=== PATIENT | male | born 1940 | race Caucasian/White ===

== ENCOUNTER 2017-01-24 11:18 | Day surgery (SDC) | payer MEDICARE, BC ==
[~2017-01-24 11:18] MED LIST: Lidocain 1% EPI 1:100,000 * 30 ML MDV ONE
[2017-01-24] MEDS ORDERED: Clindamycin 900 MG IVPREMIX(* 900 MG/50 ML SDV IV ONE (12:21)
[2017-01-24] MEDS ORDERED: Bupivacaine 0.25% SDV* 30 ML ONE (16:28)
[2017-01-24 17:02] VITALS: BP 139/63
--- NOTE | 2017-01-25 08:11 | OP ---
OPERATIVE REPORT: DATE OF OPERATION: 01/24/17 DATE OF : 38 SURGEON: Nicholas Reddy MD ELECTRICAL ASSISTANT: JESSICA Mays ANESTHESIOLOGIST: None. ANESTHESIA: Local only with 1% lidocaine with epinephrine and bicarbonate. PRE-OP DIAGNOSIS: Left middle finger radial sagittal band at least 4-week old rupture, closed rupture. POST-OP DIAGNOSIS: Left middle finger radial sagittal band at least 4-week old rupture, closed rupture. OPERATIVE PROCEDURE: Realignment of left middle finger extensor tendon with radial sagittal band repair using local tissue. INDICATIONS: Chris is a 77-year-old male. He has well controlled Parkinson' s. He was in boxing class little over 4 weeks ago when he fell and ruptured the sagittal band of the left middle finger. Since that time, he has had difficulty extending the finger, and he felt like it wants to go into ulnar deviation at the MP joint. I saw him in the office, and he was having arnaldo dislocation of the extensor tendon. I talked to him about treatment options including the trial of time lock expert extension splinting for 4 weeks versus surgical repair of the sagittal band versus potential reconstructive procedure. He wanted to proceed with surgical intervention. We talked about the expected treatment course, risks and benefits, and he wished to proceed. ESTIMATED BLOOD LOSS: 5 mL. COMPLICATIONS: None. FINDINGS: The extensor tendon of the left middle finger within the subluxated position ulnarly. There was adequate local tissue to perform a repair of the radial sagittal band. DESCRIPTION OF PROCEDURE: Chris was seen in the preoperative holding area. The correct site, side, and procedure were identified. We had a time-out and then I infiltrated the operative area with 1% lidocaine with epinephrine. We then came at the operating room. The arm was prepped and draped in the usual fashion and a formal time-out was performed. I began by making a curvilinear incision over the dorsum of the MP joint. There was a dense amount of scar tissue encountered. I then extended the incision proximally and distally to nontraumatized, nonscarred mash[place] tissue where the extensor tendon was found distally and proximally. I then traced it out through a thick bed of scar tissue, releasing the scar tissue and tenolysing the tendon. Ultimately, the tendon was sitting subluxated ulnarly. I did have to release the ulnar sagittal band in order to fully mobilize the tendon back up to the dorsum of the MP joint to a position that was satisfactory to me. Once I had performed an extensive tenolysis and removed all the scar tissue, I was able to better visualize what tissue I had to work with. I went ahead and excised the attenuated and scarred portion of the healing radial sagittal band back to clean, more normal-appearing organized collagen tissue with transverse oriented fibers. With the extensor tendon back up in the reduced position I brought the radial sagittal band up towards the extensor tendon. There was adequate tissue. So, I took two 3-0 Ethibond sutures in a [id number] fashion, sutured the radial sagittal band to the extensor tendon. I then had Chris gently make a fist. He brought the fingers down into a full fist and then extended the fingers. The finger glided absolutely smoothly. He was able to bring the finger back into full extension without any lag or catching. I had him make several more fists including with him watching. Again, the extensor tendon stayed centralized over the dorsum of the MP joint and he had full flexion and extension without any difficulties. This was in the MP joint and the IP joints. I then secured the repair with 3 more figure-of- eight sutures. Once I felt like the repair was nice and solid and I could not improve upon it, I went ahead and irrigated out the wound. The skin flaps were let back and the skin was closed with 4-0 nylon interrupted sutures. The wound was then dressed with Xeroform, 4x4s, sterile Webril, and a volar splint was placed holding the MP joint in full extension, but allowing for passive motion at the IP joints. Chris was then taken to the recovery room in stable condition. POSTOPERATIVE PLAN: I am going to see Chris back in 1 week and I am going to get him sent over to the therapist or have them make him an Orthoplast splint holding the MP joint in full extension. I am going to have them work on passive and gentle active motion at the IP joints. [id number]/[facility] #: [id number] SILVA
== END 2017-01-24 17:04 | disposition home or self-care (01) ==
LOC: OREAST 11:18
PROVIDERS: ATTEND Orthopaedic Surgery Hand Surgery
DX: S66.303A Unspecified injury of extensor muscle, fascia and tendon of left middle finger at wrist and hand level, initial encounter (principal); W19.XXXA Unspecified fall, initial encounter; Y93.89 Activity, other specified; Y92.9 Unspecified place or not applicable; I10 Essential (primary) hypertension; E78.5 Hyperlipidemia, unspecified; G20 Parkinson's disease; G47.33 Obstructive sleep apnea (adult) (pediatric)

== ENCOUNTER 2017-02-25 12:03 | Emergency (ER) | payer MEDICARE, BC ==
[2017-02-25 12:23] VITALS: BP 123/58
[2017-02-25] MEDS ORDERED: DOXYcycline CAP(*) 100 MG PO ONE (13:37)
--- NOTE | 2017-02-25 13:44 | UC ---
Skin Complaint HPI - HPI Summary HPI Summary: Found tick on L shoulder 2 days ago, thought it had been on for a couple days and was engorged. Is interested in antibiotic prophylaxis. Denies new fever or redness. - History of Current Complaint Chief Complaint: UCSkin Time Seen by Provider: 02/25/17 13:30 Stated Complaint: TICK BITE Hx Obtained From: Patient Onset/Duration: Sudden Onset Skin Exposure Onset/Duration: Days Ago Onset Severity: Mild Current Severity: None Location: Discrete Aggravating: Nothing Alleviating: Nothing Associated Signs & Symptoms: Positive: Negative Related History: Insect Bite/Sting - Allergy/Home Medications Allergies/Adverse Reactions: Allergies Allergy/AdvReac Type Severity Reaction Status Date / Time Penicillin V Allergy Unknown Unknown Verified 02/25/17 12:22 [From Penicillin VK Reaction Potassium] Details Shellfish Allergy Allergy Unknown Unknown Verified 02/25/17 12:22 Reaction Details Sulfa Drugs Allergy Unknown Unknown Verified 02/25/17 12:22 Reaction Details Review of Systems Constitutional: Negative Skin: Other - tick bite Eyes: Negative ENT: Negative Respiratory: Negative Cardiovascular: Negative Gastrointestinal: Negative Genitourinary: Negative Motor: Negative Neurovascular: Negative Musculoskeletal: Negative Neurological: Negative Psychological: Negative All Other Systems Reviewed And Are Negative: Yes PMH/Surg Hx/FS Hx/Imm Hx Previously Healthy: Yes - Surgical History Surgical History: Yes Surgery Procedure, Year, and Place: Appendectomy; Left Knee Arthroscopic Surgery ; Uvulopalatopharyngoplasty 1984' - Family History Known Family History: Positive: Hypertension - Social History Occupation: Retired Alcohol Use: Weekly Substance Use Type: None Smoking Status (MU): Never Smoked Tobacco - Immunization History Most Recent Tetanus Shot: UP TO DATE ( OF 03/09/15) Physical Exam Triage Information Reviewed: Yes Appearance: Well-Appearing, Obese Vital Signs: Initial Vital Signs Temp 98.4 F 02/25/17 12:19 Pulse 81 02/25/17 12:19 Resp 18 02/25/17 12:19 BP 123/58 02/25/17 12:19 Pulse Ox 99 02/25/17 12:19 Vital Signs Reviewed: Yes Eye Exam: Normal Eyes: Positive: Conjunctiva Clear ENT Exam: Normal ENT: Positive: Normal ENT inspection, Hearing grossly normal, Pharynx normal, TMs normal Dental Exam: Normal Neck exam: Normal Neck: Positive: Nontender Respiratory Exam: Normal Respiratory: Positive: Chest non-tender, Lungs clear, Normal breath sounds, No respiratory distress, No accessory muscle use Cardiovascular Exam: Normal Cardiovascular: Positive: RRR, No Murmur Musculoskeletal Exam: Other - pt has parkinson's, at baseline Neurological: Positive: Alert Psychological Exam: Normal Skin Exam: Other - tick bite site benign, no erythema, drainage, or streaking Course/Dx - Diagnoses Provider Diagnoses: tick bite. elevated blood pressure due to discomfort Discharge - Discharge Plan Condition: Stable Disposition: HOME Patient Education Materials: Tick Bite (ED) Referrals: Socrates Monge MD [Primary Care Provider] - Additional Instructions: If you develop any of the following, please see your physician promptly: (1) Fever, chills, or generalized malaise associated with a headache. (2) A red round area at the site of the bite (or elsewhere) (3) Joint pain, joint swelling or generalized weakness. (4) Redness, swelling, or drainage at the site of the bite. Check yourself, your children and your pets for ticks whenever you've been in an area where ticks live. To remove a tick, grasp it firmly with some tweezers or a string in a slipknot as close to its head as possible and pull it steadily. Ticks do not have a typical "head" attached to their body. There are mouth parts sticking out which they use to feed. If there are mouth parts left behind in the wound there is NO increased risk of Lyme infection; however, the chances of a bacterial skin infection (cellulitis) are higher. If mouth parts remain after tick removal, the best thing to do is apply warm soaks to the area 3-4 times per day to encourage the skin to expel the foreign material. DOXYCYCLINE: Doxycycline (Vibramycin, Doryx) is an antibiotic of the tetracycline family. This type of drug is useful for infections of the respiratory tract and genital tract, and is sometimes used for intestinal infections. Unlike most tetracyclines, doxycycline can be taken with food. It is longer acting, and (usually) less prone to side effects than regular tetracycline. Tetracycline antibiotics can stain immature teeth and SHOULD NOT BE TAKEN BY CHILDREN, NURSING MOTHERS, OR WOMEN. Tetracyclines can make you more prone to sunburn. Abdominal cramping, nausea, and diarrhea are occasional side effects. Women may experience vaginal yeast infections. Call the doctor at once if you develop hives, itching, shortness of breath , or lightheadedness. WHEN A TICK IS NOT ENGORGED AND HAS BEEN ON LESS THAN 24 HOURS - THE RISK FOR LYME IS NEGLIGIBLE. YOU CAN REMOVE THE TICK AND OBSERVE THE AREA ON YOUR OWN. FOLLOW-UP CARE: You should contact your private physician for follow-up care if you develop spreading redness near the site of the bite or on any other areas of the body. If you are unable to get a timely appointment, or if you are worsening, call us or return for re-evaluation.
== END 2017-02-25 13:48 | disposition home or self-care (01) ==
LOC: UCEAST 12:03
DX: S40.262A Insect bite (nonvenomous) of left shoulder, initial encounter (principal); W57.XXXA Bitten or stung by nonvenomous insect and other nonvenomous arthropods, initial encounter; Y93.9 Activity, unspecified; Y92.9 Unspecified place or not applicable; R03.0 Elevated blood-pressure reading, without diagnosis of hypertension; E66.9 Obesity, unspecified; Z88.2 Allergy status to sulfonamides; Z88.0 Allergy status to penicillin; Z91.013 Allergy to seafood
CPT/HCPCS: 99212; A9270-GY; G0463

== ENCOUNTER 2018-06-11 12:03 | Day surgery (SDC) | payer MEDICARE, BC ==
[~2018-06-11 12:03] MED LIST changes: +Acetaminophen TAB* 325 MG PO PRN; +Buffered Lidocaine 0.9% SYRIN* 5 ML/SYR SYRINGE INTRADERM ONE; +Cyclopentolate 1% OPTH.SOL* 2 ML BTL ONE; +Ketorolac 0.5% OPHTH (NF) 0.5 % 5 ML BTL ONE; -Lidocain 1% EPI 1:100,000 * 30 ML MDV ONE; +Lidocaine 1%* 5 ML VIAL ONE; +Lidocaine 2% EPI 1:200000 MPF*10-20 ML VIAL ONE; +Neomycin/Polymy/Dex OPTH.SUSP* MAXITROL 0.1% 5 ML ONE; +Phenylephrine 2.5% OPTH.SOL* 2 ML BTL ONE; +Povidone Iodine 5% OPTH* 30 ML BTL ONE; +Proparacaine 0.5% OPHTH.SOL* 15 ML BTL ONE; +acetaZOLAMIDE TAB* 250 MG ONE
[2018-06-11] MEDS ORDERED: Midazolam* 1 MG/ML 5 ML VIAL (5 MG) ONE (14:44)
[2018-06-11] MEDS ORDERED: fentaNYL* 50 MCG/ML 2 ML VIAL (100 MCG VIAL) ONE (14:47)
[2018-06-11 15:29] VITALS: BP 135/69
--- NOTE | 2018-06-12 12:40 | OP ---
DATE OF OPERATION: 06/11/18 - [facility] DATE OF : 38 SURGEON: Chris Charles MD PREOPERATIVE DIAGNOSIS: Cataract, right eye. POSTOPERATIVE DIAGNOSIS: Cataract, right eye. OPERATIVE PROCEDURE: Extracapsular cataract extraction with intraocular lens implant, right eye. DESCRIPTION OF PROCEDURE: The patient was brought to the operating room after being given 1/2% Alcaine with epinephrine drops in the preoperative area. The eye was prepped and draped in the usual sterile fashion. Sterile drape and eyelid speculum were placed. Again, topical 1/2% Alcaine with epinephrine was given. A paracentesis incision was made at the 9 o'clock position with the No.75 blade. Clear cornea incision 2.2 x 2.2-mm was created at the 12 o'clock position starting at the anterior limbus using the 2.2-mm keratome. The anterior chamber was irrigated with 0.4 mL of 1% non-preservative intracameral lidocaine and filled with DisCoVisc. A capsulorrhexis was completed using the cystotome and the Utrata forceps. Hydrodissection was performed with balanced salt solution. The lens nucleus was removed with the Phacoemulsification handpiece without incident. Cortex was removed with the irrigation-aspiration handpiece. The capsular bag was re-inflated using DisCoVisc and an SN60WF 18.5 implant was inserted with the shooter. The irrigation-aspiration handpiece was used to remove all residual DisCoVisc. The eye was refilled with balanced salt solution and the wound checked and found to be watertight. Topical Maxitrol drops were given. [id number]/[facility] #: [id number] [facility]
== END 2018-06-11 15:28 | disposition home or self-care (01) ==
LOC: OREAST 12:03
PROVIDERS: ATTEND Specialist
DX: H25.811 Combined forms of age-related cataract, right eye (principal); H35.371 Puckering of macula, right eye; I10 Essential (primary) hypertension; Z85.46 Personal history of malignant neoplasm of prostate; E78.00 Pure hypercholesterolemia, unspecified; Z88.0 Allergy status to penicillin; G47.33 Obstructive sleep apnea (adult) (pediatric); G20 Parkinson's disease
CPT/HCPCS: A9270-GY; J2250; J3010; V2632

== ENCOUNTER 2018-06-18 09:52 | Day surgery (SDC) | payer MEDICARE, BC ==
[~2018-06-18 09:52] MED LIST changes: -Acetaminophen TAB* 325 MG PO PRN; -Cyclopentolate 1% OPTH.SOL* 2 ML BTL ONE; -Ketorolac 0.5% OPHTH (NF) 0.5 % 5 ML BTL ONE; -Lidocaine 1%* 5 ML VIAL ONE; -Lidocaine 2% EPI 1:200000 MPF*10-20 ML VIAL ONE; -Neomycin/Polymy/Dex OPTH.SUSP* MAXITROL 0.1% 5 ML ONE; -Phenylephrine 2.5% OPTH.SOL* 2 ML BTL ONE; -Povidone Iodine 5% OPTH* 30 ML BTL ONE; -Proparacaine 0.5% OPHTH.SOL* 15 ML BTL ONE; -acetaZOLAMIDE TAB* 250 MG ONE
[2018-06-18] MEDS ORDERED: Propofol* 10 MG/ML 20 ML BTL IV PUSH ONE (12:23)
[2018-06-18 12:53] VITALS: BP 118/64
[2018-06-18] MEDS ORDERED: acetaZOLAMIDE TAB* 250 MG ONE (15:42)
[2018-06-18] MEDS ORDERED: Povidone Iodine 5% OPTH* 30 ML BTL ONE (15:42)
[2018-06-18] MEDS ORDERED: Ketorolac 0.5% OPHTH (NF) 0.5 % 5 ML BTL ONE (15:42)
[2018-06-18] MEDS ORDERED: Lidocaine 1%* 5 ML VIAL ONE (15:42)
[2018-06-18] MEDS ORDERED: Phenylephrine 2.5% OPTH.SOL* 2 ML BTL ONE (15:42)
[2018-06-18] MEDS ORDERED: Cyclopentolate 1% OPTH.SOL* 2 ML BTL ONE (15:42)
[2018-06-18] MEDS ORDERED: Proparacaine 0.5% OPHTH.SOL* 15 ML BTL ONE (15:42)
[2018-06-18] MEDS ORDERED: Lidocaine 2% EPI 1:200000 MPF*10-20 ML VIAL ONE (15:42)
[2018-06-18] MEDS ORDERED: Neomycin/Polymy/Dex OPTH.SUSP* MAXITROL 0.1% 5 ML ONE (15:42)
--- NOTE | 2018-06-19 03:00 | OP ---
DATE OF OPERATION: 06/18/18 [facility] DATE OF : 38 SURGEON: Chris Charles M.D. PREOPERATIVE DIAGNOSIS: Cataract, left. POSTOPERATIVE DIAGNOSIS: Cataract, left. OPERATIVE PROCEDURE: Extracapsular cataract extraction with intraocular lens implant, left eye. DESCRIPTION OF PROCEDURE: The patient was brought to the operating room after being given 1/2% Alcaine with epinephrine drops in the preoperative area. The eye was prepped and draped in the usual sterile fashion. Sterile drape and eyelid speculum were placed. Again, topical 1/2% Alcaine with epinephrine was given. A paracentesis incision was made at the 3 o'clock position with the No.75 blade. Clear cornea incision 2.2 x 2.2-mm was created at the 6 o'clock position starting at the anterior limbus using the 2.2-mm keratome. The anterior chamber was irrigated with 0.4 mL of 1% non-preservative intracameral lidocaine and filled with DisCoVisc. A capsulorrhexis was completed using the cystotome and the Utrata forceps. Hydrodissection was performed with balanced salt solution. The lens nucleus was removed with the Phacoemulsification handpiece without incident. Cortex was removed with the irrigation-aspiration handpiece. The capsular bag was re-inflated using DisCoVisc and an SN60WF 17.5 implant was inserted with the shooter. The irrigation-aspiration handpiece was used to remove all residual DisCoVisc. The eye was refilled with balanced salt solution and the wound checked and found to be watertight. Topical Maxitrol drops were given. [id number]/[facility] #: [id number] [facility]
== END 2018-06-18 12:58 | disposition home or self-care (01) ==
LOC: OREAST 09:52
PROVIDERS: ATTEND Specialist
DX: H25.812 Combined forms of age-related cataract, left eye (principal); H35.371 Puckering of macula, right eye; Z85.46 Personal history of malignant neoplasm of prostate; K21.9 Gastro-esophageal reflux disease without esophagitis; R73.02 Impaired glucose tolerance (oral); G47.33 Obstructive sleep apnea (adult) (pediatric); G20 Parkinson's disease; E78.2 Mixed hyperlipidemia
CPT/HCPCS: A9270-GY; J2704; V2632

== ENCOUNTER 2018-12-30 08:20 | Inpatient (IN) | payer MEDICARE, BC ==
--- NOTE | 2018-12-17 15:34 | HP ---
HISTORY AND PHYSICAL: DATE OF ADMISSION/SURGERY: 12/30/18 DATE OF OFFICE VISIT: 12/17/18 SURGEON: Kerri Swartz MD * (DICTATED BY JESSICA ESCALANTE) PROCEDURE: Right total knee arthroplasty. CHIEF COMPLAINT: Right knee pain. HISTORY OF PRESENT ILLNESS: Mr. Daley is a 78-year-old gentleman with end- stage osteoarthritis of the right knee. He has failed conservative treatment and elected to proceed with a right total knee arthroplasty. PAST MEDICAL HISTORY: Parkinson's disease, prostate cancer, high cholesterol, hypertension, sleep apnea, GERD, and history of Guillain-Upsala syndrome. PAST SURGICAL HISTORY: Appendectomy, hernia repair, left knee arthroscopy, cataract removal, and tonsillectomy. CURRENT MEDICATIONS: 1. Furosemide 20 mg 2 tabs in the morning. 2. Carbidopa/levodopa 25/100 mg 1 in the morning, 1 at noon, and half a tab at night. 3. Selegiline 5 mg 1 in the morning and 1 at noon. 4. Atorvastatin calcium 10 mg q.h.s. 5. Omeprazole 20 mg a day. 6. Ramipril 2.5 mg daily. 7. Fluticasone nasal spray as needed. 8. Vitamin B6. 9. Vitamin B12. 10. Folic acid. 11. [place]. 12. Calcium with vitamin D. 13. Magnesium. 14. Vitamin D. 15. Mucinex as needed. ALLERGIES: To PENICILLIN and SULFA. FAMILY HISTORY: Coronary artery disease. SOCIAL HISTORY: He is a 78-year-old gentleman, lives alone. He does not smoke or use drugs. He uses occasional alcohol. REVIEW OF SYSTEMS: A complete 14-point review of systems was reviewed with the patient, was all negative or noncontributory. He denies a history of DVT, PE, hepatitis, HIV, or anesthesia problems. PHYSICAL EXAMINATION GENERAL: He is well developed, well nourished, in no acute distress. VITAL SIGNS: He stands 5 feet 8 inches tall, weighs 244 pounds. His blood pressure is 128/62, his heart rate is 100. HEENT: Normocephalic, atraumatic. NECK: Supple. No palpable lymph nodes. PULMONARY: The lungs are clear to auscultation bilaterally. CARDIO: Regular rate and rhythm. Strong S1, S2. ABDOMEN: Soft, nontender, nondistended. NEUROLOGICAL: He is alert and oriented x3. MUSCULOSKELETAL: Right lower extremity: The skin is intact. There are no open wounds or abrasions. There is a moderate effusion of the right knee. Range of motion is 10 to 120 degrees of flexion. He has a 2+ dorsalis pedis pulse, intact sensation. His lower extremity muscle group strengths are intact at 5/5. ASSESSMENT AND PLAN: Mr. Daley is a 78-year-old gentleman with end-stage osteoarthritis of the right knee. He has failed conservative treatment and elected to proceed with a right total knee arthroplasty. The surgery is scheduled for 12/30/[address] Swartz has discussed the risks and benefits of the surgery at today's visit and all of his questions were answered. He will follow up with Dr. Swartz 2 weeks after the surgery. JESSICA ESCALANTE [id number]/[facility] #: [id number] SILVA
[~2018-12-30 08:20] MED LIST changes: -Buffered Lidocaine 0.9% SYRIN* 5 ML/SYR SYRINGE INTRADERM ONE; +Buffered Lidocaine 1% SYRIN* 1 ML/SYRINGE INTRADERM ONE; +Dexamethasone IV* 4 MG/ML 1 ML (4 MG) IV SLOW PU ONE; +Famotidine IV* 10 MG/ML 2 ML (20 mg) IV ONE; +Gabapentin CAP(*) 300 MG PO ONE; +Lactated Ringers 1000 ML Bag* 1,000 ML IV SCH; +Tranexamic Acid 1,000 MG in NS 0.9% 50 ML* (outpatient use) IV SCH; +celeCOXIB CAP* 200 MG PO ONE
--- OUTSIDE RECORDS SUMMARY | 2018-12-30 08:24 | XMS REPORT | Continuity of Care Document ---
:1940 External Reference #:[id number] Author Name JESSICA Pelaez Address [address], [place] [address] Care Team Providers Name Role Phone Lita Nur MD Primary Care Physician Unavailable Payers Date Identification Numbers Payment Provider Subscriber Effective: 2004 Policy Number: [id number] Medicare Ina Bettencourt PayID: [id number] [address] [place] [address] Effective: 2012 Policy Number: [id number] [employer]ets Ina Bettencourt PayID: [id number] [address] [address] [place] [address] Expires: 2012 Policy Number: [id number] BS Of [employer] Ina Bettencourt PayID: [id number] [address] [address] [place] [address] Advance Directives Type Date Description Status Comment Other Directive 04/01/2017 Health Care Proxy Current and Verified Problems Date Description Provider Status Onset: 04/20/2013 Parkinson's disease Dominic Hinds M.D.,FACP Onset: 06/07/2011 Malignant tumor of prostate Dominic Hinds M.D.,FACP Onset: 12/12/2007 Benign essential hypertension Dominic Hinds M.D.,FACP Onset: 12/12/2007 Mixed hyperlipidemia Dominic Hinds M.D.,FACP Onset: 01/27/2009 Morbid obesity Dominic Hinds M.D.,FACP Onset: 04/17/2012 Osteochondropathy Dominic Hinds M.D.,FACP Onset: 04/20/2013 Obstructive sleep apnea syndrome Dominic Hinds M.D.,TIMMY Note: on CPAP Onset: 04/20/2013 Impaired fasting glycaemia Dominic Hinds M.D.,FACP Onset: 04/22/2015 Gastroesophageal reflux disease Dominic Hinds M.D.,FACP Onset: 06/22/2015 Vitamin D deficiency Dominic Hinds M.D.,FACP Onset: 01/22/2017 Unspecified injury of extensor Nicholas Reddy MD Active muscle, fascia and tendon of left middle finger at wrist and hand level, initial encounter Onset: 08/25/2018 Urge incontinence of urine Dominic Hinds M.D.,FACP Onset: 12/12/2007 Obesity Socrates Monge Inactive Amira,FACP Inactive: 11/15/2011 Family History Date Family Member(s) Observation Comments General Heart Disease General Stroke General Cancer Father due to Heart () - in 60s Disease Mother Cancer kidney : (age 99 Mother due to Unknown PMR, GI bleed Years) Causes Mother Seizure Disorder Mother giant cell arteritis Siblings 2 First Brother benign pancreatic mass Social History Type Date Description Comments Sex Unknown Marital Status x2 Lives With Alone 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 Hand Dominance Right-handed Tobacco Use Start: Unknown Never Smoked Cigarettes ETOH Use 05/29/2018 Drinks Alcoholic Beverages Occasionally Recreational Drug Use Denies Drug Use Tobacco Use Start: Unknown Patient has never smoked Smoking Status Reviewed: 12/17/18 Patient has never smoked Exercise Type/Frequency Exercises regularly Exercise Type/Frequency Boxing class 2x per week Exercise Type/Frequency Theracycle 5x per week Allergies, Adverse Reactions, Alerts Date Description Reaction Status Severity Comments 12/12/2007 Penicillin Active 12/12/2007 Sulfa Active Medications Medication Date Status Form Strength Qnty SIG Indications Ordering Provider Shingrix 08/25 Active Suspension 50mcg/0.5 2unit 0.5 Rec ML s milliliters Mir Monge intramuscular Amira,FACP now and 2-3 months later repeat Voltaren 03/12 Active Gel 1% 100gm apply 4 grams M25.561 Zsofia to right knee Jeffrey, two times a NUTRITIONALIST day as needed Furosemide 08/06 Active Tablets 20mg 45tab 1 Tab Daily - s Take 2ND Tab MD Boom If Weight Over 252 LB Carbidopa-Levo 06/23 Active Tablets 25-100mg 225ta one tablet in bs the morning, Mejía, one at noon, N.P. half tab at night. Selegiline HCL 08/18 Active Tablets 5mg 180ta take one bs tablet by gregory Mejía in the N.P. morning and at noon Atorvastatin 02/04 Active Tablets 10mg 90tab take 1 tablet s by mouth at MD Boom bedtime Omeprazole 12/[address] 20mg 90cap 1 by mouth Socrates s every day as Mir Monge, nad[facility] Ramipril 11/05 Active Capsules 2.5mg 90cap take one I10 s capsule by MD Boom mouth once daily Fluticasone 04/04 Active Suspension 50mcg/Act 48uni use one ts spray(s) in MD Boom each nostril once daily as needed Vitamin B-6 Active Tablets 100mg 1 per day Unknown Vitamin B-12 Active Tablets Sub 1000mcg 1 by mouth Unknown once daily Folic Acid Active Tablets 400mcg 1n po qd Unknown Libia Active Tablets 180mg 30tab 1 po qd Unknown Allergy / s Calcium + D3 Active Tablets 600-200mg 1 po bid -Unit Magnesium Active Capsules 500mg 1 po qd Unknown Vitamin D Active Tablets 1000Unit 120ta 2 qd Socrates / bs fall/winter Mir Monge, and 1 qd by AmiraFACP mouth spring/summer Mucinex Active Tablets ER 600mg twice a day Unknown 12HR as needed Vitamin D 04/22 Hx Tablets 1000Unit once a day 733.90 Socrates (Cholecalcifer /2014 Mir Monge, dorene) Kanwal Collier,[facility] 02/26 Carbidopa/Levo 08/18 Hx Tablets 25-100mg 90tab / po qAM 1 Bri Dia s po q noon,09/17 Tod, - po q pm Alexandra.DFermin 06/23 Lipitor 03/05 Hx Tablets 10mg 100ta 1 po qhs Bri M. bs Kanwal Baron M.D. 03/09 Vitamin D 09/18 Hx Capsules 400Unit 60cap 1 po qd 733.90 Socrates Kanwal Santiago M.D.,[facility] 04/22 Alendronate 09/18 Hx Tablets 70mg 12tab Take One M89.9 Sodium s Tablet By Mir Monge, - Mouth Once A M.DFermin,[facility] Calcium 500 +D 11/14 Hx Tablets 500-400mg 60tab 1 po bid -Unit s Kanwal Ronquillo M.D.,[facility] 11/17 Atorvastatin 09/18 Hx Tablets 10mg 90tab Take 1 Tablet Socrates Calcium s By Mouth AT Mir Monge, - Bedtime Alexandra.Mir,[facility] 09/18 Simvastatin 06/20 Hx Tablets 10mg 90tab 1 po qhs Kanwal Santiago M.D.,[facility] 09/18 Omeprazole 04/[address] 20mg 30cap 1 po qd 786.2 Socrates Kanwal Santiago M.D.,[facility] 09/18 Altace 01/16 Hx Tablets 2.5mg 90tab 1 tablet po 401.1 Socrates s qdKanwal García M.D.,[facility] 11/05 no child proof Aspirin 04/[address] 81mg 50tab 1 po qd Socrates Kanwal Santiago M.D.,[facility] 12/16 Diovan 04/07 Hx Tablets 80mg 28tab 1 po qd 401.1 Socrates Kanwal Rodriguez M.D.,[facility] 01/16 Ciprofloxacin 02/08 Hx Tablets 250mg 20tab 1 tablet po. 788.41 Stevanovi s bid c, - Radomir, 08/02 Amira /2008 Levaquin 07/13 Hx Tablets 500mg 14tab 1 PO qd X 461.8 s 14days Kanwal Ronquillo M.D.,[facility] 01/27 Simvastatin 12/11 Hx Tablets 20mg 90tab 1 tablet po s qd Kanwal Ronquillo M.D.,[facility] 04/02 Asa Hx 81mg 1 PO qd Kanwal Ronquillo M.D.,[facility] 04/07 Flonase Hx Suspension 50mcg/Act 3mont 1 Intranasal hsupp puff To Each Mir Monge, - ly Nostril Daily Amira,[facility] 04/04 Libia Hx Tablets 60mg 180ta 1 po bid prn Socrates / bs Kanwal Ronquillo M.D.,[facility] 11/14 Altace Hx Tablets 2.5mg 90tab 1 tablet po 401.1 Socrates / s qday Kanwal Ronquillo M.D.,[facility] 04/07 no child proof Libia Hx Tablets 100mg 1 tab prn po Unknown Allergy /0000 - 04/20 Lupron Depot Hx Kit 30mg Im q4mon Unknown /0000 Final shot in - February 21 Magnesium Hx Tablets 250mg 1 po qd Unknown /0000 - 11/17 Ocuvite Hx Tablets 1 po qd Unknown Preservision /0000 - 04/22 Mucinex DM Hx Tablets ER 60-1200mg 60tab 1 po daily Unknown Maximum /0000 12HR s Strength - 03/07 Eye Drops Hx Solution 0.05-0.25 both eyes Unknown Relief /0000 % every day for - pressure 03/16 Furosemide Hx Tablets 20mg 45tab take 2 tablet Socrates / s every morning Mir Monge, - for 1 week, Amira,FACP 12/26 then daily. take 2nd pill if weight >252 Ocuvite Adult Hx Capsules 1 a day Unknown 50+ /0000 - 08/25 Meningococcal Active Injection Unknown B,Unspecified /0000 Immunizations CPT Code Status Date Vaccine Reaction Lot # [id number] Given 05/29/2018 Influenza Virus Vaccine, [id number] Quadrivalent, Split, Preservative Free 25614 Given 07/16/2017 Influenza Virus Vaccine, [id number] Quadrivalent, Split, Preservative Free 08969 Given 06/26/2016 Influ Virus Vaccine, Quadrivalent, [id number] Split Virus, [place] [address] Given 06/27/2015 Influenza Virus 3Yrs & Over 66721 Given 06/22/2015 Influenza Virus Vaccine, [id number] Quadrivalent, Split, Preservative Free 08881 Given 04/22/2015 Pneumococcal Conjugate Vaccine 13 [id number] Valent For Intramuscular Use 05211 Given 08/09/2014 Flu Vaccine Split Virus [id number] Preservative Free For Indiv 3Yr Older 77556 Given 04/21/2014 Tdap - Tetanus/Diptheria/Acellular [id number] Pertussis 66650 Given 06/29/2013 Flu Vaccine Split Virus [id number] Preservative Free For Indiv 3Yr Older Q2038 Given 05/29/2012 Fluzone Vaccine [id number] Q2038 Given 05/29/2012 Fluzone Vaccine [id number] Given 06/06/2011 Fluzone Vaccine [id number] 44891 Given 07/01/2010 Influenza Virus 3Yrs & Over 27577 Given 06/25/2008 Influenza Virus 3Yrs & Over 42932 Given 06/25/2008 Influenza Virus 3Yrs & Over [id number] 09723 Given 12/30/2007 Zoster (Zostavax) 26859 Given 12/30/2007 Zoster (Zostavax) 60137 Given 12/30/2007 Zoster (Zostavax) unknow site [id number] 79688 Given 07/23/2007 Influenza Virus 3Yrs & Over 50482 Given 05/09/2005 Pneumonia Vaccine 46138 Given 10/29/2003 Td Toxoids Adsorbed For Use 7Yrs Or Older For Intramuscular Use Vital Signs Date Vital Result Comment 12/17/2018 10:54am Height 68.75 inches 5'8.75" Weight 244.00 lb Heart Rate 100 /min BP Systolic 128 mmHg BP Diastolic 62 mmHg BMI (Body Mass Index) 36.3 kg/m2 12/16/2018 11:35am Height 68.75 inches 5'8.75" Weight 242.00 lb Heart Rate 86 /min BP Systolic 92 mmHg BP Diastolic 61 mmHg Body Temperature 97.1 F O2 % BldC Oximetry 95 % BMI (Body Mass Index) 36.0 kg/m2 11/19/2018 10:34am Height 68.75 inches 5'8.75" Weight 237.00 lb Heart Rate 96 /min BP Systolic 130 mmHg BP Diastolic 70 mmHg BMI (Body Mass Index) 35.2 kg/m2 11/10/2018 2:34pm Height 69.25 inches 5'9.25" Weight 252.25 lb Heart Rate 85 /min BP Systolic 138 mmHg BP Diastolic 72 mmHg Body Temperature 98.0 F O2 % BldC Oximetry 97 % BMI (Body Mass Index) 37.0 kg/m2 09/25/2018 9:53am Height 69.25 inches 5'9.25" Weight 241.12 lb Heart Rate 80 /min BP Systolic Sitting 108 mmHg Lue large cuff BP Diastolic Sitting 62 mmHg Lue large cuff Respiratory Rate 18 /min O2 % BldC Oximetry 94 % On Ra BMI (Body Mass Index) 35.3 kg/m2 08/26/2018 10:14am Height 69.25 inches 5'9.25" Weight 240.00 lb Heart Rate 84 /min BP Systolic 122 mmHg BP Diastolic 66 mmHg Respiratory Rate 16 /min BMI (Body Mass Index) 35.2 kg/m2 08/25/2018 11:05am Height 69.25 inches 5'9.25" Weight 244.00 lb Heart Rate 90 /min BP Systolic Sitting 132 mmHg BP Diastolic Sitting 60 mmHg Body Temperature 96.8 F O2 % BldC Oximetry 96 % BMI (Body Mass Index) 35.8 kg/m2 05/29/2018 9:31am Height 69.25 inches 5'9.25" Weight 246.00 lb Heart Rate 83 /min BP Systolic Sitting 120 mmHg BP Diastolic Sitting 70 mmHg Body Temperature 98.2 F O2 % BldC Oximetry 96 % BMI (Body Mass Index) 36.1 kg/m2 03/12/2018 11:32am Height 69.25 inches 5'9.25" Weight 249.12 lb Heart Rate 78 /min BP Systolic Sitting 126 mmHg BP Diastolic Sitting 64 mmHg Body Temperature 97.9 F O2 % BldC Oximetry 94 % BMI (Body Mass Index) 36.5 kg/m2 02/27/2018 10:29am Height 69.25 inches 5'9.25" Weight 248.12 lb Heart Rate 88 /min BP Systolic Sitting 122 mmHg BP Diastolic Sitting 68 mmHg Respiratory Rate 16 /min BMI (Body Mass Index) 36.4 kg/m2 10/08/2017 11:08am Height 69.25 inches 5'9.25" Weight 250.25 lb with shoes Heart Rate 86 /min BP Systolic Sitting 118 mmHg Lue large cuff BP Diastolic Sitting 60 mmHg Lue large cuff Respiratory Rate 16 /min O2 % BldC Oximetry 97 % On Ra BMI (Body Mass Index) 36.7 kg/m2 08/06/2017 12:59pm Height 69.25 inches 5'9.25" Weight 246.00 lb Heart Rate 90 /min BP Systolic Sitting 144 mmHg BP Diastolic Sitting 70 mmHg Body Temperature 96.9 F O2 % BldC Oximetry 97 % BMI (Body Mass Index) 36.1 kg/m2 07/25/2017 8:22am Height 70 inches 5'10" Weight 240.00 lb Heart Rate 79 /min BP Systolic Sitting 120 mmHg BP Diastolic Sitting 62 mmHg Respiratory Rate 18 /min BMI (Body Mass Index) 34.4 kg/m2 07/16/2017 3:24pm Height 70 inches 5'10" Weight 245.00 lb Heart Rate 72 /min Respiratory Rate 16 /min Body Temperature 98.0 F Pain Level 0 BMI (Body Mass Index) 35.1 kg/m2 04/16/2017 2:06pm Height 70 inches 5'10" Weight 244.00 lb BP Systolic 120 mmHg BP Diastolic 82 mmHg Body Temperature 97.5 F Pain Level 0 BMI (Body Mass Index) 35.0 kg/m2 04/03/2017 10:04am Height 70 inches 5'10" Weight 244.00 lb Heart Rate 76 /min BP Systolic Sitting 128 mmHg BP Diastolic Sitting 74 mmHg Respiratory Rate 14 /min O2 % BldC Oximetry 97 % BMI (Body Mass Index) 35.0 kg/m2 03/05/2017 2:54pm Height 70 inches 5'10" Weight 240.00 lb Heart Rate 75 /min BP Systolic 126 mmHg BP Diastolic 64 mmHg Body Temperature 96.3 F BMI (Body Mass Index) 34.4 kg/m2 02/08/2017 3:03pm Height 70 inches 5'10" Weight 240.00 lb Heart Rate 79 /min BP Systolic 124 mmHg BP Diastolic 69 mmHg Body Temperature 97.6 F BMI (Body Mass Index) 34.4 kg/m2 02/01/2017 11:26am Height 70 inches 5'10" Weight 240.00 lb Respiratory Rate 16 /min Body Temperature 97.7 F Pain Level 3 BMI (Body Mass Index) 34.4 kg/m2 01/22/2017 3:46pm Height 70 inches 5'10" Weight 240.00 lb Heart Rate 95 /min BP Systolic 126 mmHg BP Diastolic 69 mmHg Body Temperature 97.0 F BMI (Body Mass Index) 34.4 kg/m2 01/08/2017 3:38pm Weight 246.00 lb Heart Rate 74 /min BP Systolic Sitting 136 mmHg BP Diastolic Sitting 78 mmHg Body Temperature 98.0 F O2 % BldC Oximetry 99 % 12/31/2016 11:09am Height 70 inches 5'10" Weight 240.00 lb Heart Rate 78 /min BP Systolic Sitting 126 mmHg BP Diastolic Sitting 78 mmHg Respiratory Rate 16 /min O2 % BldC Oximetry 96 % BMI (Body Mass Index) 34.4 kg/m2 12/27/2016 11:36am Height 68.75 inches 5'8.75" Weight 250.00 lb Heart Rate 88 /min BP Systolic Sitting 124 mmHg BP Diastolic Sitting 80 mmHg Respiratory Rate 14 /min BMI (Body Mass Index) 37.2 kg/m2 10/02/2016 10:37am Height 68.75 inches 5'8.75" Weight 254.00 lb Heart Rate 84 /min BP Systolic 132 mmHg BP Diastolic 70 mmHg Respiratory Rate 16 /min O2 % BldC Oximetry 96 % BMI (Body Mass Index) 37.8 kg/m2 09/25/2016 11:14am Height 68.75 inches 5'8.75" Weight 254.00 lb Heart Rate 102 /min BP Systolic Sitting 136 mmHg BP Diastolic Sitting 62 mmHg Body Temperature 97.5 F O2 % BldC Oximetry 98 % BMI (Body Mass Index) 37.8 kg/m2 07/31/2016 2:46pm Height 68.75 inches 5'8.75" Weight 249.00 lb Heart Rate 97 /min BP Systolic Sitting 138 mmHg BP Diastolic Sitting 66 mmHg O2 % BldC Oximetry 98 % BMI (Body Mass Index) 37.0 kg/m2 07/24/2016 10:53am Height 70 inches 5'10" Weight 247.00 lb Heart Rate 96 /min BP Systolic Sitting 116 mmHg BP Diastolic Sitting 64 mmHg Respiratory Rate 14 /min BMI (Body Mass Index) 35.4 kg/m2 06/26/2016 11:20am Height 70 inches 5'10" Weight 250.00 lb reported Heart Rate 88 /min BP Systolic 122 mmHg BP Diastolic 60 mmHg Respiratory Rate 14 /min O2 % BldC Oximetry 97 % BMI (Body Mass Index) 35.9 kg/m2 04/24/2016 4:00pm Weight 259.00 lb Heart Rate 90 /min BP Systolic Sitting 141 mmHg BP Diastolic Sitting 73 mmHg O2 % BldC Oximetry 97 % 03/23/2016 11:14am Height 68 inches 5'8" Weight 250.00 lb Heart Rate 91 /min BP Systolic Sitting 132 mmHg BP Diastolic Sitting 70 mmHg Respiratory Rate 18 /min O2 % BldC Oximetry 97 % BMI (Body Mass Index) 38.0 kg/m2 03/08/2016 1:49pm Height 68 inches 5'8" Weight 252.00 lb Heart Rate 84 /min BP Systolic Sitting 128 mmHg BP Diastolic Sitting 64 mmHg Respiratory Rate 14 /min BMI (Body Mass Index) 38.3 kg/m2 12/23/2015 11:14am Height 68 inches 5'8" Weight 250.00 lb Heart Rate 89 /min BP Systolic 118 mmHg BP Diastolic 70 mmHg Respiratory Rate 14 /min O2 % BldC Oximetry 98 % BMI (Body Mass Index) 38.0 kg/m2 11/11/2015 11:24am Height 68 inches 5'8" Weight 250.00 lb Heart Rate 96 /min BP Systolic Sitting 134 mmHg BP Diastolic Sitting 72 mmHg Respiratory Rate 18 /min O2 % BldC Oximetry 97 % BMI (Body Mass Index) 38.0 kg/m2 10/27/2015 9:28am Height 68 inches 5'8" Weight 245.00 lb Heart Rate 84 /min BP Systolic Sitting 124 mmHg BP Diastolic Sitting 68 mmHg Respiratory Rate 14 /min BMI (Body Mass Index) 37.2 kg/m2 09/27/2015 10:43am Height 68 inches 5'8" Weight 259.12 lb Heart Rate 90 /min BP Systolic 124 mmHg BP Diastolic 80 mmHg Respiratory Rate 14 /min O2 % BldC Oximetry 98 % BMI (Body Mass Index) 39.4 kg/m2 08/17/2015 10:49am Height 68.5 inches 5'8.50" Weight 255.25 lb Heart Rate 96 /min BP Systolic 130 mmHg BP Diastolic 70 mmHg Respiratory Rate 16 /min O2 % BldC Oximetry 98 % BMI (Body Mass Index) 38.2 kg/m2 06/22/2015 2:23pm Height 68.5 inches 5'8.50" Weight 255.25 lb Heart Rate 98 /min BP Systolic Sitting 138 mmHg BP Diastolic Sitting 68 mmHg Body Temperature 97.7 F O2 % BldC Oximetry 98 % BMI (Body Mass Index) 38.2 kg/m2 05/18/2015 11:14am Height 68.5 inches 5'8.50" Weight 252.50 lb Heart Rate 100 /min BP Systolic 138 mmHg BP Diastolic 78 mmHg Respiratory Rate 16 /min Body Temperature 98.7 F O2 % BldC Oximetry 98 % BMI (Body Mass Index) 37.8 kg/m2 04/22/2015 9:57am Height 68.5 inches 5'8.50" Weight 246.12 lb Heart Rate 90 /min BP Systolic Sitting 136 mmHg BP Diastolic Sitting 72 mmHg Body Temperature 97.9 F O2 % BldC Oximetry 98 % BMI (Body Mass Index) 36.9 kg/m2 04/21/2015 11:06am Height 69 inches 5'9" Heart Rate 76 /min BP Systolic Sitting 120 mmHg BP Diastolic Sitting 62 mmHg Respiratory Rate 16 /min 03/16/2015 9:44am Height 69 inches 5'9" Weight 254.00 lb Heart Rate 88 /min BP Systolic Sitting 120 mmHg BP Diastolic Sitting 68 mmHg Body Temperature 98.1 F O2 % BldC Oximetry 96 % BMI (Body Mass Index) 37.5 kg/m2 12/14/2014 11:56am Height 69 inches 5'9" Heart Rate 88 /min BP Systolic Sitting 110 mmHg BP Diastolic Sitting 60 mmHg Respiratory Rate 16 /min 07/29/2014 11:48am Height 69 inches 5'9" Weight 246.00 lb Heart Rate 84 /min BP Systolic Sitting 112 mmHg BP Diastolic Sitting 78 mmHg Respiratory Rate 16 /min BMI (Body Mass Index) 36.3 kg/m2 04/21/2014 1:52pm Height 69 inches 5'9" Weight 249.50 lb Heart Rate 96 /min BP Systolic Sitting 110 mmHg BP Diastolic Sitting 52 mmHg Body Temperature 98.3 F BMI (Body Mass Index) 36.8 kg/m2 04/08/2014 11:38am Height 69.5 inches 5'9.50" Weight 246.00 lb Heart Rate 88 /min BP Systolic Sitting 110 mmHg BP Diastolic Sitting 60 mmHg Respiratory Rate 16 /min BMI (Body Mass Index) 35.8 kg/m2 11/17/2013 11:47am Heart Rate 80 /min BP Systolic Sitting 118 mmHg BP Diastolic Sitting 70 mmHg Respiratory Rate 16 /min 08/18/2013 10:04am Heart Rate 80 /min BP Systolic Sitting 120 mmHg BP Diastolic Sitting 68 mmHg Respiratory Rate 18 /min 04/20/2013 2:25pm Height 69.5 inches 5'9.50" Weight 248.00 lb Heart Rate 84 /min irregular BP Systolic Sitting 140 mmHg BP Diastolic Sitting 66 mmHg BMI (Body Mass Index) 36.1 kg/m2 03/09/2013 1:02pm Height 69 inches 5'9" Weight 252.50 lb Heart Rate 92 /min BP Systolic Sitting 142 mmHg BP Diastolic Sitting 70 mmHg BMI (Body Mass Index) 37.3 kg/m2 03/05/2013 12:41pm Height 69 inches 5'9" Weight 250.00 lb Heart Rate 92 /min BP Systolic Sitting 140 mmHg BP Diastolic Sitting 80 mmHg Respiratory Rate 16 /min BMI (Body Mass Index) 36.9 kg/m2 10/31/2012 8:09am Heart Rate 80 /min BP Systolic Sitting 116 mmHg BP Diastolic Sitting 62 mmHg Respiratory Rate 16 /min 09/18/2012 2:56pm Height 69 inches 5'9" Weight 245.00 lb Heart Rate 80 /min BP Systolic Sitting 132 mmHg BP Diastolic Sitting 64 mmHg BMI (Body Mass Index) 36.2 kg/m2 04/17/2012 3:17pm Height 69 inches 5'9" Weight 248.00 lb Heart Rate 94 /min BP Systolic Sitting 112 mmHg BP Diastolic Sitting 62 mmHg Body Temperature 98.5 F rt ear BMI (Body Mass Index) 36.6 kg/m2 11/15/2011 2:25pm Height 69.25 inches 5'9.25" Weight 244.00 lb Heart Rate 88 /min BP Systolic Sitting 140 mmHg BP Diastolic Sitting 74 mmHg BMI (Body Mass Index) 35.8 kg/m2 06/20/2011 9:20am Weight 246.00 lb Heart Rate 84 /min BP Systolic Sitting 130 mmHg BP Diastolic Sitting 66 mmHg 04/02/2011 10:47am Height 70 inches 5'10" Weight 252.00 lb Heart Rate 78 /min BP Systolic Sitting 132 mmHg BP Diastolic Sitting 72 mmHg Respiratory Rate 20 /min BMI (Body Mass Index) 36.2 kg/m2 04/07/2010 10:11am Height 70.5 inches 5'10.50" Weight 258.00 lb Heart Rate 88 /min BP Systolic Sitting 150 mmHg BP Diastolic Sitting 80 mmHg BMI (Body Mass Index) 36.5 kg/m2 08/02/2009 1:17pm Height 70.5 inches 5'10.50" Weight 254.00 lb Heart Rate 90 /min BP Systolic Sitting 154 mmHg BP Diastolic Sitting 72 mmHg BMI (Body Mass Index) 35.9 kg/m2 02/14/2009 9:46am Height 70.5 inches 5'10.50" Weight 258.00 lb Heart Rate 88 /min BP Systolic Sitting 162 mmHg BP Diastolic Sitting 78 mmHg Respiratory Rate 20 /min BMI (Body Mass Index) 36.5 kg/m2 02/08/2009 8:26am Height 70.5 inches 5'10.50" Weight 256.00 lb Heart Rate 90 /min BP Systolic Sitting 154 mmHg BP Diastolic Sitting 74 mmHg Respiratory Rate 20 /min BMI (Body Mass Index) 36.2 kg/m2 02/02/2009 8:49am Height 70.5 inches 5'10.50" Weight 259.00 lb Heart Rate 84 /min BP Systolic Sitting 146 mmHg BP Diastolic Sitting 70 mmHg BMI (Body Mass Index) 36.6 kg/m2 01/27/2009 1:28pm Height 70.5 inches 5'10.50" Weight 262.00 lb Heart Rate 84 /min BP Systolic Sitting 146 mmHg BP Diastolic Sitting 80 mmHg BMI (Body Mass Index) 37.1 kg/m2 07/13/2008 1:07pm Height 70.5 inches 5'10.50" Weight 255.00 lb Heart Rate 96 /min BP Systolic Sitting 142 mmHg BP Diastolic Sitting 72 mmHg Body Temperature 99.4 F BMI (Body Mass Index) 36.1 kg/m2 07/13/2008 1:05pm Height 70.5 inches 5'10.50" 12/12/2007 9:49am Height 70.5 inches 5'10.50" Weight 246.00 lb Heart Rate 72 /min BP Systolic Sitting 150 mmHg BP Diastolic Sitting 64 mmHg Respiratory Rate 20 /min Body Temperature 97.7 F oral BMI (Body Mass Index) 34.8 kg/m2 Results Test Date Facility Test Result H/L Range Note Inr/Protime 12/17/2018 [facility] Inr 1.02 N 0.77-1.[address] [place], [place] [id number] [phone] Laboratory test 12/17/2018 [facility] Partial 31.3 seconds N 26.0-36.[address] [place] [address] PTT [phone] Type & Screen 12/17/2018 [facility] Patient Blood A Negative [address] [place] [address] [phone] Antibody Screen NEGATIVE CBC Auto Diff 12/16/2018 [facility] White Blood 7.6 10^3/uL N 3.5-10.[address] [place] [address] [phone] Red Blood Count 4.78 10^6/uL N 4.18-5.48 Hemoglobin 15.2 g/dL N 14.0-18.0 Hematocrit 45 % N 36-46 Mean Corpuscular Volume 94 fL N 80-94 Mean Corpuscular Hemoglobin 32 pg High 27-31 Mean Corpuscular HGB Conc 34 g/dL N 31-36 Red Cell Distribution Width 15 % N 10.5-15 Platelet Count 194 10^3/uL N 150-450 Mean Platelet Volume 9.1 fL N 7.4-10.4 Abs Neutrophils 4.6 10^3/uL N 1.5-7.7 Abs Lymphocytes 2.3 10^3/uL N 1.0-4.8 Abs Monocytes 0.6 10^3/uL N 0-0.8 Abs Eosinophils 0 10^3/uL N 0-0.6 Abs Basophils 0 10^3/uL N 0-0.2 Abs Nucleated RBC 0 10^3/uL Granulocyte % 60.6 % Lymphocyte % 30.8 % Monocyte % 8.2 % Eosinophil % 0.2 % Basophil % 0.2 % Nucleated Red Blood Cells % 0.1 Comp Metabolic Panel 12/16/2018 [facility] Sodium 140 mmol/L N 135-145 [place] [address] [phone] Potassium 4.3 mmol/L N 3.5-5.0 Chloride 103 mmol/L N 101-111 Co2 Carbon Dioxide 30 mmol/L N 22-32 Anion Gap 7 mmol/L N 2-11 Glucose 77 mg/dL N 70-100 Blood Urea Nitrogen 20 mg/dL N 6-24 Creatinine 1.18 mg/dL High 0.67-1.17 BUN/Creatinine Ratio 16.9 N 8-20 Calcium 9.4 mg/dL N 8.6-10.3 Total Protein 7.1 g/dL N 6.4-8.9 Albumin 4.3 g/dL N 3.2-5.2 Globulin 2.8 g/dL N 2-4 Albumin/Globulin Ratio 1.5 N 1-3 Total Bilirubin 0.50 mg/dL N 0.2-1.0 Alkaline Phosphatase 88 U/L N 34-104 Alt 6 U/L Low 7-52 Ast 19 U/L N 13-39 Egfr Non- 59.5 >60 Egfr 72.1 >60 1 Urine Culture And 12/16/2018 [facility] Urine Culture SEE RESULT [address] [address] [phone] Urinalysis Profile 12/16/2018 [facility] Urine [place] [address] [phone] Urine Appearance Clear Urine Specific Bryant 1.013 N 1.010-1.030 Urine pH 5.0 N 5-9 Urine Urobilinogen Negative Negative Urine Ketones Negative Negative Urine Protein Negative Negative Urine Leukocytes Negative Negative Urine Blood 1+ Abnormal Negative Urine Nitrite Negative Negative Urine Bilirubin Negative Negative Urine Glucose Negative Negative Urine White Blood Cell Trace(0-5/hpf) Absent Urine Red Blood Cell Trace(0-2/hpf) Absent Urine Bacteria Absent Absent Urine Hyaline Casts Present Abnormal Absent Laboratory 11/10/2018 [facility] TSH (Thyroid Stim 2.18 N 0.34 -5.[address] Horm) mcIU/[place] [address] [phone] Lipid Profile 05/05/2018 [facility] Triglycerides 87 mg/dL 3 (Trig/Chol/HDL [address] ) [place] [address] [phone] Cholesterol 149 mg/dL 4 HDL Cholesterol 57.2 mg/dL 5 LDL Cholesterol 74 mg/dL 6 Basic Metabolic Panel 05/05/2018 [facility] Sodium 142 mmol/L N 135-[address] [place] [address] [phone] Potassium 4.0 mmol/L N 3.5-5.0 Chloride 107 mmol/L N 101-111 Co2 Carbon Dioxide 29 mmol/L N 22-32 Anion Gap 6 mmol/L N 2-11 Glucose 91 mg/dL N 70-100 Blood Urea Nitrogen 20 mg/dL N 6-24 Creatinine 1.08 mg/dL N 0.67-1.17 BUN/Creatinine Ratio 18.5 N 8-20 Calcium 8.7 mg/dL N 8.6-10.3 Egfr Non- 66.0 >60 Egfr 79.8 >60 7 Laboratory test 05/05/2018 [facility] Vitamin D Total 25.6 ng/ mL N 20-[address] 25(Oh) [place] [address] [phone] Laboratory test 04/18/2018 [facility] PSA Screening 0.042 0- 4.0 [address] ng/[place] [address] [phone] Laboratory test 10/01/2017 [facility] PSA Screening 0.067 0- 4.[address] ng/[place] [address] [phone] Laboratory test 04/30/2017 [facility] Vitamin D Total 35.6 ng/ mL N 30-50 [address] 25(Oh) [place] [address] [phone] Lipid Profile 04/30/2017 [facility] Triglycerides 56 mg/dL N 12 (Trig/Chol/HDL) [address] [place] [address] [phone] Cholesterol 157 mg/dL N 13 HDL Cholesterol 58.1 mg/dL N 14 LDL Cholesterol 88 mg/dL N 15 Comp Metabolic Panel 04/30/2017 [facility] Sodium 140 mmol/L N 133-145 [address] [place] [address] [phone] Potassium 4.5 mmol/L N 3.5-5.0 Chloride 105 mmol/L N 101-111 Co2 Carbon Dioxide 29 mmol/L N 22-32 Anion Gap 6 mmol/L N 2-11 Glucose 88 mg/dL N 70-100 Blood Urea Nitrogen 21 mg/dL N 6-24 Creatinine 1.07 mg/dL N 0.67-1.17 BUN/Creatinine Ratio 19.6 N 8-20 Calcium 9.1 mg/dL N 8.6-10.3 Total Protein 6.8 g/dL N 6.4-8.9 Albumin 4.0 g/dL N 3.2-5.2 Globulin 2.8 g/dL N 2-4 Albumin/Globulin Ratio 1.4 N 1-3 Total Bilirubin 0.70 mg/dL N 0.2-1.0 Alkaline Phosphatase 64 U/L N 34-104 Alt 21 U/L N 7-52 Ast 24 U/L N 13-39 Egfr Non- 66.8 N >60 Egfr 86.0 N >60 16 Laboratory test 09/20/2016 [facility] PSA Screening 0.055 ng/mL N 0-4.0 17 finding [address] [place] [address] [phone] Basic Metabolic 05/07/2016 [facility] Sodium 139 mmol/L N 133- 145 Panel 101 [place] [address] [phone] Potassium 4.1 mmol/L N 3.5-5.0 Chloride 104 mmol/L N 101-111 Co2 Carbon Dioxide 27 mmol/L N 22-32 Anion Gap 8 mmol/L N 2-11 Glucose 80 mg/dL N 70-100 Blood Urea Nitrogen 14 mg/dL N 6-24 Creatinine 1.12 mg/dL N 0.67-1.17 BUN/Creatinine Ratio 12.5 N 8-20 Calcium 9.1 mg/dL N 8.6-10.3 Egfr Non- 63.6 N >60 Egfr 81.8 N >60 18 Laboratory test 05/07/2016 [facility] Vitamin D Total 33.5 ng/ mL N 30-50 19 finding [address] [facility] 25(Oh) [place] [address] [phone] Lipid Profile 05/07/2016 [facility] Triglycerides 90 mg/dL N 20 (Trig/Chol/HDL) [address] [place] [address] [phone] Cholesterol 143 mg/dL N 21 HDL Cholesterol 50.8 mg/dL N 22 LDL Cholesterol 74 mg/dL N 23 Liver Function 05/07/2016 [facility] Total Protein 6.9 g/dL N 6.4-8.[address] [place] [address] [phone] Albumin 3.8 g/dL N 3.2-5.2 Globulin 3.1 g/dL N 2-4 Albumin/Globulin Ratio 1.2 N 1-3 Total Bilirubin 0.70 mg/dL N 0.2-1.0 Direct Bilirubin 0.10 mg/dL N 0.03-0.18 Indirect Bilirubin 0.6 mg/dL N 0.3-1.0 Alkaline Phosphatase 66 U/L N 34-104 Alt 19 U/L N 7-52 Ast 22 U/L N 13-39 Laboratory test 03/07/2016 [facility] PSA Diagnostic 0.048 N 0 -4.0 [address] ng/[place] [address] [phone] Laboratory test 08/26/2015 [facility] PSA Diagnostic 0.050 N 0 -4.0 [address] ng/[place] [address] [phone] Laboratory test 06/24/2015 [facility] TSH (Thyroid 2.56 N 0.34 -5.[address] Stim Horm) ?IU/[place] [address] [phone] Free T4 (Free Thyroxine) 0.76 ng/mL N 0.61-1.12 Laboratory test 06/16/2015 [facility] Vitamin D Total 32.2 N 30-[address] 25(Oh) ng/[place] [address] [phone] Lipid Profile 04/19/2015 Triglycerides 113 mg/dL N 26, 27 (Trig/Chol/HDL) Cholesterol 158 mg/dL N 28 HDL Cholesterol 42.7 mg/dL N 29 LDL Cholesterol 93 mg/dL N 30 Comp Metabolic Panel 04/19/2015 Sodium 142 mmol/L N 133-145 Potassium 3.8 mmol/L N 3.5-5.0 Chloride 107 mmol/L N 101-111 Co2 Carbon Dioxide 30 mmol/L N 22-32 Anion Gap 5 mmol/L N 2-11 Glucose 91 mg/dL N 70-100 Blood Urea Nitrogen 15 mg/dL N 6-24 Creatinine 0.93 mg/dL N 0.67-1.17 BUN/Creatinine Ratio 16.1 N 8-20 Calcium 8.7 mg/dL N 8.6-10.3 Total Protein 6.4 g/dL N 6.4-8.9 Albumin 3.8 g/dL N 3.2-5.2 Globulin 2.6 g/dL N 2-4 Albumin/Globulin Ratio 1.5 N 1-3 Total Bilirubin 0.60 mg/dL N 0.2-1.0 Alkaline Phosphatase 64 U/L N 34-104 Alt 18 U/L N 7-52 Ast 22 U/L N 13-39 Egfr Non- 79.0 N >60 Egfr 101.6 N >60 31 Laboratory test 04/19/2015 Vitamin D Total 23.1 ng/mL Low 30-50 32 finding 25(Oh) Laboratory test 02/23/2015 [facility] Testosterone Total 209.84 Low 240-[address] ng/[place] [address] [phone] PSA Diagnostic 0.047 ng/mL N 0-4.0 33 Laboratory test 08/24/2014 [facility] Testosterone 170.96 Low 240-[address] ng/[place] [address] [phone] PSA Diagnostic 0.025 ng/mL N 0-4.0 34 Lipid Profile (Trig/Chol/HDL) 04/15/2014 Triglycerides 194 mg/dL N 35 Cholesterol 166 mg/dL N 36 HDL Cholesterol 50.2 mg/dL N 37 LDL Cholesterol 77 mg/dL N 38 Comp Metabolic Panel 04/15/2014 Sodium 140 mmol/L N 133-145 Potassium 4.3 mmol/L N 3.7-5.6 Chloride 106 mmol/L N 101-111 Co2 Carbon Dioxide 28 mmol/L N 22-32 Anion Gap 6 mmol/L N 2-11 Glucose 87 mg/dL N 70-100 Blood Urea Nitrogen 22 mg/dL N 6-24 Creatinine 0.86 mg/dL N 0.67-1.17 BUN/Creatinine Ratio 25.6 High 8-20 Calcium 8.9 mg/dL N 8.6-10.3 Total Protein 6.4 g/dL N 6.4-8.9 Albumin 3.8 g/dL N 3.2-5.2 Globulin 2.6 g/dL N 2-4 Albumin/Globulin Ratio 1.5 N 1-3 Total Bilirubin 0.40 mg/dL N 0.2-1.0 Alkaline Phosphatase 66 U/L N 34-104 Alt 17 U/L N 7-52 Ast 20 U/L N 13-39 Egfr Non- 86.7 N >60 Egfr 111.5 N >60 39 Laboratory test 02/22/2014 [facility] Testosterone 113.67 Low 240-[address] ng/[place] [address] [phone] PSA Diagnostic 0.011 ng/mL N 0-4.0 40 CBC No Diff 10/26/2013 [facility] White Blood 6.2 10^3/uL 4.8 -10.[address] [place] [address] [phone] Red Blood Count 4.51 10^6/uL 4.0-5.4 Hemoglobin 14.2 g/dL 14.0-18.0 Hematocrit 42 % 42-52 Mean Corpuscular Volume 93 fL 80-94 Mean Corpuscular Hemoglobin 32 pg High 27-31 Mean Corpuscular HGB Conc 34 g/dL 31-36 Red Cell Distribution Width 15 % 10.5-15 Platelet Count 184 10^3/uL 150-450 Mean Platelet Volume 9 um3 7.4-10.4 Laboratory test 08/20/2013 [facility] Testosterone < 10 ng/dL Low 175-[address] [place] [address] [phone] PSA Diagnostic < 0.008 ng/mL 0-4.000 41 Laboratory test 04/23/2013 [facility] Creatine 118 U/L 0-[address] [place] [address] [phone] Laboratory test 04/14/2013 [facility] Lyme Disease Negative Negative [address] [place] [address] [phone] CMP Panel 04/14/2013 [facility] Sodium 138 mmol/L 133-145 [address] [place] [address] [phone] Potassium 4.4 mmol/L 3.5-5.0 Chloride 106 mmol/L 101-111 Co2 Carbon Dioxide 26.0 mmol/L 22-32 Anion Gap 6.0 mmol/L 2-11 Glucose 104 mg/dL High 70-100 Blood Urea Nitrogen 19 mg/dL 6-24 Creatinine 0.90 mg/dL 0.50-1.40 BUN/Creatinine Ratio 21.1 High 8-20 Calcium 9.4 mg/dL 8.1-9.9 Total Protein 6.5 g/dL 6.2-8.1 Albumin 3.5 g/dL 3.2-5.2 Globulin 3.0 g/dL 2-4 Albumin/Globulin Ratio 1.2 1-3 Total Bilirubin 0.7 mg/dL 0.4-1.5 Alkaline Phosphatase 58 U/L 30-110 Alt 25 U/L 14-54 Ast 28 U/L 12-42 Egfr Non- 82.5 >60 Egfr 106.1 >60 43 Lipid Panel 04/14/2013 [facility] Triglycerides 75 mg/dL 40- 200 [address] [place] [address] [phone] Cholesterol 182 mg/dL Less than 200 HDL Cholesterol 64 mg/dL High 40-60 44 Cholesterol/HDL Ratio 2.8 Average 1-4.44 LDL Cholesterol 103.0 High Less Than 100 45 Laboratory test 03/09/2013 [facility] Lyme Disease Negative Negative 46 finding 101 [facility] [place] [address] [phone] Laboratory test 02/20/2013 [facility] PSA Diagnostic 0.01 ng/mL 0-4.0 47 finding [address] [place] [address] [phone] Laboratory test 10/21/2012 [facility] PSA Diagnostic 0.02 ng/mL 0-4.0 48 finding [address] [place] [address] [phone] BMP Basic 09/13/2012 [facility] Sodium 138 mmol/L 133-145 Metabolic Panel [address] [place] [address] [phone] Potassium 4.4 mmol/L 3.5-5.0 Chloride 105 mmol/L 101-111 Co2 Carbon Dioxide 29.0 mmol/L 22-32 Anion Gap 4.0 mmol/L 2-11 Glucose 91 mg/dL 70-100 Blood Urea Nitrogen 22 mg/dL 6-24 Creatinine 1.10 mg/dL 0.50-1.40 BUN/Creatinine Ratio 20.0 8-20 Calcium 9.2 mg/dL 8.1-9.9 Egfr Non- 65.6 >60 Egfr 84.4 >60 49 Lipid Panel 09/13/2012 [facility] Triglycerides 107 mg/dL 40- 200 [address] [place] [address] [phone] Cholesterol 247 mg/dL High Less than 200 HDL Cholesterol 58 mg/dL 40-60 50 Cholesterol/HDL Ratio 4.3 Average 1-4.44 LDL Cholesterol 167.6 mg/dL High Less Than 100 51 Vitamin D,25 09/13/2012 [facility] 25-Hydroxy Vitamin <4.0 ng/ mL Hydroxy [address] [address] [phone] 25-Hydroxy Vitamin D3 32 ng/mL 25-Hydroxy Vitamin D Total 32 ng/mL 52 Laboratory test 06/13/2012 [facility] PSA,Diagnostic 0.0 NG/ML 0-4 53 finding [address] [place] [address] [phone] Lipid Panel 04/10/2012 [facility] Triglyceride 124 mg/dL 40- 200 [address] [place] [address] [phone] Cholesterol 191 mg/dL Less Than 200 54 High Density Lipoprotein 57 mg/dL 40-60 55 Cholesterol/HDL Ratio 3.35 AVERAGE 1-4.97 Low Density Lipoprotein 109 mg/dL High Less Than 100 56 CMP Panel 04/10/2012 [facility] Sodium 138 mmol/L 135-145 [address] [place] [address] [phone] Potassium 4.2 mmol/L 3.5-5.0 Chloride 108 mmol/L 101-111 Co2 (Carbon Dioxide) 25.0 mmol/L 22-32 Anion Gap 5.0 mmol/L 2-11 57 Glucose 96 mg/dL 70-100 BUN 20 mg/dL 6-24 Creatinine 1.0 mg/dL 0.50-1.40 One Over Creatinine 1.00 BUN/Creatinine Ratio 20.0 8-20 Calcium 9.4 mg/dL 8.1-9.9 Total Protein 5.6 GM/DL Low 6.2-8.1 Albumin 3.5 GM/DL 3.2-5.2 Globulin 2.1 GM/DL 2-4 Albumin/Globulin Ratio 1.7 1-3 Bilirubin Total 0.8 mg/dL 0.4-1.5 58 Alkaline Phosphatase 76 U/L 39-117 Alt (SGPT) 34 U/L 17-63 Ast (Sgot) 35 U/L 12-42 eGFR Non- 73.2 > 60 eGFR 94.2 > 60 59 Laboratory test 04/10/2012 [facility] CPK (Creatine 282 U/L High 0-[address] Kin[employer]) [place] [address] [phone] Laboratory test 04/01/2012 [facility] PSA,Diagnostic 0.0 NG/ML 0-4 60 finding 101 [place] [address] [phone] Surgical 03/25/2012 [facility] Surgical --------- 61 Pathology 101 [facility] Pathology ------- [place] [address] <SEE [phone] NOTE> Laboratory test 01/22/2012 [facility] PSA,Diagnostic 0.0 NG/ML 0-4 62 finding 101 [place] [address] [phone] Laboratory test 12/25/2011 [facility] CPK (Creatine 164 U/L 0 -[address] Kinase) [place] [address] [phone] Thyroxine Free 0.90 ng/dL 0.61-1.24 TSH 1.15 MIU/ML 0.34-5.60 Lipid Panel - 11/08/2011 [facility] CPK (Creatine 140 U/L 0- [address] Kin[address]) [place] [address] [phone] CMP Panel 11/08/2011 [facility] Sodium 138 mmol/L 135-[address] [place] [address] [phone] Potassium 4.2 mmol/L 3.5-5.0 Chloride 103 mmol/L 101-111 Co2 (Carbon Dioxide) 30.0 mmol/L 22-32 Anion Gap 5.0 mmol/L 2-11 63 Glucose 97 mg/dL 70-100 BUN 20 mg/dL 6-24 Creatinine 1.0 mg/dL 0.50-1.40 One Over Creatinine 1.00 BUN/Creatinine Ratio 20.0 8-20 Calcium 9.0 mg/dL 8.1-9.9 Total Protein 6.0 GM/DL Low 6.2-8.1 Albumin 3.5 GM/DL 3.2-5.2 Globulin 2.5 GM/DL 2-4 Albumin/Globulin Ratio 1.4 1-3 Bilirubin Total 0.6 mg/dL 0.4-1.5 64 Alkaline Phosphatase 55 U/L 39-117 Alt (SGPT) 30 U/L 17-63 Ast (Sgot) 26 U/L 12-42 eGFR Non- 73.5 > 60 eGFR 94.5 > 60 65 Lipid Panel 11/08/2011 [facility] Triglyceride 137 mg/dL 40- 200 [address] [place] [address] [phone] Cholesterol 195 mg/dL Less Than 200 66 High Density Lipoprotein 51 mg/dL 40-60 67 Cholesterol/HDL Ratio 3.82 AVERAGE 1-4.97 Low Density Lipoprotein 117 mg/dL High Less Than 100 68 Lipid Profile 09/19/2011 [facility] Triglyceride 92 mg/dL 40- 200 (Trig/Chol/HDL) 101 [place] [address] [phone] Cholesterol 254 mg/dL High Less Than 200 69 High Density Lipoprotein 55 mg/dL 40-60 70 Cholesterol/HDL Ratio 4.62 AVERAGE 1-4.97 Low Density Lipoprotein 181 mg/dL High Less Than 100 71 Comp Metabolic Panel 09/19/2011 [facility] Sodium 137 mmol/L 135-145 [address] [place] [address] [phone] Potassium 4.4 mmol/L 3.5-5.0 Chloride 102 mmol/L 101-111 Co2 (Carbon Dioxide) 29.0 mmol/L 22-32 Anion Gap 6.0 mmol/L 2-11 72 Glucose 85 mg/dL 70-100 BUN 22 mg/dL 6-24 Creatinine 1.2 mg/dL 0.50-1.40 One Over Creatinine 0.83 BUN/Creatinine Ratio 18.3 8-20 Calcium 9.2 mg/dL 8.1-9.9 Total Protein 6.3 GM/DL 6.2-8.1 Albumin 3.8 GM/DL 3.2-5.2 Globulin 2.5 GM/DL 2-4 Albumin/Globulin Ratio 1.5 1-3 Bilirubin Total 0.6 mg/dL 0.4-1.5 73 Alkaline Phosphatase 57 U/L 39-117 Alt (SGPT) 37 U/L 17-63 Ast (Sgot) 35 U/L 12-42 eGFR Non- 59.5 > 60 eGFR 76.5 > 60 74 Lipid Panel - 09/19/2011 [facility] CPK (Creatine 291 U/L High 0-[address] Kin[address]) [place] [address] [phone] Lipid Profile 06/13/2011 [facility] Triglyceride 254 mg/dL High 40-200 (Trig/Chol/HD [address] L) [place], [place] [address] [phone] Cholesterol 241 mg/dL High Less Than 200 75 High Density Lipoprotein 43 mg/dL 40-60 76 Cholesterol/HDL Ratio 5.60 AVERAGE High 1-4.97 Low Density Lipoprotein 147 mg/dL High Less Than 100 77 Laboratory test 06/13/2011 [facility] PSA Screening 3.17 NG/ML 0-4 [address] [place] [address] [phone] Laboratory test 05/16/2011 [facility] BUN 17 mg/dL 6-[address] [place] [address] [phone] Creatinine 05/16/2011 [facility] Creatinine 1.1 mg/dL 0.50- 1.[address] 0 [place] [address] [phone] One Over Creatinine 0.90 eGFR Non- 65.8 > 60 eGFR 84.6 > 60 79 Surgical 05/08/2011 [facility] Surgical [address] Pathology <SEE NOTE> [place] [address] [phone] Laboratory 04/02/2011 [facility] PSA,Diagnost 3.22 NG/ML 0-4 81 test finding [address] ic [place], [place] [address] [phone] Lipid Panel - 03/26/2011 [facility] CPK 222 U/L High 0-[address] (Creatine 00 [place] [address] Kinase) [phone] Comp Metabolic 03/26/2011 [facility] Sodium 141 mmol/L [address] [place] [address] 5 [phone] Potassium 4.4 mmol/L 3.5-5.0 Chloride 110 mmol/L 101-111 Co2 (Carbon Dioxide) 25.0 mmol/L 22-32 Anion Gap 6.0 mmol/L 2-11 82 Glucose 98 mg/dL 70-100 BUN 20 mg/dL 6-24 Creatinine 1.10 mg/dL 0.50-1.40 One Over Creatinine 0.90 BUN/Creatinine Ratio 18.2 8-20 Calcium 8.8 mg/dL 8.1-9.9 Total Protein 6.2 GM/DL 6.2-8.1 Albumin 3.7 GM/DL 3.2-5.2 Globulin 2.5 GM/DL 2-4 Albumin/Globulin Ratio 1.5 1-3 Bilirubin Total 0.8 mg/dL 0.4-1.5 83 Alkaline Phosphatase 65 U/L 39-117 Alt (SGPT) 29 U/L 17-63 Ast (Sgot) 27 U/L 12-42 eGFR Non- 65.8 > 60 eGFR 84.6 > 60 84 Lipid Profile 03/26/2011 [facility] Triglyceride 78 mg/dL 40- 200 (Trig/Chol/HDL) [address] [place] [address] [phone] Cholesterol 157 mg/dL Less Than 200 85 High Density Lipoprotein 41 mg/dL 40-60 86 Cholesterol/HDL Ratio 3.83 AVERAGE 1-4.97 Low Density Lipoprotein 100 mg/dL Less Than 100 87 Lipid Panel - 03/30/2010 [facility] CPK (Creatine 118 U/L 0- [address] Kinase) [place], [place] [address] [phone] Comp Metabolic 03/30/2010 [facility] Sodium 135 135-[address] mmol/[place] [address] [phone] Potassium 4.4 mmol/L 3.5-5.0 Chloride 103 mmol/L 101-111 Co2 (Carbon Dioxide) 24.0 mmol/L 22-32 Anion Gap 8.0 mmol/L 2-11 88 Glucose 96 mg/dL 70-100 89 BUN 19 mg/dL 6-24 Creatinine 1.10 mg/dL 0.50-1.40 One Over Creatinine 0.90 BUN/Creatinine Ratio 17.3 8-20 Calcium 8.8 mg/dL 8.1-9.9 90 Total Protein 6.2 GM/DL 6.2-8.1 Albumin 3.8 GM/DL 3.2-5.2 Globulin 2.4 GM/DL 2-4 Albumin/Globulin Ratio 1.6 1-3 Bilirubin Total 0.8 mg/dL 0.4-1.5 91 Alkaline Phosphatase 58 U/L 39-117 Alt (SGPT) 47 U/L 17-63 Ast (Sgot) 35 U/L 12-42 eGFR Non- 70.1 > 60 eGFR 84.9 > 60 92 Lipid Profile 03/30/2010 [facility] Triglyceride 136 mg/dL 40 -200 (Trig/Chol/HDL) [address] [place] [address] [phone] Cholesterol 196 mg/dL Less Than 200 93 High Density Lipoprotein 43 mg/dL 40-60 94 Cholesterol/HDL Ratio 4.56 AVERAGE 1-4.97 Low Density Lipoprotein 126 mg/dL High Less Than 100 95 Urinalysis W/Microscopic 03/30/2010 [facility] Ua Color YELLOW Yellow [address] [place] [address] [phone] Appearance-Urine CLEAR Clear Specific Bryant-Ur 1.024 1.010-1.030 Esterase-Urine NEGATIVE Negative Nitrite NEGATIVE Negative Slodrfnvhoep-Hy-DUX NEGATIVE Negative Protein-Urine NEGATIVE Negative PH-Urine 5.5 5-9 Blood-Urine TRACE Abnormal Negative Ketones-Urine NEGATIVE Negative Bilirubin-Ur NEGATIVE Negative Glucose-Urine NEGATIVE Negative WBC-Urine RARE 0-5 RBC-Urine NONE SEEN 0-2 Urine Culture & 03/30/2010 [facility] Urine Culture NG 96 [address] [facility] [place] [address] [phone] Laboratory test 03/30/2010 [facility] Lyme Disease Negative Negative 97 finding 101 [facility] [place] [address] [phone] Surgical 03/15/2009 [facility] Surgical 98 Pathology [address] [facility] Pathology ---- <[place] [address] NOTE> [phone] Urine Culture & 02/08/2009 [facility] Urine Culture NG 99 S[address] [facility] Sensitivi [place], [place] [address] [phone] Basic Metabolic 12/27/2008 [facility] Sodium 138 mmol/L 135- 145 Panel [address] [place] [address] [phone] Potassium 4.3 mmol/L 3.5-5.0 Chloride 106 mmol/L 101-111 Co2 (Carbon Dioxide) 27.0 mmol/L 22-32 Anion Gap 5.0 mmol/L 2-11 100 Glucose 92 mg/dL 70-100 101 BUN 20 mg/dL 6-24 Creatinine 1.13 mg/dL 0.50-1.40 One Over Creatinine 0.80 BUN/Creatinine Ratio 17.7 8-20 Calcium 9.1 mg/dL 8.1-9.9 102 Lipid Profile 12/27/2008 [facility] Triglyceride 144 mg/dL 40 -200 (Trig/Chol/HDL) [address] [place] [address] [phone] Cholesterol 218 mg/dL High Less Than 200 103 High Density Lipoprotein 49 mg/dL 40-60 104 Cholesterol/HDL Ratio 4.45 AVERAGE 1-4.97 Low Density Lipoprotein 140 mg/dL High Less Than 100 105 Liver Function 12/27/2008 [facility] Total Protein 6.9 GM/DL 6.2-8.1 Panel [address] [place] [address] [phone] Albumin 3.7 GM/DL 3.2-5.2 Globulin 3.2 GM/DL 2-4 Albumin/Globulin Ratio 1.2 1-3 Bilirubin Total 0.8 mg/dL 0.4-1.5 Bilirubin Direct 0.2 mg/dL 0.1-0.5 Indirect Bilirubin 0.6 mg/dL 0.1-0.75 Alkaline Phosphatase 64 U/L 39-117 Alt (SGPT) 46 U/L 17-63 Ast (Sgot) 35 U/L 12-42 Laboratory test 12/27/2008 [facility] CPK (Creatine 169 U/L 0 -[address] Kinase) [place] [address] [phone] Basic Metabolic 11/28/2007 [facility] One Over 0.76 [address] [place] [address] [phone] Anion Gap 5.0 mmol/L 2-11 107 BUN 24 mg/dL 6-24 Calcium 8.7 mg/dL 8.7-10.2 Chloride 105 mmol/L 101-111 Co2 (Carbon Dioxide) 28.0 mmol/L 22-32 Glucose 90 mg/dL 70-105 Potassium 4.3 mmol/L 3.5-5.0 Sodium 138 mmol/L 135-145 BUN/Creatinine Ratio 18.5 8-20 Creatinine 1.3 mg/dL 0.5-1.4 Lipid Profile 11/28/2007 [facility] Cholesterol/HDL 4.05 1- 4.97 (Trig/Chol/HDL) [address] [place] [address] [phone] Cholesterol 178 mg/dL Less Than 200 108 Triglyceride 59 mg/dL 40-200 High Density Lipoprotein 44 mg/dL 40-60 Low Density Lipoprotein 122 mg/dL High Less Than 100 109 Laboratory test 11/28/2007 [facility] PSA Screening 1.13 NG/ML 0-4 [address] [place] [address] [phone] 1 Because ethnic data is not always readily available, this report includes an eGFR for both -Americans and non- Americans. The National Kidney Disease Education Program (NKDEP) does not endorse the use of the MDRD equation for patients that are not between the ages of 18 and 70, are , have extremes of body size, muscle mass, or nutritional status, or are non- or non-. According to the National Kidney Foundation, irrespective of diagnosis, the stage of the disease is based on the level of kidney function: Stage Description GFR(mL/min/1.73 m(2)) 1 Kidney damage with normal or decreased GFR 90 2 Kidney damage with mild decrease in GFR 60-89 3 Moderate decrease in GFR 30-59 4 Severe decrease in GFR 15-29 5 Kidney failure <15 (or dialysis) 2 SEE RESULT BELOW Name: INA BETTENCOURT : [address]: Lita Nur MD Acct: [id number] Unit: [id number] AGE: 78 Location: [facility] Re12/16/18 SEX: M Status: REG REF SPEC: [id number] HARRY: 12/16/[address] [facility] [address]: Lita Nur MD REQ: [id number] RECD: 12/16/18 STATUS: COMP _ SOURCE: URINE SPDESC: ORDERED: Urine Culture Procedure Result Reported Site Urine Culture Final 12/17/18- 1246 ML No Growth (<1,000 CFU/mL) * ML - Main Lab . END OF REPORT DEPARTMENT OF PATHOLOGY, [address] [place] [address] Forest Fox M.D. Director [facility] # [id number] 3 Desirable: <150 Borderline High: 150-199 High: 200-499 Very High: >500 4 Desirable: <200 Borderline High: 200-239 High: >239 5 Low: <40 Desirable: 40-60 High: >60 6 Desirable: <100 Near Optimal: 100-129 Borderline High: 130-159 High: 160-189 Very High: >189 7 Because ethnic data is not always readily available, this report includes an eGFR for both -Americans and non- Americans. The National Kidney Disease Education Program (NKDEP) does not endorse the use of the MDRD equation for patients that are not between the ages of 18 and 70, are , have extremes of body size, muscle mass, or nutritional status, or are non- or non-. According to the National Kid[employer] Foundation, irrespective of diagnosis, the stage of the disease is based on the level of kidney function: Stage Description GFR(mL/min/1.73 m(2)) 1 Kidney damage with normal or decreased GFR 90 2 Kidney damage with mild decrease in GFR 60-89 3 Moderate decrease in GFR 30-59 4 Severe decrease in GFR 15-29 5 Kidney failure <15 (or dialysis) 8 FASTING 10 HOUR 9 Serum levels of PSA measured using the [employer] DXI [employer] immunoassay should not be interpreted as absolute evidence of the presence or absence of disease. The PSA value should be used in conjunction with other pertinent clinical diagnostic procedures. A PSA value in the range of 0.1 to 0.6 ng/ml is indeterminate if being used as an indicator of recurrent or residual disease. The values obtained with different assay methods or kits cannot be used interchangeably. 10 Serum levels of PSA measured using the [employer] DXI Hybritech immunoassay should not be interpreted as absolute evidence of the presence or absence of disease. The PSA value should be used in conjunction with other pertinent clinical diagnostic procedures. A PSA value in the range of 0.1 to 0.6 ng/ml is indeterminate if being used as an indicator of recurrent or residual disease. The values obtained with different assay methods or kits cannot be used interchangeably. 11 FASTING 10 HOUR 12 Desirable <150 Borderline high 150-199 High 200-499 Very High >500 13 Desirable <200 Borderline high 200-239 High >239 14 Low <40 Desirable: 40-60 High: >60 15 Desirable: <100 mg/dL Near Optimal: 100-129 mg/dL Borderline High: 130-159 mg/dL High: 160-189 mg/dL Very High: >189 mg/dL 16 Because ethnic data is not always readily available, this report includes an eGFR for both -Americans and non- Americans. The National Kidney Disease Education Program (NKDEP) does not endorse the use of the MDRD equation for patients that are not between the ages of 18 and 70, are , have extremes of body size, muscle mass, or nutritional status, or are non- or non-. According to the National Kidney Foundation, irrespective of diagnosis, the stage of the disease is based on the level of kidney function: Stage Description GFR(mL/min/1.73 m(2)) 1 Kidney damage with normal or decreased GFR 90 2 Kidney damage with mild decrease in GFR 60-89 3 Moderate decrease in GFR 30-59 4 Severe decrease in GFR 15-29 5 Kidney failure <15 (or dialysis) 17 Serum levels of PSA measured using the [employer] DXI Hybritech immunoassay should not be interpreted as absolute evidence of the presence or absence of disease. The PSA value should be used in conjunction with other pertinent clinical diagnostic procedures. A PSA value in the range of 0.1 to 0.6 ng/ml is indeterminate if being used as an indicator of recurrent or residual disease. The values obtained with different assay methods or kits cannot be used interchangeably. 18 Because ethnic data is not always readily available, this report includes an eGFR for both -Americans and non- Americans. The National Kidney Disease Education Program (NKDEP) does not endorse the use of the MDRD equation for patients that are not between the ages of 18 and 70, are , have extremes of body size, muscle mass, or nutritional status, or are non- or non-. According to the National Kidney Foundation, irrespective of diagnosis, the stage of the disease is based on the level of kidney function: Stage Description GFR(mL/min/1.73 m(2)) 1 Kidney damage with normal or decreased GFR 90 2 Kidney damage with mild decrease in GFR 60-89 3 Moderate decrease in GFR 30-59 4 Severe decrease in GFR 15-29 5 Kidney failure <15 (or dialysis) 19 FASTING 10 HOUR 20 Desirable <150 Borderline high 150-199 High 200-499 Very High >500 21 Desirable <200 Borderline high 200-239 High >239 22 Low <40 Desirable: 40-60 High: >60 23 Desirable: <100 mg/dL Near Optimal: 100-129 mg/dL Borderline High: 130-159 mg/dL High: 160-189 mg/dL Very High: >189 mg/dL 24 Serum levels of PSA measured using the [employer] DXI Hybritech immunoassay should not be interpreted as absolute evidence of the presence or absence of disease. The PSA value should be used in conjunction with other pertinent clinical diagnostic procedures. A PSA value in the range of 0.1 to 0.6 ng/ml is indeterminate if being used as an indicator of recurrent or residual disease. The values obtained with different assay methods or kits cannot be used interchangeably. 25 Serum levels of PSA measured using the [employer] DXI Hybritech immunoassay should not be interpreted as absolute evidence of the presence or absence of disease. The PSA value should be used in conjunction with other pertinent clinical diagnostic procedures. A PSA value in the range of 0.1 to 0.6 ng/ml is indeterminate if being used as an indicator of recurrent or residual disease. The values obtained with different assay methods or kits cannot be used interchangeably. 26 PT IS FASTING 27 Desirable <150 Borderline high 150-199 High 200-499 Very High >500 28 Desirable <200 Borderline high 200-239 High >239 29 Low <40 Desirable: 40-60 High: >60 30 Desirable: <100 mg/dL Near Optimal: 100-129 mg/dL Borderline High: 130-159 mg/dL High: 160-189 mg/dL Very High: >189 mg/dL 31 Because ethnic data is not always readily available, this report includes an eGFR for both -Americans and non- Americans. The National Kidney Disease Education Program (NKDEP) does not endorse the use of the MDRD equation for patients that are not between the ages of 18 and 70, are , have extremes of body size, muscle mass, or nutritional status, or are non- or non-. According to the National Kidney Foundation, irrespective of diagnosis, the stage of the disease is based on the level of kidney function: Stage Description GFR(mL/min/1.73 m(2)) 1 Kidney damage with normal or decreased GFR 90 2 Kidney damage with mild decrease in GFR 60-89 3 Moderate decrease in GFR 30-59 4 Severe decrease in GFR 15-29 5 Kidney failure <15 (or dialysis) 32 PT IS FASTING 33 Serum levels of PSA measured using the [employer] DXI Hybritech immunoassay should not be interpreted as absolute evidence of the presence or absence of disease. The PSA value should be used in conjunction with other pertinent clinical diagnostic procedures. A PSA value in the range of 0.1 to 0.6 ng/ml is indeterminate if being used as an indicator of recurrent or residual disease. The values obtained with different assay methods or kits cannot be used interchangeably. 34 Serum levels of PSA measured using the [employer] DXI Hybritech immunoassay should not be interpreted as absolute evidence of the presence or absence of disease. The PSA value should be used in conjunction with other pertinent clinical diagnostic procedures. A PSA value in the range of 0.1 to 0.6 ng/ml is indeterminate if being used as an indicator of recurrent or residual disease. The values obtained with different assay methods or kits cannot be used interchangeably. 35 Desirable <150 Borderline high 150-199 High 200-499 Very High >500 36 Desirable <200 Borderline high 200-239 High >239 37 Low <40 Desirable: 40-60 High: >60 38 Desirable <100 Near Optimal 100-129 Borderline high 130-159 High 160-189 Very High >189 39 Because ethnic data is not always readily available, this report includes an eGFR for both -Americans and non- Americans. The National Kidney Disease Education Program (NKDEP) does not endorse the use of the MDRD equation for patients that are not between the ages of 18 and 70, are , have extremes of body size, muscle mass, or nutritional status, or are non- or non-. According to the National Kidney Foundation, irrespective of diagnosis, the stage of the disease is based on the level of kidney function: Stage Description GFR(mL/min/1.73 m(2)) 1 Kidney damage with normal or decreased GFR 90 2 Kidney damage with mild decrease in GFR 60-89 3 Moderate decrease in GFR 30-59 4 Severe decrease in GFR 15-29 5 Kidney failure <15 (or dialysis) 40 Serum levels of PSA measured using the [employer] DXI Hybritech immunoassay should not be interpreted as absolute evidence of the presence or absence of disease. The PSA value should be used in conjunction with other pertinent clinical diagnostic procedures. A PSA value in the range of 0.1 to 0.6 ng/ml is indeterminate if being used as an indicator of recurrent or residual disease. The values obtained with different assay methods or kits cannot be used interchangeably. 41 Serum levels of PSA measured using the [employer] [place] DXI Hybritech immunoassay should not be interpreted as absolute evidence of the presence or absence of disease. The PSA value should be used in conjunction with other pertinent clinical diagnostic procedures. A PSA value in the range of 0.1 to 0.6 ng/ml is indeterminate if being used as an indicator of recurrent or residual disease. The values obtained with different assay methods or kits cannot be used interchangeably. 42 Serologic response to B. burgdorferi infection is not detected, but cannot rule out early infection during which low or undetectable antibody levels to B. burgdorferi may be present. If clinically indicated, a new serum specimen should be submitted in 7-14 days. Test Performed by: [address] [address] [employer] Superintendent: Dru Godinez III, M.D. 43 Because ethnic data is not always readily available, this report includes an eGFR for both -Americans and non- Americans. The National Kidney Disease Education Program (NKDEP) does not endorse the use of the MDRD equation for patients that are not between the ages of 18 and 70, are , have extremes of body size, muscle mass, or nutritional status, or are non- or non-. According to the National Kidney Foundation, irrespective of diagnosis, the stage of the disease is based on the level of kidney function: Stage Description GFR(mL/min/1.73 m(2)) 1 Kidney damage with normal or decreased GFR 90 2 Kidney damage with mild decrease in GFR 60-89 3 Moderate decrease in GFR 30-59 4 Severe decrease in GFR 15-29 5 Kidney failure <15 (or dialysis) 44 HDL Interpretation: Undesirable: High Risk: Less than 40 mg/dL Desirable: Low Risk: Greater than 60 mg/dL 45 LDL Interpretation: Low Risk Optimal Level: LDL Less than 100 mg/dL Near or Above Optimal: LDL 100-129 mg/dL Borderline High Risk: LDL 130-159 mg/dL High Risk: LDL 160-189 mg/dL Very High Risk: LDL Greater than 189 mg/dL 46 Serologic response to B. burgdorferi infection is not detected, but cannot rule out early infection during which low or undetectable antibody levels to B. burgdorferi may be present. If clinically indicated, a new serum specimen should be submitted in 7-14 days. Test Performed by: [place] [address] [employer] Superintendent: Dru Godinez III, M.D. 47 Serum levels of PSA measured using the [employer] DXI Hybritech immunoassay should not be interpreted as absolute evidence of the presence or absence of disease. The PSA value should be used in conjunction with other pertinent clinical diagnostic procedures. A PSA value in the range of 0.1 to 0.6 ng/ml is indeterminate if being used as an indicator of recurrent or residual disease. The values obtained with different assay methods or kits cannot be used interchangeably. 48 Serum levels of PSA measured using the [employer] [place] DXI Hybritech immunoassay should not be interpreted as absolute evidence of the presence or absence of disease. The PSA value should be used in conjunction with other pertinent clinical diagnostic procedures. A PSA value in the range of 0.1 to 0.6 ng/ml is indeterminate if being used as an indicator of recurrent or residual disease. The values obtained with different assay methods or kits cannot be used interchangeably. 49 Because ethnic data is not always readily available, this report includes an eGFR for both -Americans and non- Americans. The National Kidney Disease Education Program (NKDEP) does not endorse the use of the MDRD equation for patients that are not between the ages of 18 and 70, are , have extremes of body size, muscle mass, or nutritional status, or are non- or non-. According to the National Kidney Foundation, irrespective of diagnosis, the stage of the disease is based on the level of kidney function: Stage Description GFR(mL/min/1.73 m(2)) 1 Kidney damage with normal or decreased GFR 90 2 Kidney damage with mild decrease in GFR 60-89 3 Moderate decrease in GFR 30-59 4 Severe decrease in GFR 15-29 5 Kidney failure <15 (or dialysis) 50 HDL Interpretation: Undesirable: High Risk: Less than 40 MG/DL Desirable: Low Risk: Greater than 60 MG/DL 51 LDL Interpretation: Low Risk Optimal Level: LDL Less than 100 MG/DL Near or Above Optimal: LDL 100-129 MG/DL Borderline High Risk: LDL 130-159 MG/DL High Risk: LDL 160-189 MG/DL Very High Risk: LDL Greater than 189 MG/DL 52 -- REFERENCE VALUE -- 25-HYDROXY D TOTAL (D2+D3) Optimum levels in the normal population are 25-80 Test Performed by: [place] [address] [employer] Superintendent: Dru Godinez III, M.D. 53 * SERUM LEVELS OF PSA MEASURED USING THE [employer] ACCESS HYBRITECH IMMUNOASSAY SHOULD NOT BE INTERPRETED ABSOLUTE EVIDENCE OF THE PRESENCE OR ABSENCE OF DISEASE. THE PSA VALUE SHOULD BE USED IN CONJUNCTION WITH OTHER PERTINENT CLINICAL DIAGNOSTIC PROCEDURES. A PSA value in the range of 0.1 to 0.6 ng/ml is indeterminate if being used as an indicator of recurrent or residual disease. . The values obtained with different assay methods of kits cannot be used interchangeably. 54 CHOLESTEROL INTERPRETATION: Desirable: Less than 200 MG/DL Borderline-High Risk: 200-239 MG/DL High-Risk: 240 MG/DL and over 55 HDL INTERPRETATION: Undesirable: High Risk: Less than 40 MG/DL Desirable: Low Risk: Greater than 60 MG/DL 56 LDL INTERPRETATION: Low Risk Optimal Level: LDL Less than 100 MG/DL Near or Above Optimal: LDL 100-129 MG/DL Borderline High Risk: LDL 130-159 MG/DL High Risk: LDL 160-189 MG/DL Very High Risk: LDL Greater than 189 MG/DL 57 Anion gap measurement may be of limited value in the presence of any alkalosis, especially in a combined acid base disorder. . 58 A metabolite of Naproxen, O-desmethylnaproxen, has been shown to interfere with the Jendrassik-Adelfo method for measuring total bilirubin. Samples from patients who have taken Naproxen have shown spurious elevation in total bilirubin levels. 59 Because ethnic data is not always readily available, this report includes an eGFR for both -Americans and non- Americans. The National Kidney Disease Education Program (NKDEP) does not endorse the use of the MDRD equation for patients that are not between the ages of 18 and 70, are , have extremes of body size, muscle mass, or nutritional status, or are non- or non-. According to the National Kidney Foundation, irrespective of diagnosis, the stage of the disease is based on the level of kidney function: Stage Description GFR(mL/min/1.73 m(2)) 1 Kidney damage with normal or decreased GFR 90 2 Kidney damage with mild decrease in GFR 60-89 3 Moderate decrease in GFR 30-59 4 Severe decrease in GFR 15-29 5 Kidney failure <15 (or dialysis) 60 * SERUM LEVELS OF PSA MEASURED USING THE [employer] ACCESS HYBRITECH IMMUNOASSAY SHOULD NOT BE INTERPRETED ABSOLUTE EVIDENCE OF THE PRESENCE OR ABSENCE OF DISEASE. THE PSA VALUE SHOULD BE USED IN CONJUNCTION WITH OTHER PERTINENT CLINICAL DIAGNOSTIC PROCEDURES. A PSA value in the range of 0.1 to 0.6 ng/ml is indeterminate if being used as an indicator of recurrent or residual disease. . The values obtained with different assay methods of kits cannot be used interchangeably. 61 ---- RUN DATE: 03/27/12 [facility] NMI LIVE PAGE 1 RUN TIME: 1535 Specimen Inquiry RUN USER: INTERFACE -- Name: BETTENCOURTINA Parnell Status: REG REF Re03/25/12 Age/Sex: 72/M Unit#: [id number] Location: [address] [place] [address]. : 39 -- Specimen: [id number] SOUT Spec Date:03/25/12- Subm Dr: Tim randhawa MD Spec Type: SURGICAL P Received:03/26/12-1239 Copies to: Socrates billingsley MD SPECIMEN ASCENDING COLON BIOPSY HISTORY POST-OP DIAGNOSIS: One polyp CLINICAL INFORMATION: Screening GROSS DESCRIPTION The specimen is received in formalin labelled Ina Bettencourt, Ascending Colon Biopsy, and consists of two aguiar, soft tissue fragments measuring 0.6 x 0.3 x 0.2 cm. Submitted entirely, one cassette. DIAGNOSIS Colon, ascending, biopsy: Hyperplastic polyp. Signed Electronically by: PRADEEP CHRISTENSEN 03/27/12 1535 -- -- DEPARTMENT OF PATHOLOGY, [address] [place] [address] [facility] Permit #[id number] [address] Fox M.D. Director Pradeep Christensen M.D. Autism Tutor Dir duc -- 62 * SERUM LEVELS OF PSA MEASURED USING THE [employer] ACCESS HYBRITECH IMMUNOASSAY SHOULD NOT BE INTERPRETED ABSOLUTE EVIDENCE OF THE PRESENCE OR ABSENCE OF DISEASE. THE PSA VALUE SHOULD BE USED IN CONJUNCTION WITH OTHER PERTINENT CLINICAL DIAGNOSTIC PROCEDURES. A PSA value in the range of 0.1 to 0.6 ng/ml is indeterminate if being used as an indicator of recurrent or residual disease. . The values obtained with different assay methods of kits cannot be used interchangeably. 63 Anion gap measurement may be of limited value in the presence of any alkalosis, especially in a combined acid base disorder. . 64 A metabolite of Naproxen, O-desmethylnaproxen, has been shown to interfere with the Jendrassik-Adelfo method for measuring total bilirubin. Samples from patients who have taken Naproxen have shown spurious elevation in total bilirubin levels. 65 Because ethnic data is not always readily available, this report includes an eGFR for both -Americans and non- Americans. The National Kidney Disease Education Program (NKDEP) does not endorse the use of the MDRD equation for patients that are not between the ages of 18 and 70, are , have extremes of body size, muscle mass, or nutritional status, or are non- or non-. According to the National Kidney Foundation, irrespective of diagnosis, the stage of the disease is based on the level of kidney function: Stage Description GFR(mL/min/1.73 m(2)) 1 Kidney damage with normal or decreased GFR 90 2 Kidney damage with mild decrease in GFR 60-89 3 Moderate decrease in GFR 30-59 4 Severe decrease in GFR 15-29 5 Kidney failure <15 (or dialysis) 66 CHOLESTEROL INTERPRETATION: Desirable: Less than 200 MG/DL Borderline-High Risk: 200-239 MG/DL High-Risk: 240 MG/DL and over 67 HDL INTERPRETATION: Undesirable: High Risk: Less than 40 MG/DL Desirable: Low Risk: Greater than 60 MG/DL 68 LDL INTERPRETATION: Low Risk Optimal Level: LDL Less than 100 MG/DL Near or Above Optimal: LDL 100-129 MG/DL Borderline High Risk: LDL 130-159 MG/DL High Risk: LDL 160-189 MG/DL Very High Risk: LDL Greater than 189 MG/DL 69 CHOLESTEROL INTERPRETATION: Desirable: Less than 200 MG/DL Borderline-High Risk: 200-239 MG/DL High-Risk: 240 MG/DL and over 70 HDL INTERPRETATION: Undesirable: High Risk: Less than 40 MG/DL Desirable: Low Risk: Greater than 60 MG/DL 71 LDL INTERPRETATION: Low Risk Optimal Level: LDL Less than 100 MG/DL Near or Above Optimal: LDL 100-129 MG/DL Borderline High Risk: LDL 130-159 MG/DL High Risk: LDL 160-189 MG/DL Very High Risk: LDL Greater than 189 MG/DL 72 Anion gap measurement may be of limited value in the presence of any alkalosis, especially in a combined acid base disorder. . 73 A metabolite of Naproxen, O-desmethylnaproxen, has been shown to interfere with the Jendrassik-[place] method for measuring total bilirubin. Samples from patients who have taken Naproxen have shown spurious elevation in total bilirubin levels. 74 Because ethnic data is not always readily available, this report includes an eGFR for both -Americans and non- Americans. The National Kidney Disease Education Program (NKDEP) does not endorse the use of the MDRD equation for patients that are not between the ages of 18 and 70, are , have extremes of body size, muscle mass, or nutritional status, or are non- or non-. According to the National Kidney Foundation, irrespective of diagnosis, the stage of the disease is based on the level of kidney function: Stage Description GFR(mL/min/1.73 m(2)) 1 Kidney damage with normal or decreased GFR 90 2 Kidney damage with mild decrease in GFR 60-89 3 Moderate decrease in GFR 30-59 4 Severe decrease in GFR 15-29 5 Kidney failure <15 (or dialysis) 75 CHOLESTEROL INTERPRETATION: Desirable: Less than 200 MG/DL Borderline-High Risk: 200-239 MG/DL High-Risk: 240 MG/DL and over 76 HDL INTERPRETATION: Undesirable: High Risk: Less than 40 MG/DL Desirable: Low Risk: Greater than 60 MG/DL 77 LDL INTERPRETATION: Low Risk Optimal Level: LDL Less than 100 MG/DL Near or Above Optimal: LDL 100-129 MG/DL Borderline High Risk: LDL 130-159 MG/DL High Risk: LDL 160-189 MG/DL Very High Risk: LDL Greater than 189 MG/DL 78 * SERUM LEVELS OF PSA MEASURED USING THE [employer] ACCESS HYBRITECH IMMUNOASSAY SHOULD NOT BE INTERPRETED ABSOLUTE EVIDENCE OF THE PRESENCE OR ABSENCE OF DISEASE. THE PSA VALUE SHOULD BE USED IN CONJUNCTION WITH OTHER PERTINENT CLINICAL DIAGNOSTIC PROCEDURES. 79 Because ethnic data is not always readily available, this report includes an eGFR for both -Americans and non- Americans. The National Kidney Disease Education Program (NKDEP) does not endorse the use of the MDRD equation for patients that are not between the ages of 18 and 70, are , have extremes of body size, muscle mass, or nutritional status, or are non- or non-. According to the National Kidney Foundation, irrespective of diagnosis, the stage of the disease is based on the level of kidney function: Stage Description GFR(mL/min/1.73 m(2)) 1 Kidney damage with normal or decreased GFR 90 2 Kidney damage with mild decrease in GFR 60-89 3 Moderate decrease in GFR 30-59 4 Severe decrease in GFR 15-29 5 Kidney failure <15 (or dialysis) 80 ---- RUN DATE: 05/10/11 [facility] NMI LIVE PAGE 1 RUN TIME: 1314 Specimen Inquiry RUN USER: INTERFACE -- Name: INA BETTENCOURT Status: REG REF Re05/08/11 Age/Sex: 71/M Unit#: [id number] Location: [facility] : 39 -- Specimen: [id number] SOUT Spec Date: 05/08/[address]: Anton Wahl i, MD Spec Type: SURGICAL P Received: 05/09/116215 Copies to: Socrates billingsley MD SPECIMEN 1) LEFT LOBE PROSTATE BIOPSY APEX (APEX 3) 2) LEFT LOBE PROSTATE BIOPSY BASE (BASE 3) 3) RIGHT LOBE PROSTATE BIOPSY APEX (APEX 3) 4) RIGHT LOBE PROSTATE BIOPSY BASE (BASE 3) HISTORY PRE-OP DIAGNOSIS: PSA progression, firm nodule left lobe and right lobe, PSA 3.22 GROSS DESCRIPTION 1) The specimen is received in formalin labelled Ina Bettencourt, Left Prostate Lobe [place] and consists of three, aguiar, soft tissue cores measuring 1.8 cm., 1.8 cm., and 1.6 x 0.1 cm. Submitted entirely, one cassette. 2) The specimen is received in formalin labelled Ina Bettencourt, Left Prostate Lobe Base and consists of three, aguiar, soft tissue cores measuring 1.6 cm., 1.5 cm., and 1.3 x 0.1 cm. Submitted entirely, one cassette. 3) The specimen is received in formalin labelled Ina Bettencourt, Right Prostate Lobe [place] and consists of three, aguiar, soft tissue cores measuring 1.8 cm., 1.5 cm., and 1.5 x 0.1 cm. Submitted entirely, one cassette. 4) The specimen is received in formalin labelled Ina Bettencourt, Right Prostate Lobe Base and consists of three, aguiar, soft tissue cores measuring 2.0 cm., 2.0 cm., and 1.7 x 0.1 cm. Submitted entirely, one cassette. DIAGNOSIS 1) Prostate, left apex, core biopsies: A. Prostatic adenocarcinoma, small acinar type: 1. [place] score: 3 + 4=7. 2. Extent of Local Invasion: Tumor involves two foci on two of three cores, measures 6 mm. in maximal span and occupies approximately 30% of total core length. 3. Perineural Invasion: Not seen. 4. Angiolymphatic Invasion: Not seen. -- DEPARTMENT OF PATHOLOGY, [address] [place] [address] [facility] Permit #[id number] Forest Fox M.D. Director Pradeep Christensen M.D. Autism Tutor Dir duc -- -- RUN DATE: 05/10/11 [facility] NMI LIVE PAGE 2 RUN TIME: 1314 Specimen Inquiry RUN USER: INTERFACE -- Name: INA BETTENCOURT Status: REG REF Re05/08/11 Age/Sex: 71/M Unit#: [id number] Location: [facility] : 39 -- -- CONTINUED -- DIAGNOSIS (Continued) B. Other findings: None. 2) Prostate, left base, core biopsies: A. Prostatic adenocarcinoma, small acinar type: 1. [place] score: 4 + 3=7, focal tertiary Grade 5 pattern noted. 2. Extent of Local Invasion: Tumor involves two foci on two of three cores, measures 14 mm. in aggregate span and occupies approximately 60% of total core length. 3. Perineural Invasion: Present. 4. Angiolymphatic Invasion: Not seen. B. Other findings: None. 3) Prostate, right apex, core biopsies: A. Prostatic adenocarcinoma, small and large gland type: 1. [place]amm[place] score: 4 + 3=7. 2. Extent of Local Invasion: Tumor involves four foci on three of three cores, measures 15 mm. in maximal span and occupies 50% of total core length. 3. Perineural Invasion: Present. 4. Angiolymphatic Invasion: Not seen. B. Other findings: None. 4) Prostate, right base, core biopsies: A. Prostatic adenocarcinoma, small acinar type: 1. [place] score: 5 + 3=8 with tertiary pattern 4. 2. Extent of Local Invasion: Tumor involves three foci on three of three cores, measures greater than 2 cm. in aggregate dimension and occupies 80% of total core length. 3. Perineural Invasion: Present. 4. Angiolymphatic Invasion: Not seen. B. Other findings: None. COMMENT Dr. Christensen has reviewed this case and concurs. Signed Electronically by: FOREST FOX MD 05/10/11 1313 -- -- DEPARTMENT OF PATHOLOGY, [address] [place] [address] [facility] Permit #[id number] Forest Fox M.D. Director Pradeep Christensen M.D. Autism Tutor Dir duc -- 81 * SERUM LEVELS OF PSA MEASURED USING THE [employer] ACCESS HYBRITECH IMMUNOASSAY SHOULD NOT BE INTERPRETED ABSOLUTE EVIDENCE OF THE PRESENCE OR ABSENCE OF DISEASE. THE PSA VALUE SHOULD BE USED IN CONJUNCTION WITH OTHER PERTINENT CLINICAL DIAGNOSTIC PROCEDURES. 82 Anion gap measurement may be of limited value in the presence of any alkalosis, especially in a combined acid base disorder. . 83 A metabolite of Naproxen, O-desmethylnaproxen, has been shown to interfere with the Jendrassik-Adelfo method for measuring total bilirubin. Samples from patients who have taken Naproxen have shown spurious elevation in total bilirubin levels. 84 Because ethnic data is not always readily available, this report includes an eGFR for both -Americans and non- Americans. The National Kidney Disease Education Program (NKDEP) does not endorse the use of the MDRD equation for patients that are not between the ages of 18 and 70, are , have extremes of body size, muscle mass, or nutritional status, or are non- or non-. According to the National Kidney Foundation, irrespective of diagnosis, the stage of the disease is based on the level of kidney function: Stage Description GFR(mL/min/1.73 m(2)) 1 Kidney damage with normal or decreased GFR 90 2 Kidney damage with mild decrease in GFR 60-89 3 Moderate decrease in GFR 30-59 4 Severe decrease in GFR 15-29 5 Kidney failure <15 (or dialysis) 85 CHOLESTEROL INTERPRETATION: Desirable: Less than 200 MG/DL Borderline-High Risk: 200-239 MG/DL High-Risk: 240 MG/DL and over 86 HDL INTERPRETATION: Undesirable: High Risk: Less than 40 MG/DL Desirable: Low Risk: Greater than 60 MG/DL 87 LDL INTERPRETATION: Low Risk Optimal Level: LDL Less than 100 MG/DL Near or Above Optimal: LDL 100-129 MG/DL Borderline High Risk: LDL 130-159 MG/DL High Risk: LDL 160-189 MG/DL Very High Risk: LDL Greater than 189 MG/DL 88 Anion gap measurement may be of limited value in the presence of any alkalosis, especially in a combined acid base disorder. . 89 Note change in reference range as of 05/06/08. The change was based on recommendations from the [place] [employer]. 90 Please note change in reference range effective 08 . 91 A metabolite of Naproxen, O-desmethylnaproxen, has been shown to interfere with the Jendrassik-[place] method for measuring total bilirubin. Samples from patients who have taken Naproxen have shown spurious elevation in total bilirubin levels. 92 Because ethnic data is not always readily available, this report includes an eGFR for both -Americans and non- Americans. The National Kidney Disease Education Program (NKDEP) does not endorse the use of the MDRD equation for patients that are not between the ages of 18 and 70, are , have extremes of body size, muscle mass, or nutritional status, or are non- or non-. According to the National Kidney Foundation, irrespective of diagnosis, the stage of the disease is based on the level of kidney function: Stage Description GFR(mL/min/1.73 m(2)) 1 Kidney damage with normal or decreased GFR 90 2 Kidney damage with mild decrease in GFR 60-89 3 Moderate decrease in GFR 30-59 4 Severe decrease in GFR 15-29 5 Kidney failure <15 (or dialysis) 93 CHOLESTEROL INTERPRETATION: Desirable: Less than 200 MG/DL Borderline-High Risk: 200-239 MG/DL High-Risk: 240 MG/DL and over 94 HDL INTERPRETATION: Undesirable: High Risk: Less than 40 MG/DL Desirable: Low Risk: Greater than 60 MG/DL 95 LDL INTERPRETATION: Low Risk Optimal Level: LDL Less than 100 MG/DL Near or Above Optimal: LDL 100-129 MG/DL Borderline High Risk: LDL 130-159 MG/DL High Risk: LDL 160-189 MG/DL Very High Risk: LDL Greater than 189 MG/DL 96 FINAL: NO GROWTH DAY 2 (<1,000 CFU/mL) 97 Serologic response to B. burgdorferi infection is not detected, but cannot rule out early infection during which low or undetectable antibody levels to B. burgdorferi may be present. If clinically indicated, a new serum specimen should be submitted in 7-14 days. Test Performed by: [facility] Pathology [address] [place] [id number] [employer] Superintendent: Dru Godinez III, M.D. 98 ---- RUN DATE: 03/17/09 [facility] NMI LIVE PAGE 1 RUN TIME: 1706 Specimen Inquiry RUN USER: INTERFACE -- Name: INA BETTENCOURT Accasha#: [id number] Status: REG REF Re03/15/09 Age/Sex: 69/M Unit#: [id number] Location: [facility] : 39 -- Specimen: [id number] SOUT Spec Date: 03/15/[address]: Tim rea MD Spec Type: SURGICAL P Received: 03/16/09 Copies to: Socrates billingsley MD SPECIMEN 1) ASCENDING POLYP #1 2) ASCENDING POLYP #2 3) 70 CM COLON POLYP HISTORY CLINICAL INFORMATION: History colon polyps GROSS DESCRIPTION 1) Specimen received in formalin labelled Ina Bettencourt, Descending and consists of three fragments of aguiar-rocha tissue each measuring 0.3 x 0.3 x 0.3 cm. Submitted entirely, one cassette labelled one. 2) Specimen received in formalin labelled Ina Bettencourt, Descending #2 and consists of two fragments of aguiar-yellow tissue, each measuring 0.4 x 0.2 x 0.2 cm. Submitted entirely, one cassette labelled two. 3) Specimen received in formalin labelled Ina Bettencourt, Colon Polyp at 70 cm. and consists of one fragment of aguiar-yellow tissue measuring 0.7 x 0.2 x 0.2 cm. Submitted entirely, one cassette labelled three. DIAGNOSIS 1) Ascending colon, polyp, biopsy: A. Tubular adenoma. B. No high grade dysplasia or malignancy. 2) Ascending colon, polyp #2, biopsy: A. Tubular adenoma. B. No high grade dysplasia or malignancy. 3) Colon at 70 cm., biopsy: A. Tubular adenoma. B. No high grade dysplasia or malignancy. Signed Electronically by: PRADEEP CHRISTENSEN 03/17/09 1706 -- -- DEPARTMENT OF PATHOLOGY, [address] [place] [address] [facility] Permit #[id number] Forest Fox M.D. Director Pradeep Christensen M.D. Autism Tutor Dir duc -- 99 FINAL: NO GROWTH DAY 2 (<1,000 CFU/mL) 100 Anion gap measurement may be of limited value in the presence of any alkalosis, especially in a combined acid base disorder. . 101 Note change in reference range as of 05/06/08. The change was based on recommendations from the [place] [employer]. 102 Please note change in reference range effective 08 . 103 CHOLESTEROL INTERPRETATION: Desirable: Less than 200 MG/DL Borderline-High Risk: 200-239 MG/DL High-Risk: 240 MG/DL and over 104 HDL INTERPRETATION: Undesirable: High Risk: Less than 40 MG/DL Desirable: Low Risk: Greater than 60 MG/DL 105 LDL INTERPRETATION: Low Risk Optimal Level: LDL Less than 100 MG/DL Near or Above Optimal: LDL 100-129 MG/DL Borderline High Risk: LDL 130-159 MG/DL High Risk: LDL 160-189 MG/DL Very High Risk: LDL Greater than 189 MG/DL 106 FASTING 107 Anion gap measurement may be of limited value in the presence of any alkalosis, especially in a combined acid base disorder. . 108 Classification: Desirable . 109 CALCULATED LDL APPROXIMATES THE VALUE OF A DIRECT LDL MEASUREMENT. Classification: Near or above optimal . 110 * SERUM LEVELS OF PSA MEASURED USING THE [employer] ACCESS HYBRITECH IMMUNOASSAY SHOULD NOT BE INTERPRETED ABSOLUTE EVIDENCE OF THE PRESENCE OR ABSENCE OF DISEASE. THE PSA VALUE SHOULD BE USED IN CONJUNCTION WITH OTHER PERTINENT CLINICAL DIAGNOSTIC PROCEDURES. Procedures Date Code Description Status 12/16/2018 72061 EKG Tracing & Interpretation Completed 05/15/2018 [id number] Diabetic Retinal Eye Exam Completed 08/13/2017 [id number] Bone Mineral Density Test Completed 02/01/2017 22019 Short Arm Splint Application Completed 01/24/2017 43877 Realignment Extensor Tendon Hand Completed 01/24/2017 98019 Realignment Extensor Tendon Hand Completed 05/02/2016 85939 ECHO Transthoracic, Real-Time 2D With Doppler And Completed Color Flow 10/19/2015 46714 Polysomnography Sleep Staging 4+ Parameters W/Cpap Completed 05/04/2015 65675 ECHO Transthoracic, Real-Time 2D With Doppler And Completed Color Flow 04/21/2015 [id number] Bone Mineral Density Test Completed 04/21/2014 19791 EKG Tracing & Interpretation Completed 04/19/2014 [id number] Bone Mineral Density Test Completed 11/26/2012 91909 Polysomnography Sleep Staging 4+ Parameters W/Cpap Completed 09/17/2012 [id number] Bone Mineral Density Test Completed 03/25/2012 [id number] Colonoscopy Completed 10/01/2011 [id number] Bone Mineral Density Test Completed 03/15/2009 [id number] Colonoscopy Completed Encounters Type Date Location Provider Dx Diagnosis Office Visit 11/19/2018 Orthopedic Kerri Swartz, M25.561 Pain in right 10:00a Services Of Ray Collier knee M17.11 Unilateral primary osteoarthritis, right knee M21.161 Varus deformity, not elsewhere classified, right knee Office Visit 11/10/2018 2:00p [facility] Internal Lita Nur, K59.00 Constipation, Medicine MD unspecified M54.5 Low back pain M25.561 Pain in right knee Office Visit 09/25/2018 [facility] [place] G47.33 Obstructive sleep 9:30a Sleep Services Of MARILEE Beltran, RN, apnea (adult) [facility] NUTRITIONALIST-BC (pediatric) Z68.35 Body mass index (BMI) 35.0-35.9, adult Office Visit 08/26/2018 William Avila, G20 Parkinson's 10:15a Neurologic M.D. disease Services Of [facility] Office Visit 08/25/2018 [facility] Internal Socrates Hester Z00.01 Encounter for 11:20a Ximena Monge M.D.,FACP general adult Rd medical exam w abnormal findings G20 Parkinson's disease M25.561 Pain in right knee E78.2 Mixed hyperlipidemia M81.0 Age-related osteoporosis w/o current pathological fracture I10 Essential (primary) hypertension K21.9 Gastro-esophageal reflux disease without esophagitis Office Visit 05/29/2018 [facility] Internal Socrates Hester Z01.810 Encounter for 9:40a Ximena Monge M.D.,FACP preprocedural [address] cardiovascular examination H25.013 Cortical age-related cataract, bilateral G20 Parkinson's disease M25.561 Pain in right knee Z23 Encounter for immunization Office Visit 03/12/2018 11:40a [facility] Internal Maylin Jeffrey, R21 Rash and other Medicine - [place] NUTRITIONALIST nonspecific skin Rd eruption M25.561 Pain in right knee Office Visit 02/27/2018 10:30a [place] [facility] Jf Avila, G20 Parkinson's Services Of Dee Dee Collier disease G47.33 Obstructive sleep apnea (adult) (pediatric) Office Visit 10/08/2017 [facility] [place] G47.33 Obstructive sleep 11:00a Sleep Services Of MARILEE Beltran, RN, apnea (adult) [facility] NUTRITIONALIST-BC (pediatric) Office Visit 08/06/2017 [facility] Internal Socrates Hester Z00.01 Encounter for 1:00p Ximena Monge M.D.,FACP general adult medical exam w abnormal findings G20 Parkinson's disease G47.33 Obstructive sleep apnea (adult) (pediatric) E78.2 Mixed hyperlipidemia M81.8 Other osteoporosis without current pathological fracture Z00.00 Encntr for general adult medical exam w/o abnormal findings Office Visit 07/25/2017 [place] [facility] Bri Dia G20 Parkinson's 8:30a Services Of Dee Dee Baron M.D. disease Office Visit 07/16/2017 Orthopedic Nicholas Reddy S66.303D Unsp inj extn 2:45p Services Of MD guerrero/missael/tend l C.M.AFermin mid fngr at [facility], subs Office Visit 04/03/2017 [facility] [place] G47.33 Obstructive 10:00a Sleep Services Of MARILEE Beltran, JAYLYN, sleep apnea [facility] NUTRITIONALIST-BC (adult) (pediatric) Office Visit 01/22/2017 Orthopedic Nicholas Reddy S66.303A Unsp inj extn 3:15p Services Of MD guerrero/missael/tend l C.M.A. mid fngr at [facility], init Office Visit 01/08/2017 [facility] Marleni Hester S63.253A Unspecified 3:40p Ximena Monge M.D.,FACP dislocation of left middle finger, init encntr R05 Cough E78.2 Mixed hyperlipidemia Office Visit 12/31/2016 [facility] [place] G47.33 Obstructive sleep 11:00a Sleep Services Of MARILEE Beltran RN, apnea (adult) [facility] ISRA-BC (pediatric) R05 Cough Office Visit 12/27/2016 [place] Maria Parkinson's 11:30a Services Of Dee Dee Baron M.D. disease Office Visit 10/02/2016 Pulmonology And Keely Kaiser G47.33 Obstructive sleep 10:15a Sleep Services Of MD mark (adult) [facility] (pediatric) E66.09 Other obesity due to excess calories Office Visit 09/25/2016 11:20a [facility] Internal John Newman, S86.112A Strain musc/tend Medicine - [employer] post grp at low [address] leg level, left leg, init Office Visit 07/31/2016 3:00p [facility] Internal Socrates Hester Z00.01 Encounter for general Michelle adult Amira,FACP medical exam w abnormal findings G47.33 Obstructive sleep apnea (adult) (pediatric) R60.1 Generalized edema E78.2 Mixed hyperlipidemia M81.0 Age-related osteoporosis w/o current pathological fracture I10 Essential (primary) hypertension Office Visit 07/24/2016 William Maria Parkinson's 11:00a Services Of Dee Dee Baron M.D. disease Office Visit 06/26/2016 [facility] [place] G47.33 Obstructive sleep 11:15a Sleep [facility] MARILEE Beltran RN, apnea (adult) [facility] Z23 Encounter for immunization Office Visit 04/24/2016 4:00p [facility] Internal Socrates Hester I50.32 Chronic diastolic Medicine Amira Monge,FACP (congestive) heart failure E55.9 Vitamin D deficiency, unspecified E78.2 Mixed hyperlipidemia Office Visit 03/23/2016 [facility] [place] G47.33 Obstructive sleep 11:15a Sleep Services Of MARILEE Beltran RN, apnea (adult) [facility] ISRA-GRECIA (pediatric) E66.9 Obesity, unspecified Office Visit 03/08/2016 [place] Jessica Dia G2Marie Parkinson's 2:00p Services Of Dee Dee Baron M.D. disease Office Visit 12/23/2015 [facility] [place] G47.33 Obstructive sleep 11:15a Sleep Services Of MARILEE Beltran RN, apnea (adult) [facility] (pediatric) E66.9 Obesity, unspecified Office Visit 11/11/2015 [facility] [place] G47.33 Obstructive sleep 11:30a Sleep Services Of MARILEE Beltran RN, apnea (adult) [facility] (pediatric) E66.9 Obesity, unspecified Office Visit 10/27/2015 [place] Jessica Dia G20 Parkinson's 9:30a Services Of Dee Dee Baron M.D. disease Office Visit 09/27/2015 Pulmonology And Keely Kaiser G47.33 Obstructive sleep 10:45a Sleep Services Of apnea (adult) [facility] (pediatric) E66.01 Morbid (severe) obesity due to excess calories Office Visit 08/17/2015 10:45a Pulmonology And Keely G47.33 Obstructive sleep Sleep Services Of MD Job apnea (adult) [facility] (pediatric) E66.01 Morbid (severe) obesity due to excess calories Office Visit 06/22/2015 2:30p [facility] Internal Socrates Hester R60.9 Edema, unspecified Ximena Monge M.D.,FACP [address] Z23 Encounter for immunization G20 Parkinson's disease Office Visit 05/18/2015 11:30a Pulmonology And Ke[place] 327.23 Obstructive Sleep Sleep Services Of MD Job Apnea Adult & [facility] Pediatric 278.01 Obesity Morbid Office Visit 04/22/2015 10:00a 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 Agitans Office Visit 03/16/2015 9:50a [facility] Internal Socrates Hester 802.0 FX Nasal Bones Medicine - Funmilayo Monge M.D.,FACP Closed Rd 332.0 Paralysis Agitans 923.3 Contusion Finger 733.09 Osteoporosis Other Office Visit 12/14/2014 11:30a [place] Neurologic Bri Dia 332.0 Paralysis Agitans Services Of Dee Dee Baron M.D. Office Visit 07/29/2014 11:45a [place] Neu[facility]ic Bri Dia 332.0 Paralysis Agitans Services Of Dee Dee Baron M.D. Office Visit 04/21/2014 2:00p [facility] Internal Socrates Hester V70.0 Examination Medicine Amira Monge,FACP General Medical Routine AT Health Care Facility 733.90 Bone & Cartilage Disorder Unspec 272.2 Hyperlipidemia Mixed 332.0 Paralysis Agitans 894.0 Open Wound Lower Limb Multiple Unspec W/O Complication 785.0 Tachycardia Unspec V06.1 Lmqenflajt-Kaqicjl-Bqudetpz Combined (DTaP) Office Visit 04/08/2014 11:45a William Dia 332.0 Paralysis Agitans Services Of Dee Dee Baron M.D. Office Visit 11/17/2013 11:45a William Dia 332.0 Paralysis Agitans Services Of Dee Dee Baron M.D. Office Visit 08/18/2013 10:00a William Dia 332.0 Paralysis Agitans Services Of Dee Dee Baron M.D. Office Visit 07/08/2013 11:00a William Dia 332.0 Paralysis Agitans Services Of Dee Dee Baron M.D. Office Visit 04/20/2013 2:00p [facility] Internal Socrates Hester V70.0 Examination Ximena Monge M.D.,FACP General Medical Routine AT Health Care Facility 332.0 Paralysis Agitans 790.21 Impaired Fasting Glucose 272.2 Hyperlipidemia Mixed Office Visit 03/09/2013 1:00p [facility] Internal Tyrone Mancia 782.1 Rash & Other Medicine Amira Calero Nonspec Skin Eruption Office Visit 03/05/2013 12:45p William Dia 332.0 Paralysis Agitans Services Of Dee Dee Baron M.D. Office Visit 10/31/2012 8:15a William Dia 332.0 Paralysis Agitans Services Of Dee Dee Baron M.D. Office Visit 10/21/2012 2:21p [facility] 327.23 Obstructive Sleep Disorder Center Amira Rizo Apnea Adult & Pediatric Office Visit 09/18/2012 3:00p [facility] Internal Socrates Hester 733.90 Bone & Cartilage Medicine Jae Monge M.D.,FACP 401.1 Hypertension Benign Office Visit 06/26/2012 2:45p [place] [facility] Bri Dia 332.0 Paralysis Agitans Services Of Dee Dee Baron M.D. Office Visit 04/17/2012 3:00p [facility] Internal Socrates Hester V70.0 Examination Medicine [facility] Routine AT [facility] 185 Malignant Neoplasm Prostate 401.1 Hypertension Benign 272.2 Hyperlipidemia Mixed 733.90 Bone & Cartilage Disorder Unspec Office Visit 11/15/2011 2:20p 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 401.1 Hypertension Benign 781.3 Coordination Lack Of 728.88 Rhabdomyolysis 786.2 Cough 600.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 Office Visit 02/08/2009 DO Not Use Importer Or Exporter Matt, 788.41 Urinary Frequency 8:20a AT [place] Schrader M.D. Office Visit 02/02/2009 DO Not Use Importer Or Exporter Matt, 562.10 Diverticulosis 8:20a AT [facility] Amira Schrader Colon W/O Hemorrhage 564.00 Constipation Unspecified Office Visit 01/27/2009 1:40p DO Not Use Importer Or Exporter Socrates Hester 272.2 Hyperlipidemia Mixed AT [facility] Amira Monge,FACP 401.1 Hypertension Benign 278.01 Obesity Morbid Office Visit 07/13/2008 DO Not Use Erika Dang PA 461.8 Sinusitis Acute 1:00p Importer Or Exporter AT Other [facility] Office Visit 12/12/2007 DO Not Use Socrates Monge, 401.1 Hypertension 10:00a Importer Or Exporter AT .Mir,FACP Benign [facility] 272.2 Hyperlipidemia Mixed 278.0 Obesity Plan of Treatment Future Appointment(s):2019 10:30 am - Kerri Swartz M.D. at [facility].12/30/2018 1:30 pm - Elkin Case PA-C at [facility].12/30/2018 1:30 pm - JESSICA Pelaez at [facility].12/30/2018 1:30 pm - Kerri Swartz M.D. at [facility]08/27/2019 11:40 am - Lita Nur MD at [facility] Internal Hybakuis98/02/2019 - Lita Nur MDZ01.818 Encounter for other preprocedural fkhpfsojqveV46.11 Unilateral primary osteoarthritis, right kneeI50.32 Chronic diastolic (congestive) heart fwlahqtD63.33 Obstructive sleep apnea (adult) ( pediatric)Comments:Continue Bipap; take machine with you to the [id number] Essential (primary) hypertensionComments:BP running low. Will need [id number] Parkinson's diseaseComments:Continue f/u with neurology
--- OUTSIDE RECORDS SUMMARY | 2018-12-30 08:25 | XMS REPORT | Continuity of Care Document ---
:1940 External Reference #:[id number] Author Name Roddy Rachel Care Team Providers Name Role Phone Lita Nur MD Primary Care Physician Unavailable Payers Date Identification Numbers Payment Provider Subscriber Effective: 2004 Policy Number: [id number] Medicare Ina Bettencourt PayID: [id number] [address] [place] [address] Effective: 2012 Policy Number: [id number] [employer] Ina Bettencourt PayID: [id number] [address] [address] KIM Hinds [address] Expires: 2012 Policy Number: [id number] [employer] [place] Ina Bettencourt PayID: [id number] [address] [address] KIM Hinds [address] Advance Directives Type Date Description Status Comment [...] Hinds M.D.,FACP Onset: 04/17/2012 Osteochondropathy Dominic Hinds M.D.FACP Onset: 04/20/2013 Obstructive sleep apnea syndrome Domiinc Hinds M.D., FACP Note: on CPAP Onset: 04/20/2013 Impaired fasting glycaemia Dominic Hinds M.D.,FACP Onset: 04/22/2015 Gastroesophageal reflux disease Dominic Hinds M.D.,FACP Onset: 06/22/2015 Vitamin D deficiency Dominic Hinds M.D.,LINDAP Onset: 01/22/2017 Unspecified injury of extensor Nicholas Reddy MD Active muscle, fascia and tendon of left middle finger at wrist and hand level, initial encounter Onset: 08/25/2018 Urge incontinence of urine Dominic Hinds M.D., FACP Onset: 12/12/2007 Obesity Socrates Monge Inactive LINDA CollierP Inactive: 11/15/2011 Family History Date Family Member(s) [...] Rec ML s milliliters Mir Monge intramuscular Amira,TIMMY now and 2-3 months later repeat Voltaren 03/12 Active Gel 1% 100gm apply 4 grams M25.561 ofi to right knee Jeffrey, 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 half tab at night. Selegiline HCL 08/18 Active Tablets 5mg 180ta take one bs tablet by Alfonzo, mouth in the N.P. morning and at noon Atorvastatin 02/04 Active Tablets 10mg 90tab take 1 tablet s by mouth at MD Boom bedtime Omeprazole 12/[address] 20mg 90cap 1 by mouth s every day as Mir Monge, nadine [facility]lier[facility] Ramipril 11/05 Active Capsules 2.5mg 90cap take one I10 s capsule by MD Boom mouth once daily Fluticasone 04/04 Active Suspension 50mcg/Act 48uni use one Propionate ts spray(s) in MD Boom each nostril once daily as needed Vitamin B-6 Active Tablets 100mg 1 per day Vitamin B-12 Active Tablets Sub 1000mcg 1 by mouth once daily Folic Acid Active Tablets 400mcg 1n po qd Libia Active Tablets 180mg 30tab 1 po qd Unknown Allergy / s Calcium + D3 Active Tablets 600-200mg 1 po bid -Unit Magnesium Active Capsules 500mg 1 po qd Unknown Vitamin D Active Tablets 1000Unit 120ta 2 qd Socrates bs fall/winter Mir Monge, and 1 qd by TIMMY Collier mouth spring/summer Mucinex Active Tablets ER 600mg twice a day 12HR as needed Vitamin D 04/22 Hx Tablets 1000Unit once a day 733.90 Socrates (Cholecalcifer /2014 dorene Ronquillo) - Amira,FACP 02/26 Carbidopa/Levo 12/03 Hx Tablets 25-100mg 90tab 09/17 po qAM 1 Bri Fermin s po q noon,09/17 Tod, - po q pm M.DFermin 06/23 Lipitor 03/05 Hx Tablets 10mg 100ta 1 po qhs Bri . bs Kanwal Baron M.D. 03/09 Vitamin D 09/18 Hx Capsules 400Unit 60cap 1 po qd 733.90 Kanwal Santiago M.D.,[facility] 04/22 Alendronate 09/18 Hx Tablets 70mg 12tab Take One M89.9 Socrates Sodium s Tablet By Mir oMnge, - Mouth Once A M.DFermin,[facility] Calcium 500 +D 11/14 Hx Tablets 500-400mg 60tab 1 po bid -Unit Kanwal Santiago M.D.,[facility] 11/17 Atorvastatin 09/18 Hx Tablets 10mg 90tab Take 1 Tablet Socrates Calcium s By Mouth AT Mir Monge, - Bedtime Amira,[facility] 09/18 Simvastatin 06/20 Hx Tablets 10mg 90tab 1 po qhs Kanwal Santiago M.D.,[facility] 09/18 Omeprazole 04/[address] 20mg 30cap 1 po qd 786.2 Kanwal Santiago M.D.,[facility] 09/18 Altace 01/16 Hx Tablets 2.5mg 90tab 1 tablet po 401.1 s qdKanwal García M.D.,[facility] 11/05 no child proof Aspirin 04/[address] 81mg 50tab 1 po qd Kanwal Santiago M.D.,[facility] 12/16 Diovan 04/07 Hx Tablets 80mg 28tab 1 po qd 401.1 elizabeth samples Kanwal Ronquillo M.D.,[facility] 01/16 Ciprofloxacin 02/08 Hx Tablets 250mg 20tab 1 tablet po. 788.41 Stevanovi HCL /2008 s bid c, - Radomir, 08/02 MAydee /2008 Levaquin 07/13 Hx Tablets 500mg 14tab 1 PO qd X 461.8 Socrates s 14days Kanwal Ronquillo M.D.,[facility] 01/27 Simvastatin 12/11 Hx Tablets 20mg 90tab 1 tablet po s qd Kanwal Ronquillo M.D.,[facility] 04/02 Asa Hx 81mg 1 PO qd Kanwal Ronquillo M.D.,[facility] 04/07 Flonase Hx Suspension 50mcg/Act 3mont 1 Intranasal hsupp puff To Each Mir Monge, - ly Nostril Daily Amira,[facility] 04/04 Libia Hx Tablets 60mg 180ta 1 po bid prn Socrates / bs Kanwal Ronquillo M.D.,[facility] 11/14 Altace Hx Tablets 2.5mg 90tab 1 tablet po 401.1 Socrates / s qday Kanwal Ronquillo M.D.,[facility] 04/07 no child proof Libia Hx Tablets [...] morning Mir Monge, - for 1 week, Amira,[facility] 12/26 then 1 tab daily. take 2nd pill if weight >252 Ocuvite Adult Hx Capsules 1 a day Unknown 50+ /0000 - 08/25 Meningococcal Active Injection Unknown B,Unspecified /0000 Immunizations CPT Code Status Date Vaccine Reaction Lot # [id number] Given 05/29/2018 Influenza Virus Vaccine, [id number] Quadrivalent, Split, Preservative Free 56582 Given 07/16/2017 Influenza Virus Vaccine, [id number] Quadrivalent, Split, Preservative Free 09699 Given 06/26/2016 Influ Virus Vaccine, Quadrivalent, [id number] Split Virus, [place] [address] Given 06/27/2015 Influenza Virus 3Yrs & Over 69319 Given 06/22/2015 Influenza Virus Vaccine, [id number] Quadrivalent, Split, Preservative Free 36015 Given 04/22/2015 Pneumococcal Conjugate Vaccine 13 [id number] Valent For Intramuscular Use 34056 Given 08/09/2014 Flu Vaccine Split Virus [id number] Preservative Free For Indiv 3Yr Older 52229 Given 04/21/2014 Tdap - Tetanus/Diptheria/Acellular [id number] Pertussis 53811 Given 06/29/2013 Flu Vaccine Split Virus [id number] Preservative Free For Indiv 3Yr Older Q2038 Given 05/29/2012 Fluzone Vaccine [id number] Q2038 Given 05/29/2012 Fluzone Vaccine [id number] Given 06/06/2011 Fluzone Vaccine [id number] 44143 Given 07/01/2010 Influenza Virus 3Yrs & Over 90937 Given 06/25/2008 Influenza Virus 3Yrs & Over 06788 Given 06/25/2008 Influenza Virus 3Yrs & Over [id number] 69550 Given 12/30/2007 Zoster (Zostavax) 13288 Given 12/30/2007 Zoster (Zostavax) 31700 Given 12/30/2007 Zoster (Zostavax) unknow site [id number] 96564 Given 07/23/2007 Influenza Virus 3Yrs & Over 41888 Given 05/09/2005 Pneumonia Vaccine 44975 Given 10/29/2003 Td Toxoids Adsorbed For Use [...] Date Facility Test Result H/L Range Note Urinalysis Profile 12/16/2018 [facility] Urine Color Yellow [address] [place] [address] [phone] Urine Appearance Clear Urine Specific [place] 1.013 N 1.010-1.030 Urine pH 5.0 N 5-9 Urine Urobilinogen Negative Negative Urine Ketones Negative Negative Urine Protein Negative Negative Urine Leukocytes Negative Negative Urine Blood 1+ Abnormal Negative Urine Nitrite Negative Negative Urine Bilirubin Negative Negative Urine Glucose Negative Negative Urine White Blood Cell Trace(0-5/hpf) Absent Urine Red Blood Cell Trace(0-2/hpf) Absent Urine Bacteria Absent Absent Urine Hyaline Casts Present Abnormal Absent CBC Auto Diff 12/16/2018 [facility] White Blood 7.6 10^3/uL N 3.5-10.[address] [place] [address] [phone] Red Blood Count 4.78 10^6/uL N 4.18-5.48 [...] Cells % 0.1 Comp Metabolic Panel 12/16/2018 [facility] Sodium 140 mmol/L N 135-145 [place] [address] [phone] Potassium 4.3 mmol/L N 3.5-5.0 Chloride 103 [...] Non- 59.5 >60 Egfr 72.1 >60 1 Laboratory 11/10/2018 [facility] TSH (Thyroid Stim 2.18 N 0.34 -5.60 test finding Horm) mcIU/[place] [address] [phone] Lipid Profile 05/05/2018 [facility] Triglycerides 87 mg/dL 2 (Trig/Chol/HDL ) [place] [address] [phone] Cholesterol 149 mg/dL 3 HDL Cholesterol 57.2 mg/dL 4 LDL Cholesterol 74 mg/dL 5 Basic Metabolic Panel 05/05/2018 [facility] Sodium 142 mmol/L N 135-145 [place] [address] [phone] Potassium 4.0 mmol/L N 3.5-5.0 Chloride 107 mmol/L N 101-111 Co2 Carbon Dioxide 29 mmol/L N 22-32 Anion Gap 6 mmol/L N 2-11 Glucose 91 mg/dL N 70-100 Blood Urea Nitrogen 20 mg/dL N 6-24 Creatinine 1.08 mg/dL N 0.67-1.17 BUN/Creatinine Ratio 18.5 N 8-20 Calcium 8.7 mg/dL N 8.6-10.3 Egfr Non- 66.0 >60 Egfr 79.8 >60 6 Laboratory test 05/05/2018 [facility] Vitamin D Total 25.6 ng/ mL N 20-50 [address] 25(Oh) [place] [address] [phone] Laboratory test 04/18/2018 [facility] PSA Screening 0.042 0- 4.0 [address] ng/mL [place], [place] [id number] [phone] Laboratory test 10/01/2017 [facility] PSA Screening 0.067 0- 4.0 [address] ng/[place] [address] [phone] Laboratory test 04/30/2017 [facility] Vitamin D Total 35.6 ng/ mL N 30-50 [address] 25(Oh) [place] [address] [phone] Lipid Profile 04/30/2017 [facility] Triglycerides 56 mg/dL N 11 (Trig/Chol/HDL) [address] [place] [address] [phone] Cholesterol 157 mg/dL N 12 HDL Cholesterol 58.1 mg/dL N 13 LDL Cholesterol 88 mg/dL N 14 Comp Metabolic Panel 04/30/2017 [facility] Sodium 140 mmol/L N 133-[address] [place] [address] [phone] Potassium 4.5 mmol/L N 3.5-5.0 Chloride 105 [...] 66.8 N >60 Egfr 86.0 N >60 15 Laboratory test 09/20/2016 [facility] PSA Screening 0.055 ng/mL N 0-4.0 [address] [place] [address] [phone] Basic Metabolic 05/07/2016 [facility] Sodium 139 mmol/L N 133- 145 Panel [address] [place] [address] [phone] Potassium 4.1 mmol/L N 3.5-5.0 Chloride 104 mmol/L N 101-111 Co2 Carbon Dioxide 27 mmol/L N 22-32 Anion Gap 8 mmol/L N 2-11 Glucose 80 mg/dL N 70-100 Blood Urea Nitrogen 14 mg/dL N 6-24 Creatinine 1.12 mg/dL N 0.67-1.17 BUN/Creatinine Ratio 12.5 N 8-20 Calcium 9.1 mg/dL N 8.6-10.3 Egfr Non- 63.6 N >60 Egfr 81.8 N >60 17 Laboratory test 05/07/2016 [facility] Vitamin D Total 33.5 ng/ mL N 30-50 [address] 25(Oh) [place] [address] [phone] Lipid Profile 05/07/2016 [facility] Triglycerides 90 mg/dL N 19 (Trig/Chol/HDL) [address] [place] [address] [phone] Cholesterol 143 mg/dL N 20 HDL Cholesterol 50.8 mg/dL N 21 LDL Cholesterol 74 mg/dL N 22 Liver Function 05/07/2016 [facility] Total Protein 6.9 g/dL N 6.4-8.[address] [place] [address] [phone] Albumin 3.8 g/dL N 3.2-5.2 Globulin 3.1 g/dL N 2-4 Albumin/Globulin Ratio 1.2 N 1-3 Total Bilirubin 0.70 mg/dL N 0.2-1.0 Direct Bilirubin 0.10 mg/dL N 0.03-0.18 Indirect Bilirubin 0.6 mg/dL N 0.3-1.0 Alkaline Phosphatase 66 U/L N 34-104 Alt 19 U/L N 7-52 Ast 22 U/L N 13-39 Laboratory test 03/07/2016 [facility] PSA Diagnostic 0.048 N 0 -4.0 [address] ng/[place] [address] [phone] Laboratory test 08/26/2015 [facility] PSA Diagnostic 0.050 N 0 -4.0 [address] ng/[place] [address] [phone] Laboratory test 06/24/2015 [facility] TSH (Thyroid 2.56 N 0.34 -5.[address] Stim Horm) ?IU/[place] [address] [phone] Free T4 (Free Thyroxine) 0.76 ng/mL N 0.61-1.12 Laboratory test 06/16/2015 [facility] Vitamin D Total 32.2 N 30-[address] 25(Oh) ng/[place] [address] [phone] Lipid Profile 04/19/2015 Triglycerides 113 mg/dL N 25, 26 (Trig/Chol/HDL) Cholesterol 158 mg/dL N 27 HDL Cholesterol 42.7 mg/dL N 28 LDL Cholesterol 93 mg/dL N 29 Comp Metabolic Panel 04/19/2015 Sodium 142 mmol/L [...] 79.0 N >60 Egfr 101.6 N >60 30 Laboratory test 04/19/2015 Vitamin D Total 23.1 ng/mL Low 30-50 31 finding 25(Oh) Laboratory test 02/23/2015 [facility] Testosterone Total 209.84 Low 240-[address] ng/[place] [address] [phone] PSA Diagnostic 0.047 ng/mL N 0-4.0 32 Laboratory test 08/24/2014 [facility] Testosterone 170.96 Low 240-[address] [place] ng/[place] [address] [phone] PSA Diagnostic 0.025 ng/mL N 0-4.0 33 Comp Metabolic Panel 04/15/2014 Sodium 140 mmol/L [...] 86.7 N >60 Egfr 111.5 N >60 34 Lipid Profile (Trig/Chol/HDL) 04/15/2014 Triglycerides 194 mg/dL N 35 Cholesterol 166 mg/dL N 36 HDL Cholesterol 50.2 mg/dL N 37 LDL Cholesterol 77 mg/dL N 38 Laboratory test 02/22/2014 [facility] Testosterone 113.67 Low 240-[address] ng/dL [place], [place] [id number] [phone] PSA Diagnostic 0.011 ng/mL N 0-4.0 39 CBC No Diff 10/26/2013 [facility] White Blood 6.2 10^3/uL 4.8 -10.[address] [place], [place] [address] [phone] Red Blood Count 4.51 10^6/uL 4.0-5.4 Hemoglobin 14.2 g/dL 14.0-18.0 Hematocrit 42 % 42-52 Mean Corpuscular Volume 93 fL 80-94 Mean Corpuscular Hemoglobin 32 pg High 27-31 Mean Corpuscular HGB Conc 34 g/dL 31-36 Red Cell Distribution Width 15 % 10.5-15 Platelet Count 184 10^3/uL 150-450 Mean Platelet Volume 9 um3 7.4-10.4 Laboratory test 08/20/2013 [facility] Testosterone < 10 ng/dL Low 175-781 finding [address] [place] [address] [phone] PSA Diagnostic < 0.008 ng/mL 0-4.000 40 Laboratory test 04/23/2013 [facility] Creatine Kinase 118 U/L 0-200 finding [address] [place] [address] [phone] Lipid Panel 04/14/2013 [facility] Triglycerides 75 mg/dL 40- 200 [address] [place], [place] [id number] [phone] Cholesterol 182 mg/dL Less than 200 HDL Cholesterol 64 mg/dL High 40-60 41 Cholesterol/HDL Ratio 2.8 Average 1-4.44 LDL Cholesterol 103.0 High Less Than 100 42 CMP Panel 04/14/2013 [facility] Sodium 138 mmol/L 133-145 [address] [place] [address] [phone] Potassium 4.4 mmol/L 3.5-5.0 Chloride 106 mmol/L [...] Non- 82.5 >60 Egfr 106.1 >60 43 Laboratory test 04/14/2013 [facility] Lyme Disease Negative Negative 44 finding 101 [facility] [place] [place] [address] [phone] Laboratory test 03/09/2013 [facility] Lyme Disease Negative Negative 45 finding [address] [facility] [place] [address] [phone] Laboratory test 02/20/2013 [facility] PSA Diagnostic 0.01 ng/mL 0-4.0 46 finding [address] [place] [address] [phone] Laboratory test 10/21/2012 [facility] PSA Diagnostic 0.02 ng/mL 0-4.0 47 finding [address] [place] [address] [phone] BMP Basic 09/13/2012 [facility] Sodium 138 mmol/L 133-145 Metabolic Panel [address] [place] [address] [phone] Potassium 4.4 mmol/L 3.5-5.0 Chloride 105 mmol/L 101-111 Co2 Carbon Dioxide 29.0 mmol/L 22-32 Anion Gap 4.0 mmol/L 2-11 Glucose 91 mg/dL 70-100 Blood Urea Nitrogen 22 mg/dL 6-24 Creatinine 1.10 mg/dL 0.50-1.40 BUN/Creatinine Ratio 20.0 8-20 Calcium 9.2 mg/dL 8.1-9.9 Egfr Non- 65.6 >60 Egfr 84.4 >60 48 Lipid Panel 09/13/2012 [facility] Triglycerides 107 mg/dL 40- 200 [address] [place] [address] [phone] Cholesterol 247 mg/dL High Less than 200 HDL Cholesterol 58 mg/dL 40-60 49 Cholesterol/HDL Ratio 4.3 Average 1-4.44 LDL Cholesterol 167.6 mg/dL High Less Than 100 50 Vitamin D,25 09/13/2012 [facility] 25-Hydroxy Vitamin <4.0 ng/ mL Hydroxy [address] [place] [address] [phone] 25-Hydroxy Vitamin D3 32 ng/mL 25-Hydroxy Vitamin D Total 32 ng/mL 51 Laboratory test 06/13/2012 [facility] PSA,Diagnostic 0.0 NG/ML 0-[address] [place] [address] [phone] Lipid Panel 04/10/2012 [facility] Triglyceride 124 mg/dL 40- [address] [place] [address] [phone] Cholesterol 191 mg/dL Less Than 200 53 High Density Lipoprotein 57 mg/dL 40-60 54 Cholesterol/HDL Ratio 3.35 AVERAGE 1-4.97 Low Density Lipoprotein 109 mg/dL High Less Than 100 55 CMP Panel 04/10/2012 [facility] Sodium 138 mmol/L 135-[address] [place] [address] [phone] Potassium 4.2 mmol/L 3.5-5.0 Chloride 108 mmol/L 101-111 Co2 (Carbon Dioxide) 25.0 mmol/L 22-32 Anion Gap 5.0 mmol/L 2-11 56 Glucose 96 mg/dL 70-100 BUN 20 mg/dL 6-24 Creatinine 1.0 mg/dL 0.50-1.40 One Over Creatinine 1.00 BUN/Creatinine Ratio 20.0 8-20 Calcium 9.4 mg/dL 8.1-9.9 Total Protein 5.6 GM/DL Low 6.2-8.1 Albumin 3.5 GM/DL 3.2-5.2 Globulin 2.1 GM/DL 2-4 Albumin/Globulin Ratio 1.7 1-3 Bilirubin Total 0.8 mg/dL 0.4-1.5 57 Alkaline Phosphatase 76 U/L 39-117 Alt (SGPT) 34 U/L 17-63 Ast (Sgot) 35 U/L 12-42 eGFR Non- 73.2 > 60 eGFR 94.2 > 60 58 Laboratory test 04/10/2012 [facility] CPK (Creatine 282 U/L High 0-[address] Kinase) [place] [address] [phone] Laboratory test 04/01/2012 [facility] PSA,Diagnostic 0.0 NG/ML 0-4 59 finding [address] [place] [address] [phone] Surgical 03/25/2012 [facility] Surgical --------- [address] [facility] Pathology ------- [place] [address] <SEE [phone] NOTE> Laboratory test 01/22/2012 [facility] PSA,Diagnostic 0.0 NG/ML 0-4 61 finding [address] [place] [address] [phone] Laboratory test 12/25/2011 [facility] CPK (Creatine 164 U/L 0 -[address] Kinase) [place] [address] [phone] Thyroxine Free 0.90 ng/dL 0.61-1.24 TSH 1.15 MIU/ML 0.34-5.60 Lipid Panel - 11/08/2011 [facility] CPK (Creatine 140 U/L 0- [address] Kinase) [place] [address] [phone] CMP Panel 11/08/2011 [facility] Sodium 138 mmol/L 135-145 [address] [place] [address] [phone] Potassium 4.2 mmol/L 3.5-5.0 Chloride 103 mmol/L 101-111 Co2 (Carbon Dioxide) 30.0 mmol/L 22-32 Anion Gap 5.0 mmol/L 2-11 62 Glucose 97 mg/dL 70-100 BUN 20 mg/dL 6-24 Creatinine 1.0 mg/dL 0.50-1.40 One Over Creatinine 1.00 BUN/Creatinine Ratio 20.0 8-20 Calcium 9.0 mg/dL 8.1-9.9 Total Protein 6.0 GM/DL Low 6.2-8.1 Albumin 3.5 GM/DL 3.2-5.2 Globulin 2.5 GM/DL 2-4 Albumin/Globulin Ratio 1.4 1-3 Bilirubin Total 0.6 mg/dL 0.4-1.5 63 Alkaline Phosphatase 55 U/L 39-117 Alt (SGPT) 30 U/L 17-63 Ast (Sgot) 26 U/L 12-42 eGFR Non- 73.5 > 60 eGFR 94.5 > 60 64 Lipid Panel 11/08/2011 [facility] Triglyceride 137 mg/dL 40- [address] [place] [address] [phone] Cholesterol 195 mg/dL Less Than 200 65 High Density Lipoprotein 51 mg/dL 40-60 66 Cholesterol/HDL Ratio 3.82 AVERAGE 1-4.97 Low Density Lipoprotein 117 mg/dL High Less Than 100 67 Lipid Panel - 09/19/2011 [facility] CPK (Creatine 291 U/L High 0-[address] Kinase) [place] [address] [phone] Comp Metabolic 09/19/2011 [facility] Sodium 137 135-[address] mmol/[place] [address] [phone] Potassium 4.4 mmol/L 3.5-5.0 Chloride 102 mmol/L 101-111 Co2 (Carbon Dioxide) 29.0 mmol/L 22-32 Anion Gap 6.0 mmol/L 2-11 68 Glucose 85 mg/dL 70-100 BUN 22 mg/dL 6-24 Creatinine 1.2 mg/dL 0.50-1.40 One Over Creatinine 0.83 BUN/Creatinine Ratio 18.3 8-20 Calcium 9.2 mg/dL 8.1-9.9 Total Protein 6.3 GM/DL 6.2-8.1 Albumin 3.8 GM/DL 3.2-5.2 Globulin 2.5 GM/DL 2-4 Albumin/Globulin Ratio 1.5 1-3 Bilirubin Total 0.6 mg/dL 0.4-1.5 69 Alkaline Phosphatase 57 U/L 39-117 Alt (SGPT) 37 U/L 17-63 Ast (Sgot) 35 U/L 12-42 eGFR Non- 59.5 > 60 eGFR 76.5 > 60 70 Lipid Profile 09/19/2011 [facility] Triglyceride 92 mg/dL 40- 200 (Trig/Chol/HDL) [address] [place] [address] [phone] Cholesterol 254 mg/dL High Less Than 200 71 High Density Lipoprotein 55 mg/dL 40-60 72 Cholesterol/HDL Ratio 4.62 AVERAGE 1-4.97 Low Density Lipoprotein 181 mg/dL High Less Than 100 73 Laboratory test 06/13/2011 [facility] PSA Screening 3.17 NG/ML 0-[address] [place] [address] [phone] Lipid Profile 06/13/2011 [facility] Triglyceride 254 mg/dL High 40-200 (Trig/Chol/HDL) [address] [place], [place] [address] [phone] Cholesterol 241 mg/dL High Less Than 200 75 High Density Lipoprotein 43 mg/dL 40-60 76 Cholesterol/HDL Ratio 5.60 AVERAGE High 1-4.97 Low Density Lipoprotein 147 mg/dL High Less Than 100 77 Laboratory test 05/16/2011 [facility] BUN 17 mg/dL 6-[address] [place], [place] 113[address]47 [phone] Creatinine 05/16/2011 [facility] Creatinine 1.1 mg/dL 0.50- 1.[address] [place], [place] [address]231 [phone] One Over Creatinine 0.90 eGFR Non- 65.8 > 60 eGFR 84.6 > 60 78 Surgical 05/08/2011 [facility] 79 Pathology 101 Pathology <SEE NOTE> [place], [place] [address] [phone] Laboratory 04/02/2011 [facility] PSA,Diagnost 3.22 NG/ML 0-4 [address] [place], [place] 18[address]32 [phone] Lipid Panel - 03/26/2011 [facility] CPK 222 U/L High 0-[address] (Creatine 00 [place] [address] Kinase) [phone] Comp Metabolic 03/26/2011 [facility] Sodium 141 mmol/L 135 Panel 101 -14 [place] [address] [phone] Potassium 4.4 mmol/L 3.5-5.0 Chloride 110 mmol/L 101-111 Co2 (Carbon Dioxide) 25.0 mmol/L 22-32 Anion Gap 6.0 mmol/L 2-11 81 Glucose 98 mg/dL 70-100 BUN 20 mg/dL 6-24 Creatinine 1.10 mg/dL 0.50-1.40 One Over Creatinine 0.90 BUN/Creatinine Ratio 18.2 8-20 Calcium 8.8 mg/dL 8.1-9.9 Total Protein 6.2 GM/DL 6.2-8.1 Albumin 3.7 GM/DL 3.2-5.2 Globulin 2.5 GM/DL 2-4 Albumin/Globulin Ratio 1.5 1-3 Bilirubin Total 0.8 mg/dL 0.4-1.5 82 Alkaline Phosphatase 65 U/L 39-117 Alt (SGPT) 29 U/L 17-63 Ast (Sgot) 27 U/L 12-42 eGFR Non- 65.8 > 60 eGFR 84.6 > 60 83 Lipid Profile 03/26/2011 [facility] Triglyceride 78 mg/dL 40- 200 (Trig/Chol/HDL) [address] [place] [address] [phone] Cholesterol 157 mg/dL Less Than 200 84 High Density Lipoprotein 41 mg/dL 40-60 85 Cholesterol/HDL Ratio 3.83 AVERAGE 1-4.97 Low Density Lipoprotein 100 mg/dL Less Than 100 86 Lipid Profile 03/30/2010 [facility] Triglyceride 136 mg/dL 40 -200 (Trig/Chol/HDL) [address] [place] [address] [phone] Cholesterol 196 mg/dL Less Than 200 87 High Density Lipoprotein 43 mg/dL 40-60 88 Cholesterol/HDL Ratio 4.56 AVERAGE 1-4.97 Low Density Lipoprotein 126 mg/dL High Less Than 100 89 Urinalysis W/Microscopic 03/30/2010 [facility] Ua Color YELLOW Yellow [address] [place] [address] [phone] Appearance-Urine CLEAR Clear Specific [place]-Ur 1.024 1.010-1.030 Esterase-Urine NEGATIVE Negative Nitrite NEGATIVE Negative [id number] NEGATIVE Negative Protein-Urine NEGATIVE Negative PH-Urine 5.5 5-9 Blood-Urine TRACE Abnormal Negative Ketones-Urine NEGATIVE Negative Bilirubin-Ur NEGATIVE Negative Glucose-Urine NEGATIVE Negative WBC-Urine RARE 0-5 RBC-Urine NONE SEEN 0-2 Urine Culture & 03/30/2010 [facility] Urine Culture NG 90 [address] [facility] [place] [place] [address] [phone] Laboratory test 03/30/2010 [facility] Lyme Disease Negative Negative 91 finding [address] [place] [address] [phone] Lipid Panel - 03/30/2010 [facility] CPK (Creatine 118 U/L 0- 200 JFM Kinase) [place] [address] [phone] Comp Metabolic 03/30/2010 [facility] Sodium 135 mmol/L 135- 145 Panel [address] [place] [address] [phone] Potassium 4.4 mmol/L 3.5-5.0 Chloride 103 mmol/L 101-111 Co2 (Carbon Dioxide) 24.0 mmol/L 22-32 Anion Gap 8.0 mmol/L 2-11 92 Glucose 96 mg/dL 70-100 93 BUN 19 mg/dL 6-24 Creatinine 1.10 mg/dL 0.50-1.40 One Over Creatinine 0.90 BUN/Creatinine Ratio 17.3 8-20 Calcium 8.8 mg/dL 8.1-9.9 94 Total Protein 6.2 GM/DL 6.2-8.1 Albumin 3.8 GM/DL 3.2-5.2 Globulin 2.4 GM/DL 2-4 Albumin/Globulin Ratio 1.6 1-3 Bilirubin Total 0.8 mg/dL 0.4-1.5 95 Alkaline Phosphatase 58 U/L 39-117 Alt (SGPT) 47 U/L 17-63 Ast (Sgot) 35 U/L 12-42 eGFR Non- 70.1 > 60 eGFR 84.9 > 60 96 Surgical 03/15/2009 [facility] Surgical 97 Pathology 101 Pathology <SEE NOTE> [place] [address] [phone] Urine Culture 02/08/2009 [facility] Urine Culture NG 98 & [address] [place] [address] [phone] Laboratory 12/27/2008 [facility] (Creatine 169 U/L 0-20 test finding Kinase) 0 [place] [address] [phone] Liver Function 12/27/2008 [facility] Total Protein 6.9 GM/DL 6.2- Panel 101 8.1 [place] [address] [phone] Albumin 3.7 GM/DL 3.2-5.2 Globulin 3.2 GM/DL 2-4 Albumin/Globulin Ratio 1.2 1-3 Bilirubin Total 0.8 mg/dL 0.4-1.5 Bilirubin Direct 0.2 mg/dL 0.1-0.5 Indirect Bilirubin 0.6 mg/dL 0.1-0.75 Alkaline Phosphatase 64 U/L 39-117 Alt (SGPT) 46 U/L 17-63 Ast (Sgot) 35 U/L 12-42 Lipid Profile 12/27/2008 [facility] Triglyceride 144 mg/dL 40 -200 (Trig/Chol/HDL) [address] [place] [address] [phone] Cholesterol 218 mg/dL High Less Than 200 99 High Density Lipoprotein 49 mg/dL 40-60 100 Cholesterol/HDL Ratio 4.45 AVERAGE 1-4.97 Low Density Lipoprotein 140 mg/dL High Less Than 100 101 Basic Metabolic Panel 12/27/2008 [facility] Sodium 138 mmol/L 135-[address] [place] [address] [phone] Potassium 4.3 mmol/L 3.5-5.0 Chloride 106 mmol/L 101-111 Co2 (Carbon Dioxide) 27.0 mmol/L 22-32 Anion Gap 5.0 mmol/L 2-11 102 Glucose 92 mg/dL 70-100 103 BUN 20 mg/dL 6-24 Creatinine 1.13 mg/dL 0.50-1.40 One Over Creatinine 0.80 BUN/Creatinine Ratio 17.7 8-20 Calcium 9.1 mg/dL 8.1-9.9 104 Laboratory test 11/28/2007 [facility] PSA Screening 1.13 NG/ML 0-4 105, [address] [place] [address] [phone] Lipid Profile 11/28/2007 [facility] Cholesterol/H 4.05 1- 4.97 (Trig/Chol/HDL) [address] [place] [address] [phone] Cholesterol 178 mg/dL Less Than 200 107 Triglyceride 59 mg/dL 40-200 High Density Lipoprotein 44 mg/dL 40-60 Low Density Lipoprotein 122 mg/dL High Less Than 100 108 Basic Metabolic 11/28/2007 [facility] One Over Creatinine 0.[address] [place] [address] [phone] Anion Gap 5.0 mmol/L 2-11 109 BUN 24 mg/dL 6-24 Calcium 8.7 mg/dL 8.7-10.2 Chloride 105 mmol/L 101-111 Co2 (Carbon Dioxide) 28.0 mmol/L 22-32 Glucose 90 mg/dL 70-105 Potassium 4.3 mmol/L 3.5-5.0 Sodium 138 mmol/L 135-145 BUN/Creatinine Ratio 18.5 8-20 Creatinine 1.3 mg/dL 0.5-1.4 1 Because ethnic data is not always [...] 5 Kidney failure <15 (or dialysis) 2 Desirable: <150 Borderline High: 150-199 High: 200-499 Very High: >500 3 Desirable: <200 Borderline High: 200-239 High: >239 4 Low: <40 Desirable: 40-60 High: >60 5 Desirable: <100 Near Optimal: 100-129 Borderline High: 130-159 High: 160-189 Very High: >189 6 Because ethnic data is not always readily [...] 15-29 5 Kidney failure <15 (or dialysis) 7 FASTING 10 HOUR 8 Serum levels of PSA measured using the Vitaldent DXI Hybritech immunoassay should not be interpreted [...] methods or kits cannot be used interchangeably. 9 Serum levels of PSA measured using the Vitaldent DXI Hybritech immunoassay should not be interpreted [...] or kits cannot be used interchangeably. 10 FASTING 10 HOUR 11 Desirable <150 Borderline high 150-199 High 200-499 Very High >500 12 Desirable <200 Borderline high 200-239 High >239 13 Low <40 Desirable: 40-60 High: >60 14 Desirable: <100 mg/dL Near Optimal: 100-129 mg/dL Borderline High: 130-159 mg/dL High: 160-189 mg/dL Very High: >189 mg/dL 15 Because ethnic data is not always readily [...] 15-29 5 Kidney failure <15 (or dialysis) 16 Serum levels of PSA measured using the Vitaldent DXI Hybritech immunoassay should not be interpreted [...] methods or kits cannot be used interchangeably. 17 Because ethnic data is not always readily [...] 15-29 5 Kidney failure <15 (or dialysis) 18 FASTING 10 HOUR 19 Desirable <150 Borderline high 150-199 High 200-499 Very High >500 20 Desirable <200 Borderline high 200-239 High >239 21 Low <40 Desirable: 40-60 High: >60 22 Desirable: <100 mg/dL Near Optimal: 100-129 mg/dL Borderline High: 130-159 mg/dL High: 160-189 mg/dL Very High: >189 mg/dL 23 Serum levels of PSA measured using the Vitaldent DXI Hybritech immunoassay should not be interpreted [...] methods or kits cannot be used interchangeably. 24 Serum levels of PSA measured using the [email or web address] DXI Hybritech immunoassay should not be interpreted [...] or kits cannot be used interchangeably. 25 PT IS FASTING 26 Desirable <150 Borderline high 150-199 High 200-499 Very High >500 27 Desirable <200 Borderline high 200-239 High >239 28 Low <40 Desirable: 40-60 High: >60 29 Desirable: <100 mg/dL Near Optimal: 100-129 mg/dL Borderline High: 130-159 mg/dL High: 160-189 mg/dL Very High: >189 mg/dL 30 Because ethnic data is not always readily [...] 15-29 5 Kidney failure <15 (or dialysis) 31 PT IS FASTING 32 Serum levels of PSA measured using the Vitaldent DXI Hybritech immunoassay should not be interpreted [...] methods or kits cannot be used interchangeably. 33 Serum levels of PSA measured using the [email or web address] DXI Hybritech immunoassay should not be interpreted [...] or kits cannot be used interchangeably. 34 Because ethnic data is not always readily [...] 15-29 5 Kidney failure <15 (or dialysis) 35 Desirable <150 Borderline high 150-199 High 200-499 Very High >500 36 Desirable <200 Borderline high 200-239 High >239 37 Low <40 Desirable: 40-60 High: >60 38 Desirable <100 Near Optimal 100-129 Borderline high 130-159 High 160-189 Very High >189 39 Serum levels of PSA measured using the [email or web address] [email or web address] DXI Hybritech immunoassay should not be interpreted [...] methods or kits cannot be used interchangeably. 40 Serum levels of PSA measured using the [email or web address] [email or web address] DXI Hybritech immunoassay should not be interpreted [...] or kits cannot be used interchangeably. 41 HDL Interpretation: Undesirable: High Risk: Less than 40 mg/dL Desirable: Low Risk: Greater than 60 mg/dL 42 LDL Interpretation: Low Risk Optimal Level: LDL Less than 100 mg/dL Near or Above Optimal: LDL 100-129 mg/dL Borderline High Risk: LDL 130-159 mg/dL High Risk: LDL 160-189 mg/dL Very High Risk: LDL Greater than 189 mg/dL 43 Because ethnic data is not always [...] 5 Kidney failure <15 (or dialysis) 44 Serologic response to B. burgdorferi infection is not detected, but cannot rule out early infection during which low or undetectable antibody levels to B. burgdorferi may be present. If clinically indicated, a new serum specimen should be submitted in 7-14 days. Test Performed by: [place] [address] Single Needle Operator: Dru Godinez III, M.D. 45 Serologic response to B. burgdorferi infection is not detected, but cannot rule out early infection during which low or undetectable antibody levels to B. burgdorferi may be present. If clinically indicated, a new serum specimen should be submitted in 7-14 days. Test Performed by: [place] [address] Single Needle Operator: Dru Godinez III, M.D. 46 Serum levels of PSA measured using the [email or web address] [email or web address] DXI Hybritech immunoassay should not be interpreted [...] methods or kits cannot be used interchangeably. 47 Serum levels of PSA measured using the [email or web address] [email or web address] DXI Hybritech immunoassay should not be interpreted [...] or kits cannot be used interchangeably. 48 Because ethnic data is not always readily [...] 15-29 5 Kidney failure <15 (or dialysis) 49 HDL Interpretation: Undesirable: High Risk: Less than 40 MG/DL Desirable: Low Risk: Greater than 60 MG/DL 50 LDL Interpretation: Low Risk Optimal Level: LDL Less than 100 MG/DL Near or Above Optimal: LDL 100-129 MG/DL Borderline High Risk: LDL 130-159 MG/DL High Risk: LDL 160-189 MG/DL Very High Risk: LDL Greater than 189 MG/DL 51 -- REFERENCE VALUE -- 25-HYDROXY D TOTAL (D2+D3) Optimum levels in the normal population are 25-80 Test Performed by: [address] [address] Single Needle Operator: Dru Godinez III, M.D. 52 * SERUM LEVELS OF PSA MEASURED USING THE CARMELA Polar OLED ACCESS HYBRITECH IMMUNOASSAY SHOULD NOT BE INTERPRETED [...] methods of kits cannot be used interchangeably. 53 CHOLESTEROL INTERPRETATION: Desirable: Less than 200 MG/DL Borderline-High Risk: 200-239 MG/DL High-Risk: 240 MG/DL and over 54 HDL INTERPRETATION: Undesirable: High Risk: Less than 40 MG/DL Desirable: Low Risk: Greater than 60 MG/DL 55 LDL INTERPRETATION: Low Risk Optimal Level: LDL Less than 100 MG/DL Near or Above Optimal: LDL 100-129 MG/DL Borderline High Risk: LDL 130-159 MG/DL High Risk: LDL 160-189 MG/DL Very High Risk: LDL Greater than 189 MG/DL 56 Anion gap measurement may be of limited value in the presence of any alkalosis, especially in a combined acid base disorder. . 57 A metabolite of Naproxen, O-desmethylnaproxen, has been shown to interfere with the Jendrassik-Adelfo method for measuring total bilirubin. Samples from patients who have taken Naproxen have shown spurious elevation in total bilirubin levels. 58 Because ethnic data is not always readily [...] 15-29 5 Kidney failure <15 (or dialysis) 59 * SERUM LEVELS OF PSA MEASURED USING THE CARMELA Polar OLED ACCESS HYBRITECH IMMUNOASSAY SHOULD NOT BE INTERPRETED [...] methods of kits cannot be used interchangeably. 60 ---- [facility]: 03[facility]27[facility]12 [facility] RUN TIME: 1535 Specimen Inquiry RUN USER: INTERFACE -- Name: INA BETTENCOURT Status: REG REF Re03/25/12 Age/Sex: 72/M Unit#: [id number] Location: [address] [place] [address]. : 39 -- Specimen: [id number] SOUT Spec Date:03/25/12- Subm Dr: Tim randhawa MD Spec Type: SURGICAL P Received:03/26/12-1239 Copies to: Socrates billingsley MD SPECIMEN ASCENDING COLON BIOPSY HISTORY POST-OP DIAGNOSIS: One polyp CLINICAL INFORMATION: Screening GROSS DESCRIPTION The specimen is received in formalin labelled Ina S. Bettencourt, Ascending Colon Biopsy, and consists of two aguiar, soft tissue fragments measuring 0.6 x 0.3 x 0.2 cm. Submitted entirely, one cassette. DIAGNOSIS Colon, ascending, biopsy: Hyperplastic polyp. Signed Electronically by: STACIE CHRISTENSEN 03/27/12 1535 -- -- DEPARTMENT OF PATHOLOGY, [address] [place] [address] [facility] Permit #[id number] Forest Fox M.D. Director Stacie Christensen M.D. Plastic Mould Maker Dir duc -- 61 * SERUM LEVELS OF PSA MEASURED USING THE CARMELA Polar OLED ACCESS HYBRITECH IMMUNOASSAY SHOULD NOT BE INTERPRETED [...] methods of kits cannot be used interchangeably. 62 Anion gap measurement may be of limited value in the presence of any alkalosis, especially in a combined acid base disorder. . 63 A metabolite of Naproxen, O-desmethylnaproxen, has been shown to interfere with the Jendrassik-Adelfo method for measuring total bilirubin. Samples from patients who have taken Naproxen have shown spurious elevation in total bilirubin levels. 64 Because ethnic data is not always readily [...] 15-29 5 Kidney failure <15 (or dialysis) 65 CHOLESTEROL INTERPRETATION: Desirable: Less than 200 MG/DL Borderline-High Risk: 200-239 MG/DL High-Risk: 240 MG/DL and over 66 HDL INTERPRETATION: Undesirable: High Risk: Less than 40 MG/DL Desirable: Low Risk: Greater than 60 MG/DL 67 LDL INTERPRETATION: Low Risk Optimal Level: LDL Less than 100 MG/DL Near or Above Optimal: LDL 100-129 MG/DL Borderline High Risk: LDL 130-159 MG/DL High Risk: LDL 160-189 MG/DL Very High Risk: LDL Greater than 189 MG/DL 68 Anion gap measurement may be of limited value in the presence of any alkalosis, especially in a combined acid base disorder. . 69 A metabolite of Naproxen, O-desmethylnaproxen, has been shown to interfere with the Jendrassik-Kosse method for measuring total bilirubin. Samples from patients who have taken Naproxen have shown spurious elevation in total bilirubin levels. 70 Because ethnic data is not always readily [...] 15-29 5 Kidney failure <15 (or dialysis) 71 CHOLESTEROL INTERPRETATION: Desirable: Less than 200 MG/DL Borderline-High Risk: 200-239 MG/DL High-Risk: 240 MG/DL and over 72 HDL INTERPRETATION: Undesirable: High Risk: Less than 40 MG/DL Desirable: Low Risk: Greater than 60 MG/DL 73 LDL INTERPRETATION: Low Risk Optimal Level: LDL Less than 100 MG/DL Near or Above Optimal: LDL 100-129 MG/DL Borderline High Risk: LDL 130-159 MG/DL High Risk: LDL 160-189 MG/DL Very High Risk: LDL Greater than 189 MG/DL 74 * SERUM LEVELS OF PSA MEASURED USING THE [employer] ACCESS HYBRITECH IMMUNOASSAY SHOULD NOT BE INTERPRETED ABSOLUTE EVIDENCE OF THE PRESENCE OR ABSENCE OF DISEASE. THE PSA VALUE SHOULD BE USED IN CONJUNCTION WITH OTHER PERTINENT CLINICAL DIAGNOSTIC PROCEDURES. 75 CHOLESTEROL INTERPRETATION: Desirable: Less than 200 [...] Risk: LDL Greater than 189 MG/DL 78 Because ethnic data is not always readily [...] 15-29 5 Kidney failure <15 (or dialysis) 79 ---- RUN DATE: 05/10/11 [facility] LIVE PAGE 1 RUN TIME: 1314 Specimen Inquiry RUN USER: INTERFACE -- Name: INA BETTENCOURT Status: REG REF Re05/08/11 Age/Sex: 71/M Unit#: [id number] Location: [facility] : 39 -- Specimen: [id number] VINICIUS Spec Date: 05/08/[address] [facility] [address]: Anton Wahl i, MD Spec Type: SURGICAL P Received: 05/09/11-32 Copies to: Socrates billingsley MD SPECIMEN 1) LEFT LOBE PROSTATE BIOPSY APEX (APEX 3) 2) LEFT LOBE PROSTATE BIOPSY BASE (BASE 3) 3) RIGHT LOBE PROSTATE BIOPSY APEX (APEX 3) 4) RIGHT LOBE PROSTATE BIOPSY BASE (BASE 3) HISTORY PRE-OP DIAGNOSIS: PSA progression, firm nodule left lobe and right lobe, PSA 3.22 GROSS DESCRIPTION 1) The specimen is received in formalin labelled Ina [place], Left Prostate Lobe [place] and consists of three, aguiar, soft tissue cores measuring 1.8 cm., 1.8 cm., and 1.6 x 0.1 cm. Submitted entirely, one cassette. 2) The specimen is received in formalin labelled Ina [place], Left Prostate Lobe [place] and consists of three, aguiar, soft tissue cores measuring 1.6 cm., 1.5 cm., and 1.3 x 0.1 cm. Submitted entirely, one cassette. 3) The specimen is received in formalin labelled Ina [place], Right Prostate Lobe [place] and consists of three, aguiar, soft tissue cores measuring 1.8 cm., 1.5 cm., and 1.5 x 0.1 cm. Submitted entirely, one cassette. 4) The specimen is received in formalin labelled Ina [place], Right Prostate Lobe Base and consists of three, aguiar, soft tissue cores measuring 2.0 cm., 2.0 cm., and 1.7 x 0.1 cm. Submitted entirely, one cassette. DIAGNOSIS 1) Prostate, left apex, core biopsies: A. Prostatic adenocarcinoma, small acinar type: 1. Jammie score: 3 + 4=7. 2. Extent of Local Invasion: Tumor involves two foci on two of three cores, measures 6 mm. in maximal span and occupies approximately 30% of total core length. 3. Perineural Invasion: Not seen. 4. Angiolymphatic Invasion: Not seen. -- DEPARTMENT OF PATHOLOGY, [address] [place] [address] [facility] Permit #[id number] Amira Joseph M.D. Plastic Mould Maker Dir duc -- -- RUN DATE: 05/10/11 [facility] NMI L[facility] PAGE 2 RUN TIME: 1314 Specimen Inquiry RUN USER: INTERFACE -- Name: INA BETTENCOURT Status: REG REF Re05/08/11 Age/Sex: 71/M Unit#: [id number] Location: [facility] : 39 -- -- CONTINUED -- DIAGNOSIS (Continued) B. Other findings: None. 2) Prostate, left base, core biopsies: A. Prostatic adenocarcinoma, small acinar type: 1. [place] score: 4 + 3=7, focal tertiary Grade [...] adenocarcinoma, small and large gland type: 1. [place] score: 4 + 3=7. 2. Extent of Local Invasion: Tumor involves four foci on three of three cores, measures 15 mm. in maximal span and occupies 50% of total core length. 3. Perineural Invasion: Present. 4. Angiolymphatic Invasion: Not seen. B. Other findings: None. 4) Prostate, right base, core biopsies: A. Prostatic adenocarcinoma, small acinar type: 1. Jammie score: 5 + 3=8 with tertiary pattern [...] 05/10/11 1313 -- -- DEPARTMENT OF PATHOLOGY, [address] [place] [address] [facility] Permit #[id number] Forest Fox M.D. Director Stacie Christensen M.D. Plastic Mould Maker Dir duc -- 80 * SERUM LEVELS OF PSA MEASURED USING THE CARMELA RIKY ACCESS HYBRITECH IMMUNOASSAY SHOULD NOT BE INTERPRETED ABSOLUTE EVIDENCE OF THE PRESENCE OR ABSENCE OF DISEASE. THE PSA VALUE SHOULD BE USED IN CONJUNCTION WITH OTHER PERTINENT CLINICAL DIAGNOSTIC PROCEDURES. 81 Anion gap measurement may be of limited value in the presence of any alkalosis, especially in a combined acid base disorder. . 82 A metabolite of Naproxen, O-desmethylnaproxen, has been shown to interfere with the Jendrassik-Kosse method for measuring total bilirubin. Samples from patients who have taken Naproxen have shown spurious elevation in total bilirubin levels. 83 Because ethnic data is not always readily [...] 15-29 5 Kidney failure <15 (or dialysis) 84 CHOLESTEROL INTERPRETATION: Desirable: Less than 200 MG/DL Borderline-High Risk: 200-239 MG/DL High-Risk: 240 MG/DL and over 85 HDL INTERPRETATION: Undesirable: High Risk: Less than 40 MG/DL Desirable: Low Risk: Greater than 60 MG/DL 86 LDL INTERPRETATION: Low Risk Optimal Level: LDL Less than 100 MG/DL Near or Above Optimal: LDL 100-129 MG/DL Borderline High Risk: LDL 130-159 MG/DL High Risk: LDL 160-189 MG/DL Very High Risk: LDL Greater than 189 MG/DL 87 CHOLESTEROL INTERPRETATION: Desirable: Less than 200 MG/DL Borderline-High Risk: 200-239 MG/DL High-Risk: 240 MG/DL and over 88 HDL INTERPRETATION: Undesirable: High Risk: Less than 40 MG/DL Desirable: Low Risk: Greater than 60 MG/DL 89 LDL INTERPRETATION: Low Risk Optimal Level: LDL Less than 100 MG/DL Near or Above Optimal: LDL 100-129 MG/DL Borderline High Risk: LDL 130-159 MG/DL High Risk: LDL 160-189 MG/DL Very High Risk: LDL Greater than 189 MG/DL 90 FINAL: NO GROWTH DAY 2 (<1,000 CFU/mL) 91 Serologic response to B. burgdorferi infection is not detected, but cannot rule out early infection during which low or undetectable antibody levels to B. burgdorferi may be present. If clinically indicated, a new serum specimen should be submitted in 7-14 days. Test Performed by: [facility] Dpt of Lab Med and Pathology [address] [place] [address] Single Needle Operator: Dru Godinez III, M.D. 92 Anion gap measurement may be of limited value in the presence of any alkalosis, especially in a combined acid base disorder. . 93 Note change in reference range as of 05/06/08. The change was based on recommendations from the [place] [employer]. 94 Please note change in reference range effective 08 . 95 A metabolite of Naproxen, O-desmethylnaproxen, has been shown to interfere with the Jendrassik-Kosse method for measuring total bilirubin. Samples from patients who have taken Naproxen have shown spurious elevation in total bilirubin levels. 96 Because ethnic data is not always readily [...] 15-29 5 Kidney failure <15 (or dialysis) 97 ---- RUN DATE: 03/17/09 [facility] N[facility] L[facility] PAGE 1 RUN TIME: 1706 Specimen Inquiry RUN USER: INTERFACE -- Name: INA BETTENCOURT Status: REG REF Re03/15/09 Age/Sex: 69/M Unit#: [id number] Location: [facility] : 39 -- Specimen: [id number] VINICIUS Spec Date: 03/15/[address]: Tim rea [...] 2) Specimen received in formalin labelled Ina Bettencourt Descending #2 and consists of two fragments [...] grade dysplasia or malignancy. Signed Electronically by: STACIE CHRISTENSEN 03/17/09 1706 -- -- DEPARTMENT OF PATHOLOGY, [address] [place] [address] [facility] Permit #[id number] Forest Fox M.D. Director Stacie Christensen M.D. Plastic Mould Maker Dir duc -- 98 FINAL: NO GROWTH DAY 2 (<1,000 CFU/mL) 99 CHOLESTEROL INTERPRETATION: Desirable: Less than 200 MG/DL Borderline-High Risk: 200-239 MG/DL High-Risk: 240 MG/DL and over 100 HDL INTERPRETATION: Undesirable: High Risk: Less than 40 MG/DL Desirable: Low Risk: Greater than 60 MG/DL 101 LDL INTERPRETATION: Low Risk Optimal Level: LDL Less than 100 MG/DL Near or Above Optimal: LDL 100-129 MG/DL Borderline High Risk: LDL 130-159 MG/DL High Risk: LDL 160-189 MG/DL Very High Risk: LDL Greater than 189 MG/DL 102 Anion gap measurement may be of limited value in the presence of any alkalosis, especially in a combined acid base disorder. . 103 Note change in reference range as of 05/06/08. The change was based on recommendations from the [place] [employer]. 104 Please note change in reference range effective 08 . 105 FASTING 106 * SERUM LEVELS OF PSA MEASURED USING THE CARMELA RIKY ACCESS HYBRITECH IMMUNOASSAY SHOULD NOT BE INTERPRETED ABSOLUTE EVIDENCE OF THE PRESENCE OR ABSENCE OF DISEASE. THE PSA VALUE SHOULD BE USED IN CONJUNCTION WITH OTHER PERTINENT CLINICAL DIAGNOSTIC PROCEDURES. 107 Classification: Desirable . 108 CALCULATED LDL APPROXIMATES THE VALUE OF A DIRECT LDL MEASUREMENT. Classification: Near or above optimal . 109 Anion gap measurement may be of limited value in the presence of any alkalosis, especially in a combined acid base disorder. . Procedures Date Code Description Status 05/15/2018 [id number] Diabetic Retinal Eye Exam Completed 08/13/2017 [id number] Bone [place] Density Test Completed 02/01/2017 04554 Short Arm Splint Application Completed 01/24/2017 64834 Realignment Extensor Tendon Hand Completed 01/24/2017 40651 Realignment Extensor Tendon Hand Completed 05/02/2016 04794 ECHO Transthoracic, Real-Time 2D With Doppler And Completed Color Flow 10/19/2015 19099 Polysomnography Sleep Staging 4+ Parameters W/Cpap Completed 05/04/2015 06993 ECHO Transthoracic, Real-Time 2D With Doppler And Completed Color Flow 04/21/2015 [id number] Bone Mineral Density Test Completed 04/21/2014 05317 EKG Tracing & Interpretation Completed 04/19/2014 [id number] Bone [place] Density Test Completed 11/26/2012 41807 Polysomnography Sleep Staging 4+ Parameters W/Cpap Completed 09/17/2012 [id number] Bone [place] Density Test Completed 03/25/2012 [id number] Colonoscopy Completed 10/01/2011 [id number] Bone [place] Density Test Completed 03/15/2009 [id number] Colonoscopy Completed Encounters Type Date Location Provider Dx Diagnosis Office Visit 11/19/2018 Orthopedic Kerri Swartz, M25.561 Pain in right 10:00a Services [facility] knee M17.11 Unilateral primary osteoarthritis, right knee 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 disease Services Of [facility] Office Visit 08/25/2018 [facility] Internal Socrates Hester Z00.01 Encounter for 11:20a Medicine - Tbricardo Monge M.D.,FACP general adult Rd medical exam w abnormal findings G20 Parkinson's disease M25.561 Pain in right knee E78.2 Mixed hyperlipidemia M81.0 Age-related osteoporosis w/o current pathological fracture I10 Essential (primary) hypertension K21.9 Gastro-esophageal reflux disease without esophagitis Office Visit 05/29/2018 [facility] Internal Socrates Hester Z01.810 Encounter for 9:40a Ximena Monge M.D.,FACP preprocedural [address] cardiovascular examination H25.013 Cortical age-related cataract, bilateral G20 Parkinson's disease M25.561 Pain in right knee Z23 Encounter for immunization Office Visit 03/12/2018 11:40a [facility] Internal Esthelaoficonner Murphy, R21 Rash and other Medicine - [place] FIRE DISPATCHER nonspecific skin Rd eruption M25.561 Pain in right knee Office Visit 02/27/2018 10:30a [place] [facility] Jf Avila G2Marie Parkinson's [facility] Of [facility] Dee Collier disease G47.33 Obstructive sleep apnea (adult) (pediatric) Office Visit 10/08/2017 [facility] [place] G47.33 Obstructive sleep 11:00a Sleep [facility] MARILEE Beltran, RN, apnea (adult) [facility]- (pediatric) Office Visit 08/06/2017 [facility] Internal Socrates Hester Z00.01 Encounter for 1:00p Ximena Monge M.D.,FAC general adult medical exam w abnormal findings G20 Parkinson's disease G47.33 Obstructive sleep apnea (adult) (pediatric) E78.2 Mixed hyperlipidemia M81.8 Other osteoporosis without current pathological fracture Z00.00 Encntr for general adult medical exam w/o abnormal findings Office Visit 07/25/2017 [place] [facility] Bri Dia G20 Parkinson's 8:30a Services Of [facility] Dee Baron M.D. disease Office Visit 07/16/2017 Orthopedic Nicholas Reddy, S66.303D Unsp inj extn 2:45p Services Of MD guerrero/missael/soraya alford C.M.A. mid fngr at wrs/hnd lv, subs Office Visit 04/03/2017 [facility] [place] G47.33 Obstructive 10:00a [facility], RN, sleep apnea [facility] FIRE DISPATCHER-BC (adult) (pediatric) Office Visit 01/22/2017 Orthopedic Nicholas Reddy, S66.303A Unsp inj extn 3:15p Services Of MD guerrero/missael/soraya GuoMJosé Luis mid fngr at wrs/hnd lv, init Office Visit 01/08/2017 [facility] Internal Socrates Hester S63.253A Unspecified 3:40p Medicine Amira Monge,FACP dislocation of left middle finger, init encntr R05 Cough E78.2 Mixed hyperlipidemia Office Visit 12/31/2016 [facility] [place] G47.33 Obstructive sleep 11:00a [facility] Beltran RN, apnea (adult) [facility] ISRA-BC (pediatric) R05 Cough Office Visit 12/27/2016 [place] Jessica Dia G20 Parkinson's 11:30a Services Of Dee Dee Baron M.D. 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 disease Office Visit 06/26/2016 [facility] [place] G47.33 Obstructive sleep 11:15a [facility] Bel[facility]an RN, apnea (adult) [facility] ISRA-BC (pediatric) Z23 Encounter for immunization Office Visit 04/24/2016 4:00p [facility] Marleni Hester I50.32 Chronic diastolic Medicine Amira Monge,FACP (congestive) heart failure E55.9 Vitamin D deficiency, unspecified E78.2 Mixed hyperlipidemia Office Visit 03/23/2016 [facility] [place] G47.33 Obstructive sleep 11:15a [facility] Beltran RN, apnea (adult) [facility] (pediatric) E66.9 Obesity, unspecified Office Visit 03/08/2016 [place] [facility] Bri Dia G20 Parkinson's 2:00p Services Of Dee Dee Baron M.D. disease Office Visit 12/23/2015 [facility] [place] G47.33 Obstructive sleep 11:15a [facility] Beltran RN, apnea (adult) [facility] (pediatric) E66.9 Obesity, unspecified Office Visit 11/11/2015 [facility] [place] G47.33 Obstructive sleep 11:30a [facility] Beltran RN, apnea (adult) [facility] (pediatric) E66.9 Obesity, unspecified Office Visit 10/27/2015 [place] Jessica Dia G20 Parkinson's 9:30a Services Of Dee Dee Baron M.D. disease Office Visit 09/27/2015 [facility] Keelyconner Kaiser, G47.33 Obstructive sleep 10:45a [facility] MD mark (adult) [facility] (pediatric) E66.01 Morbid (severe) obesity due to excess calories Office Visit 08/17/2015 10:45a Pul[facility]ology And Ke[place] G47.33 Obstructive sleep [facility] MD Job apnea (adult) [facility] (pediatric) E66.01 Morbid (severe) obesity due to excess calories Office Visit 06/22/2015 2:30p [facility] Internal Socrates Hester R60.9 Edema, unspecified [facility] [address] Z23 Encounter for immunization G20 Parkinson's disease Office Visit 05/18/2015 11:30a [facility] 327.23 Obstructive Sleep Sleep Services Of MD Job Apnea Adult & [facility] Pediatric 278.01 Obesity Morbid Office Visit 04/22/2015 10:00a [facility] Internal Socrates Hester V70.0 Examination Ximena Monge M.D.,FACP General Medical [address] Routine AT Health Care Facility 332.0 Paralysis Agitans 327.23 Obstructive Sleep Apnea Adult & Pediatric 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 Agitans Office Visit 03/16/2015 9:50a [facility] Marleni Hester 802.0 FX Nasal Bones Medicine - [place] Amira Monge,FACP Closed Rd 332.0 Paralysis Agitans 923.3 Contusion Finger 733.09 Osteoporosis Other Office Visit 12/14/2014 11:30a William Dia 332.0 Paralysis Agitans Services Of Dee Dee Baron M.D. Office Visit 07/29/2014 11:45a William Dia 332.0 Paralysis Agitans Services Of Dee Dee Baron M.D. 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 Office Visit 04/20/2013 2:00p [facility] Marleni Hester V70.0 Examination Ximena Monge M.D.,[facility] General Medical Routine AT Health Care Facility 332.0 Paralysis Agitans 790.21 Impaired Fasting Glucose 272.2 Hyperlipidemia Mixed Office Visit 03/09/2013 1:00p [facility] Internal Tyrone Mancia 782.1 Rash & Other Medicine Amira Calero Nonspec Skin Eruption Office Visit 03/05/2013 12:45p [place] [facility] Bri Dia 332.0 Paralysis Agitans Services Of Dee Dee Baron M.D. Office Visit 10/31/2012 8:15a [facility] Bri Dia 332.0 Paralysis Agitans Services Of Dee Dee Baron M.D. Office Visit 10/21/2012 2:21p [facility] 327.23 Obstructive Sleep Disorder Center Amira Rizo Apnea Adult & Pediatric Office Visit 09/18/2012 3:00p [facility] Internal Socrates Hester 733.90 Bone & Cartilage Medicine Jae Monge Unspec Amira,FAC 401.1 Hypertension Benign Office Visit 06/26/2012 2:45p [facility] Bri Dia 332.0 Paralysis Agitans Services Of Dee Dee Baron M.D. Office Visit 04/17/2012 3:00p [facility] Internal Socrates Hester V70.0 Examination Medicine Amira Monge,FACP General Medical Routine AT Health Care Facility 185 Malignant Neoplasm Prostate 401.1 Hypertension Benign 272.2 Hyperlipidemia Mixed 733.90 Bone & Cartilage Disorder Unspec Office Visit 11/15/2011 2:20p [facility] Internal Socrates Hester 272.2 Hyperlipidemia Mixed Medicine Amira Monge,FACP 332.0 Paralysis Agitans Office Visit 06/20/2011 9:10a DO Not Use Dee Dee Hester 185 Malignant AT Nathen Monge M.D.,FACP Neoplasm Prostate 327.27 Central Sleep Apnea In Conditions Classified Elsewhere 401.1 Hypertension Benign Office Visit 04/02/2011 10:50a DO Not Use Dee Dee Hester V70.0 Examination AT [facility] Monge M.D[facility] Routine AT [facility] 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00 Constipation Unspecified 715.16 Osteoarthrosis Localized Prim Lower Leg Office Visit 02/14/2009 DO Not Use Instructional Systems Specialist Stevanovic, 788.41 Urinary Frequency 9:40a AT [facility] Amira Schrader Office Visit 02/08/2009 DO Not Use Instructional Systems Specialist Stevanovic, 788.41 Urinary Frequency 8:20a AT [facility] Amira Schrader Office Visit 02/02/2009 DO Not Use Instructional Systems Specialist Stevanomariam, 562.10 Diverticulosis 8:20a AT [facility] Amira Schrader Colon W/O Hemorrhage 564.00 Constipation Unspecified Office Visit 01/27/2009 1:40p DO Not Use Instructional Systems Specialist Socrates Hester 272.2 Hyperlipidemia Mixed AT [facility] Amira Monge,FACP 401.1 Hypertension Benign 278.01 Obesity Morbid Office Visit 07/13/2008 DO Not Use Erika Dang PA 461.8 Sinusitis Acute 1:00p Instructional Systems Specialist AT Other [facility] Office Visit 12/12/2007 DO Not Use Socrates Monge, 401.1 Hypertension 10:00a Instructional Systems Specialist AT Aydee,[facility] Benign [facility] 272.2 Hyperlipidemia Mixed 278.0 Obesity Plan of Treatment Future Appointment(s):2019 10:30 am - Kerri Swartz M.D. at [facility]/30/2018 1:30 pm - Elkin Case PA-C at [facility]12/30/2018 1:30 pm - JESSICA Pelaez at [facility]12/30/2018 1:30 pm - Kerri Swartz M.D. at [facility]12/25/2018 11:15 am - Jf Avila M.D. at [place] [facility]08/27/2019 11:40 am - Lita Nur MD at [facility] Internal Lgkvwpjl42/03/2019 - Kerri Swartz M.D.M25.561 Pain in right kneeFollow up: Follow up: 2 weeks after pumrntyI63.11 Unilateral primary osteoarthritis, right kneeM21.161 Varus deformity, not elsewhere classified, right knee
--- OUTSIDE RECORDS SUMMARY | 2018-12-30 08:25 | XMS REPORT | Continuity of Care Document ---
:1940 External Reference #:[id number] Author Name Chris Charles M.D. Address [address] [place] [address] Care Team Providers Name Role Phone Lita Nur MD/TIMMY Primary Care Physician Unavailable Payers Date Identification Numbers Payment Provider Subscriber Policy Number: [id number] Medicare - NGS Chris Daley PayID: [id number] [address] [place] [address] Policy Number: [id number] Dme-Specialty Claims [facility] Chris Daley PayID: [id number] [address] [place] [address] Policy Number: [id number] [facility] hCris Daley PayID: [id number] [address] [address] [place] [address] Advance Directives Description No Information Available Problems Active Problems Provider Date Pure hypercholesterolemia Onset: Essential hypertension Onset: Sinusitis Onset: Sleep apnea Onset: Carcinoma of prostate Onset: Parkinson's disease Onset: Ocular hypertension Chris Charles M.D. Onset: 04/04/2015 Epiretinal membrane Chris Charles M.D. Onset: 04/04/2015 Nuclear senile cataract Chris Charles M.D. Onset: 04/04/2015 Secondary parkinsonism Chris Charles M.D. Onset: 04/04/2015 Combined form of senile cataract Chris Charles M.D. Onset: 10/14/2015 Band-shaped keratopathy Chris Charles M.D. Onset: 10/14/2015 Vertical heterophoria Chris Charles M.D. Onset: 05/15/2018 Presence of intraocular lens Chris Charles M.D. Onset: 06/12/2018 Regular astigmatism Mely Nickerson O.D. 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 Capsules Cpap at bedtime Chris Charles, 04/03/2015 N/A N/A M.D. Systane Ultra 1 drop both eyes Chris Charles, 04/03/2015 0.4-0.3% three times a day M.D. Solution Triamcinolone Melani, Acetonide Anita 0.1% Cream Furosemide Unknown 20mg Tablets Magnesium 1 tab by mouth Unknown 500mg Capsules every day Vitamin D 1 tab by mouth Unknown (Cholecalciferol) every day 400Unit Chewtabs Folic Acid 1 tab by mouth Unknown 400mcg Tablets every day Vitamin B6 1/2 tab by mouth Unknown 200mg Tablets every day Vitamin B-12 1 tab by mouth Unknown 1000mcg every day Tablets Sub Omeprazole tab by mouth every Unknown 20mg Capsules day as needed DR Fluticasone Propionate 1 intranasal puff Unknown every day 50mcg/Act Suspension Alendronate Sodium 1 tab by mouth Unknown 70mg every week Tablets Calcium 600+D3 2 tab by mouth Unknown every day 127-322ib-Hiab Tablets Aspirin 1 tab by mouth Unknown 81mg Tablets DR every day Libia Allergy 1 tab by mouth Unknown 180mg every day as Tablets needed Ramipril 1 cap by mouth Unknown 2.5mg Capsules every day Atorvastatin Calcium 1 tab by mouth Unknown 10mg every day Tablets Carbidopa-Levodopa 1 tab three times Unknown a day 25-100mg Tablets Selegiline HCL 2 tab by mouth Unknown 5mg every day Capsules History Medications Brimonidine Tartrate 1 drop right eye 30units Chris Charles, 2017 - 0.2% twice a day M.D. 09/16/2018 Solution Vigamox one drop left eye 3ml Chris Charles, 06/06/2018 - 0.5% Solution three times a day, M.D. 06/23/2018 start the day before surgery Ketorolac Tromethamine use one drop in 10ml Chris Charles, 06/06/2018 - the left eye three M.D. 09/16/2018 0.5% Solution times a day, start the day before surgery 1 drop 2 times a day in the right eye Prednisolone Acetate 1 drops left eye 15ml Chris Charles, 06/06/2018 - 1% three times a day. M.D. 09/16/2018 Suspension taper as directed 1 drop 2 times a day in right eye Ocuvite Adult 50+ 1 tab by mouth Chris Charles, 04/03/2015 - every day M.D. 10/13/2015 Capsules Immunizations Description No Information Available Vital Signs Description No Information Available Results Description No Information Available Procedures Date Code Description Status 06/18/2018 30194 Extracapsular Cataract Extraction W/Intraocular Lens Completed 06/11/2018 70015 Extracapsular Cataract Extraction W/Intraocular Lens Completed 06/06/2018 86383 Ophthalmic Biometry Completed 06/06/2018 40553 Ophthalmic Biometry Completed 06/06/2018 69404 Scanning Computerized Opthalmic Diagnostic Posterior Seg Completed Retina 06/06/2018 81970 Est Patient Intermediate Exam Completed 05/15/2018 35135 Est Patient Comprehensive Exam Completed 11/12/2017 38307 Est Patient Comprehensive Exam Completed 04/18/2017 25113 Scanning Computerized Opthalmic Diagnostic Posterior Seg Completed Retina 04/18/2017 92804 Est Patient Comprehensive Exam Completed 10/19/2016 21458 Visual Field Exam Extended Completed 10/19/2016 38718 Est Patient Comprehensive Exam Completed 04/13/2016 31889 Est Patient Intermediate Exam Completed 04/13/2016 61738 Gonioscopy Completed 04/13/2016 83289 Scanning Computerized Ophthalmic Diagnostic Imag Posterior Completed Seg On 10/14/2015 70037 Scanning Computerized Opthalmic Diagnostic Posterior Seg Completed Retina 10/14/2015 06990 Visual Field Exam Extended Completed 10/14/2015 53737 Est Patient Comprehensive Exam Completed 04/04/2015 23279 Fundus Photography With Interpretation And Report Completed 04/04/2015 93613 Est Patient Comprehensive Exam Completed 10/05/2014 32776 Visual Field Exam Extended Completed 10/05/2014 87606 Gonioscopy Completed 10/05/2014 51354 Est Patient Intermediate Exam Completed 03/29/2014 92639 Scanning Computerized Opthalmic Diagnostic Posterior Seg Completed Retina 03/29/2014 83414 Est Patient Comprehensive Exam Completed 09/28/2013 00798 Est Patient Intermediate Exam Completed 03/23/2013 19694 Fundus Photography With Interpretation And Report Completed 03/23/2013 48069 Est Patient Intermediate Exam Completed 12/31/2012 50798 Visual Field Exam Extended Completed 12/31/2012 74365 Pachymetry Completed 12/22/2012 17532 Scanning Computerized Opthalmic Diagnostic Posterior Seg Completed Retina 12/22/2012 06148 Est Patient Comprehensive Exam Completed 12/22/2012 524 C-Pap Goggles Completed 12/21/2011 92943 Scanning Computerized Opthalmic Diagnostic Posterior Seg Completed Retina 12/21/2011 57170 Determination Of Refractive State Completed 12/21/2011 30490 Est Patient Comprehensive Exam Completed 12/19/2010 16363 Est Patient Comprehensive Exam Completed 12/19/2010 82125 Determination Of Refractive State Completed 12/19/2010 23991 Scanning Computerized Opthalmic Diagnostic Posterior Seg Completed Retina 12/29/2009 25719 Scanning Laser W/Interp And Report Completed 12/29/2009 00490 Determination Of Refractive State Completed 12/29/2009 21021 Est Patient Comprehensive Exam Completed 12/28/2008 95436 Est Patient Comprehensive Exam Completed 11/19/2007 10400 Determination Of Refractive State Completed 11/19/2007 14713 Est Patient Comprehensive Exam Completed 10/22/2006 47901 Determination Of Refractive State Completed 10/22/2006 47561 Est Patient Comprehensive Exam Completed 10/19/2005 14604 Determination Of Refractive State Completed 10/19/2005 50117 Est Patient Comprehensive Exam Completed 06/14/2004 90548 Determination Of Refractive State Completed 06/14/2004 83040 Est Patient Comprehensive Exam Completed Encounters Description No Information Available Plan of Treatment 12/18/2018 - Chris Charles M.D.H35.371 Puckering of macula, right eyeComments :Smoking can increase the risk of developing or worsening any eye related disease, as well as affect your overall health. If you are a smoker, we strongly recommend that you quit.If you are not a smoker, we strongly recommend that you do not start. A Macular Pucker is a wrinkling of the retina tissue. It can cause distortion in your vision. Please contact the office if you notice any changes or new distortion in your vision.Follow up:1 Year Follow Up OCT MAC You can expect to have your eyes dilated at your next visit. If Dr. Charles orders any additional testing, it may require extra time. We recommend that you bring sunglasses, as dilation drops often make you light sensitive until they wear off. We always recommend you bring someone to drive you home if you are uncomfortable driving with your eyes dilated. If you have any questions before your next visit, feel free to call our office at .H50.53 Vertical [id number] Parkinson's anzxopvQ70.1 Presence of intraocular lensH18.423 Band keratopathy, bilateral
--- OUTSIDE RECORDS SUMMARY | 2018-12-30 08:26 | XMS REPORT | Continuity of Care Document ---
:1940 External Reference #:[id number] Author Name Shannen Moss Care Team Providers Name Role Phone Lita Nur MD Primary Care Physician Unavailable Payers Date Identification Numbers Payment Provider Subscriber Effective: 2004 Policy Number: [id number] Medicare Ina Bettencourt PayID: [id number] [address] [place] [address] Effective: 2012 Policy Number: [id number] [employer] Ina Bettencourt PayID: [id number] [address] [address] [place] [address] Expires: 2012 Policy Number: [id number] [employer] [place] Ina Bettencourt PayID: [id number] [address] [address] [place] [address] Advance Directives Type Date Description Status Comment [...] M.D.FACP Onset: 04/20/2013 Obstructive sleep apnea syndrome Dominic Hinds M.D., FACP Note: on CPAP Onset: 04/20/2013 Impaired fasting glycaemia Dominic Hinds M.D.FACP Onset: 04/22/2015 Gastroesophageal reflux disease Dominic Hinds M.D., FACP Onset: 06/22/2015 Vitamin D deficiency Dominic Hinds M.D., FACP Onset: 01/22/2017 Unspecified injury of extensor Nicholas Reddy MD Active muscle, fascia and tendon of left middle finger at wrist and hand level, initial encounter Onset: 08/25/2018 Urge incontinence of urine Domiinc Hinds M.D., FACP Onset: 12/12/2007 Obesity Anastasia Hinds M.D., FACP Inactive: 11/15/2011 Family History Date Family Member(s) [...] Patient has never smoked Smoking Status Reviewed: 12/16/18 Patient has never smoked Exercise Type/Frequency Exercises regularly Exercise Type/Frequency Boxing class 2x per week Exercise Type/Frequency Theracycle 5x per week Allergies, Adverse Reactions, Alerts Date Description Reaction Status Severity Comments 12/12/2007 Penicillin Active 12/12/2007 Sulfa Active Medications Medication Date Status Form Strength Qnty SIG Indications Ordering Provider Shingrix 08/25 Active Suspension 50mcg/0.5 2unit 0.5 Rec ML s milliliters Mir Monge intramuscular TIMMY Collier now and 2-3 months later repeat Voltaren 06/27 Active Gel 1% 100gm apply 4 grams M25.561 ofi to right knee Jeffrey, 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 times 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 as needed Furosemide 08/06 Active Tablets [...] Active Tablets 10mg 90tab take 1 tablet Lita s by mouth at MD Boom bedtime Omeprazole 12/[address] 20mg 90cap 1 by mouth s every day as Mir Monge, nadine Collier[facility] Ramipril 11/05 Active Capsules 2.5mg 90cap take [...] 180mg 30tab 1 po qd Unknown Allergy s Calcium + D3 Active Tablets 600-200mg [...] /2014 dorene Ronquillo) - Amira,FACP 02/26 Carbidopa/Levo 08/18 Hx Tablets 25-100mg 90tab 09/17 po qAM 1 Bri Fermin s po q noon,09/17 Tod, - po q pm M.DFermin 06/23 Lipitor 03/05 Hx Tablets 10mg 100ta 1 po qhs Bri M. bs Kanwal Baron M.D. 03/09 Vitamin D 09/18 Hx Capsules 400Unit 60cap 1 po qd 733.90 Kanwal Santiago M.D.,[facility] 04/22 Alendronate 09/18 Hx Tablets 70mg 12tab Take One M89.9 Socrates Sodium s Tablet By Mir Monge, - Mouth Once A M.DFermin,[facility] Calcium 500 +D 11/14 Hx Tablets 500-400mg 60tab 1 po bid -Unit Kanwal Santiago M.D.,[facility] 11/17 Atorvastatin 09/18 Hx Tablets 10mg 90tab Take 1 Tablet Socrates Calcium s By Mouth AT Mir Monge, - Bedtime Amira,[facility] 09/18 Simvastatin 06/20 Hx Tablets 10mg 90tab 1 po qhs Kanwal Santiago M.D.,[facility] 09/18 Omeprazole 04/[address] 20mg 30cap 1 po qd 786.2 Kan[facility] M.[facility].,[facility] 09/18 Altace 01/16 Hx Tablets 2.5mg 90tab 1 tablet po 401.1 s qdKanwal García M.D.,[facility] 11/05 no child proof Aspirin 04/[address] 81mg 50tab 1 po qd Kanwal Santiago M.D.,[facility] 12/16 Diovan 04/07 Hx Tablets 80mg 28tab 1 po qd 401.1 elizabeth samples Kanwal Ronquillo M.D.,[facility] 01/16 Ciprofloxacin 02/08 Hx Tablets 250mg 20tab 1 tablet po. 788.41 Stevanovi HCL /2008 s bid c, - Radomir, 08/02 MAydee /2008 Levaquin 07/13 Hx Tablets 500mg 14tab 1 PO qd X 461.8 Socrates s 14days Kanwal Ronquillo M.D.,[facility] 01/27 Simvastatin 12/11 Hx Tablets 20mg 90tab 1 tablet po s qd Kanwal Ronquillo M.D.,[facility] 04/02 Asa Hx 81mg 1 PO qd Kanwal Ronquillo M.D.,[facility] 04/07 Flonase Hx Suspension 50mcg/Act 3mont 1 Intranasal hsupp puff To Each Mir Monge, - ly Nostril Daily Amira,[facility] 04/04 Libia Hx Tablets 60mg 180ta 1 po bid prn / bs Kanwal Ronquillo M.D.,[facility] 11/14 Altace Hx Tablets 2.5mg 90tab 1 tablet po 401.1 Socrates / s qday Kanwal Ronquillo M.D.,[facility] 04/07 no child proof Libia Hx Tablets [...] morning Mir Monge, - for 1 week, Amira,[facility] 12/26 then 1 tab daily. take 2nd pill if weight >252 Ocuvite Adult Hx Capsules 1 a day Unknown 50+ /0000 - 08/25 Meningococcal Active Injection Unknown B,Unspecified /0000 Immunizations CPT Code Status Date Vaccine Reaction Lot # [id number] Given 05/29/2018 Influenza Virus Vaccine, [id number] Quadrivalent, Split, Preservative Free 00629 Given 07/16/2017 Influenza Virus Vaccine, [id number] Quadrivalent, Split, Preservative Free 92410 Given 06/26/2016 Influ Virus Vaccine, Quadrivalent, [id number] Split Virus, [place] [address] Given 06/27/2015 Influenza Virus 3Yrs & Over 83434 Given 06/22/2015 Influenza Virus Vaccine, [id number] Quadrivalent, Split, Preservative Free 07223 Given 04/22/2015 Pneumococcal Conjugate Vaccine [id number] Valent For Intramuscular Use 11458 Given 08/09/2014 Flu Vaccine Split Virus [id number] Preservative Free For Indiv 3Yr Older 68120 Given 04/21/2014 Tdap - Tetanus/Diptheria/Acellular [id number] Pertussis 83255 Given 06/29/2013 Flu Vaccine Split Virus [id number] Preservative Free For Indiv 3Yr Older Q2038 Given 05/29/2012 Fluzone Vaccine [id number] Q2038 Given 05/29/2012 Fluzone Vaccine [id number] Given 06/06/2011 Fluzone Vaccine [id number] 23453 Given 07/01/2010 Influenza Virus 3Yrs & Over 87610 Given 06/25/2008 Influenza Virus 3Yrs & Over 63619 Given 06/25/2008 Influenza Virus 3Yrs & Over [id number] 91180 Given 12/30/2007 Zoster (Zostavax) 05180 Given 12/30/2007 Zoster (Zostavax) 41647 Given 12/30/2007 Zoster (Zostavax) unknow site [id number] 40658 Given 07/23/2007 Influenza Virus 3Yrs & Over 68539 Given 05/09/2005 Pneumonia Vaccine 89831 Given 10/29/2003 Td Toxoids Adsorbed For Use 7Yrs Or Older For Intramuscular Use Vital Signs Date Vital Result Comment 12/16/2018 11:35am Height 68.75 inches 5'8.75" Weight [...] Date Facility Test Result H/L Range Note Laboratory test [facility] TSH (Thyroid Stim 2.18 N 0.34-5.[address] Horm) mcIU/mL [place], [place] [id number] [phone] Lipid Profile [facility] Triglycerides 87 mg/dL 1 (Trig/Chol/HDL) [address] [place] [address] [phone] Cholesterol 149 mg/dL 2 HDL Cholesterol 57.2 mg/dL 3 LDL Cholesterol 74 mg/dL 4 Basic Metabolic Panel 05/05/2018 [facility] Sodium 142 mmol/L N 135-[address] [place] [address] [phone] Potassium 4.0 mmol/L N 3.5-5.0 Chloride 107 mmol/L N 101-111 Co2 Carbon Dioxide 29 mmol/L N 22-32 Anion Gap 6 mmol/L N 2-11 Glucose 91 mg/dL N 70-100 Blood Urea Nitrogen 20 mg/dL N 6-24 Creatinine 1.08 mg/dL N 0.67-1.17 BUN/Creatinine Ratio 18.5 N 8-20 Calcium 8.7 mg/dL N 8.6-10.3 Egfr Non- 66.0 >60 Egfr 79.8 >60 5 Laboratory test 05/05/2018 [facility] Vitamin D Total 25.6 ng/ mL N 20-50 6 finding 25(Oh) [place] [address] [phone] Laboratory test 04/18/2018 [facility] PSA Screening 0.042 0- 4.[address] ng/[place] [address] [phone] Laboratory test 10/01/2017 [facility] PSA Screening 0.067 0- 4.[address] ng/[place] [address] [phone] Laboratory test 04/30/2017 [facility] Vitamin D Total 35.6 ng/ mL N 30-[address] 25(Oh) [place] [address] [phone] Lipid Profile 04/30/2017 [facility] Triglycerides 56 mg/dL N 10 (Trig/Chol/HDL) [address] [place] [address] [phone] Cholesterol 157 mg/dL N 11 HDL Cholesterol 58.1 mg/dL N 12 LDL Cholesterol 88 mg/dL N 13 Comp Metabolic Panel 04/30/2017 [facility] Sodium 140 mmol/L N 133-145 [address] [place] [address] [phone] Potassium 4.5 mmol/L N 3.5-5.0 Chloride 105 [...] 66.8 N >60 Egfr 86.0 N >60 14 Laboratory test 09/20/2016 [facility] PSA Screening 0.055 ng/mL N 0-4.0 15 finding [address] [place] [address] [phone] Liver Function 05/07/2016 [facility] Total Protein 6.9 g/dL N 6.4-8.9 Panel [address] [place] [address] [phone] Albumin 3.8 g/dL N 3.2-5.2 Globulin 3.1 g/dL N 2-4 Albumin/Globulin Ratio 1.2 N 1-3 Total Bilirubin 0.70 mg/dL N 0.2-1.0 Direct Bilirubin 0.10 mg/dL N 0.03-0.18 Indirect Bilirubin 0.6 mg/dL N 0.3-1.0 Alkaline Phosphatase 66 U/L N 34-104 Alt 19 U/L N 7-52 Ast 22 U/L N 13-39 Lipid Profile 05/07/2016 [facility] Triglycerides 90 mg/dL N 16 (Trig/Chol/HDL) [address] [place] [address] [phone] Cholesterol 143 mg/dL N 17 HDL Cholesterol 50.8 mg/dL N 18 LDL Cholesterol 74 mg/dL N 19 Laboratory test 05/07/2016 [facility] Vitamin D 33.5 ng/mL N 30-[address] Total 25(Oh) [place] [address] [phone] Basic Metabolic 05/07/2016 [facility] Sodium 139 mmol/L N 133- [address] [place] [address] [phone] Potassium 4.1 mmol/L N 3.5-5.0 Chloride 104 mmol/L N 101-111 Co2 Carbon Dioxide 27 mmol/L N 22-32 Anion Gap 8 mmol/L N 2-11 Glucose 80 mg/dL N 70-100 Blood Urea Nitrogen 14 mg/dL N 6-24 Creatinine 1.12 mg/dL N 0.67-1.17 BUN/Creatinine Ratio 12.5 N 8-20 Calcium 9.1 mg/dL N 8.6-10.3 Egfr Non- 63.6 N >60 Egfr 81.8 N >60 21 Laboratory test 03/07/2016 [facility] PSA Diagnostic 0.048 N 0 -4.0 [address] ng/[place] [address] [phone] Laboratory test 08/26/2015 [facility] PSA Diagnostic 0.050 N 0 -4.0 [address] ng/[place] [address] [phone] Laboratory test 06/24/2015 [facility] TSH (Thyroid 2.56 N 0.34 -5.[address] Stim Horm) ?IU/[place] [address] [phone] Free T4 (Free Thyroxine) 0.76 ng/mL N 0.61-1.12 Laboratory test 06/16/2015 [facility] Vitamin D Total 32.2 N 30-[address] 25(Oh) ng/[place] [address] [phone] Lipid Profile 04/19/2015 Triglycerides 113 mg/dL N 24, 25 (Trig/Chol/HDL) Cholesterol 158 mg/dL N 26 HDL Cholesterol 42.7 mg/dL N 27 LDL Cholesterol 93 mg/dL N 28 Comp Metabolic Panel 04/19/2015 Sodium 142 mmol/L [...] 79.0 N >60 Egfr 101.6 N >60 29 Laboratory test 04/19/2015 Vitamin D Total 23.1 ng/mL Low 30-50 30 finding 25(Oh) Laboratory test 02/23/2015 [facility] Testosterone Total 209.84 Low 240-[address] ng/[place] [address] [phone] PSA Diagnostic 0.047 ng/mL N 0-4.0 31 Laboratory test 08/24/2014 [facility] Testosterone 170.96 Low 240-[address] ng/[place] [address] [phone] PSA Diagnostic 0.025 ng/mL N 0-4.0 32 Lipid Profile (Trig/Chol/HDL) 04/15/2014 Triglycerides 194 mg/dL N 33 Cholesterol 166 mg/dL N 34 HDL Cholesterol 50.2 mg/dL N 35 LDL Cholesterol 77 mg/dL N 36 Comp Metabolic Panel 04/15/2014 Sodium 140 mmol/L [...] 86.7 N >60 Egfr 111.5 N >60 37 Laboratory test 02/22/2014 [facility] Testosterone 113.67 Low 240-[address] ng/[place] [address] [phone] PSA Diagnostic 0.011 ng/mL N 0-4.0 38 CBC No Diff 10/26/2013 [facility] White Blood 6.2 10^3/uL 4.8 -10.[address] [place] [address] [phone] Red Blood Count 4.51 10^6/uL 4.0-5.4 Hemoglobin 14.2 g/dL 14.0-18.0 Hematocrit 42 % 42-52 Mean Corpuscular Volume 93 fL 80-94 Mean Corpuscular Hemoglobin 32 pg High 27-31 Mean Corpuscular HGB Conc 34 g/dL 31-36 Red Cell Distribution Width 15 % 10.5-15 Platelet Count 184 10^3/uL 150-450 Mean Platelet Volume 9 um3 7.4-10.4 Laboratory test 08/20/2013 [facility] Testosterone < 10 ng/dL Low 175-[address] [place] [address] [phone] PSA Diagnostic < 0.008 ng/mL 0-4.000 39 Laboratory test 04/23/2013 [facility] Creatine Kinase 118 U/L 0-200 finding [address] [place] [address] [phone] Lipid Panel 04/14/2013 [facility] Triglycerides 75 mg/dL 40- 200 [address] [place] [address] [phone] Cholesterol 182 mg/dL Less than 200 HDL Cholesterol 64 mg/dL High 40-60 40 Cholesterol/HDL Ratio 2.8 Average 1-4.44 LDL Cholesterol 103.0 High Less Than 100 41 CMP Panel 04/14/2013 [facility] Sodium 138 mmol/L 133-145 [address] [place] [address] [phone] Potassium 4.4 mmol/L 3.5-5.0 Chloride 106 mmol/L [...] Egfr Non- 82.5 >60 Egfr 106.1 >60 42 Laboratory test 04/14/2013 [facility] Lyme Disease Negative Negative [address] [place] [address] [phone] Laboratory test 03/09/2013 [facility] Lyme Disease Negative Negative [address] [place] [address] [phone] Laboratory test 02/20/2013 [facility] PSA Diagnostic 0.01 ng/mL 0-4.0 45 finding [address] [place] [address] [phone] Laboratory test 10/21/2012 [facility] PSA Diagnostic 0.02 ng/mL 0-4.0 46 finding [address] [place] [address] [phone] BMP Basic 09/13/2012 [facility] Sodium 138 mmol/L 133-145 Metabolic Panel [address] [place] [address] [phone] Potassium 4.4 mmol/L 3.5-5.0 Chloride 105 mmol/L 101-111 Co2 Carbon Dioxide 29.0 mmol/L 22-32 Anion Gap 4.0 mmol/L 2-11 Glucose 91 mg/dL 70-100 Blood Urea Nitrogen 22 mg/dL 6-24 Creatinine 1.10 mg/dL 0.50-1.40 BUN/Creatinine Ratio 20.0 8-20 Calcium 9.2 mg/dL 8.1-9.9 Egfr Non- 65.6 >60 Egfr 84.4 >60 47 Lipid Panel 09/13/2012 [facility] Triglycerides 107 mg/dL 40- 200 [address] [place] [address] [phone] Cholesterol 247 mg/dL High Less than 200 HDL Cholesterol 58 mg/dL 40-60 48 Cholesterol/HDL Ratio 4.3 Average 1-4.44 LDL Cholesterol 167.6 mg/dL High Less Than 100 49 Vitamin D,25 09/13/2012 [facility] 25-Hydroxy Vitamin <4.0 ng/ mL Hydroxy [address] [address] [phone] 25-Hydroxy Vitamin D3 32 ng/mL 25-Hydroxy Vitamin D Total 32 ng/mL 50 Laboratory test 06/13/2012 [facility] PSA,Diagnostic 0.0 NG/ML 0-4 51 finding [address] [place] [address] [phone] Lipid Panel 04/10/2012 [facility] Triglyceride 124 mg/dL 40- 200 [address] [place] [address] [phone] Cholesterol 191 mg/dL Less Than 200 52 High Density Lipoprotein 57 mg/dL 40-60 53 Cholesterol/HDL Ratio 3.35 AVERAGE 1-4.97 Low Density Lipoprotein 109 mg/dL High Less Than 100 54 CMP Panel 04/10/2012 [facility] Sodium 138 mmol/L 135-145 [address] [place] [address] [phone] Potassium 4.2 mmol/L 3.5-5.0 Chloride 108 mmol/L 101-111 Co2 (Carbon Dioxide) 25.0 mmol/L 22-32 Anion Gap 5.0 mmol/L 2-11 55 Glucose 96 mg/dL 70-100 BUN 20 mg/dL 6-24 Creatinine 1.0 mg/dL 0.50-1.40 One Over Creatinine 1.00 BUN/Creatinine Ratio 20.0 8-20 Calcium 9.4 mg/dL 8.1-9.9 Total Protein 5.6 GM/DL Low 6.2-8.1 Albumin 3.5 GM/DL 3.2-5.2 Globulin 2.1 GM/DL 2-4 Albumin/Globulin Ratio 1.7 1-3 Bilirubin Total 0.8 mg/dL 0.4-1.5 56 Alkaline Phosphatase 76 U/L 39-117 Alt (SGPT) 34 U/L 17-63 Ast (Sgot) 35 U/L 12-42 eGFR Non- 73.2 > 60 eGFR 94.2 > 60 57 Laboratory test 04/10/2012 [facility] CPK (Creatine 282 U/L High 0-[address] Kinase) [place] [address] [phone] Laboratory test 04/01/2012 [facility] PSA,Diagnostic 0.0 NG/ML 0-4 [address] [place] [address] [phone] Surgical 03/25/2012 [facility] Surgical --------- [address] Pathology ------- [place] [address] <SEE [phone] NOTE> Laboratory test 01/22/2012 [facility] PSA,Diagnostic 0.0 NG/ML 0-[address] [place] [address] [phone] Laboratory test 12/25/2011 [facility] CPK (Creatine 164 U/L 0 -[address] Kinase) [place] [address] [phone] Thyroxine Free 0.90 ng/dL 0.61-1.24 TSH 1.15 MIU/ML 0.34-5.60 Lipid Panel - 11/08/2011 [facility] CPK (Creatine 140 U/L 0- [address] Kinase) [place] [address] [phone] CMP Panel 11/08/2011 [facility] Sodium 138 mmol/L 135-[address] [place] [address] [phone] Potassium 4.2 mmol/L 3.5-5.0 Chloride 103 mmol/L 101-111 Co2 (Carbon Dioxide) 30.0 mmol/L 22-32 Anion Gap 5.0 mmol/L 2-11 61 Glucose 97 mg/dL 70-100 BUN 20 mg/dL 6-24 Creatinine 1.0 mg/dL 0.50-1.40 One Over Creatinine 1.00 BUN/Creatinine Ratio 20.0 8-20 Calcium 9.0 mg/dL 8.1-9.9 Total Protein 6.0 GM/DL Low 6.2-8.1 Albumin 3.5 GM/DL 3.2-5.2 Globulin 2.5 GM/DL 2-4 Albumin/Globulin Ratio 1.4 1-3 Bilirubin Total 0.6 mg/dL 0.4-1.5 62 Alkaline Phosphatase 55 U/L 39-117 Alt (SGPT) 30 U/L 17-63 Ast (Sgot) 26 U/L 12-42 eGFR Non- 73.5 > 60 eGFR 94.5 > 60 63 Lipid Panel 11/08/2011 [facility] Triglyceride 137 mg/dL 40- [address] [place] [address] [phone] Cholesterol 195 mg/dL Less Than 200 64 High Density Lipoprotein 51 mg/dL 40-60 65 Cholesterol/HDL Ratio 3.82 AVERAGE 1-4.97 Low Density Lipoprotein 117 mg/dL High Less Than 100 66 Lipid Profile 09/19/2011 [facility] Triglyceride 92 mg/dL 40- 200 (Trig/Chol/HDL) [address] [place] [address] [phone] Cholesterol 254 mg/dL High Less Than 200 67 High Density Lipoprotein 55 mg/dL 40-60 68 Cholesterol/HDL Ratio 4.62 AVERAGE 1-4.97 Low Density Lipoprotein 181 mg/dL High Less Than 100 69 Comp Metabolic Panel 09/19/2011 [facility] Sodium 137 mmol/L 135-[address] [place] [address] [phone] Potassium 4.4 mmol/L 3.5-5.0 Chloride 102 mmol/L 101-111 Co2 (Carbon Dioxide) 29.0 mmol/L 22-32 Anion Gap 6.0 mmol/L 2-11 70 Glucose 85 mg/dL 70-100 BUN 22 mg/dL 6-24 Creatinine 1.2 mg/dL 0.50-1.40 One Over Creatinine 0.83 BUN/Creatinine Ratio 18.3 8-20 Calcium 9.2 mg/dL 8.1-9.9 Total Protein 6.3 GM/DL 6.2-8.1 Albumin 3.8 GM/DL 3.2-5.2 Globulin 2.5 GM/DL 2-4 Albumin/Globulin Ratio 1.5 1-3 Bilirubin Total 0.6 mg/dL 0.4-1.5 71 Alkaline Phosphatase 57 U/L 39-117 Alt (SGPT) 37 U/L 17-63 Ast (Sgot) 35 U/L 12-42 eGFR Non- 59.5 > 60 eGFR 76.5 > 60 72 Lipid Panel - 09/19/2011 [facility] CPK (Creatine 291 U/L High 0-[address] Kinase) [place] [address] [phone] Lipid Profile 06/13/2011 [facility] Triglyceride 254 mg/dL High 40-200 (Trig/Chol/HD [address] L) [place] [address] [phone] Cholesterol 241 mg/dL High Less Than 200 73 High Density Lipoprotein 43 mg/dL 40-60 74 Cholesterol/HDL Ratio 5.60 AVERAGE High 1-4.97 Low Density Lipoprotein 147 mg/dL High Less Than 100 75 Laboratory test 06/13/2011 [facility] PSA Screening 3.17 NG/ML 0-4 [address] [place] [address] [phone] Laboratory test 05/16/2011 [facility] BUN 17 mg/dL 6-[address] [place] [address] [phone] Creatinine 05/16/2011 [facility] Creatinine 1.1 mg/dL 0.50- 1.[address] 0 [place] [address] [phone] One Over Creatinine 0.90 eGFR Non- 65.8 > 60 eGFR 84.6 > 60 77 Surgical 05/08/2011 [facility] Surgical [address] Pathology <SEE NOTE> [place] [address] [phone] Laboratory 04/02/2011 [facility] PSA,Diagnosti 3.22 NG/ML 0- 4 [address] [place] [address] [phone] Comp Metabolic 03/26/2011 [facility] Sodium 141 mmol/L 135- Panel [address] [place] [address] [phone] Potassium 4.4 mmol/L 3.5-5.0 Chloride 110 mmol/L 101-111 Co2 (Carbon Dioxide) 25.0 mmol/L 22-32 Anion Gap 6.0 mmol/L 2-11 80 Glucose 98 mg/dL 70-100 BUN 20 mg/dL 6-24 Creatinine 1.10 mg/dL 0.50-1.40 One Over Creatinine 0.90 BUN/Creatinine Ratio 18.2 8-20 Calcium 8.8 mg/dL 8.1-9.9 Total Protein 6.2 GM/DL 6.2-8.1 Albumin 3.7 GM/DL 3.2-5.2 Globulin 2.5 GM/DL 2-4 Albumin/Globulin Ratio 1.5 1-3 Bilirubin Total 0.8 mg/dL 0.4-1.5 81 Alkaline Phosphatase 65 U/L 39-117 Alt (SGPT) 29 U/L 17-63 Ast (Sgot) 27 U/L 12-42 eGFR Non- 65.8 > 60 eGFR 84.6 > 60 82 Lipid Panel - 03/26/2011 [facility] CPK (Creatine 222 U/L High 0-[address] Kinase) [place] [address] [phone] Lipid Profile 03/26/2011 [facility] Triglyceride 78 mg/dL 40- 200 (Trig/Chol/HD [address] L) [place] [address] [phone] Cholesterol 157 mg/dL Less Than 200 83 High Density Lipoprotein 41 mg/dL 40-60 84 Cholesterol/HDL Ratio 3.83 AVERAGE 1-4.97 Low Density Lipoprotein 100 mg/dL Less Than 100 85 Lipid Profile 03/30/2010 [facility] Triglyceride 136 mg/dL 40 -200 (Trig/Chol/HDL) [address] [place] [address] [phone] Cholesterol 196 mg/dL Less Than 200 86 High Density Lipoprotein 43 mg/dL 40-60 87 Cholesterol/HDL Ratio 4.56 AVERAGE 1-4.97 Low Density Lipoprotein 126 mg/dL High Less Than 100 88 Urinalysis W/Microscopic 03/30/2010 [facility] Ua Color YELLOW Yellow [address] [place] [address] [phone] Appearance-Urine CLEAR Clear Specific Wayne-Ur 1.024 1.010-1.030 Esterase-Urine NEGATIVE Negative Nitrite NEGATIVE Negative Ghbmxatdcigc-Ul-IEA NEGATIVE Negative Protein-Urine NEGATIVE Negative PH-Urine 5.5 5-9 Blood-Urine TRACE Abnormal Negative Ketones-Urine NEGATIVE Negative Bilirubin-Ur NEGATIVE Negative Glucose-Urine NEGATIVE Negative WBC-Urine RARE 0-5 RBC-Urine NONE SEEN 0-2 Urine Culture & 03/30/2010 [facility] Urine Culture NG [address] [place] [address] [phone] Laboratory test 03/30/2010 [facility] Lyme Disease Negative Negative 90 finding 101 [facility] [place] [address] [phone] Lipid Panel - 03/30/2010 [facility] CPK (Creatine 118 U/L 0- 200 JFM [address] [facility] Kinase) [place] [address] [phone] Comp Metabolic 03/30/2010 [facility] Sodium 135 mmol/L 135- 145 Panel [address] [place] [address] [phone] Potassium 4.4 mmol/L 3.5-5.0 Chloride 103 mmol/L 101-111 Co2 (Carbon Dioxide) 24.0 mmol/L 22-32 Anion Gap 8.0 mmol/L 2-11 91 Glucose 96 mg/dL 70-100 92 BUN 19 mg/dL 6-24 Creatinine 1.10 mg/dL 0.50-1.40 One Over Creatinine 0.90 BUN/Creatinine Ratio 17.3 8-20 Calcium 8.8 mg/dL 8.1-9.9 93 Total Protein 6.2 GM/DL 6.2-8.1 Albumin 3.8 GM/DL 3.2-5.2 Globulin 2.4 GM/DL 2-4 Albumin/Globulin Ratio 1.6 1-3 Bilirubin Total 0.8 mg/dL 0.4-1.5 94 Alkaline Phosphatase 58 U/L 39-117 Alt (SGPT) 47 U/L 17-63 Ast (Sgot) 35 U/L 12-42 eGFR Non- 70.1 > 60 eGFR 84.9 > 60 95 Surgical 03/15/2009 [facility] Surgical [address] Pathology <SEE NOTE> [place] [address] [phone] Urine Culture 02/08/2009 [facility] Urine Culture NG [address] [place] [address] [phone] Laboratory 12/27/2008 [facility] CPK (Creatine 169 U/L 0-[address] Kinase) 0 [place] [address] [phone] Liver Function 12/27/2008 [facility] Total Protein 6.9 GM/DL 6.2- Panel [address] 8[address]1 [place] [address] [phone] Albumin 3.7 GM/DL 3.2-5.2 Globulin 3.2 GM/DL 2-4 Albumin/Globulin Ratio 1.2 1-3 Bilirubin Total 0.8 mg/dL 0.4-1.5 Bilirubin Direct 0.2 mg/dL 0.1-0.5 Indirect Bilirubin 0.6 mg/dL 0.1-0.75 Alkaline Phosphatase 64 U/L 39-117 Alt (SGPT) 46 U/L 17-63 Ast (Sgot) 35 U/L 12-42 Lipid Profile 12/27/2008 [facility] Triglyceride 144 mg/dL 40 -200 (Trig/Chol/HDL) [address] [place] [address] [phone] Cholesterol 218 mg/dL High Less Than 200 98 High Density Lipoprotein 49 mg/dL 40-60 99 Cholesterol/HDL Ratio 4.45 AVERAGE 1-4.97 Low Density Lipoprotein 140 mg/dL High Less Than 100 100 Basic Metabolic Panel 12/27/2008 [facility] Sodium 138 mmol/L 135-[address] [place] [address] [phone] Potassium 4.3 mmol/L 3.5-5.0 Chloride 106 mmol/L 101-111 Co2 (Carbon Dioxide) 27.0 mmol/L 22-32 Anion Gap 5.0 mmol/L 2-11 101 Glucose 92 mg/dL 70-100 102 BUN 20 mg/dL 6-24 Creatinine 1.13 mg/dL 0.50-1.40 One Over Creatinine 0.80 BUN/Creatinine Ratio 17.7 8-20 Calcium 9.1 mg/dL 8.1-9.9 103 Laboratory test 11/28/2007 [facility] PSA Screening 1.13 NG/ML 0-4 104, 105 finding 101 [place] [address] [phone] Lipid Profile 11/28/2007 [facility] Cholesterol/H 4.05 1- 4.97 (Trig/Chol/HDL) [address] [place] [address] [phone] Cholesterol 178 mg/dL Less Than 200 106 Triglyceride 59 mg/dL 40-200 High Density Lipoprotein 44 mg/dL 40-60 Low Density Lipoprotein 122 mg/dL High Less Than 100 107 Basic Metabolic 11/28/2007 [facility] One Over Creatinine 0.76 Panel [address] [place] [address] [phone] Anion Gap 5.0 mmol/L 2-11 108 BUN 24 mg/dL 6-24 Calcium 8.7 mg/dL 8.7-10.2 Chloride 105 mmol/L 101-111 Co2 (Carbon Dioxide) 28.0 mmol/L 22-32 Glucose 90 mg/dL 70-105 Potassium 4.3 mmol/L 3.5-5.0 Sodium 138 mmol/L 135-145 BUN/Creatinine Ratio 18.5 8-20 Creatinine 1.3 mg/dL 0.5-1.4 1 Desirable: <150 Borderline High: 150-199 High: 200-499 Very High: >500 2 Desirable: <200 Borderline High: 200-239 High: >239 3 Low: <40 Desirable: 40-60 High: >60 4 Desirable: <100 Near Optimal: 100-129 Borderline High: 130-159 High: 160-189 Very High: >189 5 Because ethnic data is not always readily [...] 15-29 5 Kidney failure <15 (or dialysis) 6 FASTING 10 HOUR 7 Serum levels of PSA measured using the [employer] DXI Hybritech immunoassay should not be interpreted [...] methods or kits cannot be used interchangeably. 8 Serum levels of PSA measured using the [employer] DXI Hybritech immunoassay should not be interpreted [...] or kits cannot be used interchangeably. 9 FASTING 10 HOUR 10 Desirable <150 Borderline high 150-199 High 200-499 Very High >500 11 Desirable <200 Borderline high 200-239 High >239 12 Low <40 Desirable: 40-60 High: >60 13 Desirable: <100 mg/dL Near Optimal: 100-129 mg/dL Borderline High: 130-159 mg/dL High: 160-189 mg/dL Very High: >189 mg/dL 14 Because ethnic data is not always readily [...] 15-29 5 Kidney failure <15 (or dialysis) 15 Serum levels of PSA measured using the [employer] DXI Hybritech immunoassay should not be interpreted [...] methods or kits cannot be used interchangeably. 16 Desirable <150 Borderline high 150-199 High 200-499 Very High >500 17 Desirable <200 Borderline high 200-239 High >239 18 Low <40 Desirable: 40-60 High: >60 19 Desirable: <100 mg/dL Near Optimal: 100-129 mg/dL Borderline High: 130-159 mg/dL High: 160-189 mg/dL Very High: >189 mg/dL 20 FASTING 10 HOUR 21 Because ethnic data is not always readily [...] 15-29 5 Kidney failure <15 (or dialysis) 22 Serum levels of PSA measured using the [employer] DXI Hybritech immunoassay should not be interpreted [...] methods or kits cannot be used interchangeably. 23 Serum levels of PSA measured using the [employer] DXI Hybritech immunoassay should not be interpreted [...] or kits cannot be used interchangeably. 24 PT IS FASTING 25 Desirable <150 Borderline high 150-199 High 200-499 Very High >500 26 Desirable <200 Borderline high 200-239 High >239 27 Low <40 Desirable: 40-60 High: >60 28 Desirable: <100 mg/dL Near Optimal: 100-129 mg/dL Borderline High: 130-159 mg/dL High: 160-189 mg/dL Very High: >189 mg/dL 29 Because ethnic data is not always readily [...] 15-29 5 Kidney failure <15 (or dialysis) 30 PT IS FASTING 31 Serum levels of PSA measured using the [employer] DXI Hybritech immunoassay should not be interpreted [...] methods or kits cannot be used interchangeably. 32 Serum levels of PSA measured using the [employer] DXI Hybritech immunoassay should not be interpreted [...] or kits cannot be used interchangeably. 33 Desirable <150 Borderline high 150-199 High 200-499 Very High >500 34 Desirable <200 Borderline high 200-239 High >239 35 Low <40 Desirable: 40-60 High: >60 36 Desirable <100 Near Optimal 100-129 Borderline high 130-159 High 160-189 Very High >189 37 Because ethnic data is not always readily [...] 15-29 5 Kidney failure <15 (or dialysis) 38 Serum levels of PSA measured using the [employer] DXI Hybritech immunoassay should not be interpreted [...] methods or kits cannot be used interchangeably. 39 Serum levels of PSA measured using the [employer] DXI Hybritech immunoassay should not be interpreted [...] or kits cannot be used interchangeably. 40 HDL Interpretation: Undesirable: High Risk: Less than 40 mg/dL Desirable: Low Risk: Greater than 60 mg/dL 41 LDL Interpretation: Low Risk Optimal Level: LDL Less than 100 mg/dL Near or Above Optimal: LDL 100-129 mg/dL Borderline High Risk: LDL 130-159 mg/dL High Risk: LDL 160-189 mg/dL Very High Risk: LDL Greater than 189 mg/dL 42 Because ethnic data is not always readily [...] 15-29 5 Kidney failure <15 (or dialysis) 43 Serologic response to B. burgdorferi infection is not detected, but cannot rule out early infection during which low or undetectable antibody levels to B. burgdorferi may be present. If clinically indicated, a new serum specimen should be submitted in 7-14 days. Test Performed by: [address] [address] Mortgage Loan Officer: Dru Godinez III, M.D. 44 Serologic response to B. burgdorferi infection is not detected, but cannot rule out early infection during which low or undetectable antibody levels to B. burgdorferi may be present. If clinically indicated, a new serum specimen should be submitted in 7-14 days. Test Performed by: [place] [id number] Mortgage Loan Officer: Dru Godinez III, M.D. 45 Serum levels of PSA measured using the [employer] DXI Hybritech immunoassay should not be interpreted [...] methods or kits cannot be used interchangeably. 46 Serum levels of PSA measured using [...] or kits cannot be used interchangeably. 47 Because ethnic data is not always readily [...] 15-29 5 Kidney failure <15 (or dialysis) 48 HDL Interpretation: Undesirable: High Risk: Less than 40 MG/DL Desirable: Low Risk: Greater than 60 MG/DL 49 LDL Interpretation: Low Risk Optimal Level: LDL Less than 100 MG/DL Near or Above Optimal: LDL 100-129 MG/DL Borderline High Risk: LDL 130-159 MG/DL High Risk: LDL 160-189 MG/DL Very High Risk: LDL Greater than 189 MG/DL 50 -- REFERENCE VALUE -- 25-HYDROXY D TOTAL (D2+D3) Optimum levels in the normal population are 25-80 Test Performed by: [address] [address] Mortgage Loan Officer: Dru Godinez III, M.D. 51 * SERUM LEVELS OF PSA MEASURED USING THE GERRY [employer] ACCESS HYBRITECH IMMUNOASSAY SHOULD NOT BE INTERPRETED [...] methods of kits cannot be used interchangeably. 52 CHOLESTEROL INTERPRETATION: Desirable: Less than 200 MG/DL Borderline-High Risk: 200-239 MG/DL High-Risk: 240 MG/DL and over 53 HDL INTERPRETATION: Undesirable: High Risk: Less than 40 MG/DL Desirable: Low Risk: Greater than 60 MG/DL 54 LDL INTERPRETATION: Low Risk Optimal Level: LDL Less than 100 MG/DL Near or Above Optimal: LDL 100-129 MG/DL Borderline High Risk: LDL 130-159 MG/DL High Risk: LDL 160-189 MG/DL Very High Risk: LDL Greater than 189 MG/DL 55 Anion gap measurement may be of limited value in the presence of any alkalosis, especially in a combined acid base disorder. . 56 A metabolite of Naproxen, O-desmethylnaproxen, has been shown to interfere with the Jendrassik-Des Arc method for measuring total bilirubin. Samples from patients who have taken Naproxen have shown spurious elevation in total bilirubin levels. 57 Because ethnic data is not always readily [...] 15-29 5 Kidney failure <15 (or dialysis) 58 * SERUM LEVELS OF PSA MEASURED USING [...] methods of kits cannot be used interchangeably. 59 ---- RUN DATE: 03/27/12 [facility] NMI LIVE PAGE 1 RUN TIME: 1535 Specimen Inquiry RUN USER: INTERFACE -- Name: INA BETTENCOURT Status: REG REF Re03/25/12 Age/Sex: 72/M Unit#: [id number] Location: [facility] : 39 -- Specimen: [id number] SOUT Spec Date:03/25/12- Dr: Tim randhawa MD Spec Type: SURGICAL [...] 03/27/12 1535 -- -- DEPARTMENT OF PATHOLOGY, [address] [place] [address] [facility] Permit #[id number] Forest Fox M.D. Director Pradeep Christensen M.D. Toe Former [employer] Dir duc -- 60 * SERUM LEVELS OF PSA MEASURED [...] of kits cannot be used interchangeably. 61 Anion gap measurement may be of limited value in the presence of any alkalosis, especially in a combined acid base disorder. . 62 A metabolite of Naproxen, O-desmethylnaproxen, has been shown to interfere with the Jendrassik-Adelfo method for measuring total bilirubin. Samples from patients who have taken Naproxen have shown spurious elevation in total bilirubin levels. 63 Because ethnic data is not always readily [...] 15-29 5 Kidney failure <15 (or dialysis) 64 CHOLESTEROL INTERPRETATION: Desirable: Less than 200 MG/DL Borderline-High Risk: 200-239 MG/DL High-Risk: 240 MG/DL and over 65 HDL INTERPRETATION: Undesirable: High Risk: Less than 40 MG/DL Desirable: Low Risk: Greater than 60 MG/DL 66 LDL INTERPRETATION: Low Risk Optimal Level: LDL Less than 100 MG/DL Near or Above Optimal: LDL 100-129 MG/DL Borderline High Risk: LDL 130-159 MG/DL High Risk: LDL 160-189 MG/DL Very High Risk: LDL Greater than 189 MG/DL 67 CHOLESTEROL INTERPRETATION: Desirable: Less than 200 MG/DL Borderline-High Risk: 200-239 MG/DL High-Risk: 240 MG/DL and over 68 HDL INTERPRETATION: Undesirable: High Risk: Less than 40 MG/DL Desirable: Low Risk: Greater than 60 MG/DL 69 LDL INTERPRETATION: Low Risk Optimal Level: LDL Less than 100 MG/DL Near or Above Optimal: LDL 100-129 MG/DL Borderline High Risk: LDL 130-159 MG/DL High Risk: LDL 160-189 MG/DL Very High Risk: LDL Greater than 189 MG/DL 70 Anion gap measurement may be of limited value in the presence of any alkalosis, especially in a combined acid base disorder. . 71 A metabolite of Naproxen, O-desmethylnaproxen, has been shown to interfere with the Jendrassik-Adelfo method for measuring total bilirubin. Samples from patients who have taken Naproxen have shown spurious elevation in total bilirubin levels. 72 Because ethnic data is not always readily [...] 15-29 5 Kidney failure <15 (or dialysis) 73 CHOLESTEROL INTERPRETATION: Desirable: Less than 200 MG/DL Borderline-High Risk: 200-239 MG/DL High-Risk: 240 MG/DL and over 74 HDL INTERPRETATION: Undesirable: High Risk: Less than 40 MG/DL Desirable: Low Risk: Greater than 60 MG/DL 75 LDL INTERPRETATION: Low Risk Optimal Level: LDL Less than 100 MG/DL Near or Above Optimal: LDL 100-129 MG/DL Borderline High Risk: LDL 130-159 MG/DL High Risk: LDL 160-189 MG/DL Very High Risk: LDL Greater than 189 MG/DL 76 * SERUM LEVELS OF PSA MEASURED USING THE [employer] ACCESS HYBRITECH IMMUNOASSAY SHOULD NOT BE INTERPRETED ABSOLUTE EVIDENCE OF THE PRESENCE OR ABSENCE OF DISEASE. THE PSA VALUE SHOULD BE USED IN CONJUNCTION WITH OTHER PERTINENT CLINICAL DIAGNOSTIC PROCEDURES. 77 Because ethnic data is not always readily [...] 15-29 5 Kidney failure <15 (or dialysis) 78 ---- RUN DATE: 05/10/11 [facility] NMI LIVE PAGE 1 RUN TIME: 1314 Specimen Inquiry RUN USER: INTERFACE -- Name: INA BETTENCOURT Status: REG REF Re05/08/11 Age/Sex: 71/M Unit#: [id number] Location: [facility] : 39 -- Specimen: [id number] VINICIUS Spec Date: 05/08/[address] [facility] [address]: Anton Wahl i, MD Spec Type: SURGICAL P Received: 05/09/11-7205 Copies to: Socrates billingsley MD SPECIMEN 1) LEFT LOBE PROSTATE BIOPSY APEX (APEX 3) 2) LEFT LOBE PROSTATE BIOPSY BASE (BASE 3) 3) RIGHT LOBE PROSTATE BIOPSY APEX (APEX 3) 4) RIGHT LOBE PROSTATE BIOPSY BASE (BASE 3) HISTORY PRE-OP DIAGNOSIS: PSA progression, firm nodule left lobe and right lobe, PSA 3.22 GROSS DESCRIPTION 1) The specimen is received in formalin labelled [facility], Left Prostate Lobe Moore and consists of three, aguiar, soft tissue cores measuring 1.8 cm., 1.8 cm., and 1.6 x 0.1 cm. Submitted entirely, one cassette. 2) The specimen is received in formalin labelled [facility], Left Prostate Lobe Base and consists of three, aguiar, soft tissue cores measuring 1.6 cm., 1.5 cm., and 1.3 x 0.1 cm. Submitted entirely, one cassette. 3) The specimen is received in formalin labelled [facility], Right Prostate Lobe Moore and consists of three, aguiar, soft tissue cores measuring 1.8 cm., 1.5 cm., and 1.5 x 0.1 cm. Submitted entirely, one cassette. 4) The specimen is received in formalin labelled [facility], Right Prostate Lobe Base and consists of three, aguiar, soft tissue cores measuring 2.0 cm., 2.0 cm., and 1.7 x 0.1 cm. Submitted entirely, one cassette. DIAGNOSIS 1) Prostate, left apex, core biopsies: A. Prostatic adenocarcinoma, small acinar type: 1. Moffett score: 3 + 4=7. 2. Extent of Local Invasion: Tumor involves two foci on two of three cores, measures 6 mm. in maximal span and occupies approximately 30% of total core length. 3. Perineural Invasion: Not seen. 4. Angiolymphatic Invasion: Not seen. -- DEPARTMENT OF PATHOLOGY, [address] [place] [address] [facility] Permit #[id number] Amira Joseph M.D. Toe Former [employer] duc -- -- RUN DATE: 05/10/11 [facility] NMI LIVE PAGE 2 RUN TIME: 1314 Specimen Inquiry RUN USER: INTERFACE -- Name: INA BETTENCOURT Status: REG REF Re05/08/11 Age/Sex: 71/M Unit#: [id number] Location: [facility] : 39 -- -- CONTINUED -- DIAGNOSIS (Continued) B. Other findings: None. 2) Prostate, left base, core biopsies: A. Prostatic adenocarcinoma, small acinar type: 1. Moffett score: 4 + 3=7, focal tertiary Grade [...] adenocarcinoma, small and large gland type: 1. Moffett score: 4 + 3=7. 2. Extent of Local Invasion: Tumor involves four foci on three of three cores, measures 15 mm. in maximal span and occupies 50% of total core length. 3. Perineural Invasion: Present. 4. Angiolymphatic Invasion: Not seen. B. Other findings: None. 4) Prostate, right base, core biopsies: A. Prostatic adenocarcinoma, small acinar type: 1. Moffett score: 5 + 3=8 with tertiary pattern [...] 05/10/11 1313 -- -- DEPARTMENT OF PATHOLOGY, [address] [place] [address] [facility] Permit #[id number] Amira Joseph M.D. Toe Former [employer] Dir duc -- 79 * SERUM LEVELS OF PSA MEASURED USING THE GERRY [employer] ACCESS HYBRITECH IMMUNOASSAY SHOULD NOT BE INTERPRETED ABSOLUTE EVIDENCE OF THE PRESENCE OR ABSENCE OF DISEASE. THE PSA VALUE SHOULD BE USED IN CONJUNCTION WITH OTHER PERTINENT CLINICAL DIAGNOSTIC PROCEDURES. 80 Anion gap measurement may be of limited value in the presence of any alkalosis, especially in a combined acid base disorder. . 81 A metabolite of Naproxen, O-desmethylnaproxen, has been shown to interfere with the Jendrassik-Des Arc method for measuring total bilirubin. Samples from patients who have taken Naproxen have shown spurious elevation in total bilirubin levels. 82 Because ethnic data is not always readily [...] 15-29 5 Kidney failure <15 (or dialysis) 83 CHOLESTEROL INTERPRETATION: Desirable: Less than 200 MG/DL Borderline-High Risk: 200-239 MG/DL High-Risk: 240 MG/DL and over 84 HDL INTERPRETATION: Undesirable: High Risk: Less than 40 MG/DL Desirable: Low Risk: Greater than 60 MG/DL 85 LDL INTERPRETATION: Low Risk Optimal Level: LDL Less than 100 MG/DL Near or Above Optimal: LDL 100-129 MG/DL Borderline High Risk: LDL 130-159 MG/DL High Risk: LDL 160-189 MG/DL Very High Risk: LDL Greater than 189 MG/DL 86 CHOLESTEROL INTERPRETATION: Desirable: Less than 200 MG/DL Borderline-High Risk: 200-239 MG/DL High-Risk: 240 MG/DL and over 87 HDL INTERPRETATION: Undesirable: High Risk: Less than 40 MG/DL Desirable: Low Risk: Greater than 60 MG/DL 88 LDL INTERPRETATION: Low Risk Optimal Level: LDL Less than 100 MG/DL Near or Above Optimal: LDL 100-129 MG/DL Borderline High Risk: LDL 130-159 MG/DL High Risk: LDL 160-189 MG/DL Very High Risk: LDL Greater than 189 MG/DL 89 FINAL: NO GROWTH DAY 2 (<1,000 CFU/mL) 90 Serologic response to B. burgdorferi infection is not detected, but cannot rule out early infection during which low or undetectable antibody levels to B. burgdorferi may be present. If clinically indicated, a new serum specimen should be submitted in 7-14 days. Test Performed by: [facility] Dpt of Lab Med and Pathology [address] [place] [id number] Mortgage Loan Officer: Dru Godinez III, M.D. 91 Anion gap measurement may be of limited value in the presence of any alkalosis, especially in a combined acid base disorder. . 92 Note change in reference range as of 05/06/08. The change was based on recommendations from the [place] [employer]. 93 Please note change in reference range effective 08 . 94 A metabolite of Naproxen, O-desmethylnaproxen, has been shown to interfere with the Jendrassik-Des Arc method for measuring total bilirubin. Samples from patients who have taken Naproxen have shown spurious elevation in total bilirubin levels. 95 Because ethnic data is not always readily [...] 15-29 5 Kidney failure <15 (or dialysis) 96 ---- RUN DATE: 03/17/09 [facility] NMI LIVE PAGE 1 RUN TIME: 1706 Specimen Inquiry RUN USER: INTERFACE -- Name: INA BETTENCOURT Status: REG REF Re03/15/09 Age/Sex: 69/M Unit#: [id number] Location: [address] [place] [address]. : 39 -- Specimen: [id number] SOUT Spec Date: 03/15/[address]: Tim rea MD Spec Type: SURGICAL [...] 03/17/09 1706 -- -- DEPARTMENT OF PATHOLOGY, [address] [place] [address] [facility] Permit #[id number] Amira Joseph M.D. Toe Former [employer] Dir duc -- 97 FINAL: NO GROWTH DAY 2 (<1,000 CFU/mL) 98 CHOLESTEROL INTERPRETATION: Desirable: Less than 200 MG/DL Borderline-High Risk: 200-239 MG/DL High-Risk: 240 MG/DL and over 99 HDL INTERPRETATION: Undesirable: High Risk: Less than 40 MG/DL Desirable: Low Risk: Greater than 60 MG/DL 100 LDL INTERPRETATION: Low Risk Optimal Level: LDL Less than 100 MG/DL Near or Above Optimal: LDL 100-129 MG/DL Borderline High Risk: LDL 130-159 MG/DL High Risk: LDL 160-189 MG/DL Very High Risk: LDL Greater than 189 MG/DL 101 Anion gap measurement may be of limited value in the presence of any alkalosis, especially in a combined acid base disorder. . 102 Note change in reference range as of 05/06/08. The change was based on recommendations from the [place] [employer]. 103 Please note change in reference range effective 08 . 104 FASTING 105 * SERUM LEVELS OF PSA MEASURED USING THE GERRY Tw[employer]igg ACCESS HYBRITECH IMMUNOASSAY SHOULD NOT BE INTERPRETED ABSOLUTE EVIDENCE OF THE PRESENCE OR ABSENCE OF DISEASE. THE PSA VALUE SHOULD BE USED IN CONJUNCTION WITH OTHER PERTINENT CLINICAL DIAGNOSTIC PROCEDURES. 106 Classification: Desirable . 107 CALCULATED LDL APPROXIMATES THE VALUE OF A DIRECT LDL MEASUREMENT. Classification: Near or above optimal . 108 Anion gap measurement may be of limited value in the presence of any alkalosis, especially in a combined acid base disorder. . Procedures Date Code Description Status 05/15/2018 308119308 Diabetic Retinal Eye Exam Completed 08/13/2017 [id number] Bone Mineral Density Test Completed 02/01/2017 36107 Short Arm Splint Application Completed 01/24/2017 90975 Realignment Extensor Tendon Hand Completed 01/24/2017 43055 Realignment Extensor Tendon Hand Completed 05/02/2016 10920 ECHO Transthoracic, Real-Time 2D With Doppler And Completed Color Flow 10/19/2015 10715 Polysomnography Sleep Staging 4+ Parameters W/Cpap Completed 05/04/2015 63094 ECHO Transthoracic, Real-Time 2D With Doppler And Completed Color Flow 04/21/2015 [id number] Bone Mineral Density Test Completed 04/21/2014 26579 EKG Tracing & Interpretation Completed 04/19/2014 [id number] Bone Mineral Density Test Completed 11/26/2012 86104 Polysomnography Sleep Staging 4+ Parameters W/Cpap Completed 09/17/2012 [id number] Bone Mineral Density Test Completed 03/25/2012 [id number] Colonoscopy Completed 10/01/2011 [id number] Bone Mineral Density Test Completed 03/15/2009 [id number] Colonoscopy Completed Encounters Type Date Location Provider Dx Diagnosis Office Visit 11/19/2018 Orthopedic Kerri Swartz, M25.561 Pain in right 10:00a Services Of [facility] knee M17.11 Unilateral primary osteoarthritis, right knee M21.161 Varus deformity, not elsewhere classified, right knee Office Visit 11/10/2018 2:00p Finance Analyst Internal Lita Nur, K59.00 Constipation, Medicine MD unspecified M54.5 Low back pain M25.561 Pain in right knee Office Visit 09/25/2018 Pulmonology [facility] [place] G47.33 Obstructive sleep 9:30a Sleep Services Of MARILEE Beltran, RN, apnea (adult) [facility] ADMINISTRATIVE SERVICES SPECIALIST-BC (pediatric) Z68.35 Body mass index (BMI) 35.0-35.9, adult Office Visit 08/26/2018 William Avila, G20 Parkinson's 10:15a Neurologic Amira disease Services Of [facility] Office Visit 08/25/2018 [facility] Internal Socrates Hester Z00.01 Encounter for 11:20a Medicine - Tbricardo Monge M.D.,FACP general adult Rd medical exam w abnormal findings G20 Parkinson's disease M25.561 Pain in right knee E78.2 Mixed hyperlipidemia M81.0 Age-related osteoporosis w/o current pathological fracture I10 Essential (primary) hypertension K21.9 Gastro-esophageal reflux disease without esophagitis Office Visit 05/29/2018 [facility] Internal Socrates Hester Z01.810 Encounter for 9:40a Ximena Monge M.D.,FACP preprocedural [address] [address] cardiovascular examination H25.013 Cortical age-related cataract, bilateral G20 Parkinson's disease M25.561 Pain in right knee Z23 Encounter for immunization Office Visit 03/12/2018 11:40a [facility] Internal Zsofia Jeffrey, R21 Rash and other Medicine - [place] ADMINISTRATIVE SERVICES SPECIALIST nonspecific skin Rd eruption M25.561 Pain in right knee Office Visit 02/27/2018 10:30a [place] Jessica Avila, G20 Parkinson's Services Of Dee Dee Collier disease G47.33 Obstructive sleep apnea (adult) (pediatric) Office Visit 10/08/2017 [facility] [place] G47.33 Obstructive sleep 11:00a Sleep Services Of MARILEE Beltran, RN, apnea (adult) [facility] ADMINISTRATIVE SERVICES SPECIALIST-BC (pediatric) Office Visit 08/06/2017 [facility] Internal Socrates Hester Z00.01 Encounter for 1:00p Ximena Monge M.D.,FACP general adult medical exam w abnormal findings G20 Parkinson's disease G47.33 Obstructive sleep apnea (adult) (pediatric) E78.2 Mixed hyperlipidemia M81.8 Other osteoporosis without current pathological fracture Z00.00 Encntr for general adult medical exam w/o abnormal findings Office Visit 07/25/2017 [place] Jessica Dia G2Marie Parkinson's 8:30a Services Of Dee Dee Baron M.D. disease Office Visit 07/16/2017 Orthopedic Nicholas Reddy, S66.303D Unsp inj extn 2:45p Services Of MD guerrero/missael/soraya l C.M.A. mid fngr at [facility], subs Office Visit 04/03/2017 [facility] [place] G47.33 Obstructive 10:00a Sleep Services Of MAR[facility]E Beltran, JAYLYN, sleep apnea [facility]- (adult) (pediatric) Office Visit 01/22/2017 Orthopedic Nicholas Reddy, S66.303A Unsp inj extn 3:15p Services Of MD guerrero/missael/soraya l C.M.A. mid fngr at [facility], init Office Visit 01/08/2017 [facility] Internal Socrates Hester S63.253A Unspecified 3:40p Ximena Monge M.D.,FACP dislocation of left middle finger, init encntr R05 Cough E78.2 Mixed hyperlipidemia Office Visit 12/31/2016 [facility] [place] G47.33 Obstructive sleep 11:00a Sleep Services Of MARILEE Beltran, RN, apnea (adult) [facility]- (pediatric) R05 Cough Office Visit 12/27/2016 [place] Jessica Dia G2Marie Parkinson's 11:30a Services Of Dee Dee Baron M.D. disease Office Visit 10/02/2016 Pulmonology And Keely Kaiser, G47.33 Obstructive sleep 10:15a Sleep Services Of apnea (adult) [facility] (pediatric) E66.09 Other obesity due to excess calories Office Visit 09/25/2016 11:20a [facility] Internal John Newman, S86.112A Strain yolanda/soraya Medicine - BULLET MAKER post grp at low [address] leg level, left leg, init Office Visit 07/31/2016 3:00p [facility] Internal Socrates Hester Z00.01 Encounter for general [...] Services Of MARILEE Beltran RN, apnea (adult) [facility] ADMINISTRATIVE SERVICES SPECIALIST-BC (pediatric) Z23 Encounter for immunization Office Visit 04/24/2016 4:00p [facility] Internal Socrates Hester I50.32 Chronic diastolic Medicine Amira Monge,FACP (congestive) heart failure E55.9 Vitamin D deficiency, unspecified E78.2 Mixed hyperlipidemia Office Visit 03/23/2016 [facility] [place] G47.33 Obstructive sleep 11:15a Sleep Services Of MARILEE Beltran RN, apnea (adult) [facility] ADMINISTRATIVE SERVICES SPECIALIST-BC (pediatric) E66.9 Obesity, unspecified Office Visit 03/08/2016 [place] [facility] MFermin G20 Parkinson's 2:00p Services Of Dee Dee Baron M.D. disease Office Visit 12/23/2015 [facility] [place] G47.33 Obstructive sleep 11:15a Sleep Services Of MARILEE Beltran RN, apnea (adult) [facility] ADMINISTRATIVE SERVICES SPECIALIST-BC (pediatric) E66.9 Obesity, unspecified Office Visit 11/11/2015 [facility] [place] G47.33 Obstructive sleep 11:30a Sleep Services Of MARILEE Beltran RN, apnea (adult) [facility] ADMINISTRATIVE SERVICES SPECIALIST-BC (pediatric) E66.9 Obesity, unspecified Office Visit 10/27/2015 [place] G20 Parkinson's 9:30a Services Of Dee Dee Baron M.D. disease Office Visit 09/27/2015 [facility] And Keely Kaiser, G47.33 Obstructive sleep 10:45a Sleep Services Of apnea (adult) [facility] (pediatric) E66.01 Morbid (severe) obesity due to excess calories Office Visit 08/17/2015 10:45a [facility] [place] G47.33 Obstructive sleep Sleep Services Of MD Job apnea (adult) [facility] (pediatric) E66.01 Morbid (severe) obesity due to excess calories Office Visit 06/22/2015 2:30p [facility] Internal Socrates Hester R60.9 Edema, unspecified Medicine - Amira Monge,FACP [address] Z23 Encounter for immunization G20 Parkinson's disease Office Visit 05/18/2015 11:30a [facility] [place] 327.23 Obstructive Sleep Sleep Services Of MD Job Apnea Adult & [facility] Pediatric 278.01 Obesity Morbid Office Visit 04/22/2015 10:00a [facility] Internal Socrates Hester V70.0 Examination Ximena Monge M.D.,FACP General Medical [address] Routine AT Health Care Facility 332.0 Paralysis Agitans 327.23 Obstructive Sleep Apnea Adult & Pediatric 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 Agitans Office Visit 03/16/2015 9:50a [facility] Internal Socrates Hester 802.0 FX Nasal Bones Medicine - [facility]o [facility] 332.0 Paralysis Agitans 923.3 Contusion Finger 733.09 Osteoporosis Other Office Visit 12/14/2014 11:30a William Dia 332.0 Paralysis Agitans Services Of Dee Dee Baron M.D. Office Visit 07/29/2014 11:45a William Dia 332.0 Paralysis Agitans Services Of Dee Dee Baron M.D. Office Visit 04/21/2014 2:00p [facility] Internal Socrates Hester V70.0 Examination Ximena Monge M.D.,FACP General Medical Routine AT Health Care Facility 733.90 Bone & Cartilage Disorder Unspec 272.2 Hyperlipidemia Mixed 332.0 Paralysis Agitans 894.0 Open Wound Lower Limb Multiple Unspec W/O Complication 785.0 Tachycardia Unspec V06.1 Nncohwlyxj-Ucxgnrw-Tpbhyyin Combined (DTaP) Office Visit 04/08/2014 11:45a William Dia 332.0 Paralysis Agitans Services Of Dee Dee Baron M.D. Office Visit 11/17/2013 11:45a William Dia 332.0 Paralysis Agitans Services Of Dee Dee Baron M.D. Office Visit 08/18/2013 10:00a William Dia 332.0 Paralysis Agitans Services Of Dee Dee Baron M.D. Office Visit 07/08/2013 11:00a [place] [facility] Dia 332.0 Paralysis Agitans Services Of Dee Dee Baron M.D. Office Visit 04/20/2013 2:00p [facility] Internal Socrates Hester V70.0 Examination Medicine Amira Monge,FAC General Medical Routine AT Health Care Facility 332.0 Paralysis Agitans 790.21 Impaired Fasting Glucose 272.2 Hyperlipidemia Mixed Office Visit 03/09/2013 1:00p [facility] Internal Tyrone Mancia 782.1 Rash & Other Medicine Amira Calero Nonspec Skin Eruption Office Visit 03/05/2013 12:45p [facility] Dia 332.0 Paralysis Agitans Services Of Dee Dee Baron M.D. Office Visit 10/31/2012 8:15a [place] [facility] Bri Dia 332.0 Paralysis Agitans Services Of Dee Dee Baron M.D. Office Visit 10/21/2012 2:21p [facility] 327.23 Obstructive Sleep Disorder Center Amira Rizo Apnea Adult & Pediatric Office Visit 09/18/2012 3:00p [facility] Marleni Hester 733.90 Bone & Cartilage Medicine Saleem, Disorder Unspec Amira,FACP 401.1 Hypertension Benign Office Visit 06/26/2012 2:45p [place] [facility] Dia 332.0 Paralysis Agitans Services Of Dee Dee Baron M.D. 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 401.1 Hypertension Benign Office Visit 04/02/2011 10:50a DO Not Use Dee Dee Hester V70.0 Examination AT Nathen Monge M.D.,[facility] General Medical Routine AT Health Care Facility 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 401.1 Hypertension Benign 781.3 Coordination Lack Of 728.88 Rhabdomyolysis 786.2 Cough 600.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 726.19 Shoulder Disorders Other Spec Office Visit 04/07/2010 10:00a DO Not Use Finance Analyst Socrates Hester 401.1 Hypertension AT [place] M.D.,[facility] Benign 599.72 Microscopic Hematuria 388.30 Tinnitus Unspecified Office Visit 08/02/2009 1:20p DO Not Use Finance Analyst Socrates Hester 599.72 Microscopic AT [place]ge M.D.,[facility] Hematuria 401.1 Hypertension Benign 564.00 Constipation Unspecified 715.16 Osteoarthrosis Localized Prim Lower Leg Office Visit 02/14/2009 DO Not Use Finance Analyst Matt, 788.41 Urinary Frequency 9:40a AT [place] Schrader M.D. Office Visit 02/08/2009 DO Not Use Finance Analyst Matt, 788.41 Urinary Frequency 8:20a AT [place] Sch[place]er M.D. Office Visit 02/02/2009 DO Not Use Finance Analyst Avanomariam, 562.10 Diverticulosis 8:20a AT [facility] Amira Schrader Colon W/O Hemorrhage 564.00 Constipation Unspecified Office Visit 01/27/2009 1:40p DO Not Use Finance Analyst Socrates Hester 272.2 Hyperlipidemia Mixed AT [place]ge M.D.,[facility] 401.1 Hypertension Benign 278.01 Obesity Morbid Office Visit 07/13/2008 DO Not Use Erika Dang PA 461.8 Sinusitis Acute 1:00p Finance Analyst AT Other [facility] Office Visit 12/12/2007 DO Not Use Socrates Monge, 401.1 Hypertension 10:00a Finance Analyst AT Amira,[facility] Benign [facility] 272.2 Hyperlipidemia Mixed 278.0 Obesity Plan of Treatment Future Appointment(s):12/30/2018 1:30 pm - Elkin Case PA-C at [facility]12/30/2018 1:30 pm - JESSICA Pelaez at [facility]12/30/2018 1:30 pm - Kerri Swartz M.D. at [facility]12/17/2018 10:15 am - Kerri Swartz M.D. at [facility]12/25/2018 11:15 am - Jf Avila M.D. at [place] [facility]08/27/2019 11:40 am - Lita Nur MD at [facility] Internal Hlpmhhjs38/02/2019 - Lita Nur MDZ01.818 Encounter for other preprocedural examinationNew Orders:EKG, Ordered: 12/16/18I50.32 Chronic diastolic (congestive ) heart failureNew Xrays:Chest PA & Lat 2 VWS, Ordered: 12/16/18G47.33 Obstructive sleep apnea (adult) (pediatric)I10 Essential (primary) [id number] Parkinson's disease
[2018-12-30] MEDS ORDERED: celeCOXIB CAP* 100 MG ONE (08:41)
[2018-12-30] MEDS ORDERED: Gabapentin CAP(*) 300 MG ONE (08:41)
[2018-12-30] MEDS ORDERED: Dexamethasone IV* 4 MG/ML 1 ML (4 MG) ONE (08:41)
[2018-12-30] MEDS ORDERED: Clindamycin 900 MG IVPREMIX(* 900 MG/50 ML SDV IV ONE (08:41)
[2018-12-30] MEDS ORDERED: Buffered Lidocaine 1% SYRIN* 1 ML/SYRINGE INTRADERM ONE (08:42)
[2018-12-30] MEDS ORDERED: Famotidine IV* 10 MG/ML 2 ML (20 mg) ONE (08:42)
[2018-12-30] MEDS ORDERED: Midazolam* 1 MG/ML 2 ML VIAL (2 MG) ONE (09:45)
[2018-12-30] MEDS ORDERED: fentaNYL* 50 MCG/ML 2 ML VIAL (100 MCG VIAL) ONE (09:45)
[2018-12-30] MEDS ORDERED: ROPIVACAINE 5 MG/ML 30 ML BTL (0.5%) ONE ×2 (09:45→10:36)
[2018-12-30] MEDS ORDERED: Lidocaine 2% PF * 5 ML VIAL ONE (09:46)
[2018-12-30] MEDS ORDERED: Carbidopa/Levodop 25/100 MG TAB(*) PO ONE ×2 (10:00→16:00)
[2018-12-30] MEDS ORDERED: Selegiline TAB* 5 MG PO ONE ×2 (10:00→16:00)
[2018-12-30] MEDS ORDERED: Bupivacaine 0.5% SDV PF* 30ML VIAL ONE (11:24)
[2018-12-30] MEDS ORDERED: Phenylephrine 10 MG/ML VIAL* 1 ML VIAL ONE (11:47)
[2018-12-30] MEDS ORDERED: Midazolam* 1 MG/ML 5 ML VIAL (5 MG) ONE (12:13)
[2018-12-30] MEDS ORDERED: Ondansetron INJ* 2 MG/ML VIAL IV PRN ×2 (12:35→14:19)
[2018-12-30] MEDS ORDERED: Naloxone* 0.4 MG/ML 1 ML VIAL IV PRN (12:35)
[2018-12-30] MEDS ORDERED: HYDROmorphone INJ1* 1 MG/ML SYRINGE IV PRN (12:35)
[2018-12-30] MEDS ORDERED: Ondansetron TAB* 4 MG PO PRN (14:19)
[2018-12-30] MEDS ORDERED: Polyethylene Glycol 3350* 17 GM PACKET PO PRN (14:19)
[2018-12-30] MEDS ORDERED: traMADol TAB* 50 MG PO PRN (14:19)
[2018-12-30] MEDS ORDERED: oxyCODONE/Acetamin 5/325 MG* TAB PO PRN (14:19)
[2018-12-30] MEDS ORDERED: diPHENhydraMINE IV* 50 MG/ML 1 ml VIAL (BENADRYL) IV PRN (14:19)
[2018-12-30] MEDS ORDERED: Morphine 4 MG/ML VIAL (1 ml) 4 MG/ML VIAL IV PRN (14:19)
[2018-12-30] MEDS ORDERED: Bisacodyl SUPP* 10 MG SUPP PR PRN (14:19)
[2018-12-30] MEDS ORDERED: Magnesium Hydroxide LIQ* 30 ML UDC PO PRN (14:19)
--- NOTE | 2018-12-30 15:38 | OP ---
Operative Report - Blank - Operative Report Date of Operation: 12/30/18 Note: INA BETTENCOURT 1940 Date of Surgery: 12/30/18 Kerri Swartz MD Fruit Grader: Addis LOPEZ did help throughout the procedure with preparation of the knee, wound retraction, manipulation of the knee, and wound closure. Anesthesiologist: Dr. Balderas Anesthesia Type: General Preoperative Diagnosis: Right severe degenerative osteoarthritis of the knee Postoperative Diagnosis: As above Procedure Performed: Right Total Knee Arthroplasty Tourniquet time: 54 minutes Complications: None Specimen: Bone and cartilage from the right knee joint sent to pathology. Hardware Used: Cemented Quinones and Nephew total knee hardware was used - For the femur a size 6 right legion posterior stabilized femoral component, for the tibia a size 6 right hetal II tibial baseplate, for the insert a size 9 5-6 posterior stabilized articular polyethylene insert, and for the patella a size 35 3-peg all poly patella. Brief History/Indication: INA BETTENCOURT was known in clinic and had a history of severe right side knee pain and swelling. He failed conservative treatment with anti-inflammatories, pain pills, intra-articular injections and physical therapy. He elected to undergo right total knee arthroplasty due to continued pain and decreased quality of life. Radiographs showed severe end stage osteoarthritis of the knee with bone on bone contact. Informed consent was obtained from the patient. He understood the risks of surgery included but were not limited to: bleeding, infection, damage to nearby structures, intraoperative fracture, nerve palsy, failure of the hardware, early loosening, knee stiffness or loss of motion, anesthesia complications, stroke, heart attack , blood clot and . He wished to proceed. Intra-Operative Findings: Intraoperatively the patient was noted to have severe loss of cartilage in all 3 compartments of the knee. Description of the Procedure: INA BETTENCOURT was identified in the preanesthesia unit. His right knee was marked as the correct operative side. Informed consent was signed and placed in the chart. The patient was taken to the operating room and placed under anesthesia without complication. A whipple catheter was placed. A tourniquet was placed on the right thigh. The right lower extremity was prepped and draped in the usual sterile fashion. Preoperative time-out was made to correctly identify the patient, side and site. Appropriate intraoperative antibiotics were given within one hour of incision. Tourniquet was inflated. A midline incision was made and carried sharply down to the extensor mechanism. A new 10 blade was used to make a standard medial parapatellar arthrotomy. The patella was subluxed laterally. Electrocautery was used to dissect soft tissue off the superomedial tibia to the midsagittal plane. The knee was flexed up. The anterior horn of the lateral meniscus and the ACL were sharply incised. A drill was used to enter the distal femur. The intramedullary distal femoral cutting guide was pinned on the distal femur. The oscillating saw was used to make the distal femoral cut. The external rotation guide was pinned on the distal femur and the distal femur was sized to a size 6. The size 6 multi-cutting jig was pinned on the distal femur. The oscillating saw was used to make the appropriate 4 chamfer cuts. Next the PCL was completely released. The extramedullary tibial cutting guide was pinned on the proximal tibia and the oscillating saw was used to make the proximal tibial cut perpendicular to the mechanical axis of the tibia. The bone was carefully removed. The knee was brought out into full extension. The spacer block was placed and had excellent fit with the knee in full extension. The medial and lateral ligaments were well balanced. The flexion and extension gaps were well balanced. The knee was flexed up. Lamina launch operator was placed both medially and laterally. Any remaining meniscus was removed with electrocautery. Curved osteotome was used to remove any posterior osteophytes. The tibial tray and drop damir were placed and confirmed a satisfactory tibial cut. The size 6 right femoral trial was impacted onto the distal femur. This trial had excellent fit and stability. The box for the posterior stabilized implant was prepared using a box cut osteotome and a reamer. Next a tibial tray trial and 9 mm insert trial was placed. The knee was taken through a range of motion and had full extension to 130 degrees of flexion. Patellofemoral tracking was satisfactory. The patella was inverted and sized to a size 35. Three peg holes were drilled through the size 35 drill guide. The trial patella was placed and the knee was taken through a range of motion. There was satisfactory patellofemoral tracking. All trials were removed. The tibia was subluxed anteriorly and sized to a size 6. The proximal tibial was prepared with a size 6 keel punch. All bony cut surfaces were irrigated with sterile saline and dried. Final implants were cemented into place starting with the tibia, followed by the femur, and last the patella. A 9 mm insert trial was placed and the knee was brought into full extension. Tourniquet was turned down and the knee was copiously irrigated with sterile saline. Electrocautery was used to obtain meticulous hemostasis. Once the cement had fully cured, the insert trial was removed. Any excess cement was removed from around the hardware and capsule. Final insert chosen was a 9 mm posterior stabilized Hetal II articular insert size 5-6. Stability of the insert was checked and noted to be stable. The extensor mechanism was closed using number 1 vicryls. The rest of the incision was closed in a layered fashion using 0 and 2-0 vicryls. The skin was closed using 3-0 nylon suture. Sterile xeroform, 4x4s and webril were used to cover the incision. Jitendra wrap and cold pack were used to cover the dressings. The patients anesthesia was reversed without difficulty. He was taken to the PACU in stable condition. Intended weight-bearing will be as tolerated.
[2018-12-30] MEDS: Lactated Ringers 1000 ML Bag* 1,000 ML IV SCH (17:13)
[2018-12-30] MEDS: Acetaminophen TAB* 325 MG PO SCH ×2 (17:15→23:12)
[2018-12-30] MEDS: oxyCODONE/Acetamin 5/325 MG* TAB PO PRN ×2 (18:55→22:56)
[2018-12-30] MEDS ORDERED: Pantoprazole TAB * 40 MG TAB PO PRN (19:37)
[2018-12-30] MEDS ORDERED: Fluticasone NASAL SPRAY 50MCG* 16 gm SPRAY BTL BOTH NARES PRN (19:37)
[2018-12-30] MEDS: Clindamycin 600 MG IVPREMIX(* 600 MG/50 ML SDV IV SCH (20:13)
[2018-12-30] MEDS: oxyCODONE TAB* 5 MG TAB PO PRN (20:57)
[2018-12-30] MEDS: Magnesium Hydroxide LIQ* 30 ML UDC PO SCH (20:58)
[2018-12-30] MEDS: Docusate CAP* 100 MG PO SCH (20:58)
[2018-12-30] MEDS: Cetirizine* 10 MG TAB PO SCH (20:58)
[2018-12-30] MEDS: Saline NASAL SPRAY 0.65%* BTL BOTH NARES SCH (22:24)
[2018-12-30] MEDS: Calcium/Vitamin D TAB 250/125* TAB PO SCH (22:25)
--- NOTE | 2018-12-30 23:27 | CONS ---
CC: Dr. Nur.* CONSULTATION REPORT: DATE OF CONSULT: 12/30/18 PRIMARY CARE PROVIDER: Dr. Nur. REQUESTING PHYSICIAN IN CONSULT: Dr. Swartz. ATTENDING PHYSICIAN: Dr. Cotton (dictated by Keya Gilliam NP). REASON FOR CONSULT: Co-medical management of hypertension. HISTORY OF PRESENT ILLNESS/HOSPITAL COURSE: I will refer you to Addis LOPEZ's history and physical dictated on 12/17/18 for complete summary of details, but in short, Mr. Daley is a 78-year-old male with a past medical history significant for Parkinson's, prostate cancer, high cholesterol, hypertension, sleep apnea, GERD, Guillain-[place]; who presented to [facility] on for an elective right total knee replacement after failing conservative treatment. PAST MEDICAL HISTORY: 1. Urge incontinence. 2. Vitamin D deficiency. 3. GERD. 4. Impaired fasting glucose. 5. Obstructive sleep apnea, on CPAP. 6. Parkinson's. 7. Prostate CA, status post radiation. 8. Hyperlipidemia. 9. Hypertension. 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 PAST SURGICAL HISTORY: 1. Hernia repair. 2. Appendectomy. 3. Dental extraction. 4. Knee arthroscopy. 5. Cataract removal. 6. Left hand surgery. HOME MEDICATIONS: 1. Selegiline 5 mg p.o. b.i.d. 2. Mucinex 600 mg p.o. q.a.m. p.r.n. 3. Saline nasal spray 1 spray both nares b.i.d. 4. Ramipril 2.5 mg p.o. at bedtime. 6. Vitamin B6 tab 100 mg p.o. 12 noon. 7. Omeprazole 20 mg p.o. at bedtime p.r.n. 8. Mag oxide 500 mg p.o. 12 noon. 9. Furosemide 20 mg p.o. q.a.m. 10. Folic acid 400 mcg p.o. 12 noon. 11. Fluticasone nasal spray 2 sprays both nares q.a.m. p.r.n. 12. Libia 180 mg p.o. at bedtime. 13. Diclofenac 1 application topical b.i.d. p.r.n. 14. Vitamin B12 tab 1000 mcg p.o. q.12 noon. 15. Vitamin D tab 1000 units p.o. q.a.m. 16. Carbidopa/levodopa 25/100 one tab p.o. 12 noon. 17. Carbidopa/levodopa 25/100 half tab p.o. 17:30. 18. Carbidopa/levodopa 25/100 1 tab p.o. q.a.m. 19. Calcium carbonate/vitamin D 600 mg p.o. b.i.d. 20. Lipitor 10 mg p.o. q.p.m. 21. Aspirin 81 mg p.o. q.p.m. ALLERGIES: PENICILLIN, SHELLFISH, SULFA. FAMILY HISTORY: Father in his 60s due to heart disease. Mother in her 90s. Mother had a history of seizure disorder, giant cell arteritis, PMR, GI bleed. SOCIAL HISTORY: The patient lives alone in a 2-rut building. The patient uses a walker at baseline. The patient is retired. The patient denies smoking. The patient reports occasional alcohol use, specifically 1 drink every 2 weeks. The patient denies drug use. The patient exercises regularly. The patient's surrogate decision maker in that case if he cannot make decisions for himself will be his daughter, Anel Daley. REVIEW OF SYSTEMS: Constitutional: No fevers, no anorexia, no weight loss. Cardiac: No chest pain, no edema, no palpitations. Respiratory: No cough, no hemoptysis, no shortness of breath. GI: No nausea or vomiting, no diarrhea, no abdominal pain. : No gross hematuria, no dysuria. The patient has an indwelling Mason currently. Neuro: No focal weakness or sensory loss. No numbness or tingling. Eyes: No visual complaints. ENT: No sore throat or difficulty swallowing. Musculoskeletal: The patient reports pain in the right knee as "6"/10. The patient reports the pain is well controlled with his current pain medications. Skin: The patient denies rashes or lesions. Psych: The patient denies psychosis or anxiety. PHYSICAL EXAM: General: Mr. Daley is a 78-year-old male who is sitting in bed on the short-stay surgical unit. He in no acute distress. He appears stated age. Vital Signs: Temp 97.4, HR 87, RR 16, O2 sat is 96% on room air, BP 131/60. HEENT: PERRLA. EOMs intact. Oral mucosa is moist without lesion. Posterior pharynx is clear. Neck: Full range of motion. No lymphadenopathy. Supple. Respiratory: Symmetrical chest expansion. No accessory muscle use. Lungs are clear to auscultation. Good aeration. No rhonchi, wheezes or rubs. Cardiac: Regular rate and rhythm. S1, S2 present. No murmurs, rubs or gallops. Extremities: Skin is warm and smooth bilaterally. The patient has +1 edema to the right lower extremity. No clubbing or cyanosis. Pedal pulses 2+ bilaterally. Musculoskeletal: The patient reports pain in right knee. No other pain or deformities. Abdomen: Soft, nontender to palpation. Bowel sounds normoactive. Neuro: The patient is alert and oriented x4. Muscle strength is 5/5 in the upper and lower extremities. The patient has observed tremor, which is baseline due to Parkinson's. Skin: Grossly intact without lesions. DIAGNOSTIC STUDIES/LAB DATA: CBC obtained on 12/16/18: WBC 7.6, hemoglobin 15.2, hematocrit 45, platelets 195. BMP obtained on 12/16/18: sodium 140, potassium 4.3, chloride 103, carbon dioxide 30, BUN 20, creatinine 1.18. ASSESSMENT AND PLAN: Mr. Daley is a 78-year-old male with a past medical history significant for urge incontinence, gastroesophageal reflux disease, sleep apnea, hyperlipidemia, hypertension; who presented to [facility] today for an elective right total knee replacement. The patient will be inpatient for. 1. Status post right total knee replacement: The patient is postop day 0. Management per Ortho. Ortho has ordered antibiotics, pain medications, bowel regimen. 2. Urge incontinence: The patient currently has indwelling Mason. The patient reports urge incontinence is baseline for him. The patient is requesting we hold his hydrochlorothiazide to decrease his occurrence of urge incontinence. The patient reports he does not carry a history of congestive heart failure, but is on hydrochlorothiazide for blood pressure control. I will hold the patient's hydrochlorothiazide and monitor accordingly. 3. Vitamin D deficiency: We will continue the patient's vitamin D supplementation as same. I think I ordered it. 4. Gastroesophageal reflux disease: We will continue the patient's PPI. 5. Impaired fasting glucose: The patient reports he was never diagnosed with diabetes, but instead has been diagnosed with impaired fasting glucose, which he is attempting to control with diet. I will defer to the patient's primary care. 6. Obstructive sleep apnea, on CPAP: The patient is compliant with CPAP. Order has been placed for the patient to use his own CPAP. In addition, an order has been placed for the patient to have a 24-hour pulse ox monitoring due to history of sleep apnea. 7. Parkinson's disease: I have reordered the patient's Parkinson's medications accordingly including carbidopa/levodopa and selegiline. 8. History of malignant tumor of prostate: The patient is status post radiation. The patient is to follow up with his primary care and urologist as needed. 9. Hyperlipidemia: The patient is to continue his statin the same. 10. Hypertension: The patient is currently normotensive with occasional hypotensive readings today, therefore, I will hope the patient's ALEJANDRO inhibitor in addition to holding his hydrochlorothiazide and we will monitor accordingly and add those back in as needed. 11. FEN: Diet has been ordered by the ortho team. 12. Code status: The patient is a full code. 13. DVT prophylaxis: The patient's DVT prophylaxis has been ordered by the Ortho team in the form of Eliquis 2.5 mg p.o. b.i.d. TIME SPENT: Approximately 60 minutes was spent on this consultation, greater than half the time was spent with the patient obtaining my history, performing my physical exam, and reviewing my plan of care. This case has been reviewed with my attending, Dr. Cotton who is in agreement with my plan. Thank you very much for allowing us to participate in the care of this patient. We will follow along with you during his hospital stay. KEYA GILLIAM, [place] [id number]/[facility] #: [id number] SILVA
[2018-12-31] MEDS: oxyCODONE TAB* 5 MG TAB PO PRN ×3 (01:53→10:30)
[2018-12-31] MEDS: Lactated Ringers 1000 ML Bag* 1,000 ML IV SCH (03:14)
[2018-12-31] MEDS: Clindamycin 600 MG IVPREMIX(* 600 MG/50 ML SDV IV SCH ×2 (04:11→12:40)
[2018-12-31] MEDS: oxyCODONE/Acetamin 5/325 MG* TAB PO PRN ×5 (04:11→20:36)
[2018-12-31 06:01] LABS: Hematocrit 36 % (36-46); Mean Platelet Volume 9.2 fL (7.4-10.4); Platelet Count 137 10^3/uL (150-450)
[2018-12-31 06:20] LABS: BUN/Creatinine Ratio 29.9 (8-20); Calcium 8.7 mg/dL (8.6-10.3); EGFR African American 102.4 (>60); EGFR Non-African American 84.6 (>60)
[2018-12-31] MEDS: Acetaminophen TAB* 325 MG PO SCH ×3 (07:18→23:28)
[2018-12-31] MEDS: Apixaban* 2.5 MG TAB PO SCH ×2 (08:04→20:35)
[2018-12-31] MEDS: Cholecalciferol TAB* 1000 UNITS PO SCH (08:04)
[2018-12-31] MEDS: Selegiline TAB* 5 MG PO SCH ×2 (08:04→12:40)
[2018-12-31] MEDS: Docusate CAP* 100 MG PO SCH ×2 (08:04→20:35)
[2018-12-31] MEDS: Saline NASAL SPRAY 0.65%* BTL BOTH NARES SCH ×2 (08:04→20:36)
[2018-12-31] MEDS: Magnesium Hydroxide LIQ* 30 ML UDC PO SCH ×2 (08:05→20:36)
[2018-12-31] MEDS: Calcium/Vitamin D TAB 250/125* TAB PO SCH ×2 (08:05→20:35)
[2018-12-31] MEDS: Carbidopa/Levodop 25/100 MG TAB(*) PO SCH ×2 (08:05→12:39)
[2018-12-31] MEDS ORDERED: Furosemide TAB* 20 MG PO SCH (09:00)
[2018-12-31] MEDS ORDERED: Carbidopa/Levodop 25/100 MG TAB(*) PO SCH ×2 (09:00→17:30)
--- NOTE | 2018-12-31 10:49 | PN ---
Progress Note - Progress Note Date of Service: 12/31/18 SOAP: Subjective: []Pt seen and examined at bedside. He is feeling well without CP, SOB, dizziness , nausea. Objective: []General: Appears well, NAD RLE: Right knee dressing CDI, thigh is soft, DF/PF intact, DP2+, sensation intact to light touch distally Calves supple and nontender without erythema, edema or palpable cords Assessment: []POD 1 SP RTK Plan: []WBAT PT/OT eliquis 2.5 mg po BID Encourage IS Plan for DC home tomorrow Vital Signs Temp 97.5 F 12/31/18 07:22 Pulse 72 12/31/18 07:22 Resp 18 12/31/18 10:41 BP 117/62 12/31/18 07:22 Pulse Ox 92 12/31/18 07:22 Intake & Output 12/30/18 12/31/18 12/31/18 18:59 06:59 18:59 Intake Total 1400 1525 733 Output Total 375 1200 Balance 1025 325 733 Weight 241 lb 12.8 oz 244 lb Intake: IV Fluids 1400 1045 468 ABX - CLINDAMYCIN 55 LR 1300 990 468 NS 100ML, Cefazolin 2G 100 IVPB 55 ABX - CLINDAMYCIN 55 Oral 480 210 Output: Mason 375 1200 Laboratory Last Values Hgb 12.0 g/dL (14.0-18.0) L 12/31/18 05:43 Hct 36 % (36-46) 12/31/18 05:43 Plt Count 137 10^3/uL (150-450) L 12/31/18 05:43 MPV 9.2 fL (7.4-10.4) 12/31/18 05:43 Sodium 136 mmol/L (135-145) 12/31/18 05:43 Potassium 4.0 mmol/L (3.5-5.0) 12/31/18 05:43 Chloride 105 mmol/L (101-111) 12/31/18 05:43 Carbon Dioxide 26 mmol/L (22-32) 12/31/18 05:43 Anion Gap 5 mmol/L (2-11) 12/31/18 05:43 BUN 26 mg/dL (6-24) H 12/31/18 05:43 Creatinine 0.87 mg/dL (0.67-1.17) 12/31/18 05:43 Est GFR ( Amer) 102.4 (>60) 12/31/18 05:43 Est GFR (Non-Af Amer) 84.6 (>60) 12/31/18 05:43 BUN/Creatinine Ratio 29.9 (8-20) H 12/31/18 05:43 Glucose 127 mg/dL (70-100) H 12/31/18 05:43 Calcium 8.7 mg/dL (8.6-10.3) 12/31/18 05:43
[2018-12-31] MEDS ORDERED: Cyanocobalamin TAB* 500 MCG PO SCH (12:00)
[2018-12-31] MEDS ORDERED: Magnesium Oxide TAB* 400 MG PO SCH (12:00)
[2018-12-31] MEDS ORDERED: Pyridoxine TAB* 50 MG PO SCH (12:00)
[2018-12-31] MEDS ORDERED: Folic Acid TAB* 1 MG PO SCH (12:00)
--- NOTE | 2018-12-31 13:14 | PN ---
Subjective Date of Service: 12/31/18 Interval History: HOSPITALIST PROGRESS NOTE Patient seen and examined at bedside. Care reviewed and d/w Benito Jerez RN. His pain is controlled, was able to ambulate with PT. Family History: Unchanged from Admission Social History: Unchanged from Admission Past Medical History: Unchanged from Admission Objective Active Medications: Acetaminophen (Tylenol Tab*) 975 mg PO Q8H [facility] Last Admin: 12/31/18 07:18 Dose: Not Given Apixaban (Eliquis*) 2.5 mg PO BID [facility] Last Admin: 12/31/18 08:04 Dose: 2.5 mg Atorvastatin Calcium (Lipitor*) 10 mg PO QPM EVAN Bisacodyl (Dulcolax Supp*) 10 mg CA DAILY PRN PRN Reason: constipation Calcium/Vitamin D (Oscal D Tab 250/125*) 1 tab PO BID [facility] Last Admin: 12/31/18 08:05 Dose: 1 tab Carbidopa/Levodopa (Sinemet 25/100 Tab(*)) 0.5 tab PO 1730 [facility] Carbidopa/Levodopa (Sinemet 25/100 Tab(*)) 1 tab PO 0900,1200 [facility] Last Admin: 12/31/18 12:39 Dose: 1 tab Cetirizine HCl (Zyrtec*) 10 mg PO BEDTIME [facility]; Protocol Last Admin: 12/30/18 20:58 Dose: 10 mg Cholecalciferol (Vitamin D Tab*) 1,000 units PO QAM [facility] Last Admin: 12/31/18 08:04 Dose: 1,000 units Cyanocobalamin (Vitamin B12 Tab*) 1,000 mcg PO 1200 [facility] Last Admin: 12/31/18 13:05 Dose: 1,000 mcg Diphenhydramine HCl (Benadryl Iv*) 12.5 mg IV Q6H PRN PRN Reason: PRURITIS Docusate Sodium (Colace Cap*) 100 mg PO BID [facility] Last Admin: 12/31/18 08:04 Dose: 100 mg Fluticasone Propionate (Flonase Nasal [place] 50mcg*) 2 spray BOTH NARES QAM PRN PRN Reason: Nasal congestion Folic Acid (Folvite Tab*) 0.5 mg PO 1200 [facility] Last Admin: 12/31/18 12:38 Dose: 0.5 mg Lactated Ringer's (Lactated Ringers 1000 Ml Bag*) 1,000 mls @ 100 mls/hr IV PER RATE [facility] Last Admin: 12/31/18 03:14 Dose: 100 mls/hr Lactulose (Lactulose*) 30 ml PO Q6H PRN PRN Reason: constipation Magnesium Hydroxide (Milk Of Magnesia Liq*) 30 ml PO BID [facility] Last Admin: 12/31/18 08:05 Dose: 30 ml Magnesium Hydroxide (Milk Of Magnesia Liq*) 30 ml PO Q6H PRN PRN Reason: constipation Magnesium Oxide (Magox 400 Tab*) 400 mg PO 1200 [facility] Last Admin: 12/31/18 12:39 Dose: 400 mg Morphine Sulfate (Morphine 4 Mg/Ml Vial (1 Ml)) 2 mg IV Q2H PRN PRN Reason: PAIN Last Admin: 12/31/18 03:14 Dose: 2 mg Ondansetron HCl (Zofran Inj*) 4 mg IV Q6H PRN PRN Reason: nausea Ondansetron HCl (Zofran Tab*) 4 mg PO Q6H PRN PRN Reason: NAUSEA Oxycodone HCl (Roxycodone Tab*) 10 mg PO Q4H PRN PRN Reason: SEVERE PAIN Last Admin: 12/31/18 10:30 Dose: 10 mg Oxycodone/Acetaminophen (Percocet 5/325 Tab*) 1 tab PO Q4H PRN PRN Reason: PAIN Oxycodone/Acetaminophen (Percocet 5/325 Tab*) 2 tab PO Q4H PRN PRN Reason: PAIN Last Admin: 12/31/18 12:39 Dose: 2 tab Pantoprazole Sodium (Protonix Tab*) 40 mg PO BEDTIME PRN PRN Reason: INDIGESTION Polyethylene Glycol/Electrolytes (Miralax*) 17 gm PO DAILY PRN PRN Reason: Constipation Pyridoxine HCl (Vitamin B6 Tab*) 100 mg PO 1200 [facility] Last Admin: 12/31/18 12:39 Dose: 100 mg Selegiline HCl (Eldepryl Tab*) 5 mg PO 0800,1200 [facility] Last Admin: 12/31/18 12:40 Dose: 5 mg Sodium Chloride (Sodium Chloride 0.65% Nasal [place]*) 1 spray BOTH NARES BID [facility] Last Admin: 12/31/18 08:04 Dose: 1 spray Tramadol HCl (Ultram*) 50 mg PO Q6H PRN PRN Reason: PAIN Vital Signs - 8 hr 12/31/18 12/31/18 12/31/18 06:00 06:16 06:31 Temperature Pulse Rate Respiratory 18 16 Rate Blood Pressure (mmHg) O2 Sat by Pulse 94 Oximetry 12/31/18 12/31/18 12/31/18 07:22 08:04 09:15 Temperature 97.5 F Pulse Rate 72 Respiratory 17 18 18 Rate Blood Pressure 117/62 (mmHg) O2 Sat by Pulse 92 Oximetry 12/31/18 12/31/18 12/31/18 10:30 10:41 12:39 Temperature Pulse Rate Respiratory 18 18 18 Rate Blood Pressure (mmHg) O2 Sat by Pulse Oximetry Oxygen Devices in Use Now: None Appearance: Pleasant elderly gentleman sitting up in a recliner in NAD. Eyes: No Scleral Icterus Ears/Nose/Mouth/Throat: Mucous Membranes Moist Neck: Trachea Midline Extremities: - - Cryo unit to right knee. Calf is soft. Neurological: Alert and Oriented x 3, NL Muscle Strength and Tone, - - Rest tremor Result Diagrams: 12/31/18 05:43 12/31/18 05:43 Assess/Plan/Problems-Billing Assessment: Mr Daley is a 78yo M with PMH of Parkinson disease, MARIA FERNANDA, HTN, who was admitted for an elective right TKA. - Patient Problems (1) Status post total right knee replacement Comment: - Management as per Ortho. (2) Parkinson disease Comment: - Continue Carbidopa/Levodopa and Selegiline. (3) HTN (hypertension) Comment: - BP low normal - continue to hold ACEI and diuretics for now. (4) DVT prophylaxis Comment: - Eliquis as per Ortho.
[2018-12-31] MEDS ORDERED: Atorvastatin* 10 MG TAB PO SCH (18:00)
[2018-12-31] MEDS: Cetirizine* 10 MG TAB PO SCH (20:35)
[2019-01-01] MEDS: oxyCODONE/Acetamin 5/325 MG* TAB PO PRN ×2 (06:10→10:54)
[2019-01-01] MEDS: Acetaminophen TAB* 325 MG PO SCH (06:16)
[2019-01-01 07:27] LABS: Hematocrit 36 % (36-46); Mean Platelet Volume 9.1 fL (7.4-10.4); Platelet Count 111 10^3/uL (150-450)
[2019-01-01 09:10] VITALS: BP 138/55
[2019-01-01] MEDS: Cholecalciferol TAB* 1000 UNITS PO SCH (09:18)
[2019-01-01] MEDS: Magnesium Hydroxide LIQ* 30 ML UDC PO SCH (09:18)
[2019-01-01] MEDS: Docusate CAP* 100 MG PO SCH (09:18)
[2019-01-01] MEDS: Apixaban* 2.5 MG TAB PO SCH (09:19)
[2019-01-01] MEDS: Saline NASAL SPRAY 0.65%* BTL BOTH NARES SCH (09:19)
[2019-01-01] MEDS: Calcium/Vitamin D TAB 250/125* TAB PO SCH (09:19)
[2019-01-01] MEDS: Carbidopa/Levodop 25/100 MG TAB(*) PO SCH (09:20)
[2019-01-01] MEDS: Selegiline TAB* 5 MG PO SCH (09:20)
--- NOTE | 2019-01-01 09:22 | PN ---
Progress Note - Progress Note Date of Service: 01/01/19 SOAP: Subjective: []Pt seen at bedside. He feels well without CP, SOB, dizziness, nausea. Knee pain is well controlled. Objective: []General: Appears well, NAD RLE: Right knee dressing changed, incision CDI, thigh is soft, DF/PF intact, DP2 +, sensation intact to light touch distally Calves supple and nontender without erythema, edema or palpable cords Assessment: []POD 2 SP RTK Plan: []WBAT PT/OT eliquis 2.5 mg po BID DC to PMRU today Vital Signs Temp 97.7 F 01/01/19 03:40 Pulse 91 01/01/19 07:58 Resp 15 01/01/19 09:20 BP 138/55 01/01/19 07:58 Pulse Ox 94 01/01/19 07:58 Intake & Output 12/31/18 01/01/19 01/01/19 18:59 06:59 18:59 Intake Total 733 500 360 Output Total 675 200 350 Balance 58 300 10 Weight 251 lb 8 oz Intake: IV Fluids 468 LR 468 IVPB 55 ABX - CLINDAMYCIN 55 Oral 210 500 360 Output: Urine 675 200 350 Other: # Bowel Movements 0 Laboratory Last Values Hgb 12.0 g/dL (14.0-18.0) L 01/01/19 07:00 Hct 36 % (36-46) 01/01/19 07:00 Plt Count 111 10^3/uL (150-450) L 01/01/19 07:00 MPV 9.1 fL (7.4-10.4) 01/01/19 07:00 Sodium 136 mmol/L (135-145) 12/31/18 05:43 Potassium 4.0 mmol/L (3.5-5.0) 12/31/18 05:43 Chloride 105 mmol/L (101-111) 12/31/18 05:43 Carbon Dioxide 26 mmol/L (22-32) 12/31/18 05:43 Anion Gap 5 mmol/L (2-11) 12/31/18 05:43 BUN 26 mg/dL (6-24) H 12/31/18 05:43 Creatinine 0.87 mg/dL (0.67-1.17) 12/31/18 05:43 Est GFR ( Amer) 102.4 (>60) 12/31/18 05:43 Est GFR (Non-Af Amer) 84.6 (>60) 12/31/18 05:43 BUN/Creatinine Ratio 29.9 (8-20) H 12/31/18 05:43 Glucose 127 mg/dL (70-100) H 12/31/18 05:43 Calcium 8.7 mg/dL (8.6-10.3) 12/31/18 05:43
--- NOTE | 2019-01-01 09:30 | DS ---
Orthopedic Discharge Summary - Discharge Summary Date of Admission:12/30/18 Date of Discharge: 01/01/19 Date of Surgery: 12/30/18 Attending Orthopedic Provider: Dr beck Pre-operative Diagnosis: right knee osteoarhritis Operative Procedure: right total knee arthroplasty Condition of Patient: stable History: INA BETTENCOURT is a 78 year old M with years of increasingly severe right knee pain. Patient has failed conservative management and has elected to undergo a right total knee replacement Hospital Course: INA was admitted to [facility] on 12/30/18. Patient underwent a right total knee arthroplasty without complication followed by a brief recovery in PACU and transfer to the Short Stay Surgical Unit in stable condition. Our hospitalist service, physical therapy and occupational therapy also participated in this patients care. Post-op day 1: patient was alert and in no acute distress. Dressing was clean, dry and intact. Operative extremity dorsiflexion and plantarflexion intact, sensation intact to light touch distally, DP2+. Post-op day two: dressing was changed, incision was clean , dry and intact. Patient was deemed to be medically and orthopedically stable for discharge home. Physical therapy goals were met. Home Medications Medication Instructions Recorded Confirmed Type Aspirin Aspir 81 81 mg PO QPM 07/03/12 12/30/18 History Calcium Carbonate/Vitamin D3 600 mg PO BID 07/03/12 12/30/18 History [Calcium 600-Vit D3 200 Tablet] Fexofenadine (NF) [Libia 180 180 mg PO BEDTIME 07/03/12 12/30/18 History (NF)] Cholecalciferol TAB* [Vitamin D 1,000 unit PO QAM 12/02/12 12/30/18 History TAB*] Atorvastatin* [Lipitor 10 MG*] 10 mg PO QPM 04/17/13 12/30/18 History Omeprazole CAP (NF) [Prilosec CAP* 20 mg PO BEDTIME PRN 04/17/13 12/30/18 History 20 MG] Carbidopa/Levodop 25/100 MG(*) 0.5 tab PO 1730 03/09/15 12/30/18 History [Sinemet 25/100 TAB(*)] Carbidopa/Levodop 25/100 MG(*) 1 tab PO 1200 03/09/15 12/30/18 History [Sinemet 25/100 TAB(*)] Carbidopa/Levodop 25/100 MG(*) 1 tab PO QAM 03/09/15 12/30/18 History [Sinemet 25/100 TAB(*)] Selegiline TAB* [Eldepryl TAB*] 5 mg PO BID 03/09/15 12/30/18 History Cyanocobalamin TAB* [Vitamin B12 1,000 mcg PO 1200 06/05/18 12/30/18 History TAB*] Fluticasone NASAL SPRAY 50MCG* 2 spray BOTH NARES QAM PRN 06/05/18 12/30/18 History [Flonase NASAL SPRAY 50MCG*] Folic Acid 400 Mcg @1200 400 mcg PO 1200 06/05/18 12/30/18 History Furosemide TAB* [Lasix TAB*] 20 mg PO QAM 06/05/18 12/30/18 History Magnesium Oxide [Magnesium] 500 mg PO 1200 06/05/18 12/30/18 History Pyridoxine TAB* [Vitamin B6 TAB*] 100 mg PO 1200 06/05/18 12/30/18 History Ramipril CAP* [Altace CAP*] 2.5 mg PO BEDTIME 06/05/18 12/30/18 History Diclofenac 1% GEL (NF) [Voltaren 1 applic TOPICAL BID PRN 12/17/18 12/30/18 History 1% GEL (NF)] Sodium Chloride [Saline Nasal 1 spray BOTH NARES BID 12/17/18 12/30/18 History [place]] guaiFENesin [Mucinex] 600 mg PO QAM PRN 12/17/18 12/30/18 History Acetaminophen TAB* [Tylenol TAB*] 975 mg PO Q8H tab 01/01/19 Rx Apixaban* [Eliquis*] 2.5 mg PO BID tab 01/01/19 Rx Docusate CAP* [Colace Cap*] 100 mg PO BID cap 01/01/19 Rx oxyCODONE/Acetamin 5/325 MG* 1 tab PO Q4H PRN tab 01/01/19 Rx [Percocet 5/325 TAB*] oxyCODONE/Acetamin 5/325 MG* 2 tab PO Q4H PRN tab 01/01/19 Rx [Percocet 5/325 TAB*] DC to PMRU Discharge Instructions following Orthopedic Surgery: Activity: * Weight Bearing as tolerated * Continue physical therapy and occupational therapy exercises as shown Wound care: * OK to shower on post-op day 3, no bathing, swimming, or submerging wound. * Use gentle soap, pat dry. Cover with gauze, ALEJANDRO wrap or tape. Call Orthopedic office for: * Increased drainage * Redness * Increased pain * Fever Go to ER with shortness of breath or chest pain. Diet: * Regular diet * Increase fluids and fiber to prevent constipation. * Continue to use stool softeners, call office if no bowel motion within 48 hours. Medications See Home Medication List in your packet for medications that you should take after discharge. DVT Prophylaxis Eliquis Dosin.5 mg, 1 tab every 12 hours x 30 days Pain Control: Percocet 5/325 mg 1-2 tabs by mouth every 4-6 hours as needed for pain. Maximum of 10 tabs per day. Please note that Percocet contains Tylenol (acetaminophen). Maximum daily dose of Tylenol is 4000 mg from all sources. Antibiotics are required prior to any dental work. FOLLOW UP: Follow up with [Maxime] Within 10-14 days, call for appointment Please call our office with any questions or concerns ([phone])
== END 2019-01-01 11:20 | DRG 470 ==
LOC: AA 08:20 → SSU 17:07
PROVIDERS: ADMIT Orthopaedic Surgery Adult Reconstructive Orthopaedic Surgery; ATTEND Orthopaedic Surgery Adult Reconstructive Orthopaedic Surgery
PROC: 0SRC0J9 Replacement of Right Knee Joint with Synthetic Substitute, Cemented, Open Approach (ICD-10-PCS; principal; 2018-12-30 11:15)
DX: M17.11 Unilateral primary osteoarthritis, right knee (principal); G61.0 Guillain-Barre syndrome; I50.32 Chronic diastolic (congestive) heart failure; G20 Parkinson's disease; E78.00 Pure hypercholesterolemia, unspecified; K21.9 Gastro-esophageal reflux disease without esophagitis; M25.461 Effusion, right knee; G47.33 Obstructive sleep apnea (adult) (pediatric); E66.01 Morbid (severe) obesity due to excess calories; M93.90 Osteochondropathy, unspecified of unspecified site; I11.0 Hypertensive heart disease with heart failure; E55.9 Vitamin D deficiency, unspecified; N39.41 Urge incontinence; E78.2 Mixed hyperlipidemia; M25.761 Osteophyte, right knee; Z85.828 Personal history of other malignant neoplasm of skin; Z88.0 Allergy status to penicillin; Z68.36 Body mass index [BMI] 36.0-36.9, adult; Z85.46 Personal history of malignant neoplasm of prostate; Z88.2 Allergy status to sulfonamides; Z82.49 Family history of ischemic heart disease and other diseases of the circulatory system; Z72.89 Other problems related to lifestyle; Z98.42 Cataract extraction status, left eye; Z98.41 Cataract extraction status, right eye; Z80.51 Family history of malignant neoplasm of kidney; Z82.3 Family history of stroke; Z82.0 Family history of epilepsy and other diseases of the nervous system; Z92.3 Personal history of irradiation; Z79.82 Long term (current) use of aspirin
CPT/HCPCS: 36415; 80048; 85014; 85018; 85049; 88305; 88311; A9270-GY; C1776; G8978-GP-CL; G8979-GP-CI; G8987-GO-CL; G8988-GO-CI; J1100; J2250; J2270; J2795; J3010

== ENCOUNTER 2019-01-01 06:56 | Inpatient (IN) | payer MEDICARE, BC ==
[2019-01-01] MEDS ORDERED: Senna TAB PO PRN (12:15)
[2019-01-01] MEDS ORDERED: Magnesium Hydroxide LIQ* 30 ML UDC PO PRN (12:15)
[2019-01-01] MEDS ORDERED: Carbidopa/Levodop 25/100 MG TAB(*) PO ONE (12:23)
[2019-01-01] MEDS ORDERED: oxyCODONE/Acetamin 5/325 MG* TAB PO PRN (12:28)
[2019-01-01] MEDS: Acetaminophen TAB* 325 MG PO PRN (13:57)
[2019-01-01] MEDS: oxyCODONE/Acetamin 5/325 MG* TAB PO PRN ×2 (15:05→19:57)
[2019-01-01] MEDS: Atorvastatin* 10 MG TAB PO SCH (17:32)
[2019-01-01] MEDS: Carbidopa/Levodop 25/100 MG TAB(*) PO SCH (17:32)
[2019-01-01] MEDS: Cetirizine* 10 MG TAB PO SCH (19:59)
[2019-01-01] MEDS: Docusate CAP* 100 MG PO SCH (20:01)
[2019-01-01] MEDS: Apixaban* 2.5 MG TAB PO SCH (20:41)
--- NOTE | 2019-01-01 23:54 | HP ---
ADMISSION HISTORY AND PHYSICAL: DATE OF ADMISSION: 01/01/19 REASON FOR ADMISSION: Right total knee replacement; Parkinson disease. HISTORY OF PRESENT ILLNESS: Chris Daley is a 78-year-old male. He was diagnosed with Parkinson disease about 7 years ago. His original neurologist was Bri Baron. He now seems Dr. Cameron Avila. He has had right knee pain which has been problematic to him. He has tried and failed conservative treatment. He saw Dr. Kerri Swartz and had x-rays taken showing end-stage osteoarthritis of the right knee. It was decided the best course of action would be for him to have a right total knee replacement. He was admitted to [facility] on 12/30/18. He underwent the right total knee replacement that day. Postoperatively, his course was notable for some low blood pressure. His ALEJANDRO inhibitor was held. His diuretics were also held. He normally takes ramipril and Lasix at home. Because of his Parkinson's, he had some trouble mobilizing. He was felt to have physical therapy and occupational therapy needs. He is now being admitted for inpatient rehab so that he might return to independent living. PAST MEDICAL HISTORY: Significant for the aforementioned Parkinson disease. He also has a history of having had Guillain-Eugene syndrome. He has a history of hypertension; hyperlipidemia; prostate cancer, underwent radiation for that; obstructive sleep apnea; and gastroesophageal reflux disease. He has had an appendectomy and a hernia repair as well. CURRENT MEDICATIONS: Include: 1. Eliquis for DVT prophylaxis. 2. He is on Lipitor. 3. Sinemet. 4. Zyrtec instead of his usual Libia. 5. Folic acid. 6. Magnesium oxide. 7. Percocet for pain control. 8. Eldepryl. 9. Vitamin B6. ALLERGIES: PENICILLIN and SULFA drugs. SOCIAL HISTORY: He is a nonsmoker, nondrinker. He lives alone in a 2-story house with 2 steps to enter. REVIEW OF SYSTEMS: He reports no current shortness of breath or chest pain. PHYSICAL EXAMINATION VITAL SIGNS: The patient's temperature is 99.0, blood pressure is 142/59, pulse 94, respirations 18. HEENT: His extraocular movements are intact. Tongue is midline. NECK: Supple. LUNGS: Lungs sound clear to auscultation bilaterally. HEART: Hear sounds are regular. S1, S2 audible. ABDOMEN: Soft and nontender. EXTREMITIES: His right knee has a wound, which is clean and dry. Peripheral pulses are intact. NEUROLOGIC: He was awake, alert. He did have resting tremor in his arms, more so than his legs. He had slightly increased tone. Peripheral pulses were intact. His neurologic, as mentioned he did have a resting tremor. His muscle strength appeared to be close to 5/5 except the right leg which was 3/5 secondary to pain. Sensation appeared to be intact. FUNCTIONAL EXAM: He transfers with contact guard to min assist. ASSESSMENT: Right total knee replacement in a patient with Parkinson disease. PLAN: Integrate him into a comprehensive and therapeutic rehab program with the following goals: 1. Physical Therapy will work with the patient. They are going to work on functional transfer training, ambulation training with a walker. 2. Occupational Therapy will see the patient and work on his activities of daily living including toileting and toilet transfers. 3. Eliquis for DVT prophylaxis. 4. For his Parkinson disease, we are going to continue his Eldepryl as well as his Sinemet. 5. For his hypertension, we may restart his Altace as well as his Lasix when his blood pressure rises. 6. Continue Lipitor for hyperlipidemia. 7. Advanced directives: The patient is a full code. 8. radiology services manager will be closely involved to make sure that any services and equipment that the patient requires are in place prior to discharge. 9. Family training as appropriate. 10. Home with appropriate services. ESTIMATED LENGTH OF STAY: 1 week. [id number]/CPS #: [id number] SILVA
[2019-01-02 06:02] LABS: ABS Basophils 0 10^3/ul (0-0.2); ABS Eosinophils 0 10^3/ul (0-0.6); ABS Lymphocytes 1.4 10^3/ul (1.0-4.8); ABS Monocytes 0.8 10^3/ul (0-0.8); ABS Nucleated RBC 0 10^3/ul; Eosinophil % 0.5 %; Hematocrit 33 % (36-46); Hemoglobin 11.3 g/dL (14.0-18.0); Mean Corpuscular HGB Conc 34 g/dL (31-36); Mean Corpuscular Hemoglobin 32 pg (27-31); Mean Corpuscular Volume 94 fL (80-94); Mean Platelet Volume 9.4 fL (7.4-10.4); Nucleated Red Blood Cells % 0; Platelet Count 127 10^3/uL (150-450); Red Blood Count 3.51 10^6 /uL (4.18-5.48); Red Cell Distribution Width 15 % (10.5-15); White Blood Count 7.2 10^3/uL (3.5-10.8)
[2019-01-02 06:17] LABS: Albumin 3.1 g/dL (3.2-5.2); Albumin/Globulin Ratio 1.1 (1-3); BUN/Creatinine Ratio 23.4 (8-20); Calcium 8.8 mg/dL (8.6-10.3); EGFR African American 80.7 (>60); EGFR Non-African American 66.7 (>60); Globulin 2.9 g/dL (2-4); Potassium 3.6 mmol/L (3.5-5.0); Total Bilirubin 0.5 mg/dL (0.2-1.0)
[2019-01-02] MEDS: oxyCODONE/Acetamin 5/325 MG* TAB PO PRN (08:08)
[2019-01-02] MEDS: Cholecalciferol TAB* 1000 UNITS PO SCH (08:09)
[2019-01-02] MEDS: Carbidopa/Levodop 25/100 MG TAB(*) PO SCH ×3 (08:09→17:20)
[2019-01-02] MEDS: Docusate CAP* 100 MG PO SCH ×2 (08:09→20:44)
[2019-01-02] MEDS: Folic Acid TAB* 1 MG PO SCH (08:09)
[2019-01-02] MEDS: Apixaban* 2.5 MG TAB PO SCH ×2 (08:11→20:44)
[2019-01-02] MEDS: Selegiline TAB* 5 MG PO SCH ×2 (08:12→11:50)
[2019-01-02] MEDS: Cyanocobalamin TAB* 500 MCG PO SCH (11:50)
[2019-01-02] MEDS: Magnesium Oxide TAB* 400 MG PO SCH (11:50)
[2019-01-02] MEDS: Pyridoxine TAB* 50 MG PO SCH (11:51)
[2019-01-02] MEDS: Acetaminophen TAB* 325 MG PO PRN ×3 (11:54→23:39)
--- NOTE | 2019-01-02 12:03 | PN ---
Progress Note Date of Service: 01/02/19 Note: INA BETTENCOURT was visited. Nursing and therapy notes read and reviewed. No chest pain, shortness of breath or abdominal pain. Mild erythema on right thigh without itching or additional pain. Current Medications: Active Medications Generic Name Dose Route Start Last Admin Trade Name Freq PRN Reason Stop Dose Admin Acetaminophen 650 mg 01/01/19 12:15 01/01/19 13:57 Tylenol Tab* PO 650 mg Q6H PRN Administration FEVER/PAIN Apixaban 2.5 mg 01/01/19 21:00 01/02/19 08:11 Eliquis* PO 2.5 mg BID EVAN Administration Atorvastatin Calcium 10 mg 01/01/19 17:00 01/01/19 17:32 Lipitor* PO 10 mg 1700 EVAN Administration Carbidopa/Levodopa 1 tab 01/02/19 09:00 01/02/19 11:50 Sinemet 25/100 Tab(*) PO 1 tab 0900,1200 EVAN Administration Carbidopa/Levodopa 0.5 tab 01/01/19 17:30 01/01/19 17:32 Sinemet 25/100 Tab(*) PO 0.5 tab 1730 EVAN Administration Cetirizine HCl 10 mg 01/01/19 21:00 01/01/19 19:59 Zyrtec* PO 10 mg BEDTIME EVAN Administration Protocol Cholecalciferol 1,000 units 01/02/19 09:00 01/02/19 08:09 Vitamin D Tab* PO 1,000 units DAILY EVAN Administration Cyanocobalamin 1,000 mcg 01/02/19 12:00 01/02/19 11:50 Vitamin B12 Tab* PO 1,000 mcg 1200 EVAN Administration Docusate Sodium 100 mg 01/01/19 21:00 01/02/19 08:09 Colace Cap* PO 100 mg BID EVAN Administration Folic Acid 0.5 mg 01/02/19 09:00 01/02/19 08:09 Folvite Tab* PO 0.5 mg DAILY EVAN Administration Magnesium Hydroxide 30 ml 01/01/19 12:15 Milk Of Magnesia Liq* PO Q6H PRN CONSTIPATION Magnesium Oxide 400 mg 01/02/19 12:00 01/02/19 11:50 Magox 400 Tab* PO 400 mg 1200 EVAN Administration Oxycodone/Acetaminophen 2 tab 01/01/19 12:27 01/02/19 08:08 Percocet 5/325 Tab* PO 2 tab Q4H PRN Administration PAIN - SEVERE Oxycodone/Acetaminophen 1 tab 01/01/19 12:28 Percocet 5/325 Tab* PO Q4H PRN PAIN - MODERATE TO SEVERE Pyridoxine HCl 100 mg 01/02/19 12:00 01/02/19 11:51 Vitamin B6 Tab* PO 100 mg 1200 EVAN Administration Selegiline HCl 5 mg 01/02/19 08:00 01/02/19 11:50 Eldepryl Tab* PO 5 mg 0800,1200 EVAN Administration Senna 2 tab 01/01/19 12:15 01/01/19 20:00 Senokot Tab* PO 2 tab BEDTIME PRN Administration CONSTIPATION Vital Signs: Vital Signs Temp Pulse Resp BP Pulse Ox 98.1 F 80 16 125/55 94 01/02/19 05:30 01/02/19 05:30 01/02/19 08:08 01/02/19 05:30 01/02/19 05:30 Lab Results: Laboratory Results - last 24 hr 01/02/19 01/02/19 05:22 05:22 WBC 7.2 RBC 3.51 L Hgb 11.3 L Hct 33 L MCV 94 MCH 32 H MCHC 34 RDW 15 Plt Count 127 L MPV 9.4 Neut % (Auto) 69.0 Lymph % (Auto) 19.0 [place] % (Auto) 11.4 Eos % (Auto) 0.5 Baso % (Auto) 0.1 Absolute Neuts (auto) 5.0 Absolute Lymphs (auto) 1.4 Absolute Monos (auto) 0.8 Absolute Eos (auto) 0 Absolute Basos (auto) 0 Absolute Nucleated RBC 0 Nucleated RBC % 0 Sodium 139 Potassium 3.6 Chloride 105 Carbon Dioxide 29 Anion Gap 5 BUN 25 H Creatinine 1.07 Est GFR ( Amer) 80.7 Est GFR (Non-Af Amer) 66.7 BUN/Creatinine Ratio 23.4 H Glucose 104 H Calcium 8.8 Total Bilirubin 0.50 AST 21 ALT 3 L Alkaline Phosphatase 68 Total Protein 6.0 L Albumin 3.1 L Globulin 2.9 Albumin/Globulin Ratio 1.1 Exam: GEN: no acute distress. Alert and appropriate. LUNGS: clear to auscultation bilaterally. CV: regular rate and rhythm ABD: + bowel sounds, soft, non-tender, non-distended EXT: Some edema in operative leg as expected. No Homans or calf pain. SKIN: sutures c/d/i. Mild erythema of right inner thigh. No warm or painful. NEURO: Sensation intact x4. Motor 5/5 BUE/BLE except limited testing of right knee and hip secondary to pain. Assessment/Plan: 78yo man with Parkinsons disease s/p right TKR #Right TKR: f/u with Dr. Swartz. Pain meds as needed. PT/OT #Mild right thigh erythema: no fever, no leukocytosis and no pain. Looks more like a skin reaction. He notes shellfish allergy, so likely reaction from solution to clean leg pre-op. Follow clinically. #Acute post-op anemia and thrombocytopenia: recheck CBC tomorrow for trend. #Parkinsons disease: continue sinemet and eldepryl #Hypertension: Off his home ramipril and lasix. Follow VS to determine restarting. #DVT ppx: eliquis #Advanced directives: full code. #Estimated LOS: IPOC today. 01/02/19 11:59
--- NOTE | 2019-01-02 13:02 | PMRUTEAM ---
PMRU: Team Meeting Current Status: Nursing: Current Status Skin Deviations [Right Knee] Incision Skin Deviation Description [ Dressing is clean, dry and intact Right Knee] Physical Therapy: Current Status Bed Mobility Assistance mod assist Transfer Mobility Assistance min to mod x2 assist Transfer/Bed Mobility Rolling Walker Recommended Devices Ambulation Assistance contact guard Ambulation Assistive Devices Rolling Walker Number of Feet Patient 110' x 2 Ambulated Stairs Assistance Not Tested Stairs Recommended Devices Two Rails Number of Stairs 2 Curb Not Tested Occupational Therapy: Current Status Upper Body Dressing Min Assist Lower Body Dressing Max assist Bathing Mod Assist Toileting total assist Toilet Transfer Contact Guard Assist to mod assist Eating Supervision Rec Therapy: Current Status Summary of Assessment and Pt. was open to conversation - pleasant, chatty Clinical Impression and in good spirits. Pt. is very involved and states he enjoys his life. Pt. reports he is "a huge proponent of extreme exercise to help with Parkinson's" and is looking forward to returning to his previous level of activity. Treatment Goals Pt. will engage in recreation while on the unit. Treatment Plan Provide recreation services. Goals: Physical Therapy: Initial Goals Bed Mobility Assistance Independent Transfer Mobility Assistance Independent Transfer/Bed Mobility Rolling Walker Recommended Devices Ambulation Independent Ambulation Recommended Devices Rolling Walker Ambulation Distance 150 Stairs Assistance Independent Stair Recommended Devices Two Rails Number of Stairs 12 Occupational Therapy: Initial Goals Goals to be Completed in (Days 5-10 ) Upper Body Bathing Routine Modified Independent with Lower Body Bathing Routine Modified Independent with Upper Body Dressing Routine Independent Lower Body Dressing Routine Modified Independent with Toilet Hygeine and Clothing Modified Independent with Management Routine Toilet Transfer Routine Modified Independent with Step-In Shower Transfer Modified Independent with Routine Functional Transfers for ADL Modified Independent with Grooming Routine Independent Feeding Routine Independent Light Housekeeping Tasks Modified Independent with Light Housekeeping Tasks Jass for light meal prep Assistive Devices Care Plan: Care Plan ADL's - Improve/Maintain Start: 01/01/19 16:13 Freq: DAILY Status: Active Target: Protocol: Activity Type Activity Date Activity User E-Sign Co-Sign Detail Recorded Client Recorded Date Recorded By Document 01/01/19 16:13 [id number] [id number] 01/01/19 16:13 [id number] 01/01/19 16:13 PMRU Outcome: ADL's/ADL Transfers Orders/Interventions Occupational Therapy Evaluation & Treatment Communication Tool in Patient Room Device Yes Address Deficits Secondary To: right TKA Patient to receive OT 5x/wk for 60-120 Therex min/day Self Care Management Group Therapy UE/LE ADL's with Assist Yes: Jass ADL Transfers with Assist Yes: Jass Toileting: Transfers,Clothing Management Yes: Jass ,Hygeine w/Assist Light Kitchen/Laundry w/Assist Yes: Jass with light meal prep Progression Toward Outcome/Goals Progressing Outcome/Goals Met Pt is a 78 year old male s/p Right TKA currently with c/o stiffness and pain in Right knee which limits independence with bathing, dressing, toileting, pt with h/o Parksinson's dz and currently requiring 2A for transfers. Pt will benefit from skilled OT intervention to maximize independence and safety as pt lives alone in 2SH. DVT Prophylaxis- Improve/Maintain Start: 01/01/19 11:51 Freq: QSHIFT Status: Active Target: Protocol: Activity Type Activity Date Activity User E-Sign Co-Sign Detail Recorded Client Recorded Date Recorded By Document 01/02/19 08:00 [id number] 01/02/19 09:03 [id number] 01/02/19 08:00 PMRU Outcome: DVT Prophylaxis Outcome/Goals Remains Free of DVT Complies with DVT Prophylaxis /Treatment Demonstrates Knowledge of DVT Prevention/ Treatment TEDS Stockings on Every AM, Off at HS Progression Toward Outcome/Goals Progressing Discharge Planning - Improve/Maintain Start: 01/01/19 11:51 Freq: DAILY Status: Active Target: Protocol: Activity Type Activity Date Activity User E-Sign Co-Sign Detail Recorded Client Recorded Date Recorded By Document 01/02/19 01:04 [id number] [id number] 01/02/19 01:04 [id number] 01/02/19 01:04 PMRU Outcome: Discharge Planning Update Patient Family No Outcome/Goals Demonstrates Understanding of Discharge Plan Education-Improve/Maintain Start: 01/01/19 11:51 Freq: QSHIFT Status: Active Target: Protocol: Activity Type Activity Date Activity User E-Sign Co-Sign Detail Recorded Client Recorded Date Recorded By Document 01/02/19 08:00 [id number] [id number] 01/02/19 09:03 [id number] 01/02/19 08:00 PMRU Outcome: Education Outcome/Goals Demonstrates Skills Encourage Questions Progression Toward Outcome/Goals Progressing /GI-Improve/Maintain Start: 01/01/19 11:51 Freq: QSHIFT Status: Active Target: Protocol: Activity Type Activity Date Activity User E-Sign Co-Sign Detail Recorded Client Recorded Date Recorded By Document 01/02/19 08:00 [id number] [id number] 01/02/19 09:03 [id number] 01/02/19 08:00 PMRU Outcome: Genitourinary/ Gastrointestinal Genitourinary- Outcome/Goals Remain Free of Hospital- Acquired UTI Gastrointestinal-Outcome/Goals Maintain/ Achieve Bowel Regularity in Accordance with Pt's Baseline Prevent Constipation Laxatives as Ordered Progression Toward Outcome/Goals - Progressing Progression Toward Outcome/Goals - GI Progressing Medication Administration Start: 01/01/19 11:51 Freq: QSHIFT Status: Active Target: Protocol: Activity Type Activity Date Activity User E-Sign Co-Sign Detail Recorded Client Recorded Date Recorded By Document 01/02/19 08:00 [id number] 01/02/19 09:03 [id number] 01/02/19 08:00 PMRU Outcome: Medication Administration Assess Patient Knowledge/Teach Med Yes Education for all Meds Outcome/Goals Patient Independent with Medication Administration at Home Demonstrates Understanding Progression Towards Outcome/Goals Progressing Is Patient Going Home on Lovenox? No Neurological- Improve/Maintain Start: 01/01/19 11:51 Freq: QSHIFT Status: Active Target: Protocol: Activity Type Activity Date Activity User E-Sign Co-Sign Detail Recorded Client Recorded Date Recorded By Document 01/02/19 08:00 [id number] 01/02/19 09:03 [id number] 01/02/19 08:00 PMRU Outcome: Neurological Weakness/Aphasia Weakness Outcome/Goals Maintain/ Achieve Baseline Neurological Status Prevent Avoidable Neurological Decline Maintain/ Improve Strength/ROM Progression Toward Outcome/Goals Progressing Outcome/Goals Met Comment h/o Parkinsons Pain/Comfort- Improve/Maintain Start: 01/01/19 11:51 Freq: QSHIFT Status: Active Target: Protocol: Activity Type Activity Date Activity User E-Sign Co-Sign Detail Recorded Client Recorded Date Recorded By Document 01/02/19 08:00 [id number] 01/02/19 09:03 [id number] 01/02/19 08:00 PMRU Outcome: Pain/Comfort Outcome/Goals Demonstrates Knowledge and Use of Available Comfort Measures Achieves Acceptable Comfort/Pain Level as Determined by Patient/Condit Maintain Comfort Level Allowing Patient to Fully Participate in Rehab Progression Toward Outcome/Goals Progressing Safety- Improve/Maintain Start: 01/01/19 11:51 Freq: QSHIFT Status: Active Target: Protocol: Activity Type Activity Date Activity User E-Sign Co-Sign Detail Recorded Client Recorded Date Recorded By Document 01/02/19 08:00 [id number] 01/02/19 09:03 [id number] 01/02/19 08:00 PMRU Outcome: Safety Outcome/Goals Remain Free of Injury or Harm Cooperates with Safety Measures for Least Restrictive Environment Prevent Falls/ Injury Progression Toward Outcome/Goals Progressing Outcome/Goals Met Comment KM armed Skin- Improve/Maintain Start: 01/01/19 11:51 Freq: QSHIFT Status: Active Target: Protocol: Activity Type Activity Date Activity User E-Sign Co-Sign Detail Recorded Client Recorded Date Recorded By Document 01/02/19 08:00 [id number] 01/02/19 09:03 [id number] 01/02/19 08:00 PMRU Outcome: Skin Skin Orders Dressing Change Teach Patient Turn/Position q2hr While in Bed Outcome/Goals Free from Decubitus Surgical Incisions Healing Progression Toward Outcome/Goals Progressing Medicine Note: Length of Stay: [2 more weeks] Anticipated Discharge Destination: home Tentative Discharge Date: [01/16/19] Discharged to: [home]
[2019-01-02] MEDS: Atorvastatin* 10 MG TAB PO SCH (17:20)
[2019-01-02] MEDS: Cetirizine* 10 MG TAB PO SCH (20:43)
[2019-01-03 05:17] LABS: Hematocrit 36 % (36-46); Hemoglobin 11.8 g/dL (14.0-18.0); Mean Corpuscular HGB Conc 33 g/dL (31-36); Mean Corpuscular Hemoglobin 31 pg (27-31); Mean Corpuscular Volume 94 fL (80-94); Mean Platelet Volume 9.2 fL (7.4-10.4); Platelet Count 136 10^3/uL (150-450); Red Blood Count 3.78 10^6 /uL (4.18-5.48); Red Cell Distribution Width 15 % (10.5-15); White Blood Count 7.3 10^3/uL (3.5-10.8)
[2019-01-03 05:29] LABS: ABS Basophils 0 10^3/ul (0-0.2); ABS Eosinophils 0 10^3/ul (0-0.6); ABS Lymphocytes 1.5 10^3/ul (1.0-4.8); ABS Monocytes 0.7 10^3/ul (0-0.8); ABS Neutrophils 5.2 10^3/ul (1.5-7.7); ABS Nucleated RBC 0 10^3/ul; Eosinophil % 0.3 %; Lymphocyte % 19.9 %; Nucleated Red Blood Cells % 0
[2019-01-03] MEDS: Selegiline TAB* 5 MG PO SCH ×2 (08:29→11:58)
[2019-01-03] MEDS: Cholecalciferol TAB* 1000 UNITS PO SCH (08:29)
[2019-01-03] MEDS: Apixaban* 2.5 MG TAB PO SCH ×2 (08:29→20:47)
[2019-01-03] MEDS: Docusate CAP* 100 MG PO SCH ×2 (08:29→20:51)
[2019-01-03] MEDS: Folic Acid TAB* 1 MG PO SCH (08:30)
[2019-01-03] MEDS: Carbidopa/Levodop 25/100 MG TAB(*) PO SCH ×3 (08:30→17:43)
[2019-01-03] MEDS ORDERED: Artificial Tears* 15 ML BTL BOTH EYES PRN (09:44)
[2019-01-03] MEDS ORDERED: Polyethylene Glycol 3350* 17 GM PACKET PO PRN (09:45)
[2019-01-03] MEDS ORDERED: Simethicone TAB* 80 MG TAB.CHEW PO PRN (09:46)
--- NOTE | 2019-01-03 10:12 | PN ---
Progress Note Date of Service: 01/03/19 Note: INA BETTENCOURT was visited. Nursing and therapy notes read and reviewed. No chest pain, shortness of breath or abdominal pain. Feels bloated and asks for medication. Somewhat constipated. Would like artificial tears. Current Medications: Active Medications Generic Name Dose Route Start Last Admin Trade Name Freq PRN Reason Stop Dose Admin Acetaminophen 650 mg 01/01/19 12:15 01/02/19 23:39 Tylenol Tab* PO 650 mg Q6H PRN Administration FEVER/PAIN Apixaban 2.5 mg 01/01/19 21:00 01/03/19 08:29 Eliquis* PO 2.5 mg BID EVAN Administration Atorvastatin Calcium 10 mg 01/01/19 17:00 01/02/19 17:20 Lipitor* PO 10 mg 1700 EVAN Administration Carbidopa/Levodopa 1 tab 01/02/19 09:00 01/03/19 08:30 Sinemet 25/100 Tab(*) PO 1 tab 0900,1200 EVAN Administration Carbidopa/Levodopa 0.5 tab 01/01/19 17:30 01/02/19 17:20 Sinemet 25/100 Tab(*) PO 0.5 tab 1730 EVAN Administration Cetirizine HCl 10 mg 01/01/19 21:00 01/02/19 20:43 Zyrtec* PO 10 mg BEDTIME EVAN Administration Protocol Cholecalciferol 1,000 units 01/02/19 09:00 01/03/19 08:29 Vitamin D Tab* PO 1,000 units DAILY EVAN Administration Cyanocobalamin 1,000 mcg 01/02/19 12:00 01/02/19 11:50 Vitamin B12 Tab* PO 1,000 mcg 1200 EVAN Administration Docusate Sodium 100 mg 01/01/19 21:00 01/03/19 08:29 Colace Cap* PO 100 mg BID EVAN Administration Folic Acid 0.5 mg 01/02/19 09:00 01/03/19 08:30 Folvite Tab* PO 0.5 mg DAILY EVAN Administration Magnesium Hydroxide 30 ml 01/01/19 12:15 Milk Of Magnesia Liq* PO Q6H PRN CONSTIPATION Magnesium Oxide 400 mg 01/02/19 12:00 01/02/19 11:50 Magox 400 Tab* PO 400 mg 1200 EVAN Administration Oxycodone/Acetaminophen 2 tab 01/01/19 12:27 01/02/19 08:08 Percocet 5/325 Tab* PO 2 tab Q4H PRN Administration PAIN - SEVERE Oxycodone/Acetaminophen 1 tab 01/01/19 12:28 Percocet 5/325 Tab* PO Q4H PRN PAIN - MODERATE TO SEVERE Polyethylene Glycol/Electrolytes 17 gm 01/03/19 09:45 Miralax* PO DAILY PRN constipation Polyvinyl Alcohol 1 drop 01/03/19 09:44 Polyvinyl Alcohol 1.4% Opth* BOTH EYES Q2H PRN DRY EYE Pyridoxine HCl 100 mg 01/02/19 12:00 01/02/19 11:51 Vitamin B6 Tab* PO 100 mg 1200 EVAN Administration Selegiline HCl 5 mg 01/02/19 08:00 01/03/19 08:29 Eldepryl Tab* PO 5 mg 0800,1200 EVAN Administration Senna 2 tab 01/03/19 21:00 Senokot Tab* PO BEDTIME EVAN Simethicone 80 mg 01/03/19 09:46 Mylicon Tab* PO Q6H PRN bloating, gas Vital Signs: Vital Signs Temp Pulse Resp BP Pulse Ox 98.4 F 87 20 156/67 98 01/03/19 05:20 01/03/19 05:20 01/03/19 05:20 01/03/19 05:20 01/03/19 05:20 Lab Results: Laboratory Results - last 24 hr 01/03/19 04:52 WBC 7.3 RBC 3.78 L Hgb 11.8 L Hct 36 MCV 94 MCH 31 MCHC 33 RDW 15 Plt Count 136 L MPV 9.2 Neut % (Auto) 70.5 Lymph % (Auto) 19.9 [place] % (Auto) 9.0 Eos % (Auto) 0.3 Baso % (Auto) 0.3 Absolute Neuts (auto) 5.2 Absolute Lymphs (auto) 1.5 Absolute Monos (auto) 0.7 Absolute Eos (auto) 0 Absolute Basos (auto) 0 Absolute Nucleated RBC 0 Nucleated RBC % 0 Exam: GEN: no acute distress. Alert and appropriate. LUNGS: clear to auscultation bilaterally. CV: regular rate and rhythm ABD: + bowel sounds, soft, non-tender, non-distended EXT: Some edema in operative leg as expected. No Homans or calf pain. SKIN: Dressing intact over right knee. Mild erythema of right inner thigh. Not warm or painful. NEURO: Sensation intact x4. Motor 5/5 BUE/BLE except limited testing of right knee and hip secondary to pain. Assessment/Plan: 78yo man with Parkinsons disease s/p right TKR #Right TKR: f/u with Dr. Swartz. Pain meds as needed. PT/OT #Mild right thigh erythema: no fever, no leukocytosis and no pain. Looks more like a skin reaction. He noted a shellfish allergy, so likely reaction from solution to clean leg pre-op. Follow clinically. #Acute post-op anemia and thrombocytopenia: stable. #Parkinsons disease: continue sinemet and eldepryl #Hypertension: Has been off his home ramipril and lasix. Will restart now. #DVT ppx: eliquis #Advanced directives: full code. #Estimated LOS: 01/16/19. 01/03/19 10:11
[2019-01-03] MEDS: Magnesium Oxide TAB* 400 MG PO SCH (11:58)
[2019-01-03] MEDS: Furosemide TAB* 20 MG PO SCH (11:58)
[2019-01-03] MEDS: Cyanocobalamin TAB* 500 MCG PO SCH (11:58)
[2019-01-03] MEDS: Pyridoxine TAB* 50 MG PO SCH (11:58)
[2019-01-03] MEDS: Atorvastatin* 10 MG TAB PO SCH (17:43)
[2019-01-03] MEDS: Acetaminophen TAB* 325 MG PO PRN ×2 (17:43→23:50)
[2019-01-03] MEDS: Ramipril CAP* 2.5 MG PO SCH (20:48)
[2019-01-03] MEDS: Cetirizine* 10 MG TAB PO SCH (20:48)
[2019-01-03] MEDS: Senna TAB PO SCH (20:52)
[2019-01-04] MEDS ORDERED: Pantoprazole TAB * 40 MG TAB PO SCH (10:00)
[2019-01-04] MEDS: Apixaban* 2.5 MG TAB PO SCH ×2 (10:04→20:44)
[2019-01-04] MEDS: Selegiline TAB* 5 MG PO SCH ×2 (10:04→14:14)
[2019-01-04] MEDS: Carbidopa/Levodop 25/100 MG TAB(*) PO SCH ×3 (10:04→18:10)
[2019-01-04] MEDS: Folic Acid TAB* 1 MG PO SCH (10:05)
[2019-01-04] MEDS: Furosemide TAB* 20 MG PO SCH (10:05)
[2019-01-04] MEDS: Cholecalciferol TAB* 1000 UNITS PO SCH (10:05)
[2019-01-04] MEDS: Docusate CAP* 100 MG PO SCH ×2 (10:06→20:44)
--- NOTE | 2019-01-04 10:08 | PN ---
Progress Note Date of Service: 01/04/19 Note: INA BETTENCOURT was visited. Nursing a therapy notes read and reviewed. No chest pain, shortness of breath or abdominal pain. He would like scheduled eye drops and nasal spray. Also last night he felt some "GERD" for which he uses prilosec prn at home. He would like some scheduled. Current Medications: Active Medications Generic Name Dose Route Start Last Admin Trade Name Freq PRN Reason Stop Dose Admin Acetaminophen 650 mg 01/01/19 12:15 01/03/19 23:50 Tylenol Tab* PO 650 mg Q6H PRN Administration FEVER/PAIN Apixaban 2.5 mg 01/01/19 21:00 01/03/19 20:47 Eliquis* PO 2.5 mg BID EVAN Administration Atorvastatin Calcium 10 mg 01/01/19 17:00 01/03/19 17:43 Lipitor* PO 10 mg 1700 EVAN Administration Carbidopa/Levodopa 1 tab 01/02/19 09:00 01/03/19 11:58 Sinemet 25/100 Tab(*) PO 1 tab 0900,1200 EVAN Administration Carbidopa/Levodopa 0.5 tab 01/01/19 17:30 01/03/19 17:43 Sinemet 25/100 Tab(*) PO 0.5 tab 1730 EVAN Administration Cetirizine HCl 10 mg 01/01/19 21:00 01/03/19 20:48 Zyrtec* PO 10 mg BEDTIME EVAN Administration Protocol Cholecalciferol 1,000 units 01/02/19 09:00 01/03/19 08:29 Vitamin D Tab* PO 1,000 units DAILY EVAN Administration Cyanocobalamin 1,000 mcg 01/02/19 12:00 01/03/19 11:58 Vitamin B12 Tab* PO 1,000 mcg 1200 EVAN Administration Docusate Sodium 100 mg 01/01/19 21:00 01/03/19 20:51 Colace Cap* PO Not Given BID EVAN Folic Acid 0.5 mg 01/02/19 09:00 01/03/19 08:30 Folvite Tab* PO 0.5 mg DAILY EVAN Administration Furosemide 20 mg 01/03/19 11:00 01/03/19 11:58 Lasix Tab* PO 20 mg DAILY EVAN Administration Magnesium Hydroxide 30 ml 01/01/19 12:15 Milk Of Magnesia Liq* PO Q6H PRN CONSTIPATION Magnesium Oxide 400 mg 01/02/19 12:00 01/03/19 11:58 Magox 400 Tab* PO 400 mg 1200 EVAN Administration Oxycodone/Acetaminophen 2 tab 01/01/19 12:27 01/02/19 08:08 Percocet 5/325 Tab* PO 2 tab Q4H PRN Administration PAIN - SEVERE Oxycodone/Acetaminophen 1 tab 01/01/19 12:28 Percocet 5/325 Tab* PO Q4H PRN PAIN - MODERATE TO SEVERE Pantoprazole Sodium 40 mg 01/04/19 17:00 Protonix Tab* PO 1700 EVAN Polyethylene Glycol/Electrolytes 17 gm 01/03/19 09:45 Miralax* PO DAILY PRN constipation Polyvinyl Alcohol 1 drop 01/04/19 13:00 Polyvinyl Alcohol 1.4% Opth* BOTH EYES QID EVAN Pyridoxine HCl 100 mg 01/02/19 12:00 01/03/19 11:58 Vitamin B6 Tab* PO 100 mg 1200 EVAN Administration Ramipril 2.5 mg 01/03/19 21:00 01/03/19 20:48 Altace Cap* PO 2.5 mg BEDTIME EVAN Administration Selegiline HCl 5 mg 01/02/19 08:00 01/03/19 11:58 Eldepryl Tab* PO 5 mg 0800,1200 EVAN Administration Senna 2 tab 01/03/19 21:00 01/03/19 20:52 Senokot Tab* PO Not Given BEDTIME EVAN Simethicone 80 mg 01/03/19 09:46 Mylicon Tab* PO Q6H PRN bloating, gas Sodium Chloride 1 spray 01/04/19 10:30 Sodium Chloride 0.65% Nasal [place]* BOTH NARES BID EVAN Vital Signs: Vital Signs Temp Pulse Resp BP Pulse Ox 97.4 F 77 18 117/49 99 01/04/19 05:22 01/04/19 05:22 01/04/19 05:22 01/04/19 05:22 01/04/19 05:22 Exam: GEN: no acute distress. Alert and appropriate. LUNGS: clear to auscultation bilaterally. CV: regular rate and rhythm ABD: + bowel sounds, soft, non-tender, non-distended EXT: Some edema in operative leg as expected. No Homans or calf pain. SKIN: sutures c/d/i. Mild erythema of right inner thigh continues to decrease. Not warm or painful. NEURO: Sensation intact x4. Motor 5/5 BUE/BLE except limited testing of right knee and hip secondary to pain. Assessment/Plan: 78yo man with Parkinsons disease s/p right TKR #Right TKR: f/u with Dr. Swartz. Pain meds as needed. PT/OT #Mild right thigh erythema: no fever, no leukocytosis and no pain. Looks more like a skin reaction. He noted a shellfish allergy, so likely reaction from solution to clean leg pre-op. Follow clinically. Seems to be lessening. #Acute post-op anemia and thrombocytopenia: stable. #Parkinsons disease: continue sinemet and eldepryl #Hypertension: Restarted home ramipril and lasix. #GERD: hospital does not have prilosec. rx pantoprazole before dinner per his request. #DVT ppx: eliquis #Advanced directives: full code. #Estimated LOS: 01/16/19. 01/04/19 10:07
[2019-01-04] MEDS: Pyridoxine TAB* 50 MG PO SCH (14:14)
[2019-01-04] MEDS: Magnesium Oxide TAB* 400 MG PO SCH (14:14)
[2019-01-04] MEDS: Cyanocobalamin TAB* 500 MCG PO SCH (14:14)
[2019-01-04] MEDS: Saline NASAL SPRAY 0.65%* BTL BOTH NARES SCH ×2 (14:14→20:45)
[2019-01-04] MEDS: Artificial Tears* 15 ML BTL BOTH EYES SCH ×3 (14:15→20:44)
[2019-01-04] MEDS: Acetaminophen TAB* 325 MG PO PRN ×2 (16:07→23:10)
[2019-01-04] MEDS: Pantoprazole TAB * 40 MG TAB PO SCH (18:10)
[2019-01-04] MEDS: Atorvastatin* 10 MG TAB PO SCH (18:10)
[2019-01-04] MEDS: Cetirizine* 10 MG TAB PO SCH (20:43)
[2019-01-04] MEDS: Ramipril CAP* 2.5 MG PO SCH (20:43)
[2019-01-04] MEDS: Senna TAB PO SCH (20:45)
[2019-01-05] MEDS: Folic Acid TAB* 1 MG PO SCH (08:56)
[2019-01-05] MEDS: Acetaminophen TAB* 325 MG PO PRN ×2 (08:57→16:52)
[2019-01-05] MEDS: Apixaban* 2.5 MG TAB PO SCH ×2 (08:57→21:27)
[2019-01-05] MEDS: Furosemide TAB* 20 MG PO SCH (08:57)
[2019-01-05] MEDS: Selegiline TAB* 5 MG PO SCH ×2 (08:57→12:17)
[2019-01-05] MEDS: Carbidopa/Levodop 25/100 MG TAB(*) PO SCH ×3 (08:57→17:27)
[2019-01-05] MEDS: Cholecalciferol TAB* 1000 UNITS PO SCH (08:57)
[2019-01-05] MEDS: Docusate CAP* 100 MG PO SCH ×2 (09:00→21:27)
[2019-01-05] MEDS: Artificial Tears* 15 ML BTL BOTH EYES SCH ×4 (09:00→21:25)
[2019-01-05] MEDS: Saline NASAL SPRAY 0.65%* BTL BOTH NARES SCH ×2 (09:00→21:26)
[2019-01-05] MEDS: Magnesium Oxide TAB* 400 MG PO SCH (12:17)
[2019-01-05] MEDS: Cyanocobalamin TAB* 500 MCG PO SCH (12:17)
[2019-01-05] MEDS: Pyridoxine TAB* 50 MG PO SCH (12:18)
[2019-01-05] MEDS: Atorvastatin* 10 MG TAB PO SCH (16:53)
[2019-01-05] MEDS: Pantoprazole TAB * 40 MG TAB PO SCH (16:53)
--- NOTE | 2019-01-05 17:14 | PN ---
Progress Note Date of Service: 01/05/19 Note: INA BETTENCOURT was visited. Therapy notes read and reviewed. He complains of the knee aching tonight but seems to be progressing in therapy. Current Medications: Active Medications Generic Name Dose Route Start Last Admin Trade Name Freq PRN Reason Stop Dose Admin Acetaminophen 650 mg 01/01/19 12:15 01/05/19 16:52 Tylenol Tab* PO 650 mg Q6H PRN Administration FEVER/PAIN Apixaban 2.5 mg 01/01/19 21:00 01/05/19 08:57 Eliquis* PO 2.5 mg BID EVAN Administration Atorvastatin Calcium 10 mg 01/01/19 17:00 01/05/19 16:53 Lipitor* PO 10 mg 1700 EVAN Administration Carbidopa/Levodopa 1 tab 01/02/19 09:00 01/05/19 12:17 Sinemet 25/100 Tab(*) PO 1 tab 0900,1200 EVAN Administration Carbidopa/Levodopa 0.5 tab 01/01/19 17:30 01/04/19 18:10 Sinemet 25/100 Tab(*) PO 0.5 tab 1730 EVAN Administration Cetirizine HCl 10 mg 01/01/19 21:00 01/04/19 20:43 Zyrtec* PO 10 mg BEDTIME EVAN Administration Protocol Cholecalciferol 1,000 units 01/02/19 09:00 01/05/19 08:57 Vitamin D Tab* PO 1,000 units DAILY EVAN Administration Cyanocobalamin 1,000 mcg 01/02/19 12:00 01/05/19 12:17 Vitamin B12 Tab* PO 1,000 mcg 1200 EVAN Administration Docusate Sodium 100 mg 01/01/19 21:00 01/05/19 09:00 Colace Cap* PO Not Given BID EVAN Folic Acid 0.5 mg 01/02/19 09:00 01/05/19 08:56 Folvite Tab* PO 0.5 mg DAILY EVAN Administration Furosemide 20 mg 01/03/19 11:00 01/05/19 08:57 Lasix Tab* PO 20 mg DAILY EVAN Administration Magnesium Hydroxide 30 ml 01/01/19 12:15 Milk Of Magnesia Liq* PO Q6H PRN CONSTIPATION Magnesium Oxide 400 mg 01/02/19 12:00 01/05/19 12:17 Magox 400 Tab* PO 400 mg 1200 EVAN Administration Oxycodone/Acetaminophen 2 tab 01/01/19 12:27 01/02/19 08:08 Percocet 5/325 Tab* PO 2 tab Q4H PRN Administration PAIN - SEVERE Oxycodone/Acetaminophen 1 tab 01/01/19 12:28 Percocet 5/325 Tab* PO Q4H PRN PAIN - MODERATE TO SEVERE Pantoprazole Sodium 40 mg 01/04/19 17:00 01/05/19 16:53 Protonix Tab* PO 40 mg 1700 EVAN Administration Polyethylene Glycol/Electrolytes 17 gm 01/03/19 09:45 Miralax* PO DAILY PRN constipation Polyvinyl Alcohol 1 drop 01/04/19 13:00 01/05/19 16:54 Polyvinyl Alcohol 1.4% Opth* BOTH EYES 1 drop QID EVAN Administration Pyridoxine HCl 100 mg 01/02/19 12:00 01/05/19 12:18 Vitamin B6 Tab* PO 100 mg 1200 EVAN Administration Ramipril 2.5 mg 01/03/19 21:00 01/04/19 20:43 Altace Cap* PO 2.5 mg BEDTIME EVAN Administration Selegiline HCl 5 mg 01/02/19 08:00 01/05/19 12:17 Eldepryl Tab* PO 5 mg 0800,1200 EVAN Administration Senna 2 tab 01/03/19 21:00 01/04/19 20:45 Senokot Tab* PO Not Given BEDTIME EVAN Simethicone 80 mg 01/03/19 09:46 Mylicon Tab* PO Q6H PRN bloating, gas Sodium Chloride 1 spray 01/04/19 10:30 01/05/19 09:00 Sodium Chloride 0.65% Nasal [place]* BOTH NARES 1 spray BID EVAN Administration Vital Signs: Vital Signs Temp Pulse Resp BP Pulse Ox 98.2 F 90 18 136/56 98 01/04/19 16:37 01/04/19 16:37 01/05/19 01:10 01/04/19 16:37 01/04/19 16:37 Exam: GENERAL: no acute distress. Alert and appropriate. LUNGS: clear to auscultation bilaterally. HEART: regular rate and rhythm ABDOMEN: + bowel sounds, soft, non-tender, non-distended EXTREMITIES: Some edema in operative leg as expected. SuturesC/D/I NEUROLOGIC: Sensation intact x4. Motor 5/5 BUE/BLE except limited testing of right knee and hip secondary to pain. Assessment/Plan: 78yo man with Parkinsons disease s/p right TKR 1. Right TKR: f/u with Dr. Swartz. Pain meds as needed. PT/OT 2. Mild right thigh erythema: no fever, no leukocytosis and no pain. Looks more like a skin reaction. Follow clinically. Seems to be lessening. 3. Acute post-op anemia and thrombocytopenia: stable. 4. Parkinsons disease: continue sinemet and eldepryl 5. Hypertension: Restarted home ramipril and lasix. 6. GERD: hospital does not have prilosec. rx pantoprazole before dinner per his request. 7. DVT prophylaxis: [email or web address] 8. Advanced directives: full code. 9. Estimated LOS: 01/16/19. 01/05/19 17:16
[2019-01-05] MEDS: Cetirizine* 10 MG TAB PO SCH (21:26)
[2019-01-05] MEDS: Ramipril CAP* 2.5 MG PO SCH (21:26)
[2019-01-05] MEDS: Senna TAB PO SCH (21:27)
[2019-01-06] MEDS: Saline NASAL SPRAY 0.65%* BTL BOTH NARES SCH ×2 (09:10→20:30)
[2019-01-06] MEDS: Artificial Tears* 15 ML BTL BOTH EYES SCH ×4 (09:11→20:31)
[2019-01-06] MEDS: Furosemide TAB* 20 MG PO SCH (09:12)
[2019-01-06] MEDS: Folic Acid TAB* 1 MG PO SCH (09:12)
[2019-01-06] MEDS: Cholecalciferol TAB* 1000 UNITS PO SCH (09:12)
[2019-01-06] MEDS: Selegiline TAB* 5 MG PO SCH ×2 (09:12→13:11)
[2019-01-06] MEDS: Apixaban* 2.5 MG TAB PO SCH ×2 (09:12→20:28)
[2019-01-06] MEDS: Carbidopa/Levodop 25/100 MG TAB(*) PO SCH ×3 (09:12→17:07)
[2019-01-06] MEDS: Acetaminophen TAB* 325 MG PO PRN ×2 (09:13→17:05)
[2019-01-06] MEDS: Docusate CAP* 100 MG PO SCH ×2 (09:18→20:28)
--- NOTE | 2019-01-06 12:49 | PMRUTEAM ---
PMRU: Team Meeting Current Status: Nursing: Current Status Skin Deviations [Right Knee] Incision Skin Deviation Description [ well approximated, sutures intact, no drainage Right Knee] noted, little pink Bladder Current Status voids in BR and uses urinal Bowel Current Status loose stool today. colace held Nutrition Current Status appetite good Medication Current Status tylenol for pain Physical Therapy: Current Status Bed Mobility Assistance Not Tested Transfer Mobility Assistance Contact Guard Assist Transfer/Bed Mobility Rolling Walker Recommended Devices Ambulation Assistance Supervision,Contact Guard Assist Ambulation Assistive Devices Rolling Walker Number of Feet Patient 320 Ambulated Stairs Assistance Supervision Stairs Recommended Devices Two Rails Number of Stairs 10 Curb Not Tested Objective Comments step to pattern ascend/descending stairs Occupational Therapy: Current Status Upper Body Dressing Supervision Lower Body Dressing Supervision Bathing Supervision Toileting Mod Assist Toilet Transfer Supervision Shower Transfer Supervision Eating Independent Rec Therapy: Current Status Summary of Assessment and Pt. has been open to RT visits. T/w provided pt. Clinical Impression with 3 books to read in his room per pt. request. Will continue to follow. Treatment Goals Pt. will continue to engage in leisure while on the unit Treatment Plan Continue providing RT services Social Work: Current Status Discharge Plan return home with home care svs and family support Potential for Family Training TBD Anticipated Discharge Home Destination Discharge With home care svs and family support Nutrition: Current Status Monitoring Adm for rehab s/p knee replacement w/ consideration for hx of Parkinsons disease. Pt receiving regular diet, adequate (obese) weight, eating well , meeting needs. Regular BM (meds held this AM due to loose BM). No specific further nutrition intervention since no acute nutrition concerns noted. Goals: Physical Therapy: Initial Goals Bed Mobility Assistance Independent Transfer Mobility Assistance Independent Transfer/Bed Mobility Rolling Walker Recommended Devices Ambulation Independent Ambulation Recommended Devices Rolling Walker Ambulation Distance 150 Stairs Assistance Independent Stair Recommended Devices Two Rails Number of Stairs 12 Physical Therapy: Updated Goals Transfer/Bed Mobility Rolling Walker Recommended Devices Occupational Therapy: Initial Goals Goals to be Completed in (Days 5-10 ) Upper Body Bathing Routine Modified Independent with Lower Body Bathing Routine Modified Independent with Upper Body Dressing Routine Independent Lower Body Dressing Routine Modified Independent with Toilet Hygeine and Clothing Modified Independent with Management Routine Toilet Transfer Routine Modified Independent with Step-In Shower Transfer Modified Independent with Routine Functional Transfers for ADL Modified Independent with Grooming Routine Independent Feeding Routine Independent Light Housekeeping Tasks Modified Independent with Light Housekeeping Tasks Jass for light meal prep Assistive Devices Nursing: Goals Bladder Goal independent Bowel Goal independent Nutrition Goal 100% of all meals consumed Medication Goal indpendent Nutrition: Goals Intervention Goals 1. Maintain adequate oral intake to support post op rehab w/o contributing to undesirable weight gain. 2. Maintain regulr bowel pattern w/o constipation or diarrhea. Social Work: Goals Discharge Plan return home with home care svs and family support Potential for Family Training TBD Anticipated Discharge Home Destination Discharge With home care svs and family support Care Plan: Care Plan ADL's - Improve/Maintain Start: 01/01/19 16:13 Freq: DAILY Status: Active Target: Protocol: Activity Type Activity Date Activity User E-Sign Co-Sign Detail Recorded Client Recorded Date Recorded By Document 01/02/19 15:54 [id number] [id number] 01/02/19 15:54 [id number] 01/02/19 15:54 PMRU Outcome: ADL's/ADL Transfers Orders/Interventions Occupational Therapy Evaluation & Treatment Communication Tool in Patient Room Device Yes Address Deficits Secondary To: right TKA Patient to receive OT 5x/wk for 60-120 Therex min/day Self Care Management Group Therapy UE/LE ADL's with Assist Yes: Jass ADL Transfers with Assist Yes: Jass Toileting: Transfers,Clothing Management Yes: Jass ,Hygeine w/Assist Light Kitchen/Laundry w/Assist Yes: Jass with light meal prep Progression Toward Outcome/Goals Progressing Outcome/Goals Met Pt participated well in ADL treatment session, able to utilize sock aid with 2 strings better than one with loop attempted yesterday. Pt will benefit from continued skilled OT intervention to maximize independence and safety. DVT Prophylaxis- Improve/Maintain Start: 01/01/19 11:51 Freq: QSHIFT Status: Active Target: Protocol: Activity Type Activity Date Activity User E-Sign Co-Sign Detail Recorded Client Recorded Date Recorded By Document 01/06/19 10:21 [id number] 01/06/19 10:22 [id number] 01/06/19 10:21 PMRU Outcome: DVT Prophylaxis Outcome/Goals Remains Free of DVT Complies with DVT Prophylaxis /Treatment Demonstrates Knowledge of DVT Prevention/ Treatment TEDS Stockings on Every AM, Off at HS Progression Toward Outcome/Goals Progressing Discharge Planning - Improve/Maintain Start: 01/01/19 11:51 Freq: DAILY Status: Active Target: Protocol: Activity Type Activity Date Activity User E-Sign Co-Sign Detail Recorded Client Recorded Date Recorded By Document 01/06/19 01:51 [id number] 01/06/19 01:51 [id number] 01/06/19 01:51 PMRU Outcome: Discharge Planning Update Patient Family No Outcome/Goals Demonstrates Understanding of Discharge Plan Progression Toward Outcome/Goals Progressing Education-Improve/Maintain Start: 01/01/19 11:51 Freq: QSHIFT Status: Active Target: Protocol: Activity Type Activity Date Activity User E-Sign Co-Sign Detail Recorded Client Recorded Date Recorded By Document 01/06/19 10:21 [id number] 01/06/19 10:22 [id number] 01/06/19 10:21 PMRU Outcome: Education Outcome/Goals Encourage Questions Progression Toward Outcome/Goals Progressing /GI-Improve/Maintain Start: 01/01/19 11:51 Freq: QSHIFT Status: Active Target: Protocol: Activity Type Activity Date Activity User E-Sign Co-Sign Detail Recorded Client Recorded Date Recorded By Document 01/06/19 10:21 [id number] 01/06/19 10:22 [id number] 01/06/19 10:21 PMRU Outcome: Genitourinary/ Gastrointestinal Genitourinary- Outcome/Goals Remain Free of Hospital- Acquired UTI Gastrointestinal-Outcome/Goals Maintain/ Achieve Bowel Regularity in Accordance with Pt's Baseline Prevent Constipation Laxatives as Ordered Progression Toward Outcome/Goals - Progressing Progression Toward Outcome/Goals - GI Progressing Outcome/Goals Met Comment pt up to BR Medication Administration Start: 01/01/19 11:51 Freq: QSHIFT Status: Active Target: Protocol: Activity Type Activity Date Activity User E-Sign Co-Sign Detail Recorded Client Recorded Date Recorded By Document 01/06/19 10:21 [id number] 01/06/19 10:22 [id number] 01/06/19 10:21 PMRU Outcome: Medication Administration Assess Patient Knowledge/Teach Med Yes Education for all Meds Outcome/Goals Patient Independent with Medication Administration at Home Demonstrates Understanding Progression Towards Outcome/Goals Progressing Is Patient Going Home on Lovenox? No Neurological- Improve/Maintain Start: 01/01/19 11:51 Freq: QSHIFT Status: Active Target: Protocol: Activity Type Activity Date Activity User E-Sign Co-Sign Detail Recorded Client Recorded Date Recorded By Document 01/06/19 10:21 [email or web address] 01/06/19 10:22 01/06/19 10:21 PMRU Outcome: Neurological Weakness/Aphasia Weakness Outcome/Goals Maintain/ Achieve Baseline Neurological Status Prevent Avoidable Neurological Decline Maintain/ Improve Strength/ROM Progression Toward Outcome/Goals Progressing Outcome/Goals Met Comment h/o Parkinsons, Guilliane [place] Pain/Comfort- Improve/Maintain Start: 01/01/19 11:51 Freq: QSHIFT Status: Active Target: Protocol: Activity Type Activity Date Activity User E-Sign Co-Sign Detail Recorded Client Recorded Date Recorded By Document 01/06/19 10:21 [email or web address] 01/06/19 10:22 01/06/19 10:21 PMRU Outcome: Pain/Comfort Outcome/Goals Demonstrates Knowledge and Use of Available Comfort Measures Achieves Acceptable Comfort/Pain Level as Determined by Patient/Condit Maintain Comfort Level Allowing Patient to Fully Participate in Rehab Progression Toward Outcome/Goals Progressing Outcome/Goals Met Comment cryo unit in place. tylenol given Safety- Improve/Maintain Start: 01/01/19 11:51 Freq: QSHIFT Status: Active Target: Protocol: Activity Type Activity Date Activity User E-Sign Co-Sign Detail Recorded Client Recorded Date Recorded By Document 01/06/19 10:21 [email or web address] 01/06/19 10:22 01/06/19 10:21 PMRU Outcome: Safety Outcome/Goals Remain Free of Injury or Harm Cooperates with Safety Measures for Least Restrictive Environment Prevent Falls/ Injury Progression Toward Outcome/Goals Progressing Outcome/Goals Met Comment BA armed when in bed, PA on when oob Skin- Improve/Maintain Start: 01/01/19 11:51 Freq: QSHIFT Status: Active Target: Protocol: Activity Type Activity Date Activity User E-Sign Co-Sign Detail Recorded Client Recorded Date Recorded By Document 01/06/19 10:21 [email or web address] 01/06/19 10:22 01/06/19 10:21 PMRU Outcome: Skin Skin Orders Teach Patient Turn/Position q2hr While in Bed Outcome/Goals Free from Decubitus Surgical Incisions Healing Progression Toward Outcome/Goals Progressing Outcome/Goals Met Comment incision intact with sutures. mild redness noted Medicine Note: Length of Stay: 3 days Anticipated Discharge Destination: Home Tentative Discharge Date: 01/09/19 Discharged to: Home
[2019-01-06] MEDS: Magnesium Oxide TAB* 400 MG PO SCH (13:11)
[2019-01-06] MEDS: Pyridoxine TAB* 50 MG PO SCH (13:11)
[2019-01-06] MEDS: Cyanocobalamin TAB* 500 MCG PO SCH (13:11)
[2019-01-06] MEDS: Pantoprazole TAB * 40 MG TAB PO SCH (17:06)
[2019-01-06] MEDS: Atorvastatin* 10 MG TAB PO SCH (17:06)
--- NOTE | 2019-01-06 19:27 | PN ---
Progress Note Date of Service: 01/06/19 Note: INA BETTENCOURT was visited. Therapy notes read and reviewed. He was discussed in interdisciplinary team rounds. He has improved and will go home Saturday. Current Medications: Active Medications Generic Name Dose Route Start Last Admin Trade Name Freq PRN Reason Stop Dose Admin Acetaminophen 650 mg 01/01/19 12:15 01/06/19 17:05 Tylenol Tab* PO 650 mg Q6H PRN Administration FEVER/PAIN Apixaban 2.5 mg 01/01/19 21:00 01/06/19 09:12 Eliquis* PO 2.5 mg BID EVAN Administration Atorvastatin Calcium 10 mg 01/01/19 17:00 01/06/19 17:06 Lipitor* PO 10 mg 1700 EVAN Administration Carbidopa/Levodopa 1 tab 01/02/19 09:00 01/06/19 13:11 Sinemet 25/100 Tab(*) PO 1 tab 0900,1200 EVAN Administration Carbidopa/Levodopa 0.5 tab 01/01/19 17:30 01/06/19 17:07 Sinemet 25/100 Tab(*) PO 0.5 tab 1730 EVAN Administration Cetirizine HCl 10 mg 01/01/19 21:00 01/05/19 21:26 Zyrtec* PO 10 mg BEDTIME EVAN Administration Protocol Cholecalciferol 1,000 units 01/02/19 09:00 01/06/19 09:12 Vitamin D Tab* PO 1,000 units DAILY EVAN Administration Cyanocobalamin 1,000 mcg 01/02/19 12:00 01/06/19 13:11 Vitamin B12 Tab* PO 1,000 mcg 1200 EVAN Administration Docusate Sodium 100 mg 01/01/19 21:00 01/06/19 09:18 Colace Cap* PO Not Given BID EVAN Folic Acid 0.5 mg 01/02/19 09:00 01/06/19 09:12 Folvite Tab* PO 0.5 mg DAILY EVAN Administration Furosemide 20 mg 01/03/19 11:00 01/06/19 09:12 Lasix Tab* PO 20 mg DAILY EVAN Administration Magnesium Hydroxide 30 ml 01/01/19 12:15 Milk Of Magnesia Liq* PO Q6H PRN CONSTIPATION Magnesium Oxide 400 mg 01/02/19 12:00 01/06/19 13:11 Magox 400 Tab* PO 400 mg 1200 EVAN Administration Oxycodone/Acetaminophen 2 tab 01/01/19 12:27 01/02/19 08:08 Percocet 5/325 Tab* PO 2 tab Q4H PRN Administration PAIN - SEVERE Oxycodone/Acetaminophen 1 tab 01/01/19 12:28 Percocet 5/325 Tab* PO Q4H PRN PAIN - MODERATE TO SEVERE Pantoprazole Sodium 40 mg 01/04/19 17:00 01/06/19 17:06 Protonix Tab* PO 40 mg 1700 EVAN Administration Polyethylene Glycol/Electrolytes 17 gm 01/03/19 09:45 Miralax* PO DAILY PRN constipation Polyvinyl Alcohol 1 drop 01/04/19 13:00 01/06/19 17:09 Polyvinyl Alcohol 1.4% Opth* BOTH EYES 1 drop QID EVAN Administration Pyridoxine HCl 100 mg 01/02/19 12:00 01/06/19 13:11 Vitamin B6 Tab* PO 100 mg 1200 EVAN Administration Ramipril 2.5 mg 01/03/19 21:00 01/05/19 21:26 Altace Cap* PO 2.5 mg BEDTIME EVAN Administration Selegiline HCl 5 mg 01/02/19 08:00 01/06/19 13:11 Eldepryl Tab* PO 5 mg 0800,1200 EVAN Administration Senna 2 tab 01/03/19 21:00 01/05/19 21:27 Senokot Tab* PO Not Given BEDTIME EVAN Simethicone 80 mg 01/03/19 09:46 Mylicon Tab* PO Q6H PRN bloating, gas Sodium Chloride 1 spray 01/04/19 10:30 01/06/19 09:10 Sodium Chloride 0.65% Nasal [place]* BOTH NARES 1 spray BID EVAN Administration Vital Signs: Vital Signs Temp Pulse Resp BP Pulse Ox 97.3 F 88 18 128/55 100 01/06/19 18:15 01/06/19 18:15 01/06/19 18:27 01/06/19 18:15 01/06/19 18:27 Exam: GENERAL: no acute distress. Alert and appropriate. LUNGS: clear to auscultation bilaterally. HEART: regular rate and rhythm ABDOMEN: + bowel sounds, soft, non-tender, non-distended EXTREMITIES: Some edema in operative leg as expected. SuturesC/D/I NEUROLOGIC: Sensation intact x4. Motor 5/5 BUE/BLE except limited testing of right knee and hip secondary to pain. Resting tremor Assessment/Plan: 78yo man with Parkinsons disease s/p right TKR 1. Right TKR: f/u with Dr. Swartz. Pain meds as needed. PT/OT 2. Acute post-op anemia and thrombocytopenia: stable. 3. Parkinsons disease: continue sinemet and eldepryl 4. Hypertension: Restarted home ramipril and lasix. 5. GERD: hospital does not have prilosec. rx pantoprazole before dinner per his request. 6. DVT prophylaxis: eliquis 7. Advanced directives: full code. 8. Estimated LOS: 01/16/19. 01/06/19 19:28
[2019-01-06] MEDS: Cetirizine* 10 MG TAB PO SCH (20:28)
[2019-01-06] MEDS: Senna TAB PO SCH (20:29)
[2019-01-06] MEDS: Ramipril CAP* 2.5 MG PO SCH (20:29)
[2019-01-07] MEDS: Folic Acid TAB* 1 MG PO SCH (09:16)
[2019-01-07] MEDS: Carbidopa/Levodop 25/100 MG TAB(*) PO SCH ×3 (09:17→17:30)
[2019-01-07] MEDS: Docusate CAP* 100 MG PO SCH ×2 (09:17→20:18)
[2019-01-07] MEDS: Selegiline TAB* 5 MG PO SCH ×2 (09:17→12:54)
[2019-01-07] MEDS: Acetaminophen TAB* 325 MG PO PRN ×2 (09:18→17:38)
[2019-01-07] MEDS: Furosemide TAB* 20 MG PO SCH (09:18)
[2019-01-07] MEDS: Apixaban* 2.5 MG TAB PO SCH ×2 (09:18→20:17)
[2019-01-07] MEDS: Cholecalciferol TAB* 1000 UNITS PO SCH (09:18)
[2019-01-07] MEDS: Saline NASAL SPRAY 0.65%* BTL BOTH NARES SCH ×2 (09:19→20:20)
[2019-01-07] MEDS: Artificial Tears* 15 ML BTL BOTH EYES SCH ×4 (09:20→20:20)
[2019-01-07] MEDS: Magnesium Oxide TAB* 400 MG PO SCH (12:54)
[2019-01-07] MEDS: Pyridoxine TAB* 50 MG PO SCH (12:54)
[2019-01-07] MEDS: Cyanocobalamin TAB* 500 MCG PO SCH (12:55)
[2019-01-07] MEDS: Pantoprazole TAB * 40 MG TAB PO SCH (17:30)
[2019-01-07] MEDS: Atorvastatin* 10 MG TAB PO SCH (17:30)
[2019-01-07] MEDS: Ramipril CAP* 2.5 MG PO SCH (20:18)
[2019-01-07] MEDS: Cetirizine* 10 MG TAB PO SCH (20:18)
[2019-01-07] MEDS: Senna TAB PO SCH (20:18)
--- NOTE | 2019-01-07 23:03 | PN ---
Progress Note Date of Service: 01/07/19 Note: INA BETTENCOURT was visited. Therapy notes read and reviewed. Watched him in gym. Doing well. Gets out of chair slowly; not surprising given his PD Current Medications: Active Medications Generic Name Dose Route Start Last Admin Trade Name Freq PRN Reason Stop Dose Admin Acetaminophen 650 mg 01/01/19 12:15 01/07/19 17:38 Tylenol Tab* PO 650 mg Q6H PRN Administration FEVER/PAIN Apixaban 2.5 mg 01/01/19 21:00 01/07/19 20:17 Eliquis* PO 2.5 mg BID EVAN Administration Atorvastatin Calcium 10 mg 01/01/19 17:00 01/07/19 17:30 Lipitor* PO 10 mg 1700 EVAN Administration Carbidopa/Levodopa 1 tab 01/02/19 09:00 01/07/19 12:54 Sinemet 25/100 Tab(*) PO 1 tab 0900,1200 EVAN Administration Carbidopa/Levodopa 0.5 tab 01/01/19 17:30 01/07/19 17:30 Sinemet 25/100 Tab(*) PO 0.5 tab 1730 EVAN Administration Cetirizine HCl 10 mg 01/01/19 21:00 01/07/19 20:18 Zyrtec* PO 10 mg BEDTIME EVAN Administration Protocol Cholecalciferol 1,000 units 01/02/19 09:00 01/07/19 09:18 Vitamin D Tab* PO 1,000 units DAILY EVAN Administration Cyanocobalamin 1,000 mcg 01/02/19 12:00 01/07/19 12:55 Vitamin B12 Tab* PO 1,000 mcg 1200 EVAN Administration Docusate Sodium 100 mg 01/01/19 21:00 01/07/19 20:18 Colace Cap* PO 100 mg BID EVAN Administration Folic Acid 0.5 mg 01/02/19 09:00 01/07/19 09:16 Folvite Tab* PO 0.5 mg DAILY EVAN Administration Furosemide 20 mg 01/03/19 11:00 01/07/19 09:18 Lasix Tab* PO 20 mg DAILY EVAN Administration Magnesium Hydroxide 30 ml 01/01/19 12:15 Milk Of Magnesia Liq* PO Q6H PRN CONSTIPATION Magnesium Oxide 400 mg 01/02/19 12:00 01/07/19 12:54 Magox 400 Tab* PO 400 mg 1200 EVAN Administration Oxycodone/Acetaminophen 2 tab 01/01/19 12:27 01/02/19 08:08 Percocet 5/325 Tab* PO 2 tab Q4H PRN Administration PAIN - SEVERE Oxycodone/Acetaminophen 1 tab 01/01/19 12:28 Percocet 5/325 Tab* PO Q4H PRN PAIN - MODERATE TO SEVERE Pantoprazole Sodium 40 mg 01/04/19 17:00 01/07/19 17:30 Protonix Tab* PO 40 mg 1700 EVAN Administration Polyethylene Glycol/Electrolytes 17 gm 01/03/19 09:45 Miralax* PO DAILY PRN constipation Polyvinyl Alcohol 1 drop 01/04/19 13:00 01/07/19 20:20 Polyvinyl Alcohol 1.4% Opth* BOTH EYES 1 drop QID EVAN Administration Pyridoxine HCl 100 mg 01/02/19 12:00 01/07/19 12:54 Vitamin B6 Tab* PO 100 mg 1200 EVAN Administration Ramipril 2.5 mg 01/03/19 21:00 01/07/19 20:18 Altace Cap* PO 2.5 mg BEDTIME EVAN Administration Selegiline HCl 5 mg 01/02/19 08:00 01/07/19 12:54 Eldepryl Tab* PO 5 mg 0800,1200 EVAN Administration Senna 2 tab 01/03/19 21:00 01/07/19 20:18 Senokot Tab* PO 2 tab BEDTIME EVAN Administration Simethicone 80 mg 01/03/19 09:46 Mylicon Tab* PO Q6H PRN bloating, gas Sodium Chloride 1 spray 01/04/19 10:30 01/07/19 20:20 Sodium Chloride 0.65% Nasal [place]* BOTH NARES 1 spray BID EVAN Administration Vital Signs: Vital Signs Temp Pulse Resp BP Pulse Ox 98.0 F 84 20 112/53 96 01/07/19 05:31 01/07/19 16:50 01/07/19 19:38 01/07/19 16:50 01/07/19 19:38 Exam: GENERAL: no acute distress. Alert and appropriate. LUNGS: clear to auscultation bilaterally. HEART: regular rate and rhythm ABDOMEN: + bowel sounds, soft, non-tender, non-distended EXTREMITIES: Some edema in operative leg as expected. SuturesC/D/I NEUROLOGIC: Sensation intact x4. Motor 5/5 BUE/BLE except limited testing of right knee and hip secondary to pain. Resting tremor Assessment/Plan: 78yo man with Parkinsons disease s/p right TKR 1. Right TKR: f/u with Dr. Swartz. Pain meds as needed. PT/OT 2. Acute post-op anemia and thrombocytopenia: stable. 3. Parkinsons disease: continue sinemet and eldepryl 4. Hypertension: Restarted home ramipril and lasix. 5. GERD: pantoprazole before dinner per his request. 6. DVT prophylaxis: eliquis 7. Advanced directives: full code. 8. Estimated LOS: 01/10/19. 01/07/19 23:04
[2019-01-08] MEDS: Folic Acid TAB* 1 MG PO SCH (08:01)
[2019-01-08] MEDS: Artificial Tears* 15 ML BTL BOTH EYES SCH ×4 (08:01→21:06)
[2019-01-08] MEDS: Saline NASAL SPRAY 0.65%* BTL BOTH NARES SCH ×2 (08:01→21:06)
[2019-01-08] MEDS: Apixaban* 2.5 MG TAB PO SCH ×2 (08:02→21:05)
[2019-01-08] MEDS: Carbidopa/Levodop 25/100 MG TAB(*) PO SCH ×3 (08:02→16:41)
[2019-01-08] MEDS: Selegiline TAB* 5 MG PO SCH ×2 (08:02→12:23)
[2019-01-08] MEDS: Furosemide TAB* 20 MG PO SCH (08:02)
[2019-01-08] MEDS: Acetaminophen TAB* 325 MG PO PRN ×2 (08:03→14:00)
[2019-01-08] MEDS: Cholecalciferol TAB* 1000 UNITS PO SCH (08:03)
[2019-01-08] MEDS: Docusate CAP* 100 MG PO SCH ×2 (08:04→21:05)
[2019-01-08] MEDS: Magnesium Oxide TAB* 400 MG PO SCH (12:23)
[2019-01-08] MEDS: Pyridoxine TAB* 50 MG PO SCH (12:23)
[2019-01-08] MEDS: Cyanocobalamin TAB* 500 MCG PO SCH (12:23)
[2019-01-08] MEDS: Atorvastatin* 10 MG TAB PO SCH (16:40)
[2019-01-08] MEDS: Pantoprazole TAB * 40 MG TAB PO SCH (16:40)
--- NOTE | 2019-01-08 20:17 | PN ---
Progress Note Date of Service: 01/08/19 Note: INA BETTENCOURT was visited. Therapy notes read and reviewed. He feels good. His knee looks clean. No complaints of SOB or chest pain Current Medications: Active Medications Generic Name Dose Route Start Last Admin Trade Name Freq PRN Reason Stop Dose Admin Acetaminophen 650 mg 01/01/19 12:15 01/08/19 14:00 Tylenol Tab* PO 650 mg Q6H PRN Administration FEVER/PAIN Apixaban 2.5 mg 01/01/19 21:00 01/08/19 08:02 Eliquis* PO 2.5 mg BID EVAN Administration Atorvastatin Calcium 10 mg 01/01/19 17:00 01/08/19 16:40 Lipitor* PO 10 mg 1700 EVAN Administration Carbidopa/Levodopa 1 tab 01/02/19 09:00 01/08/19 12:23 Sinemet 25/100 Tab(*) PO 1 tab 0900,1200 EVAN Administration Carbidopa/Levodopa 0.5 tab 01/01/19 17:30 01/08/19 16:41 Sinemet 25/100 Tab(*) PO 0.5 tab 1730 EVAN Administration Cetirizine HCl 10 mg 01/01/19 21:00 01/07/19 20:18 Zyrtec* PO 10 mg BEDTIME EVAN Administration Protocol Cholecalciferol 1,000 units 01/02/19 09:00 01/08/19 08:03 Vitamin D Tab* PO 1,000 units DAILY EVAN Administration Cyanocobalamin 1,000 mcg 01/02/19 12:00 01/08/19 12:23 Vitamin B12 Tab* PO 1,000 mcg 1200 EVAN Administration Docusate Sodium 100 mg 01/01/19 21:00 01/08/19 08:04 Colace Cap* PO 100 mg BID EVAN Administration Folic Acid 0.5 mg 01/02/19 09:00 01/08/19 08:01 Folvite Tab* PO 0.5 mg DAILY EVAN Administration Furosemide 20 mg 01/03/19 11:00 01/08/19 08:02 Lasix Tab* PO 20 mg DAILY EVAN Administration Magnesium Hydroxide 30 ml 01/01/19 12:15 Milk Of Magnesia Liq* PO Q6H PRN CONSTIPATION Magnesium Oxide 400 mg 01/02/19 12:00 01/08/19 12:23 Magox 400 Tab* PO 400 mg 1200 EVAN Administration Oxycodone/Acetaminophen 2 tab 01/01/19 12:27 01/02/19 08:08 Percocet 5/325 Tab* PO 2 tab Q4H PRN Administration PAIN - SEVERE Oxycodone/Acetaminophen 1 tab 01/01/19 12:28 Percocet 5/325 Tab* PO Q4H PRN PAIN - MODERATE TO SEVERE Pantoprazole Sodium 40 mg 01/04/19 17:00 01/08/19 16:40 Protonix Tab* PO 40 mg 1700 EVAN Administration Polyethylene Glycol/Electrolytes 17 gm 01/03/19 09:45 Miralax* PO DAILY PRN constipation Polyvinyl Alcohol 1 drop 01/04/19 13:00 01/08/19 16:40 Polyvinyl Alcohol 1.4% Opth* BOTH EYES 1 drop QID EVAN Administration Pyridoxine HCl 100 mg 01/02/19 12:00 01/08/19 12:23 Vitamin B6 Tab* PO 100 mg 1200 EVAN Administration Ramipril 2.5 mg 01/03/19 21:00 01/07/19 20:18 Altace Cap* PO 2.5 mg BEDTIME EVAN Administration Selegiline HCl 5 mg 01/02/19 08:00 01/08/19 12:23 Eldepryl Tab* PO 5 mg 0800,1200 EVAN Administration Senna 2 tab 01/03/19 21:00 01/07/19 20:18 Senokot Tab* PO 2 tab BEDTIME EVAN Administration Simethicone 80 mg 01/03/19 09:46 Mylicon Tab* PO Q6H PRN bloating, gas Sodium Chloride 1 spray 01/04/19 10:30 01/08/19 08:01 Sodium Chloride 0.65% Nasal [place]* BOTH NARES 1 spray BID EVAN Administration Vital Signs: Vital Signs Temp Pulse Resp BP Pulse Ox 98.5 F 88 24 113/49 96 01/08/19 14:54 01/08/19 14:54 01/08/19 14:54 01/08/19 14:54 01/08/19 19:20 Exam: GENERAL: no acute distress. Alert and appropriate. LUNGS: clear to auscultation bilaterally. HEART: regular rate and rhythm ABDOMEN: + bowel sounds, soft, non-tender, non-distended EXTREMITIES: Some edema in operative leg as expected. SuturesC/D/I NEUROLOGIC: Sensation intact x4. Motor 5/5 BUE/BLE except limited testing of right knee and hip secondary to pain. Resting tremor Assessment/Plan: 78yo man with Parkinsons disease s/p right TKR 1. Right TKR: f/u with Dr. Swartz. Pain meds as needed. PT/OT 2. Thrombocytopenia: stable. 3. Parkinsons disease: continue sinemet and eldepryl 4. Hypertension: Restarted home ramipril and lasix. 5. GERD: pantoprazole 6. DVT prophylaxis: eliquis 7. Advanced directives: full code. 8. Estimated LOS: 01/10/19. 01/08/19 20:17 01/08/19 20:18
[2019-01-08] MEDS: Ramipril CAP* 2.5 MG PO SCH (21:05)
[2019-01-08] MEDS: Cetirizine* 10 MG TAB PO SCH (21:05)
[2019-01-08] MEDS: Senna TAB PO SCH (21:08)
[2019-01-09 05:40] LABS: ABS Basophils 0 10^3/ul (0-0.2); ABS Eosinophils 0 10^3/ul (0-0.6); ABS Lymphocytes 1.7 10^3/ul (1.0-4.8); ABS Monocytes 0.6 10^3/ul (0-0.8); ABS Neutrophils 5.1 10^3/ul (1.5-7.7); ABS Nucleated RBC 0 10^3/ul; Eosinophil % 0.3 %; Hematocrit 36 % (36-46); Hemoglobin 12.1 g/dL (14.0-18.0); Lymphocyte % 22.8 %; Mean Corpuscular HGB Conc 34 g/dL (31-36); Mean Corpuscular Hemoglobin 32 pg (27-31); Mean Corpuscular Volume 94 fL (80-94); Mean Platelet Volume 7.6 fL (7.4-10.4); Nucleated Red Blood Cells % 0.1; Platelet Count 303 10^3/uL (150-450); Red Blood Count 3.84 10^6 /uL (4.18-5.48); Red Cell Distribution Width 15 % (10.5-15); White Blood Count 7.4 10^3/uL (3.5-10.8)
[2019-01-09 05:56] LABS: Albumin 3.5 g/dL (3.2-5.2); BUN/Creatinine Ratio 19.2 (8-20); Calcium 9.1 mg/dL (8.6-10.3); EGFR African American 83.1 (>60); EGFR Non-African American 68.7 (>60); Globulin 3.4 g/dL (2-4); Potassium 3.8 mmol/L (3.5-5.0); Total Bilirubin 0.6 mg/dL (0.2-1.0); Total Protein 6.9 g/dL (6.4-8.9)
[2019-01-09] MEDS: Folic Acid TAB* 1 MG PO SCH (08:57)
[2019-01-09] MEDS: Furosemide TAB* 20 MG PO SCH (08:58)
[2019-01-09] MEDS: Apixaban* 2.5 MG TAB PO SCH ×2 (08:58→22:10)
[2019-01-09] MEDS: Selegiline TAB* 5 MG PO SCH ×2 (08:58→12:39)
[2019-01-09] MEDS: Docusate CAP* 100 MG PO SCH ×2 (08:58→22:12)
[2019-01-09] MEDS: Cholecalciferol TAB* 1000 UNITS PO SCH (08:58)
[2019-01-09] MEDS: Carbidopa/Levodop 25/100 MG TAB(*) PO SCH ×3 (08:59→17:16)
[2019-01-09] MEDS: Acetaminophen TAB* 325 MG PO PRN ×3 (08:59→22:09)
[2019-01-09] MEDS: Artificial Tears* 15 ML BTL BOTH EYES SCH ×4 (09:01→22:11)
[2019-01-09] MEDS: Saline NASAL SPRAY 0.65%* BTL BOTH NARES SCH ×2 (09:01→22:11)
--- NOTE | 2019-01-09 10:22 | PN ---
Progress Note Date of Service: 01/09/19 Note: INA BETTENCOURT was visited. Nursing and therapy notes read and reviewed. No chest pain, shortness of breath or abdominal pain. Eager to go home tomorrow. Current Medications: Active Medications Generic Name Dose Route Start Last Admin Trade Name Freq PRN Reason Stop Dose Admin Acetaminophen 650 mg 01/01/19 12:15 01/09/19 08:59 Tylenol Tab* PO 650 mg Q6H PRN Administration FEVER/PAIN Apixaban 2.5 mg 01/01/19 21:00 01/09/19 08:58 Eliquis* PO 2.5 mg BID EVAN Administration Atorvastatin Calcium 10 mg 01/01/19 17:00 01/08/19 16:40 Lipitor* PO 10 mg 1700 EVAN Administration Carbidopa/Levodopa 1 tab 01/02/19 09:00 01/09/19 08:59 Sinemet 25/100 Tab(*) PO 1 tab 0900,1200 EVAN Administration Carbidopa/Levodopa 0.5 tab 01/01/19 17:30 01/08/19 16:41 Sinemet 25/100 Tab(*) PO 0.5 tab 1730 EVAN Administration Cetirizine HCl 10 mg 01/01/19 21:00 01/08/19 21:05 Zyrtec* PO 10 mg BEDTIME EVAN Administration Protocol Cholecalciferol 1,000 units 01/02/19 09:00 01/09/19 08:58 Vitamin D Tab* PO 1,000 units DAILY EVAN Administration Cyanocobalamin 1,000 mcg 01/02/19 12:00 01/08/19 12:23 Vitamin B12 Tab* PO 1,000 mcg 1200 EVAN Administration Docusate Sodium 100 mg 01/01/19 21:00 01/09/19 08:58 Colace Cap* PO 100 mg BID EVAN Administration Folic Acid 0.5 mg 01/02/19 09:00 01/09/19 08:57 Folvite Tab* PO 0.5 mg DAILY EVAN Administration Furosemide 20 mg 01/03/19 11:00 01/09/19 08:58 Lasix Tab* PO 20 mg DAILY EVAN Administration Magnesium Hydroxide 30 ml 01/01/19 12:15 Milk Of Magnesia Liq* PO Q6H PRN CONSTIPATION Magnesium Oxide 400 mg 01/02/19 12:00 04/25/19 12:23 Magox 400 Tab* PO 400 mg 1200 EVAN Administration Oxycodone/Acetaminophen 2 tab 01/01/19 12:27 01/02/19 08:08 Percocet 5/325 Tab* PO 2 tab Q4H PRN Administration PAIN - SEVERE Oxycodone/Acetaminophen 1 tab 01/01/19 12:28 Percocet 5/325 Tab* PO Q4H PRN PAIN - MODERATE TO SEVERE Pantoprazole Sodium 40 mg 01/04/19 17:00 01/08/19 16:40 Protonix Tab* PO 40 mg 1700 EVAN Administration Polyethylene Glycol/Electrolytes 17 gm 01/03/19 09:45 Miralax* PO DAILY PRN constipation Polyvinyl Alcohol 1 drop 01/04/19 13:00 01/09/19 09:01 Polyvinyl Alcohol 1.4% Opth* BOTH EYES 1 drop QID EVAN Administration Pyridoxine HCl 100 mg 01/02/19 12:00 01/08/19 12:23 Vitamin B6 Tab* PO 100 mg 1200 EVAN Administration Ramipril 2.5 mg 01/03/19 21:00 01/08/19 21:05 Altace Cap* PO 2.5 mg BEDTIME EVAN Administration Selegiline HCl 5 mg 01/02/19 08:00 01/09/19 08:58 Eldepryl Tab* PO 5 mg 0800,1200 EVAN Administration Senna 2 tab 01/03/19 21:00 01/08/19 21:08 Senokot Tab* PO Not Given BEDTIME EVAN Simethicone 80 mg 01/03/19 09:46 Mylicon Tab* PO Q6H PRN bloating, gas Sodium Chloride 1 spray 01/04/19 10:30 01/09/19 09:01 Sodium Chloride 0.65% Nasal [place]* BOTH NARES 1 spray BID EVAN Administration Vital Signs: Vital Signs Temp Pulse Resp BP Pulse Ox 98.3 F 84 20 132/55 97 01/09/19 04:40 01/09/19 04:40 01/09/19 04:40 01/09/19 04:40 01/09/19 04:40 Lab Results: Laboratory Results - last 24 hr 01/09/19 01/09/19 04:49 04:49 WBC 7.4 RBC 3.84 L Hgb 12.1 L Hct 36 MCV 94 MCH 32 H MCHC 34 RDW 15 Plt Count 303 MPV 7.6 Neut % (Auto) 68.6 Lymph % (Auto) 22.8 Giles % (Auto) 8.1 Eos % (Auto) 0.3 Baso % (Auto) 0.2 Absolute Neuts (auto) 5.1 Absolute Lymphs (auto) 1.7 Absolute Monos (auto) 0.6 Absolute Eos (auto) 0 Absolute Basos (auto) 0 Absolute Nucleated RBC 0 Nucleated RBC % 0.1 Sodium 139 Potassium 3.8 Chloride 104 Carbon Dioxide 28 Anion Gap 7 BUN 20 Creatinine 1.04 Est GFR ( Amer) 83.1 Est GFR (Non-Af Amer) 68.7 BUN/Creatinine Ratio 19.2 Glucose 90 Calcium 9.1 Total Bilirubin 0.60 AST 30 ALT 32 Alkaline Phosphatase 73 Total Protein 6.9 Albumin 3.5 Globulin 3.4 Albumin/Globulin Ratio 1.0 Exam: GENERAL: no acute distress. Alert and appropriate. LUNGS: clear to auscultation bilaterally. HEART: regular rate and rhythm ABDOMEN: + bowel sounds, soft, non-tender, non-distended EXTREMITIES: Some edema in operative leg as expected. Sutures C/D/I NEUROLOGIC: Sensation intact x4. Motor 5/5 BUE/BLE except limited testing of right knee and hip secondary to pain. Resting tremor Assessment/Plan: 78yo man with Parkinsons disease s/p right TKR 1. Right TKR: f/u with Dr. Swartz. Pain meds as needed. PT/OT 2. Thrombocytopenia: stable. 3. Parkinsons disease: continue sinemet and eldepryl 4. Hypertension: Restarted home ramipril and lasix. 5. GERD: pantoprazole 6. DVT prophylaxis: eliquis 7. Advanced directives: full code. 8. Estimated LOS: 01/10/19. 01/09/19 10:21
[2019-01-09] MEDS: Pyridoxine TAB* 50 MG PO SCH (12:39)
[2019-01-09] MEDS: Magnesium Oxide TAB* 400 MG PO SCH (12:40)
[2019-01-09] MEDS: Cyanocobalamin TAB* 500 MCG PO SCH (12:40)
[2019-01-09] MEDS: Pantoprazole TAB * 40 MG TAB PO SCH (16:14)
[2019-01-09] MEDS: Atorvastatin* 10 MG TAB PO SCH (16:14)
[2019-01-09] MEDS: Ramipril CAP* 2.5 MG PO SCH (22:09)
[2019-01-09] MEDS: Cetirizine* 10 MG TAB PO SCH (22:10)
[2019-01-09] MEDS: Senna TAB PO SCH (22:15)
[2019-01-10 04:22] VITALS: BP 134/63
[2019-01-10] MEDS: Acetaminophen TAB* 325 MG PO PRN (08:09)
[2019-01-10] MEDS: Furosemide TAB* 20 MG PO SCH (08:09)
[2019-01-10] MEDS: Docusate CAP* 100 MG PO SCH (08:09)
[2019-01-10] MEDS: Folic Acid TAB* 1 MG PO SCH (08:10)
[2019-01-10] MEDS: Carbidopa/Levodop 25/100 MG TAB(*) PO SCH (08:10)
[2019-01-10] MEDS: Cholecalciferol TAB* 1000 UNITS PO SCH (08:11)
[2019-01-10] MEDS: Selegiline TAB* 5 MG PO SCH (08:11)
[2019-01-10] MEDS: Apixaban* 2.5 MG TAB PO SCH (08:11)
[2019-01-10] MEDS: Saline NASAL SPRAY 0.65%* BTL BOTH NARES SCH (08:12)
[2019-01-10] MEDS: Artificial Tears* 15 ML BTL BOTH EYES SCH (08:12)
--- NOTE | 2019-01-10 09:59 | PN ---
Progress Note Date of Service: 01/10/19 Note: INA BETTENCOURT was visited. Nursing and therapy notes read and reviewed. He has a set up at home with bidet, raised seat, grab bars and AD to wipe that he is confident he will be able to do at home independently. He feels ready to d/ c home today. No chest pain, shortness of breath or abdominal pain. Current Medications: Active Medications Generic Name Dose Route Start Last Admin Trade Name Freq PRN Reason Stop Dose Admin Acetaminophen 650 mg 01/01/19 12:15 01/10/19 08:09 Tylenol Tab* PO 650 mg Q6H PRN Administration FEVER/PAIN Apixaban 2.5 mg 01/01/19 21:00 01/10/19 08:11 Eliquis* PO 2.5 mg BID EVAN Administration Atorvastatin Calcium 10 mg 01/01/19 17:00 01/09/19 16:14 Lipitor* PO 10 mg 1700 EVAN Administration Carbidopa/Levodopa 1 tab 01/02/19 09:00 01/10/19 08:10 Sinemet 25/100 Tab(*) PO 1 tab 0900,1200 EVAN Administration Carbidopa/Levodopa 0.5 tab 01/01/19 17:30 01/09/19 17:16 Sinemet 25/100 Tab(*) PO 0.5 tab 1730 EVAN Administration Cetirizine HCl 10 mg 01/01/19 21:00 01/09/19 22:10 Zyrtec* PO 10 mg BEDTIME EVAN Administration Protocol Cholecalciferol 1,000 units 01/02/19 09:00 01/10/19 08:11 Vitamin D Tab* PO 1,000 units DAILY EVAN Administration Cyanocobalamin 1,000 mcg 01/02/19 12:00 01/09/19 12:40 Vitamin B12 Tab* PO 1,000 mcg 1200 EVAN Administration Docusate Sodium 100 mg 01/01/19 21:00 01/10/19 08:09 Colace Cap* PO Not Given BID EVAN Folic Acid 0.5 mg 01/02/19 09:00 01/10/19 08:10 Folvite Tab* PO 0.5 mg DAILY EVAN Administration Furosemide 20 mg 01/03/19 11:00 01/10/19 08:09 Lasix Tab* PO 20 mg DAILY EVAN Administration Magnesium Hydroxide 30 ml 01/01/19 12:15 Milk Of Magnesia Liq* PO Q6H PRN CONSTIPATION Magnesium Oxide 400 mg 01/02/19 12:00 01/09/19 12:40 Magox 400 Tab* PO 400 mg 1200 EVAN Administration Oxycodone/Acetaminophen 2 tab 01/01/19 12:27 01/02/19 08:08 Percocet 5/325 Tab* PO 2 tab Q4H PRN Administration PAIN - SEVERE Oxycodone/Acetaminophen 1 tab 01/01/19 12:28 Percocet 5/325 Tab* PO Q4H PRN PAIN - MODERATE TO SEVERE Pantoprazole Sodium 40 mg 01/04/19 17:00 01/09/19 16:14 Protonix Tab* PO 40 mg 1700 EVAN Administration Polyethylene Glycol/Electrolytes 17 gm 01/03/19 09:45 Miralax* PO DAILY PRN constipation Polyvinyl Alcohol 1 drop 01/04/19 13:00 01/10/19 08:12 Polyvinyl Alcohol 1.4% Opth* BOTH EYES 1 drop QID EVAN Administration Pyridoxine HCl 100 mg 01/02/19 12:00 01/09/19 12:39 Vitamin B6 Tab* PO 100 mg 1200 EVAN Administration Ramipril 2.5 mg 01/03/19 21:00 01/09/19 22:09 Altace Cap* PO 2.5 mg BEDTIME EVAN Administration Selegiline HCl 5 mg 01/02/19 08:00 01/10/19 08:11 Eldepryl Tab* PO 5 mg 0800,1200 EVAN Administration Senna 2 tab 01/03/19 21:00 01/09/19 22:15 Senokot Tab* PO Not Given BEDTIME EVAN Simethicone 80 mg 01/03/19 09:46 Mylicon Tab* PO Q6H PRN bloating, gas Sodium Chloride 1 spray 01/04/19 10:30 01/10/19 08:12 Sodium Chloride 0.65% Nasal [place]* BOTH NARES 1 spray BID EVAN Administration Vital Signs: Vital Signs Temp Pulse Resp BP Pulse Ox 97.7 F 82 16 134/63 96 01/10/19 03:49 01/10/19 03:49 01/10/19 03:49 01/10/19 03:49 01/10/19 03:49 Exam: GENERAL: no acute distress. Alert and appropriate. LUNGS: clear to auscultation bilaterally. HEART: regular rate and rhythm ABDOMEN: + bowel sounds, soft, non-tender, non-distended EXTREMITIES: Sutures C/D/I. No thigh or knee erythema. NEUROLOGIC: Sensation intact x4. Motor 5/5 BUE/BLE. Resting tremor Assessment/Plan: 78yo man with Parkinsons disease s/p right TKR 1. Right TKR: f/u with Dr. Swartz next week for suture removal. Tylenol prn. Has not needed narcotics for a few days. 2. Thrombocytopenia: stable. 3. Parkinsons disease: continue sinemet and eldepryl 4. Hypertension: Restarted home ramipril and lasix. 5. GERD: pantoprazole 6. DVT prophylaxis: eliquis 30 days 7. Advanced directives: full code. 8. Estimated LOS: d/c home today. 01/10/19 09:56
--- NOTE | 2019-01-10 11:12 | DS ---
CC: Dr. Swartz; Dr. Nur. REHABILITATION DISCHARGE SUMMARY: DATE OF ADMISSION: 01/01/19 DATE OF DISCHARGE: 01/10/19 REASON FOR ADMISSION: Right total knee replacement and Parkinson disease. ORTHOPEDIC SURGEON: Dr. Swartz. PRIMARY CARE DOCTOR: Dr. Nur. HISTORY OF PRESENT ILLNESS: For full details of this acute hospitalization leading up to this admission, please see the note dictated by Dr. Torres on . HOSPITAL COURSE: During his time on the [facility], he remained on Eliquis for DVT prophylaxis. He has 19 days remaining. He was using Percocet for pain relief, but as his pain decreased, he was able just to manage with Tylenol on an as needed basis. He was able to resume his normal blood pressure medications and maintain on his current doses of medications for Parkinson disease as well. His baby aspirin has been on hold which he may resume after he is done with Eliquis. He participated well with physical therapy, and at the time of discharge, was independent with bed mobility, transferring with a rolling walker , and ambulation with a rolling walker. He can ascend stairs using a handrail and rolling walker with supervision. He also participated well with occupational therapy, and at the time of discharge, was independent with eating. He can bathe independently with a shower seat, grab bars, and a walker for transfers. He is independent with dressing with adaptive equipment. For toileting, he is independent with over toilet commode, walker and bidet at home. He is independent using a walker tray for home management and cooking. He was advised to take breaks as needed. He was noted on routine labs to have thrombocytopenia which seems stable. He had some GERD which was treated with pantoprazole substituting for omeprazole that he normally takes at home. That resolved without issue. DISCHARGE MEDICATIONS: 1. Tylenol 650 mg q.6 hours p.r.n. 2. Eliquis 2.5 mg b.i.d. 3. Fexofenadine 180 mg q.h.s. 4. Calcium carbonate with vitamin D b.i.d. 5. Vitamin D 1000 units q.a.m. 6. Lipitor 10 mg q.p.m. 7. Omeprazole 20 mg q.h.s. p.r.n. 8. Selegiline 5 mg b.i.d. 9. Carbidopa/levodopa 25/100 one tablet at 0700 and 1200 and 0.5 tablet at 1730. 10. Lasix 20 mg q.a.m. 11. Magnesium oxide 500 mg daily. 12. Vitamin B12 1000 mcg daily. 13. Flonase nasal spray 50 mcg 2 sprays both nares q.a.m. p.r.n. 14. Folic acid 400 mcg daily. 15. Pyridoxine 100 mg daily. 16. Ramipril 2.5 mg q.h.s. 17. Guaifenesin 600 mg q.a.m. p.r.n. 18. Saline nasal spray 1 spray both nares b.i.d. 19. Diclofenac 1% gel b.i.d. p.r.n. 20. Colace 100 mg b.i.d. 21. Baby aspirin has been on hold until he is off of Eliquis. FOLLOWUP: He already has an appointment to see Dr. Swartz next week for suture removal and followup of total knee replacement. He should follow up with his primary care provider within 1 month. A referral has been sent to [facility] [place], who are likely to see him on 01/12/19 for evaluation of home services. DISCHARGE CONDITION: Good. DISCHARGE DISPOSITION: Home. DISCHARGE DIAGNOSES: 1. Status post right total knee replacement. 2. Parkinson disease. 3. Hypertension. 4. Thrombocytopenia. 5. Gastroesophageal reflux disease. [id number]/CPS #: [id number] MTDD
== END 2019-01-10 11:40 | disposition home health service (06) | DRG 560 ==
LOC: PMRU 11:41
PROVIDERS: ADMIT Physical Medicine & Rehabilitation; ATTEND Physical Medicine & Rehabilitation
PROC: F07Z5ZZ Bed Mobility Treatment (ICD-10-PCS; principal; 2019-01-01)
PROC: F07Z9ZZ Gait Training/Functional Ambulation Treatment (ICD-10-PCS; 2019-01-01)
PROC: F07Z8ZZ Transfer Training Treatment (ICD-10-PCS; 2019-01-01)
PROC: F08Z0ZZ Bathing/Showering Techniques Treatment (ICD-10-PCS; 2019-01-01)
PROC: F08Z1ZZ Dressing Techniques Treatment (ICD-10-PCS; 2019-01-01)
PROC: F08Z3ZZ Feeding/Eating Treatment (ICD-10-PCS; 2019-01-01)
DX: Z47.1 Aftercare following joint replacement surgery (principal); G61.0 Guillain-Barre syndrome; G20 Parkinson's disease; D69.6 Thrombocytopenia, unspecified; I10 Essential (primary) hypertension; E78.5 Hyperlipidemia, unspecified; G47.33 Obstructive sleep apnea (adult) (pediatric); L24.0 Irritant contact dermatitis due to detergents; K21.9 Gastro-esophageal reflux disease without esophagitis; D64.9 Anemia, unspecified; Z96.651 Presence of right artificial knee joint; Z85.46 Personal history of malignant neoplasm of prostate; Z92.3 Personal history of irradiation; Z79.899 Other long term (current) drug therapy; Z88.0 Allergy status to penicillin; Z88.2 Allergy status to sulfonamides
CPT/HCPCS: 36415; 80053; 85025; A9270-GY